=== PATIENT | male | born 1960 | race Caucasian/White ===

== ENCOUNTER 2016-12-11 04:20 | Inpatient (IN) ==
[2016-12-11 04:39] LABS: Basophils % 0.4 %; Eosinophils % 0.1 %; Hematocrit 51.1 % (37.5-50.1); Hemoglobin 17.5 g/dL (12.9-16.9); Immature Granulocytes % 0.2 % (0-4); Immature Platelets 15.1 % (1.1-6.1); Lymphocytes % 12.1 %; Mean Corpuscular HGB Conc 34.2 g/dL (31.6-35.5); Mean Corpuscular Hemoglobin 31.8 pg (28.0-33.3); Mean Corpuscular Volume 92.7 fL (83.0-100.0); Mean Platelet Volume 11.9 fL (9.4-12.4); Monocytes # 0.9 K/mcL (0.0-1.3); Monocytes % 10.7 %; Red Blood Count 5.51 M/mcL (4.19-5.50); Red Cell Distribution Width 13.3 % (11.5-14.5); Segmented Neutrophils % 76.5 %
[2016-12-11 04:40] LABS: Neutrophils # 6.4 K/mcL (1.6-8.9); Platelet Count 82 K/mcL (140-400)
[2016-12-11] MEDS ORDERED: Ipratropium/Albuterol Neb 3 ML IH ONE (04:47)
[2016-12-11] MEDS ORDERED: methylPREDNISolone 125 MG/2 ML VIAL IVP ONE (04:47)
[2016-12-11 04:48] LABS: INR 1.1; Prothrombin Time 12.3 Seconds (9.4-12.1)
[2016-12-11 04:50] LABS: Activated Partial Thrombo Time 34.8 Seconds (26.0-36.0)
[2016-12-11] MEDS ORDERED: Thiamine (B-1) 100 MG in D5% in Water 50 ML IVPB STA (04:50)
[2016-12-11] MEDS ORDERED: MVI, adult with vitamin K 10 ML in 0.9 % Sodium Chloride 1,000 ML IVC ONE (04:50)
[2016-12-11] MEDS ORDERED: *HR* LORazepam 2 MG/ML VIAL IVP ONE ×2 (04:50→08:56)
[2016-12-11] MEDS ORDERED: Folic Acid 1 MG in D5% in Water 50 ML IVPB STA (04:50)
[2016-12-11] MEDS ORDERED: Aspirin 81 MG TAB.CHEW PO ONE (04:52)
--- NOTE | 2016-12-11 04:55 | Emergency Department Note ---
Disposition Clinical Impression: Alcohol withdrawal Qualifiers: Complication of substance-induced condition: with unspecified complication Qualified Code(s): F10.239 - Afib Qualifiers: Atrial fibrillation type: unspecified Qualified Code(s): I48.91 - Unspecified atrial fibrillation Disposition: Admitted As Inpatient Condition: Good Chest Pain HPI - General Chief Complaint: ED Chest Pain Stated Complaint: chest pain Time Seen by Provider: 12/11/16 04:23 Source: patient Limitations: no limitations Vital Signs Reviewed: Yes Nursing Notes Reviewed: Yes - History of Present Illness HPI Narrative: 56 year old male with HX of chronic alcoholism and atrial fibrillation from over 10 years ago states that kade aroun 2250 he started to feel palpitatiosn and increased midsternal chest pain associated with incresed shortness of breath and diaphoresis. he states that he has had a productive cough over the past few days and subjecive fevers with faituge and weakness. Patinet states that he has a history of high blood pressure and early family history of OR. Patinet states that he is not on medications for atrial fibrillaation at this time and not on blood thinner eithers. No previous ACS history and no HX of DVT/PEs. Severity scale (1-10): 10 - Related Data Home Medications Medication Instructions Recorded Confirmed Diclofenac Sodium [Voltaren] 75 mg PO BID 12/11/16 12/11/16 Terbinafine HCl [Lamisil] 250 mg PO DAILY 12/11/16 12/11/16 Previous Rx's Medication Instructions Recorded Omeprazole [PriLOSEC] 20 mg PO DAILY #30 cap 10/24/16 Allergies Allergy/AdvReac Type Severity Reaction Status Date / Time haloperidol [From Haldol] AdvReac Seizure Verified 12/11/16 06:22 Constitutional: Reports: fever, chills, weakness. Denies: weight change Eyes: Denies: eye pain, eye discharge, vision change ENT ED: Denies: ear pain, throat pain, dental pain, hearing loss, epistaxis, congestion, dysphagia Cardiovascular: Reports: chest pain, palpitations, dyspnea on exertion. Denies : edema, syncope Respiratory: Reports: cough, dyspnea, wheezes. Denies: hemoptysis, stridor Gastrointestinal: Denies: abdominal pain, nausea, vomiting, diarrhea, constipation, hematemesis, melena, hematochezia Genitourinary: Denies: urgency, dysuria, frequency, hematuria Musculoskeletal: Denies: back pain, neck pain, arthralgia, myalgia Integumentary: Denies: rash, abrasion, lesions Neurological: Denies: headache, weakness, numbness, paresthesias, confusion, abnormal gait, vertigo Psychiatric: Denies: anxiety, depression, suicidal thoughts, homicidal thoughts , auditory hallucinations, visual hallucinations Endocrine: Denies: fatigue Hematological/Lymphatic: Denies: easy bleeding, easy bruising Allergic/Immunologic: Denies: facial swelling, urticaria Chest Pain PMH - Past Medical History Medical history: Reports: cirrhosis, GERD, hepatitis, hypertension, other Surgical history: Reports: cataract (right 2016) Psychiatric history: Reports: anxiety, depression - Social History Smoking Status: Current every day smoker Alcohol use: Reports: heavy, recent Drug use: Reports: none Physical Exam - General Limitations: no limitations General appearance: alert, in no apparent distress - Head Head exam: atraumatic, normocephalic, normal inspection - Eye Eye exam: Present: normal appearance, PERRL, EOMI - Expanded Eye Exam Pupils: Left: reactive - ENT ENT exam: normal exam, normal oropharynx, mucous membranes moist - Expanded ENT Exam External ear exam: Present: normal external inspection Mouth exam: Present: normal external inspection Teeth exam: Present: normal inspection Throat exam: Present: normal inspection - Neck Neck exam: Present: normal inspection, full ROM, trachea midline - Chest Chest inspection: Present: normal inspection, symmetric chest wall rise - Respiratory Respiratory exam: Present: wheezes - Cardiovascular Cardiovascular exam: Present: normal rhythm, tachycardia, irregular rhythm, normal heart sounds - Abdominal Exam Abdominal exam: Present: soft, Non-Tender. Absent: tenderness, distention, guarding, rebound, rigidity - Extremities Exam Extremities exam: Present: normal inspection, full ROM. Absent: tenderness, pedal edema - Expanded Upper Extremity Exam Shoulder exam: Present: normal inspection, full ROM Arm exam: Present: normal inspection, full ROM Elbow exam: Present: normal inspection, full ROM Forearm/Wrist exam: Present: normal inspection, full ROM Hand exam: Present: normal inspection, full ROM Vascular exam: Normal: capillary refill, radial pulse - Expanded Lower Extremity Exam Hip/Pelvis exam: Present: normal inspection, full ROM Upper leg exam: Present: normal inspection, full ROM Knee exam: Present: normal inspection, full ROM Lower leg exam: Present: normal inspection, full ROM Ankle exam: Present: normal inspection, full ROM Foot/toe exam: Present: normal inspection, full ROM Neurovascular/Tendon exam: Absent: motor deficit, sensory deficit, tendon deficit - Back Exam Back exam: Present: normal inspection, full ROM. Absent: tenderness - Neurological Exam Neurological exam: Present: alert, oriented X3 - Expanded Neurological Exam Patient oriented to: Present: person, place, time Coma Scale Eye Opening: Spontaneous Coma Scale Motor Response: Obeys Commands Coma Scale Verbal Response: Oriented Coma Scale Total: 15 - Psychiatric Psychiatric exam: Present: normal affect, normal mood - Skin Skin exam: Present: warm, dry, intact, normal color Course Course Narrative: we will do a cardaic workup and start cadizem with drip and admit to medicine. Patient has a tangential history of how he most recently stoppped an antifungal medications for severe atheletes foot that he has onteh let toes. They do not appear necoritc, or cellulitic or incresed drainage. Denies history fo diabetes. Vital Signs Temperature 98.2 F 12/11/16 04:21 Pulse Rate 127 12/11/16 04:21 Respiratory Rate 20 12/11/16 04:21 Blood Pressure 121/100 12/11/16 04:21 O2 Sat by Pulse Oximetry 92 12/11/16 04:21 Temperature 98.2 F 12/12/16 07:12 Pulse Rate 52 12/12/16 12:59 Respiratory Rate 35 12/12/16 07:12 Blood Pressure 106/85 12/12/16 07:12 O2 Sat by Pulse Oximetry 89 12/12/16 07:12 Oxygen Delivery Oxygen Delivery Nasal Cannula Chest Pain - Medical Records Medical records reviewed: Yes I reviewed the patient's medical records. - Lab Data Lab results reviewed: Yes I reviewed the patient's lab results. Result diagrams: 12/12/16 13:03 12/12/16 13:03 Lab Results 12/11/16 12/11/16 12/11/16 Range/Units 04:29 04:29 04:29 WBC 8.3 (4.3-11.1) K/mcL RBC 5.51 H (4.19-5.50) M/mcL Hgb 17.5 H (12.9-16.9) g/dL Hct 51.1 H (37.5-50.1) % MCV 92.7 (83.0-100.0) fL MCH 31.8 (28.0-33.3) pg MCHC 34.2 (31.6-35.5) g/dL RDW 13.3 (11.5-14.5) % Plt Count 82 L (140-400) K/mcL MPV 11.9 (9.4-12.4) fL Immature Gran % 0.2 (0-4) % Seg Neutrophils % 76.5 % Lymphocytes % 12.1 % Monocytes % 10.7 % Eosinophils % 0.1 % Basophils % 0.4 % Neutrophils # 6.4 (1.6-8.9) K/mcL Lymphocytes # 1.0 (0.6-4.6) K/mcL Monocytes # 0.9 (0.0-1.3) K/mcL Eosinophils # 0.0 (0.0-0.6) K/mcL Basophils # 0.0 (0.0-0.2) K/mcL Immature Plt Fraction 15.1 H (1.1-6.1) % PT 12.3 H (9.4-12.1) Seconds INR 1.1 APTT 34.8 (26.0-36.0) Seconds Sodium (136-145) mEq/L Potassium (3.5-4.5) mEq/L Chloride (98-109) mEq/L Carbon Dioxide (19-29) mEq/L BUN (8-26) mg/dL Creatinine (0.72-1.25) mg/dL Est GFR ( Amer) (> 60) Est GFR (Non-Af Amer) (> 60) BUN/Creatinine Ratio (6-26) Glucose (70-99) mg/dL Est Mean Plasma Glucose 123 mg/dl Hemoglobin A1c 5.9 H ( - 5.6) % Calculated Osmolality (280-300) Lactic Acid (0.5-2.2) mmol/L Calcium (8.6-10.8) mg/dL Magnesium (1.6-2.6) mg/dL Total Bilirubin (0.2-1.2) mg/dL Direct Bilirubin (0.0-0.5) mg/dL Indirect Bilirubin (0.0-1.2) mg/dL AST (5-34) Units/L ALT (0-55) Units/L Alkaline Phosphatase (38-126) Units/L Troponin I (0-0.03) ng/mL Serum Total Protein (6.0-8.3) g/dL Albumin (3.5-5.0) g/dL Globulin (2.4-3.5) g/dL Albumin/Globulin Ratio (1.1-2.2) Lipase (8-78) Units/L TSH (0.350-4.840) mcIU/mL Urine Color (Yellow) Urine Clarity (Clear) Urine pH (5.0-8.0) pH Units Ur Specific [place] (1.010-1.025) Urine Protein (Neg-Trace) mg/dL Urine Glucose (UA) (Normal) mg/dL Urine Ketones (Negative) mg/dL Urine Blood (Negative) Urine Nitrite (Negative) Urine Bilirubin (Negative) Urine Urobilinogen (Normal) mg/dL Ur Leukocyte Esterase (Negative) Urine Microscopic RBC (0-3) per hpf Urine Microscopic WBC (0-3) per hpf Ur Squamous Epith Cells (None-Few) per lpf Urine Bacteria (None-Few) per hpf Hyaline Casts (None-Few) per lpf Ur Culture Indicated? (NO) Urine Opiates Screen (Iwsrxw=540) ng/mL Ur Barbiturates Screen (Tbjbgi=376) ng/mL Ur Phencyclidine Scrn (Cutoff=25) ng/mL Ur Amphetamines Screen (Uegkjp=6867) ng/mL U Benzodiazepines Scrn (Fcfdyy=665) ng/mL Urine Cocaine Screen (Cutoff= 300) ng/mL U Marijuana (THC) Screen (Cutoff = 50) ng/mL Ethyl Alcohol (0-10) mg/dL 12/11/16 12/11/16 12/11/16 Range/Units 05:05 05:05 05:05 WBC (4.3-11.1) K/mcL RBC (4.19-5.50) M/mcL Hgb (12.9-16.9) g/dL Hct (37.5-50.1) % MCV (83.0-100.0) fL MCH (28.0-33.3) pg MCHC (31.6-35.5) g/dL RDW (11.5-14.5) % Plt Count (140-400) K/mcL MPV (9.4-12.4) fL Immature Gran % (0-4) % Seg Neutrophils % % Lymphocytes % % Monocytes % % Eosinophils % % Basophils % % Neutrophils # (1.6-8.9) K/mcL Lymphocytes # (0.6-4.6) K/mcL Monocytes # (0.0-1.3) K/mcL Eosinophils # (0.0-0.6) K/mcL Basophils # (0.0-0.2) K/mcL Immature Plt Fraction (1.1-6.1) % PT (9.4-12.1) Seconds INR APTT (26.0-36.0) Seconds Sodium 134 L (136-145) mEq/L Potassium 3.6 (3.5-4.5) mEq/L Chloride 102 (98-109) mEq/L Carbon Dioxide 19 (19-29) mEq/L BUN 5 L (8-26) mg/dL Creatinine 0.69 L (0.72-1.25) mg/dL Est GFR ( Amer) > 60 (> 60) Est GFR (Non-Af Amer) > 60 (> 60) BUN/Creatinine Ratio 7 (6-26) Glucose 154 H (70-99) mg/dL Est Mean Plasma Glucose mg/dl Hemoglobin A1c ( - 5.6) % Calculated Osmolality 278 L (280-300) Lactic Acid 1.6 (0.5-2.2) mmol/L Calcium 9.4 (8.6-10.8) mg/dL Magnesium 0.9 L (1.6-2.6) mg/dL Total Bilirubin 2.0 H (0.2-1.2) mg/dL Direct Bilirubin 1.1 H (0.0-0.5) mg/dL Indirect Bilirubin 0.9 (0.0-1.2) mg/dL AST 144 H (5-34) Units/L ALT 63 H (0-55) Units/L Alkaline Phosphatase 94 (38-126) Units/L Troponin I 0.03 (0-0.03) ng/mL Serum Total Protein 8.7 H (6.0-8.3) g/dL Albumin 3.0 L (3.5-5.0) g/dL Globulin 5.7 H (2.4-3.5) g/dL Albumin/Globulin Ratio 0.5 L (1.1-2.2) Lipase 30 (8-78) Units/L TSH 1.414 (0.350-4.840) mcIU/mL Urine Color (Yellow) Urine Clarity (Clear) Urine pH (5.0-8.0) pH Units Ur Specific [place] (1.010-1.025) Urine Protein (Neg-Trace) mg/dL Urine Glucose (UA) (Normal) mg/dL Urine Ketones (Negative) mg/dL Urine Blood (Negative) Urine Nitrite (Negative) Urine Bilirubin (Negative) Urine Urobilinogen (Normal) mg/dL Ur Leukocyte Esterase (Negative) Urine Microscopic RBC (0-3) per hpf Urine Microscopic WBC (0-3) per hpf Ur Squamous Epith Cells (None-Few) per lpf Urine Bacteria (None-Few) per hpf Hyaline Casts (None-Few) per lpf Ur Culture Indicated? (NO) Urine Opiates Screen (Rdhzjr=134) ng/mL Ur Barbiturates Screen (Znbxem=132) ng/mL Ur Phencyclidine Scrn (Cutoff=25) ng/mL Ur Amphetamines Screen (Xfpamu=8410) ng/mL U Benzodiazepines Scrn (Sivtly=394) ng/mL Urine Cocaine Screen (Cutoff= 300) ng/mL U Marijuana (THC) Screen (Cutoff = 50) ng/mL Ethyl Alcohol (0-10) mg/dL 12/11/16 12/11/16 12/11/16 Range/Units 06:10 06:10 10:55 WBC (4.3-11.1) K/mcL RBC (4.19-5.50) M/mcL Hgb (12.9-16.9) g/dL Hct (37.5-50.1) % MCV (83.0-100.0) fL MCH (28.0-33.3) pg MCHC (31.6-35.5) g/dL RDW (11.5-14.5) % Plt Count (140-400) K/mcL MPV (9.4-12.4) fL Immature Gran % (0-4) % Seg Neutrophils % % Lymphocytes % % Monocytes % % Eosinophils % % Basophils % % Neutrophils # (1.6-8.9) K/mcL Lymphocytes # (0.6-4.6) K/mcL Monocytes # (0.0-1.3) K/mcL Eosinophils # (0.0-0.6) K/mcL Basophils # (0.0-0.2) K/mcL Immature Plt Fraction (1.1-6.1) % PT (9.4-12.1) Seconds INR APTT (26.0-36.0) Seconds Sodium (136-145) mEq/L Potassium (3.5-4.5) mEq/L Chloride (98-109) mEq/L Carbon Dioxide (19-29) mEq/L BUN (8-26) mg/dL Creatinine (0.72-1.25) mg/dL Est GFR ( Amer) (> 60) Est GFR (Non-Af Amer) (> 60) BUN/Creatinine Ratio (6-26) Glucose (70-99) mg/dL Est Mean Plasma Glucose mg/dl Hemoglobin A1c ( - 5.6) % Calculated Osmolality (280-300) Lactic Acid (0.5-2.2) mmol/L Calcium (8.6-10.8) mg/dL Magnesium (1.6-2.6) mg/dL Total Bilirubin (0.2-1.2) mg/dL Direct Bilirubin (0.0-0.5) mg/dL Indirect Bilirubin (0.0-1.2) mg/dL AST (5-34) Units/L ALT (0-55) Units/L Alkaline Phosphatase (38-126) Units/L Troponin I 0.03 (0-0.03) ng/mL Serum Total Protein (6.0-8.3) g/dL Albumin (3.5-5.0) g/dL Globulin (2.4-3.5) g/dL Albumin/Globulin Ratio (1.1-2.2) Lipase (8-78) Units/L TSH (0.350-4.840) mcIU/mL Urine Color Dark Yellow (Yellow) Urine Clarity Clear (Clear) Urine pH 6.5 (5.0-8.0) pH Units Ur Specific [place] 1.022 (1.010-1.025) Urine Protein 30 H (Neg-Trace) mg/dL Urine Glucose (UA) Normal (Normal) mg/dL Urine Ketones Negative (Negative) mg/dL Urine Blood Trace H (Negative) Urine Nitrite Negative (Negative) Urine Bilirubin Negative (Negative) Urine Urobilinogen 2.0 H (Normal) mg/dL Ur Leukocyte Esterase Negative (Negative) Urine Microscopic RBC 0-3 (0-3) per hpf Urine Microscopic WBC 0-3 (0-3) per hpf Ur Squamous Epith Cells Few (None-Few) per lpf Urine Bacteria None Seen (None-Few) per hpf Hyaline Casts None Seen (None-Few) per lpf Ur Culture Indicated? NO (NO) Urine Opiates Screen Negative (Noxsfv=973) ng/mL Ur Barbiturates Screen Negative (Wrivrz=271) ng/mL Ur Phencyclidine Scrn Negative (Cutoff=25) ng/mL Ur Amphetamines Screen Negative (Duzxrj=1816) ng/mL U Benzodiazepines Scrn Negative (Bqbodw=404) ng/mL Urine Cocaine Screen Negative (Cutoff= 300) ng/mL U Marijuana (THC) Screen Negative (Cutoff = 50) ng/mL Ethyl Alcohol (0-10) mg/dL 12/11/16 Range/Units 10:55 WBC (4.3-11.1) K/mcL RBC (4.19-5.50) M/mcL Hgb (12.9-16.9) g/dL Hct (37.5-50.1) % MCV (83.0-100.0) fL MCH (28.0-33.3) pg MCHC (31.6-35.5) g/dL RDW (11.5-14.5) % Plt Count (140-400) K/mcL MPV (9.4-12.4) fL Immature Gran % (0-4) % Seg Neutrophils % % Lymphocytes % % Monocytes % % Eosinophils % % Basophils % % Neutrophils # (1.6-8.9) K/mcL Lymphocytes # (0.6-4.6) K/mcL Monocytes # (0.0-1.3) K/mcL Eosinophils # (0.0-0.6) K/mcL Basophils # (0.0-0.2) K/mcL Immature Plt Fraction (1.1-6.1) % PT (9.4-12.1) Seconds INR APTT (26.0-36.0) Seconds Sodium (136-145) mEq/L Potassium (3.5-4.5) mEq/L Chloride (98-109) mEq/L Carbon Dioxide (19-29) mEq/L BUN (8-26) mg/dL Creatinine (0.72-1.25) mg/dL Est GFR ( Amer) (> 60) Est GFR (Non-Af Amer) (> 60) BUN/Creatinine Ratio (6-26) Glucose (70-99) mg/dL Est Mean Plasma Glucose mg/dl Hemoglobin A1c ( - 5.6) % Calculated Osmolality (280-300) Lactic Acid (0.5-2.2) mmol/L Calcium (8.6-10.8) mg/dL Magnesium (1.6-2.6) mg/dL Total Bilirubin (0.2-1.2) mg/dL Direct Bilirubin (0.0-0.5) mg/dL Indirect Bilirubin (0.0-1.2) mg/dL AST (5-34) Units/L ALT (0-55) Units/L Alkaline Phosphatase (38-126) Units/L Troponin I (0-0.03) ng/mL Serum Total Protein (6.0-8.3) g/dL Albumin (3.5-5.0) g/dL Globulin (2.4-3.5) g/dL Albumin/Globulin Ratio (1.1-2.2) Lipase (8-78) Units/L TSH (0.350-4.840) mcIU/mL Urine Color (Yellow) Urine Clarity (Clear) Urine pH (5.0-8.0) pH Units Ur Specific [place] (1.010-1.025) Urine Protein (Neg-Trace) mg/dL Urine Glucose (UA) (Normal) mg/dL Urine Ketones (Negative) mg/dL Urine Blood (Negative) Urine Nitrite (Negative) Urine Bilirubin (Negative) Urine Urobilinogen (Normal) mg/dL Ur Leukocyte Esterase (Negative) Urine Microscopic RBC (0-3) per hpf Urine Microscopic WBC (0-3) per hpf Ur Squamous Epith Cells (None-Few) per lpf Urine Bacteria (None-Few) per hpf Hyaline Casts (None-Few) per lpf Ur Culture Indicated? (NO) Urine Opiates Screen (Gqjumw=964) ng/mL Ur Barbiturates Screen (Qqymxd=447) ng/mL Ur Phencyclidine Scrn (Cutoff=25) ng/mL Ur Amphetamines Screen (Sjesqb=5300) ng/mL U Benzodiazepines Scrn (Ysiipy=483) ng/mL Urine Cocaine Screen (Cutoff= 300) ng/mL U Marijuana (THC) Screen (Cutoff = 50) ng/mL Ethyl Alcohol < 10 (0-10) mg/dL - Radiology Data Radiology results reviewed: Yes I reviewed the patient's radiology results. - EKG Data EKG attestation: Yes I reviewed and interpreted this EKG. EKG results narrative: atrail fibrillation with rate of 148. NO STEMI. no old ekg. 0423 Heart Score - Score History: Slightly Suspicious EKG: Normal Age: 45-65 Risk Factors: 1-2 risk factors Troponin: Less than normal limit HEART Score Total: 2
[2016-12-11] MEDS ORDERED: FOLIC ACID IVC ONE (05:00)
[2016-12-11] MEDS ORDERED: THIAMINE IVC ONE (05:00)
[2016-12-11] MEDS ORDERED: VITAMIN K IVC ONE (05:00)
[2016-12-11] MEDS ORDERED: [UNRECOGNIZED DRUG - OTHER] IVC ONE (05:00)
[2016-12-11] MEDS ORDERED: MVI IVC ONE (05:00)
[2016-12-11 05:34] LABS: Alanine Aminotransferase 63 Units/L (0-55); Albumin/Globulin Ratio 0.5 (1.1-2.2); Alkaline Phosphatase 94 Units/L (38-126); Aspartate Amino Transferase 144 Units/L (5-34); BUN/Creatinine Ratio 7 (6-26); Bilirubin,Direct 1.1 mg/dL (0.0-0.5); Bilirubin,Indirect 0.9 mg/dL (0.0-1.2); Calcium 9.4 mg/dL (8.6-10.8); Carbon Dioxide 19 mEq/L (19-29); Chloride 102 mEq/L (98-109); Globulin 5.7 g/dL (2.4-3.5); Glucose 154 mg/dL (70-99); Lipase 30 Units/L (8-78); Osmolality,Calculated 278 (280-300); Potassium 3.6 mEq/L (3.5-4.5); Sodium 134 mEq/L (136-145); Total Protein 8.7 g/dL (6.0-8.3); eGFR For African Americans > 60 (> 60); eGFR For Non-African Americans > 60 (> 60)
[2016-12-11 05:38] LABS: Blood Urea Nitrogen 5 mg/dL (8-26)
[2016-12-11] MEDS ORDERED: *HR* FentaNYL (PF) 100 MCG/2 ML VIAL IVP ONE ×2 (05:43→08:57)
[2016-12-11] MEDS ORDERED: Amiodarone 150 MG in D5% in Water 100 ML IVPB ONE (05:43)
[2016-12-11] MEDS ORDERED: Amiodarone Premix 150 MG/100 ML BAG IVPB ONE (05:45)
[2016-12-11] MEDS ORDERED: Levofloxacin 750 MG/150 ML 750 MG/150 ML BAG IVPB ONE (06:02)
[2016-12-11 06:17] LABS: Bilirubin,Urine Negative (Negative); Blood,Urine Trace (Negative); Clarity,Urine Clear (Clear); Color,Urine Dark Yellow (Yellow); Glucose,Urine (UA) Normal (Normal); Ketones,Urine Negative (Negative); Leukocyte Esterase,Urine Negative (Negative); Nitrite,Urine Negative (Negative); PH,Urine 6.5 pH Units (5.0-8.0); Protein,Urine 30 mg/dL (Neg-Trace); Specific Gravity,Urine 1.022 (1.010-1.025)
[2016-12-11 06:20] LABS: Bacteria,Urine None Seen per hpf (None-Few); Hyaline Casts,Urine None Seen per lpf (None-Few); RBC,Urine 0-3 per hpf (0-3); Squamous Epithelial Cell,Urine Few per lpf (None-Few); WBC,Urine 0-3 per hpf (0-3)
[2016-12-11 06:21] LABS: Amphetamine Screen,Urine Negative ng/mL (Cutoff=1000); Barbiturate Screen,Urine Negative ng/mL (Cutoff=200); Benzodiazepines Screen,Urine Negative ng/mL (Cutoff=200); Cannabinoid Screen,Urine Negative ng/mL (Cutoff = 50); Cocaine Screen,Urine Negative ng/mL (Cutoff= 300); Opiate Screen,Urine Negative ng/mL (Cutoff=300); Phencyclidine Screen,Urine Negative ng/mL (Cutoff=25)
[2016-12-11] MEDS ORDERED: 0.9 % Sodium Chloride 1,000 ML IVC ONE (09:14)
[2016-12-11] MEDS ORDERED: Ondansetron 4 MG/2 ML VIAL IVP PRN (09:23)
[2016-12-11] MEDS ORDERED: Naloxone 0.4 MG/ML INJ IVP PRN (09:23)
[2016-12-11] MEDS ORDERED: *HR* Promethazine 25 MG/ML VIAL IVP PRN (09:23)
[2016-12-11] MEDS ORDERED: *HR* LORazepam 2 MG/ML VIAL IVP PRN (09:27)
--- NOTE | 2016-12-11 09:35 | Internal Med History&Physical ---
Date of Encounter: 12/11/16 Time of Encounter: 09:00 Assessment and Plan (1) Atrial fibrillation with RVR Current visit: Yes Status: Acute Will admit the pt into Tele His Afib with RVR due to Alcohol DT's Cont close monitoring Reviewed EKG upon admisison - he was in A fib with RVR He was given Cardizem bolus + Cardizem gtt Now he is on sinus tachycardia on monitor with HR in 120-140's Will cont cardizem gtt for now Aggressive IV hydration ASA for anticoag no other meds needed for anticoag due to his alcohol / substance abuse history and his CHADVASC 0 (2) Alcohol withdrawal Current visit: Yes Status: Acute He does seems to be in DT;s now will start him on CIWA protocol Aggressive IV hydration ativan PRN Will give him Librium 50mg Q6hr scheduled Already given Banana bag in ER will start him on PO Thiamine and Folic acid counseled to quit drinking If he gets valium for his anxiety then he will stop drinking will keep counseling him while he is in the hospital SW consulted Qualifiers: Qualified Code(s): F10.239 - Alcohol dependence with withdrawal, unspecified (3) Delirium tremens Current visit: Yes Status: Acute (4) Alcohol dependence Current visit: Yes Status: Acute elevated LFT's due to chronic alcohol dependence cont close monitoring Qualifiers: Substance use status: in withdrawal Qualified Code(s): F10.231 - Alcohol dependence with withdrawal delirium (5) Acute chest pain Current visit: Yes Status: Acute atypical CP cont on tele serial troponin so far no acute ST elevation or depression on EKG on ASA (6) Tobacco dependence Current visit: Yes Status: Acute counseled to quit on nicotine patch Internal Medicine - H&P: HPI Chief complaint: Palpitations and chest pain Admitted From: Emergency Dept Plans for Post Hospital Care: Home History of present illness: Mr. Wallace is a 56 year old male with known h/o paroxysmal afib as per pt ( had one episode 10yrs ago ), chronic alcohol dependence drinks 4-6 beers per day , chronic tobacco dependence and narcotic dependence pt presented to ER c/o since y/d he has been having palpitations and left chest wall pain radint to her rt shoulder and both sides of neck, sharp type pain, 8/10 in severity, continuous pain. Denied any nasuea or vomiting. Denied any GI / symptoms. He does c/o generalized whole body soreness and pain too. He does drink alcohol on daily basis, had his last alcohol y/d morning around 10 AM. He also mentioned he used to take Valium when he was in [place] few months ago, here in [place] nobody is giving him Valium, so he is drinking alcohol for his anxiety. When he first came to ER he was in A fib with RVR, he was placed on Cardizem gtt , now he is in sinus tachycardia. Past Med Surg Social Fam HX - Past Medical History Medical history: cirrhosis, GERD, hepatitis, hypertension, other Psychiatric history: anxiety, depression - Past Surgical History Surgical History: cataract (right 2016) - Social History Smoking Status: Current every day smoker Smokeless Tobacco Status: No Alcohol use: heavy, recent Drug use: none - Additional Family History Additional family history: Reviewed and no hreat problems in the family as per pt Internal Medicine - H&P: Meds Omeprazole [PriLOSEC] 20 mg PO DAILY #30 cap 10/24/16 [Rx] Diclofenac Sodium [Voltaren] 75 mg PO BID 12/11/16 [History] Terbinafine HCl [Lamisil] 250 mg PO DAILY 12/11/16 [History] 3 Allergy/AdvReac Type Severity Reaction Status Date / Time haloperidol [From Haldol] AdvReac Seizure Verified 12/11/16 06:22 All Systems PM: A 10-system review of systems was performed and is negative for pertinent findings except as documented above in the HPI. Review of systems: All the systems are reviewed everything is benign except the systems and symptoms I mentioned in the history of present illness - Constitutional Vitals: Temp Pulse Resp BP Pulse Ox 98.2 F 126 16 136/104 98 12/11/16 04:21 12/11/16 07:16 12/11/16 07:16 12/11/16 07:16 12/11/16 07:16 General appearance: Present: A&O X 3, no acute distress, answers questions appropriately Exam: looks slightly intoxicated - Head Head exam: Present: atraumatic, normal inspection - Neck Neck exam general surgery: Present: supple. Absent: thyromegaly - Respiratory Respiratory exam: Present: chest wall tenderness (anteriotrly), decreased breath sounds, wheezes (mild). Absent: respiratory distress, rhonchi - Cardiovascular Cardiovascular exam: Present: +S1, +S2, tachycardia. Absent: systolic murmur - GI/Abdominal GI/Abdominal exam: Present: normal bowel sounds, soft, no peritoneal signs. Absent: distended, tenderness - Extremities Exam Extremities exam: Absent: calf tenderness, pedal edema, tenderness - Back Exam Back exam: Absent: CVA tenderness (L), CVA tenderness (R) - Neurological Exam Neurological exam: Present: alert, oriented X3 - Psychiatric Psychiatric exam: Present: anxious Internal Med - H&P Results - Labs CBC & Chem 7: 12/11/16 04:29 12/11/16 05:05
[2016-12-11 09:38] LABS: Magnesium 0.9 mg/dL (1.6-2.6)
[2016-12-11 10:04] LABS: Thyroid Stimulating Hormone 1.414 mcIU/mL (0.350-4.840)
[2016-12-11] MEDS: *HR* Morphine 2 MG/ML SYRINGE IVP PRN ×3 (10:38→20:04)
[2016-12-11] MEDS: *HR* LORazepam 2 MG/ML VIAL IVP PRN ×5 (10:58→20:03)
[2016-12-11] MEDS: Nicotine 21 MG PATCH.TD24 TD SCH (11:35)
[2016-12-11] MEDS: *HR* HYDROcodone/Acet 5/325 mg TABLET PO PRN ×2 (11:39→16:08)
[2016-12-11] MEDS: Aspirin Enteric Coated 81 MG Tablet PO SCH (11:39)
[2016-12-11] MEDS: 0.9 % Sodium Chloride 1,000 ML IVC SCH ×2 (11:40→18:45)
--- NOTE | 2016-12-11 12:10 | Electrocardiograph Report ---
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
[2016-12-11] MEDS: Magnesium Sulfate 2 GM in D5% in Water 100 ML IVPB SCH ×2 (14:11→16:47)
[2016-12-11] MEDS ORDERED: Dextrose Gel 15 GM PO PRN ×2 (16:23)
[2016-12-11] MEDS ORDERED: D5% in Water 1,000 ML IVC PRN (16:23)
[2016-12-11] MEDS ORDERED: *HR* Dextrose 50 % in Water (Syg) 50 ML SYRINGE IVP PRN (16:23)
--- NOTE | 2016-12-11 16:50 | Emergency Department Note ---
Disposition Clinical Impression: Afib Qualifiers: Atrial fibrillation type: unspecified Qualified Code(s): I48.91 - Unspecified atrial fibrillation Alcohol withdrawal Qualifiers: Qualified Code(s): F10.239 - Disposition: Admitted As Inpatient Condition: Good Arrhythmia/Palpitations HPI - General Chief Complaint: ED Chest Pain Stated Complaint: chest pain Time Seen by Provider: 12/11/16 04:23 Source: patient Limitations: no limitations - Related Data Home Medications Medication Instructions Recorded Confirmed Diclofenac Sodium [Voltaren] 75 mg PO BID 12/11/16 12/11/16 Terbinafine HCl [Lamisil] 250 mg PO DAILY 12/11/16 12/11/16 Previous Rx's Medication Instructions Recorded Omeprazole [PriLOSEC] 20 mg PO DAILY #30 cap 10/24/16 Allergies Allergy/AdvReac Type Severity Reaction Status Date / Time haloperidol [From Haldol] AdvReac Seizure Verified 12/11/16 06:22 Constitutional: Reports: fever, chills, weakness. Denies: weight change Eyes: Denies: eye pain, eye discharge, vision change ENT ED: Denies: ear pain, throat pain, dental pain, hearing loss, epistaxis, congestion, dysphagia Cardiovascular: Reports: chest pain, palpitations, dyspnea on exertion. Denies : edema, syncope Respiratory: Reports: cough, dyspnea, wheezes. Denies: hemoptysis, stridor Gastrointestinal: Denies: abdominal pain, nausea, vomiting, diarrhea, constipation, hematemesis, melena, hematochezia Genitourinary: Denies: urgency, dysuria, frequency, hematuria Musculoskeletal: Denies: back pain, neck pain, arthralgia, myalgia Integumentary: Denies: rash, abrasion, lesions Neurological: Denies: headache, weakness, numbness, paresthesias, confusion, abnormal gait, vertigo Psychiatric: Denies: anxiety, depression, suicidal thoughts, homicidal thoughts , auditory hallucinations, visual hallucinations Endocrine: Denies: fatigue Hematological/Lymphatic: Denies: easy bleeding, easy bruising Allergic/Immunologic: Denies: facial swelling, urticaria Past Medical History - Past Medical History Medical history: Reports: cirrhosis, GERD, hepatitis, hypertension, other Surgical history: Reports: cataract Psychiatric history: Reports: anxiety, depression - Social History Smoking Status: Current every day smoker Smokeless Tobacco Status: No Alcohol use: Reports: heavy, recent Drug use: Reports: none Physical Exam - General Limitations: no limitations General appearance: alert, in no apparent distress Course Vital Signs Temperature 98.2 F 12/11/16 04:21 Pulse Rate 127 12/11/16 04:21 Respiratory Rate 20 12/11/16 04:21 Blood Pressure 121/100 12/11/16 04:21 O2 Sat by Pulse Oximetry 92 12/11/16 04:21 Temperature 98.2 F 12/11/16 04:21 Pulse Rate 153 12/11/16 14:31 Respiratory Rate 16 12/11/16 10:16 Blood Pressure 164/113 12/11/16 14:31 O2 Sat by Pulse Oximetry 90 12/11/16 11:33 Oxygen Delivery Oxygen Delivery Nasal Cannula Arrhythmia/Palpitations - MDM Narrative Medical decision making narrative: 56-year-old male received in sign out at the start of my shift pending admission to the hospital. Patient presented in acute onset atrial fibrillation with a rapid ventricular rate. Heart rate improved after administration of Ativan and diltiazem. Patient states that he did not drink as much alcohol that is usually used to drinking yesterday. This morning he woke with palpitations and chest pain and shortness of breath. Initial troponin negative. CTA of the chest did not show PE or acute infiltrate. Patient will be admitted to the hospital for further care and observation. - Medical Records Medical records reviewed: Yes I reviewed the patient's medical records. - Lab Data Lab results reviewed: Yes I reviewed the patient's lab results. Result diagrams: 12/11/16 04:29 12/11/16 05:05 Lab Results 12/11/16 12/11/16 12/11/16 Range/Units 04:29 04:29 05:05 WBC 8.3 (4.3-11.1) K/mcL RBC 5.51 H (4.19-5.50) M/mcL Hgb 17.5 H (12.9-16.9) g/dL Hct 51.1 H (37.5-50.1) % MCV 92.7 (83.0-100.0) fL MCH 31.8 (28.0-33.3) pg MCHC 34.2 (31.6-35.5) g/dL RDW 13.3 (11.5-14.5) % Plt Count 82 L (140-400) K/mcL MPV 11.9 (9.4-12.4) fL Immature Gran % 0.2 (0-4) % Seg Neutrophils % 76.5 % Lymphocytes % 12.1 % Monocytes % 10.7 % Eosinophils % 0.1 % Basophils % 0.4 % Neutrophils # 6.4 (1.6-8.9) K/mcL Lymphocytes # 1.0 (0.6-4.6) K/mcL Monocytes # 0.9 (0.0-1.3) K/mcL Eosinophils # 0.0 (0.0-0.6) K/mcL Basophils # 0.0 (0.0-0.2) K/mcL Immature Plt Fraction 15.1 H (1.1-6.1) % PT 12.3 H (9.4-12.1) Seconds INR 1.1 APTT 34.8 (26.0-36.0) Seconds Sodium (136-145) mEq/L Potassium (3.5-4.5) mEq/L Chloride (98-109) mEq/L Carbon Dioxide (19-29) mEq/L BUN (8-26) mg/dL Creatinine (0.72-1.25) mg/dL Est GFR ( Amer) (> 60) Est GFR (Non-Af Amer) (> 60) BUN/Creatinine Ratio (6-26) Glucose (70-99) mg/dL Calculated Osmolality (280-300) Lactic Acid (0.5-2.2) mmol/L Calcium (8.6-10.8) mg/dL Magnesium (1.6-2.6) mg/dL Total Bilirubin (0.2-1.2) mg/dL Direct Bilirubin (0.0-0.5) mg/dL Indirect Bilirubin (0.0-1.2) mg/dL AST (5-34) Units/L ALT (0-55) Units/L Alkaline Phosphatase (38-126) Units/L Troponin I 0.03 (0-0.03) ng/mL Serum Total Protein (6.0-8.3) g/dL Albumin (3.5-5.0) g/dL Globulin (2.4-3.5) g/dL Albumin/Globulin Ratio (1.1-2.2) Lipase (8-78) Units/L TSH (0.350-4.840) mcIU/mL Urine Color (Yellow) Urine Clarity (Clear) Urine pH (5.0-8.0) pH Units Ur Specific [place] (1.010-1.025) Urine Protein (Neg-Trace) mg/dL Urine Glucose (UA) (Normal) mg/dL Urine Ketones (Negative) mg/dL Urine Blood (Negative) Urine Nitrite (Negative) Urine Bilirubin (Negative) Urine Urobilinogen (Normal) mg/dL Ur Leukocyte Esterase (Negative) Urine Microscopic RBC (0-3) per hpf Urine Microscopic WBC (0-3) per hpf Ur Squamous Epith Cells (None-Few) per lpf Urine Bacteria (None-Few) per hpf Hyaline Casts (None-Few) per lpf Ur Culture Indicated? (NO) Urine Opiates Screen (Qjdiox=506) ng/mL Ur Barbiturates Screen (Dlboxn=257) ng/mL Ur Phencyclidine Scrn (Cutoff=25) ng/mL Ur Amphetamines Screen (Ggtoxv=3753) ng/mL U Benzodiazepines Scrn (Fujlpn=556) ng/mL Urine Cocaine Screen (Cutoff= 300) ng/mL U Marijuana (THC) Screen (Cutoff = 50) ng/mL Ethyl Alcohol (0-10) mg/dL 12/11/16 12/11/16 12/11/16 Range/Units 05:05 05:05 06:10 WBC (4.3-11.1) K/mcL RBC (4.19-5.50) M/mcL Hgb (12.9-16.9) g/dL Hct (37.5-50.1) % MCV (83.0-100.0) fL MCH (28.0-33.3) pg MCHC (31.6-35.5) g/dL RDW (11.5-14.5) % Plt Count (140-400) K/mcL MPV (9.4-12.4) fL Immature Gran % (0-4) % Seg Neutrophils % % Lymphocytes % % Monocytes % % Eosinophils % % Basophils % % Neutrophils # (1.6-8.9) K/mcL Lymphocytes # (0.6-4.6) K/mcL Monocytes # (0.0-1.3) K/mcL Eosinophils # (0.0-0.6) K/mcL Basophils # (0.0-0.2) K/mcL Immature Plt Fraction (1.1-6.1) % PT (9.4-12.1) Seconds INR APTT (26.0-36.0) Seconds Sodium 134 L (136-145) mEq/L Potassium 3.6 (3.5-4.5) mEq/L Chloride 102 (98-109) mEq/L Carbon Dioxide 19 (19-29) mEq/L BUN 5 L (8-26) mg/dL Creatinine 0.69 L (0.72-1.25) mg/dL Est GFR ( Amer) > 60 (> 60) Est GFR (Non-Af Amer) > 60 (> 60) BUN/Creatinine Ratio 7 (6-26) Glucose 154 H (70-99) mg/dL Calculated Osmolality 278 L (280-300) Lactic Acid 1.6 (0.5-2.2) mmol/L Calcium 9.4 (8.6-10.8) mg/dL Magnesium 0.9 L (1.6-2.6) mg/dL Total Bilirubin 2.0 H (0.2-1.2) mg/dL Direct Bilirubin 1.1 H (0.0-0.5) mg/dL Indirect Bilirubin 0.9 (0.0-1.2) mg/dL AST 144 H (5-34) Units/L ALT 63 H (0-55) Units/L Alkaline Phosphatase 94 (38-126) Units/L Troponin I (0-0.03) ng/mL Serum Total Protein 8.7 H (6.0-8.3) g/dL Albumin 3.0 L (3.5-5.0) g/dL Globulin 5.7 H (2.4-3.5) g/dL Albumin/Globulin Ratio 0.5 L (1.1-2.2) Lipase 30 (8-78) Units/L TSH 1.414 (0.350-4.840) mcIU/mL Urine Color Dark Yellow (Yellow) Urine Clarity Clear (Clear) Urine pH 6.5 (5.0-8.0) pH Units Ur Specific [place] 1.022 (1.010-1.025) Urine Protein 30 H (Neg-Trace) mg/dL Urine Glucose (UA) Normal (Normal) mg/dL Urine Ketones Negative (Negative) mg/dL Urine Blood Trace H (Negative) Urine Nitrite Negative (Negative) Urine Bilirubin Negative (Negative) Urine Urobilinogen 2.0 H (Normal) mg/dL Ur Leukocyte Esterase Negative (Negative) Urine Microscopic RBC 0-3 (0-3) per hpf Urine Microscopic WBC 0-3 (0-3) per hpf Ur Squamous Epith Cells Few (None-Few) per lpf Urine Bacteria None Seen (None-Few) per hpf Hyaline Casts None Seen (None-Few) per lpf Ur Culture Indicated? NO (NO) Urine Opiates Screen (Zacbtt=079) ng/mL Ur Barbiturates Screen (Zvyblk=934) ng/mL Ur Phencyclidine Scrn (Cutoff=25) ng/mL Ur Amphetamines Screen (Aavoyb=9110) ng/mL U Benzodiazepines Scrn (Rqrjjw=172) ng/mL Urine Cocaine Screen (Cutoff= 300) ng/mL U Marijuana (THC) Screen (Cutoff = 50) ng/mL Ethyl Alcohol (0-10) mg/dL 12/11/16 12/11/16 12/11/16 Range/Units 06:10 10:55 10:55 WBC (4.3-11.1) K/mcL RBC (4.19-5.50) M/mcL Hgb (12.9-16.9) g/dL Hct (37.5-50.1) % MCV (83.0-100.0) fL MCH (28.0-33.3) pg MCHC (31.6-35.5) g/dL RDW (11.5-14.5) % Plt Count (140-400) K/mcL MPV (9.4-12.4) fL Immature Gran % (0-4) % Seg Neutrophils % % Lymphocytes % % Monocytes % % Eosinophils % % Basophils % % Neutrophils # (1.6-8.9) K/mcL Lymphocytes # (0.6-4.6) K/mcL Monocytes # (0.0-1.3) K/mcL Eosinophils # (0.0-0.6) K/mcL Basophils # (0.0-0.2) K/mcL Immature Plt Fraction (1.1-6.1) % PT (9.4-12.1) Seconds INR APTT (26.0-36.0) Seconds Sodium (136-145) mEq/L Potassium (3.5-4.5) mEq/L Chloride (98-109) mEq/L Carbon Dioxide (19-29) mEq/L BUN (8-26) mg/dL Creatinine (0.72-1.25) mg/dL Est GFR ( Amer) (> 60) Est GFR (Non-Af Amer) (> 60) BUN/Creatinine Ratio (6-26) Glucose (70-99) mg/dL Calculated Osmolality (280-300) Lactic Acid (0.5-2.2) mmol/L Calcium (8.6-10.8) mg/dL Magnesium (1.6-2.6) mg/dL Total Bilirubin (0.2-1.2) mg/dL Direct Bilirubin (0.0-0.5) mg/dL Indirect Bilirubin (0.0-1.2) mg/dL AST (5-34) Units/L ALT (0-55) Units/L Alkaline Phosphatase (38-126) Units/L Troponin I 0.03 (0-0.03) ng/mL Serum Total Protein (6.0-8.3) g/dL Albumin (3.5-5.0) g/dL Globulin (2.4-3.5) g/dL Albumin/Globulin Ratio (1.1-2.2) Lipase (8-78) Units/L TSH (0.350-4.840) mcIU/mL Urine Color (Yellow) Urine Clarity (Clear) Urine pH (5.0-8.0) pH Units Ur Specific [place] (1.010-1.025) Urine Protein (Neg-Trace) mg/dL Urine Glucose (UA) (Normal) mg/dL Urine Ketones (Negative) mg/dL Urine Blood (Negative) Urine Nitrite (Negative) Urine Bilirubin (Negative) Urine Urobilinogen (Normal) mg/dL Ur Leukocyte Esterase (Negative) Urine Microscopic RBC (0-3) per hpf Urine Microscopic WBC (0-3) per hpf Ur Squamous Epith Cells (None-Few) per lpf Urine Bacteria (None-Few) per hpf Hyaline Casts (None-Few) per lpf Ur Culture Indicated? (NO) Urine Opiates Screen Negative (Aaosbk=689) ng/mL Ur Barbiturates Screen Negative (Jvxhbn=478) ng/mL Ur Phencyclidine Scrn Negative (Cutoff=25) ng/mL Ur Amphetamines Screen Negative (Unbuvj=0036) ng/mL U Benzodiazepines Scrn Negative (Okqenk=906) ng/mL Urine Cocaine Screen Negative (Cutoff= 300) ng/mL U Marijuana (THC) Screen Negative (Cutoff = 50) ng/mL Ethyl Alcohol < 10 (0-10) mg/dL - Radiology Data Radiology results reviewed: Yes I reviewed the patient's radiology results.
[2016-12-11] MEDS: Famotidine 20 MG/2 ML VIAL IVP SCH (17:54)
[2016-12-11] MEDS: Insulin LISPRO 300 UNITS/3 ML VIAL SQ SCH (17:54)
[2016-12-11 18:01] LABS: Hemoglobin A1C 5.9 %
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
[2016-12-12] MEDS: *HR* LORazepam 2 MG/ML VIAL IVP PRN ×3 (00:34→10:55)
[2016-12-12] MEDS: 0.9 % Sodium Chloride 1,000 ML IVC SCH ×2 (00:34→10:07)
[2016-12-12] MEDS: *HR* HYDROcodone/Acet 5/325 mg TABLET PO PRN ×2 (00:41→10:08)
[2016-12-12] MEDS: *HR* Morphine 2 MG/ML SYRINGE IVP PRN ×2 (03:30→12:49)
[2016-12-12 05:01] LABS: INR 1.2; Prothrombin Time 13.1 Seconds (9.4-12.1)
[2016-12-12 05:03] LABS: Basophils % 0.2 %; Immature Granulocytes % 0.6 % (0-4); Mean Corpuscular Volume 96.1 fL (83.0-100.0)
[2016-12-12 05:05] LABS: Hematocrit 47.3 % (37.5-50.1); Hemoglobin 15.2 g/dL (12.9-16.9); Immature Platelets 16.5 % (1.1-6.1); Lymphocytes # 0.9 K/mcL (0.6-4.6); Lymphocytes % 9.2 %; Mean Corpuscular HGB Conc 32.1 g/dL (31.6-35.5); Mean Corpuscular Hemoglobin 30.9 pg (28.0-33.3); Mean Platelet Volume 12.4 fL (9.4-12.4); Monocytes # 1.6 K/mcL (0.0-1.3); Monocytes % 15.4 %; Neutrophils # 7.6 K/mcL (1.6-8.9); Red Blood Count 4.92 M/mcL (4.19-5.50); Segmented Neutrophils % 74.6 %
[2016-12-12 05:09] LABS: Platelet Count 88 K/mcL (140-400)
[2016-12-12 05:12] LABS: Alanine Aminotransferase 46 Units/L (0-55); Albumin 2.8 g/dL (3.5-5.0); Albumin/Globulin Ratio 0.5 (1.1-2.2); Alkaline Phosphatase 65 Units/L (38-126); Aspartate Amino Transferase 78 Units/L (5-34); BUN/Creatinine Ratio 16 (6-26); Bilirubin,Total 2.4 mg/dL (0.2-1.2); Calcium 8.5 mg/dL (8.6-10.8); Carbon Dioxide 20 mEq/L (19-29); Chloride 105 mEq/L (98-109); Chol/HDL Ratio 2.7 (0-4.9); Cholesterol 136 mg/dL (< 200); Globulin 5.2 g/dL (2.4-3.5); Glucose 113 mg/dL (70-99); HDL Cholesterol 50 mg/dL (40-59); LDL Cholesterol,Calculated 72 mg/dL (0-99); Magnesium 1.6 mg/dL (1.6-2.6); Osmolality,Calculated 281 (280-300); Phosphorous 3.6 mg/dL (2.3-4.7); Potassium 4.5 mEq/L (3.5-4.5); Sodium 134 mEq/L (136-145); Triglycerides 69 mg/dL (< 150); eGFR For African Americans > 60 (> 60); eGFR For Non-African Americans > 60 (> 60)
[2016-12-12 05:14] LABS: Blood Urea Nitrogen 19 mg/dL (8-26)
[2016-12-12] MEDS ORDERED: *HR* Enoxaparin 40 MG/0.4 ML SYRINGE SQ SCH (06:00)
[2016-12-12] MEDS: Famotidine 20 MG/2 ML VIAL IVP SCH ×2 (06:48→16:46)
[2016-12-12] MEDS ORDERED: Thiamine (B-1) 100 MG TABLET PO SCH (09:00)
[2016-12-12] MEDS ORDERED: Folic Acid 1 MG TABLET PO SCH (09:00)
[2016-12-12] MEDS: Insulin LISPRO 300 UNITS/3 ML VIAL SQ SCH ×3 (10:04→17:57)
[2016-12-12] MEDS: Aspirin Enteric Coated 81 MG Tablet PO SCH (10:09)
[2016-12-12] MEDS: Nicotine 21 MG PATCH.TD24 TD SCH ×2 (10:09→10:13)
[2016-12-12] MEDS ORDERED: Metoprolol XL (24 HR) Succ 25 MG TAB.ER.24H PO SCH (12:30)
[2016-12-12] MEDS ORDERED: Metoprolol XL (24 HR) Succ 50 MG TAB.ER.24H PO ONE (12:30)
--- NOTE | 2016-12-12 12:37 | Cardiology Progress Note ---
Date of Encounter: 12/12/16 Time of Encounter: 12:30 Assessment and Plan (1) Atrial fibrillation with RVR Current Visit: Yes Status: Acute New onset atrial fibrillation with RVR. Unknown timing of onset. Likely secondary to ETOH abuse. Continue cardizem gtt. HR currently 60's on cardizem gtt and metoprolol tartrate. Change to toprol XL and increase to 75 mg daily. Stop cardizem. TTE LV systolic function appears severely reduced on this exam. However, exam is technically challenging and not all segments/views were well visualized. Recommend repeat limited study with Definity.Mildly dilated left ventricle. Indeterminate diastolic function. RV size is normal. Function may be moderately reduced. Mild aortic regurgitation. Mild tricuspid regurgitation. No pulmonary hypertension. IVC is not dilated but demonstrates lack of respiratory collapse. Repeat study with definity ordered. Concern for ETOH dilated CMP. Check BNP. C/o SOB. Positive 3400 ml. WIll give IV lasix. TSH normal. ETOH cessation recommended. Currently not a candidate for AC in the setting of ETOH abuse. Currently only a candidate for rate control. (2) Alcohol withdrawal Current Visit: Yes Status: Acute On ETOH withdrawl protocal. Qualifiers: Complication of substance-induced condition: with unspecified complication Qualified Code(s): F10.239 - Alcohol dependence with withdrawal, unspecified Discussion w patient/family: The assessment and plan as outlined above was discussed with the patient and/or family members who expressed understanding and agreement. All questions were answered. Thank you for involving us in the care of your patient. Please call with any questions. Subjective Principal diagnosis: CHF, afib, ETOH abuse Interval history: Mr. Wallace c/o SOB and left arm pain when I woke him from his sleep. Requesting pain medication. Noted to likely have sleep apnea. Objective Vital Signs Temp Pulse Resp BP Pulse Ox 12/12/16 08:20 85 12/12/16 07:12 98.2 F 71 35 106/85 89 12/12/16 06:18 112 88/80 12/12/16 05:00 114 95/69 12/12/16 04:00 104 92/66 12/12/16 03:31 97.8 F 129 25 105/81 90 12/12/16 03:00 123 105/81 12/12/16 01:00 116 90/73 12/12/16 00:23 97.0 F L 118 28 85/67 90 12/12/16 00:00 108 104/86 12/11/16 23:00 107 101/85 12/11/16 22:00 116 97/80 12/11/16 21:00 107 100/76 12/11/16 20:00 115 125/96 12/11/16 19:07 97.4 F L 108 24 117/89 95 12/11/16 19:00 71 117/95 12/11/16 17:56 101 97/74 12/11/16 16:03 109 110/91 12/11/16 15:29 140 126/95 12/11/16 14:31 153 164/113 12/11/16 14:15 140 141/105 12/11/16 13:30 140 136/106 12/11/16 13:13 120 139/106 Intake and Output 12/11/16 12/12/16 12/12/16 23:59 07:59 15:59 Intake Total 1229 / 1229 1125 / 1125 1045 / 1045 Output Total 200 / 200 100 / 100 Balance 1029 / 1029 1125 / 1125 945 / 945 Intake: IV Fluids 1229 / 1229 1125 / 1125 1015 / 1015 0.9 % Sodium Chloride 1,000 ML 1000 / 1000 1000 / 1000 1000 / 1000 @ 150 mls/hr IVC .[id number] [facility] Rx #:[id number] Cardizem 125 MG In Dextrose 5% 125 / 125 125 / 125 15 / 15 100 ML @ 10 MG/HR 10 mls/hr IVC .[id number] [facility] Rx#:[id number] Magnesium Sulfate 2 GM In 104 / 104 Dextrose 5% 100 ML @ 96.296 mls /hr IVPB Q1H [facility] Rx#:[id number] Oral 30 / 30 Output: Urine 200 / 200 100 / 100 Other: Weight 116.2 kg Blood Glucose* 282 128 133 Patient Weight 12/12/16 23:59 Weight 116.2 kg General: Conversant, No Apparent Distress, Other (Drowsy on my exam. Awakes easily) HEENT: Atraumatic, Normocephaly, Mucus Membranes Moist Neck: No JVD, Normal carotid pulses Cardiac: Other (Irregularly irregular.) Lungs: Normal Breath Sounds, No Wheeze, Rales, Rhonchi Neuro: Alert and responsive, No focal deficits noted Abdomen: Soft, Non-Tender, Other (Abdomen large round and distended) Skin: No rashes noted on visualized skin Musculoskeletal: No Chest Wall Tenderness Extremities: No Clubbing, No Cyanosis, No Edema, Normal Pulses Results 12/12/16 04:44 12/12/16 04:44 Lab Results 12/12/16 12/12/16 12/12/16 04:44 04:44 04:44 WBC 10.2 Hgb 15.2 D Hct 47.3 Plt Count 88 L INR 1.2 Sodium 134 L Potassium 4.5 Chloride 105 Carbon Dioxide 20 BUN 19 D Creatinine 1.17 D Glucose 113 H Calcium 8.5 L Magnesium 1.6 Total Bilirubin 2.4 H AST 78 H ALT 46 Alkaline Phosphatase 65 Chest X-Ray 12/11/16 04:23 IMPRESSION: Stable chest without focal airspace consolidation. D/ / Kimberli Cortes MD / Kimberli Cortes MD Interpreting Provider: Kimberli Cortes MD Chest CTA 12/11/16 04:25 IMPRESSION: 1. No evidence of pulmonary embolism or focal airspace consolidation. 2. Cirrhotic appearing liver as described. 3. Moderate-sized hiatal hernia. 4. Cardiomegaly. D/ / Kimberli Cortes MD / Kimberli Cortes MD Interpreting Provider: Kimberli Cortes MD Echocardiogram 12/12/16 07:00 Impressions: LV systolic function appears severely reduced on this exam. However, exam is technically challenging and not all segments/views were well visualized. Recommend repeat limited study with Definity. Mildly dilated left ventricle. Indeterminate diastolic function. RV size is normal. Function may be moderately reduced. Mild aortic regurgitation. Mild tricuspid regurgitation. No pulmonary hypertension. IVC is not dilated but demonstrates lack of respiratory collapse. - Imaging and Cardiology Echo: pending, report reviewed Consult Discharge Plan - Plan Referrals: Nolan Canseco DO [Resident] - 12/29/16 2:00 pm (THIS APPOINTMENT IS AT [address] [place] [address]. PLEASE TAKE YOUR NEW PATIENT PACKET THAT IS COMING IN THE MAIL, FILLED OUT WITH YOU TO YOUR APPOINTMENT. TAKE PICTURE ID, INSURANCE CARE, ALL MEDICATIONS IN THE BOTTLES. PLEASE ARRIVE 10MINS EARLY. IF YOU HAVE TO CANCEL PLEASE CALL [phone] WITHIN 24 HOURS OF YOUR APPOINTMENT.) NONE,PCP [Primary Care Provider] -
[2016-12-12] MEDS ORDERED: Ipratropium/Albuterol Neb 3 ML ONE ×2 (12:59→14:27)
[2016-12-12 13:14] LABS: ABG Base Excess -9.8 mEq/L (-2.0 to 3.0); ABG HCO3 16 mEq/L (21-27); ABG Oxygen Saturation 83 % (95-98); ABG PCO2 35 mmHg (35-45); ABG PH 7.27 pH Units (7.32-7.45); ABG PO2 55 mmHg (85-104); ABG TCO2 17 mEq/L (20-26); Blood Gas Liter Flow 8 L/MIN
[2016-12-12 13:15] LABS: Blood Gas FiO2 52 %; Blood Gas Modality vent
--- NOTE | 2016-12-12 13:15 | Internal Med Progress Note ---
Date of Encounter: 12/12/16 Time of Encounter: 13:10 - Assessment and plan (1) Acute respiratory distress Status: Acute Assessment and plan: He has cardiomegaly, significant wheezing on lung exam with poor inspiratory effort, DTs. Most likely related to cardiac etiology. Could be sepsis given new onset of leukocytosis and lactic acidosis and aspiration risk from etoh. we will empirically treat for sepsis and obtain blood cultures followed by broad- spectrum antibiotics. We will cycle troponins every 3 H 3. Aerosol treatment was given but symptoms did not improve. 1. Acute respiratory distress 2. Chest pain 3. DT 4. Afib RVT - poor anticoagulation candidate 5. Acute kidney injry 6. Lactic acidosis Plan: Start on Bipap Cycle troponin, morphine prn pain, may need bipap since not altered Nitro prn if BP tolerates, currently BP 103/70. Need to continue benzodiazepine treatment. Will contact ICU in regards to this possible transfer Renally dose all medications. May need Nephrology consult if no improvement. Emperic treatment for sepsis, follow-up BCz and give Zosyn/Rocephin, adjustment of abx at discretion of [employer]. Bolus IVF (2) Acute chest pain Status: Acute (3) Alcohol withdrawal Status: Acute Qualifiers: Complication of substance-induced condition: with unspecified complication Qualified Code(s): F10.239 - Alcohol dependence with withdrawal, unspecified (4) Atrial fibrillation with RVR Status: Acute (5) Delirium tremens Status: Acute (6) Tobacco dependence Status: Acute (7) Acute kidney injury Status: Acute (8) Lactic acidosis Status: Acute - Subjective Interval history: Patient had acute onset of shortness of breath with a dull chest/epigastric pain and difficult to localize. He was wheezing which is worse than his baseline. Denies history of COPD. He denied any nausea vomiting diaphoresis, tremors, diarrhea. Admits to palpitations. SCurrently on CIWA protocal scoring a 14 requiring Ativan per protocol. Does admit to using oral space narcotics as well. Possibly withdrawing from that versus DTs. Might have a COPD component involved with this that is undiagnosed. EKG was consistent with atrial fibrillation with heart rates in the 50s no changes in ST segments from prior EKG. Plan: Recycle cardiac enzymes, chest x-ray, ABGs, CBC/BMP lipase. - Constitutional Vitals: Temp Pulse Resp BP Pulse Ox 98.2 F 52 35 106/85 89 12/12/16 07:12 12/12/16 12:59 12/12/16 07:12 12/12/16 07:12 12/12/16 07:12 General appearance: Present: A&O X 3, no acute distress, answers questions appropriately Internal Medicine: Result - Labs CBC & Chem 7: 12/12/16 19:43 12/12/16 19:05 Labs: Short CBC 12/12/16 Range/Units 04:44 WBC 10.2 (4.3-11.1) K/mcL Hgb 15.2 D (12.9-16.9) g/dL Hct 47.3 (37.5-50.1) % Plt Count 88 L (140-400) K/mcL Neutrophils # 7.6 (1.6-8.9) K/mcL BMP 12/12/16 04:44 Sodium 134 L Potassium 4.5 Chloride 105 Carbon Dioxide 20 BUN 19 D Creatinine 1.17 D Glucose 113 H Calcium 8.5 L Liver Function 12/12/16 Range/Units 04:44 Total Bilirubin 2.4 H (0.2-1.2) mg/dL AST 78 H (5-34) Units/L ALT 46 (0-55) Units/L Alkaline Phosphatase 65 (38-126) Units/L Albumin 2.8 L (3.5-5.0) g/dL - ABG Interpretation ABG results: PT/INR, D-dimer PT 13.1 Seconds (9.4-12.1) H 12/12/16 04:44 - Impressions Impressions Echocardiogram 12/12/16 07:00 Impressions: LV systolic function appears severely reduced on this exam. However, exam is technically challenging and not all segments/views were well visualized. Recommend repeat limited study with Definity. Mildly dilated left ventricle. Indeterminate diastolic function. RV size is normal. Function may be moderately reduced. Mild aortic regurgitation. Mild tricuspid regurgitation. No pulmonary hypertension. IVC is not dilated but demonstrates lack of respiratory collapse. Left Ventricular Wall Motion: Rest Echo Findings The apex, apical inferior, mid inferior, basal inferior, apical anterior, mid anterior, basal anterior, apical septal, mid inferior septal, basal inferior septal, apical lateral, mid anterior lateral, basal anterior lateral, mid anterior septal, mid inferior lateral, basal anterior septal and basal inferior lateral love were hypokinetic. Findings: Study Quality * Technically challenging due to body habitus. ECG Findings * Atrial fibrillation. Left Ventricle * Mildly dilated left ventricle. * Indeterminate diastolic function. * LV systolic function appears severely reduced on this exam. However, not all segments/views were well visualized. Aorta * Normally sized aortic root. Aortic Valve * Mild aortic regurgitation. * Aortic valve not well visualized. * No aortic stenosis. Mitral Valve * Normal mitral valve structure. * No mitral stenosis. * Trace mitral regurgitation. Tricuspid Valve * Normal tricuspid valve structure. * Mild tricuspid regurgitation. * Estimated RA pressure is 8 mmHg. * Estimated RVSP is 27 mmHg. * No pulmonary hypertension. Pulmonic Valve * Pulmonic valve is not well visualized. * No pulmonic stenosis. * Trace pulmonic regurgitation. Pulmonary Artery * Pulmonary artery not well visualized. Right Ventricle * RV is normal in size. Function may be moderately reduced. Lat S Adán is reduced. Left Atrium * Normal left atrial size. Right Atrium * Normal right atrial size. Pericardium * There is no pericardial effusion present. Interatrial Septum * Interatrial septum not well evaluated. IVC * The IVC is not dilated. * < 50% respiratory change. Consult Discharge Plan - Plan Referrals: Nolan Canseco DO [Resident] - 12/29/16 2:00 pm (THIS APPOINTMENT IS AT [address] [place] [address]. PLEASE TAKE YOUR NEW PATIENT PACKET THAT IS COMING IN THE MAIL, FILLED OUT WITH YOU TO YOUR APPOINTMENT. TAKE PICTURE ID, INSURANCE CARE, ALL MEDICATIONS IN THE BOTTLES. PLEASE ARRIVE 10MINS EARLY. IF YOU HAVE TO CANCEL PLEASE CALL [phone] WITHIN 24 HOURS OF YOUR APPOINTMENT.) NONE,PCP [Primary Care Provider] -
[2016-12-12 13:20] LABS: Basophils % 0.3 %; Hematocrit 50.7 % (37.5-50.1); Hemoglobin 16.3 g/dL (12.9-16.9); Immature Granulocytes % 0.9 % (0-4); Lymphocytes # 1.5 K/mcL (0.6-4.6); Lymphocytes % 10.6 %; Mean Corpuscular HGB Conc 32.1 g/dL (31.6-35.5); Mean Corpuscular Hemoglobin 32.4 pg (28.0-33.3); Mean Corpuscular Volume 100.8 fL (83.0-100.0); Mean Platelet Volume 12.7 fL (9.4-12.4); Monocytes # 1.8 K/mcL (0.0-1.3); Monocytes % 12.4 %; Neutrophils # 10.8 K/mcL (1.6-8.9); Platelet Count 106 K/mcL (140-400); Red Blood Count 5.03 M/mcL (4.19-5.50); Red Cell Distribution Width 14.6 % (11.5-14.5); Segmented Neutrophils % 75.8 %
[2016-12-12 13:33] LABS: Amylase 60 Units/L (25-125); Calcium 8.7 mg/dL (8.6-10.8); Lipase 24 Units/L (8-78); Magnesium 1.9 mg/dL (1.6-2.6); Potassium 5.1 mEq/L (3.5-4.5)
[2016-12-12 13:34] LABS: Albumin 2.9 g/dL (3.5-5.0); Albumin/Globulin Ratio 0.5 (1.1-2.2); Bilirubin,Direct 1.6 mg/dL (0.0-0.5); Bilirubin,Indirect 1.2 mg/dL (0.0-1.2); Bilirubin,Total 2.8 mg/dL (0.2-1.2); Globulin 5.7 g/dL (2.4-3.5); Total Protein 8.6 g/dL (6.0-8.3)
[2016-12-12] MEDS ORDERED: 0.9 % Sodium Chloride 1,000 ML IVC ONE (13:34)
[2016-12-12] MEDS ORDERED: 0.9 % Sodium Chloride 1,000 ML ONE (13:44)
[2016-12-12] MEDS ORDERED: Furosemide 20 MG/2 ML VIAL IVP ONE (14:31)
[2016-12-12] MEDS: Furosemide 20 MG/2 ML VIAL IVP SCH ×2 (14:33→16:36)
--- NOTE | 2016-12-12 14:57 | Pulmonology Consult Note ---
<Jeison Lawton - Last Filed: 12/12/16 17:01> Date of Encounter: 12/12/16 Time of Encounter: 14:54 Assessment and Plan (1) Acute respiratory distress Current Visit: Yes Status: Acute Likely cardiac etiology in setting of AFib RVR but his ETOH withdrawal may be contributing as well Currently on BiPAP but still tachypneic and has increased work of breathing Will plan on intubation and transfer to ICU for close monitoring Support with breathing treatments (2) Atrial fibrillation with RVR Current Visit: Yes Status: Acute He is currently converted back to NSR after IV Cardizem and currently on BB CHADSVASC = 2 but HASBLED = 3; 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 Cardiology following, appreciate recommendations Echo performed 12/12 showed severely reduced LV function but he was in AFib at the time; recommended repeat with Definity (3) Acute kidney injury Current Visit: Yes Status: Acute Likely pre-renal in setting of AFib RVR and ETOH withdrawal Cr elevated to 2.14 this afternoon afer 1.17 this morning Continue to trend Cr and monitor electrolytes and avoid nephrotoxic agents (4) Lactic acidosis Current Visit: Yes Status: Acute Likely secondary to AFib RVR but cannot rule out sepsis He currently is on Zosyn and Rocephin - will switch out Rocephin for Vanc (5) Elevated troponin Current Visit: Yes Status: Acute Initial trops negative but labs collected today 0.17, will observe trend Likely secondary to AFib RVR Cardiology following, appreciate recommendations (6) Alcohol withdrawal Current Visit: Yes Status: Acute Currently on CIWA protocol Continue vitamin supplementation Qualifiers: Complication of substance-induced condition: with unspecified complication Qualified Code(s): F10.239 - Alcohol dependence with withdrawal, unspecified (7) Delirium tremens Current Visit: Yes Status: Acute CIWA as above History of Present Illness Consult date: 12/12/16 Requesting physician: Ezekiel Petersen Reason for consult: dyspnea Chief complaint: SOB History of present illness: Pt is a 56 M consulted by hospitalist for respiratory failure despite being on BiPAP. He was initially admitted with AFib RVR and ETOH withdrawal and was placed on Cardizem and CIWA protocol. He did convert to sinus rhythm and Cardizem was discontinued, however he became increasingly short of breath and was placed on a NIPPV. He also appeared somewhat confused due to his DTs from ETOH withdrawal. He continued to have increased work of breathing and the decision was made to intubate and transfer to ICU. I personally spoke to patient 's sister to confirm his code status and she re-iterated that she wanted everything done, as patient was confused at the time. Past Med Surg Social Fam HX - Past Medical History Medical history: cirrhosis, GERD, hepatitis, hypertension, other Psychiatric history: anxiety, depression - Past Surgical History Surgical History: cataract (right 2016) - Social History Smoking Status: Current every day smoker Smokeless Tobacco Status: No Alcohol use: heavy, recent Drug use: none - Family History Mother Cause of : CANCER Medications and Allergies Omeprazole [PriLOSEC] 20 mg PO DAILY #30 cap 10/24/16 [Rx] Diclofenac Sodium [Voltaren] 75 mg PO BID 12/11/16 [History] Terbinafine HCl [Lamisil] 250 mg PO DAILY 12/11/16 [History] 3 Allergy/AdvReac Type Severity Reaction Status Date / Time haloperidol [From Haldol] AdvReac Seizure Verified 12/11/16 06:22 ROS unobtainable: due to mental status All Systems: A 10-system review of systems was performed and is negative for pertinent findings except as documented above in the HPI. Physical Examination Vital Signs: Vital Signs, Last 4 Hours Pulse 12/12/16 12:59 52 General appearance: appears uncomfortable (respiratory distress) Eyes: nonicteric ENT: oropharynx moist Neck: supple Effort: normal Inspection: normal Auscultation: bilateral: wheezes Percussion: bilateral: not dull Tactile fremitus: bilateral: normal Cardiovascular: regular rate and rhythm Gastrointestinal: normoactive bowel sounds, non-distended Integumentary: normal Extremities: no cyanosis, no edema, no clubbing Musculoskeletal: no deformities, ROM normal other (altered) anxious, other (agitated) Results - Laboratory Findings CBC and BMP: 12/12/16 13:03 12/12/16 13:03 ABG ABG pH 7.27 pH Units (7.32-7.45) L 12/12/16 13:00 ABG pCO2 35 mmHg (35-45) 12/12/16 13:00 ABG pO2 55 mmHg (85-104) L 12/12/16 13:00 ABG O2 Saturation 83 % (95-98) L 12/12/16 13:00 PT/INR, D-dimer PT 13.1 Seconds (9.4-12.1) H 12/12/16 04:44 Abnormal lab findings: Abnormal lab results WBC 14.3 K/mcL (4.3-11.1) H 12/12/16 13:03 Hct 50.7 % (37.5-50.1) H 12/12/16 13:03 MCV 100.8 fL (83.0-100.0) H 12/12/16 13:03 RDW 14.6 % (11.5-14.5) H 12/12/16 13:03 Plt Count 106 K/mcL (140-400) L 12/12/16 13:03 MPV 12.7 fL (9.4-12.4) H 12/12/16 13:03 Neutrophils # 10.8 K/mcL (1.6-8.9) H 12/12/16 13:03 Monocytes # 1.8 K/mcL (0.0-1.3) H 12/12/16 13:03 Immature Plt Fraction 16.5 % (1.1-6.1) H 12/12/16 04:44 PT 13.1 Seconds (9.4-12.1) H 12/12/16 04:44 ABG pH 7.27 pH Units (7.32-7.45) L 12/12/16 13:00 ABG pO2 55 mmHg (85-104) L 12/12/16 13:00 ABG HCO3 16 mEq/L (21-27) L 12/12/16 13:00 ABG Total CO2 17 mEq/L (20-26) L 12/12/16 13:00 ABG O2 Saturation 83 % (95-98) L 12/12/16 13:00 ABG Base Excess -9.8 mEq/L (-2.0 to 3.0) L 12/12/16 13:00 Sodium 135 mEq/L (136-145) L 12/12/16 13:03 Potassium 5.1 mEq/L (3.5-4.5) H 12/12/16 13:03 Carbon Dioxide 18 mEq/L (19-29) L 12/12/16 13:03 Creatinine 2.14 mg/dL (0.72-1.25) H D 12/12/16 13:03 Est GFR ( Amer) 39 (> 60) L 12/12/16 13:03 Est GFR (Non-Af Amer) 32 (> 60) L 12/12/16 13:03 Glucose 128 mg/dL (70-99) H 12/12/16 13:03 POC Glucose 135 (58-89) H 12/11/16 20:11 Hemoglobin A1c 5.9 % (-5.6) H 12/11/16 04:29 Lactic Acid 4.2 mmol/L (0.5-2.2) H* 12/12/16 13:03 Total Bilirubin 2.8 mg/dL (0.2-1.2) H 12/12/16 13:03 Direct Bilirubin 1.6 mg/dL (0.0-0.5) H 12/12/16 13:03 AST 88 Units/L (5-34) H 12/12/16 13:03 Ammonia 98 mcmol/L (18-72) H 12/12/16 13:03 Troponin I 0.17 ng/mL (0-0.03) H* 12/12/16 13:03 B-Natriuretic Peptide 568 pg/mL (0-100) H 12/12/16 13:03 Serum Total Protein 8.6 g/dL (6.0-8.3) H 12/12/16 13:03 Albumin 2.9 g/dL (3.5-5.0) L 12/12/16 13:03 Globulin 5.7 g/dL (2.4-3.5) H 12/12/16 13:03 Albumin/Globulin Ratio 0.5 (1.1-2.2) L 12/12/16 13:03 Urine Protein 30 mg/dL (Neg-Trace) H 12/11/16 06:10 Urine Blood Trace (Negative) H 12/11/16 06:10 Urine Urobilinogen 2.0 mg/dL (Normal) H 12/11/16 06:10 - Clinical Findings Intake & Output: Intake & Output 12/11/16 12/12/16 12/12/16 23:59 07:59 15:59 Intake Total 1229 / 1229 1125 / 1125 1045 / 1045 Output Total 200 / 200 100 / 100 Balance 1029 / 1029 1125 / 1125 945 / 945 Weight 116.2 kg Consult Discharge Plan - Plan Referrals: Nolan Canseco DO [Resident] - 12/29/16 2:00 pm (THIS APPOINTMENT IS AT [address] [place] [address]. PLEASE TAKE YOUR NEW PATIENT PACKET THAT IS COMING IN THE MAIL, FILLED OUT WITH YOU TO YOUR APPOINTMENT. TAKE PICTURE ID, INSURANCE CARE, ALL MEDICATIONS IN THE BOTTLES. PLEASE ARRIVE 10MINS EARLY. IF YOU HAVE TO CANCEL PLEASE CALL [phone] WITHIN 24 HOURS OF YOUR APPOINTMENT.) NONE,PCP [Primary Care Provider] - <Jaelyn Kumar - Last Filed: 12/12/16 19:37> Date of Encounter: 12/12/16 All Systems: A 10-system review of systems was performed and is negative for pertinent findings except as documented above in the HPI. Physical Examination Vital Signs: Vital Signs, Last 4 Hours Resp BP Pulse Ox 12/12/16 17:35 29 111/74 12/12/16 16:34 34 54/20 94 12/12/16 16:05 35 61/34 94 12/12/16 15:16 52 92 Ventilator Settings Ventilator Settings: Ventilator Settings, Last 8 Hours Ventilator Mode VC+ Ventilator Mode VC+ Ventilator Mode VC+ Ventilator Mode VC+ Ventilator Mode VC+ Ventilator Tidal Volume 500 Setting Ventilator Tidal Volume 500 Setting Ventilator Tidal Volume 500 Setting Ventilator Tidal Volume 500 Setting Ventilator Tidal Volume 500 Setting Ventilator Respiratory Rate 28 Setting Ventilator Respiratory Rate 10 Setting Ventilator Respiratory Rate 28 Setting Ventilator Respiratory Rate 12 Setting Ventilator Respiratory Rate 12 Setting Actual Respiratory Rate 29 Actual Respiratory Rate 34 Actual Respiratory Rate 35 Positive End Expiratory 5 Pressure Positive End Expiratory 5 Pressure Positive End Expiratory 10 Pressure Positive End Expiratory 5 Pressure Positive End Expiratory 5 Pressure Peak Inspiratory Airway 34 Pressure Peak Inspiratory Airway 33 Pressure Peak Inspiratory Airway 35 Pressure Results - Laboratory Findings CBC and BMP: 12/12/16 13:03 12/12/16 13:03 ABG ABG pH 7.21 pH Units (7.32-7.45) L 12/12/16 17:32 ABG pCO2 42 mmHg (35-45) 12/12/16 17:32 ABG pO2 141 mmHg (85-104) H 12/12/16 17:32 ABG O2 Saturation 99 % (95-98) H 12/12/16 17:32 PT/INR, D-dimer PT 13.1 Seconds (9.4-12.1) H 12/12/16 04:44 Abnormal lab findings: Abnormal lab results WBC 14.3 K/mcL (4.3-11.1) H 12/12/16 13:03 Hct 50.7 % (37.5-50.1) H 12/12/16 13:03 MCV 100.8 fL (83.0-100.0) H 12/12/16 13:03 RDW 14.6 % (11.5-14.5) H 12/12/16 13:03 Plt Count 106 K/mcL (140-400) L 12/12/16 13:03 MPV 12.7 fL (9.4-12.4) H 12/12/16 13:03 Neutrophils # 10.8 K/mcL (1.6-8.9) H 12/12/16 13:03 Monocytes # 1.8 K/mcL (0.0-1.3) H 12/12/16 13:03 Immature Plt Fraction 16.5 % (1.1-6.1) H 12/12/16 04:44 PT 13.1 Seconds (9.4-12.1) H 12/12/16 04:44 ABG pH 7.21 pH Units (7.32-7.45) L 12/12/16 17:32 ABG pO2 141 mmHg (85-104) H 12/12/16 17:32 ABG HCO3 17 mEq/L (21-27) L 12/12/16 17:32 ABG Total CO2 18 mEq/L (20-26) L 12/12/16 17:32 ABG O2 Saturation 99 % (95-98) H 12/12/16 17:32 ABG Base Excess -10.7 mEq/L (-2.0 to 3.0) L 12/12/16 17:32 Sodium 135 mEq/L (136-145) L 12/12/16 13:03 Potassium 5.1 mEq/L (3.5-4.5) H 12/12/16 13:03 Carbon Dioxide 18 mEq/L (19-29) L 12/12/16 13:03 Creatinine 2.14 mg/dL (0.72-1.25) H D 12/12/16 13:03 Est GFR ( Amer) 39 (> 60) L 12/12/16 13:03 Est GFR (Non-Af Amer) 32 (> 60) L 12/12/16 13:03 Glucose 128 mg/dL (70-99) H 12/12/16 13:03 POC Glucose 135 (58-89) H 12/11/16 20:11 Hemoglobin A1c 5.9 % (-5.6) H 12/11/16 04:29 Lactic Acid 4.2 mmol/L (0.5-2.2) H* 12/12/16 13:03 Total Bilirubin 2.8 mg/dL (0.2-1.2) H 12/12/16 13:03 Direct Bilirubin 1.6 mg/dL (0.0-0.5) H 12/12/16 13:03 AST 88 Units/L (5-34) H 12/12/16 13:03 Ammonia 98 mcmol/L (18-72) H 12/12/16 13:03 Troponin I 0.17 ng/mL (0-0.03) H* 12/12/16 13:03 B-Natriuretic Peptide 568 pg/mL (0-100) H 12/12/16 13:03 Serum Total Protein 8.6 g/dL (6.0-8.3) H 12/12/16 13:03 Albumin 2.9 g/dL (3.5-5.0) L 12/12/16 13:03 Globulin 5.7 g/dL (2.4-3.5) H 12/12/16 13:03 Albumin/Globulin Ratio 0.5 (1.1-2.2) L 12/12/16 13:03 Urine Protein 30 mg/dL (Neg-Trace) H 12/11/16 06:10 Urine Blood Trace (Negative) H 12/11/16 06:10 Urine Urobilinogen 2.0 mg/dL (Normal) H 12/11/16 06:10 - Clinical Findings Intake & Output: Intake & Output 12/12/16 12/12/16 12/12/16 07:59 15:59 23:59 Intake Total 1125 / 1125 1045 / 1045 110 / 110 Output Total 100 / 100 150 / 150 Balance 1125 / 1125 945 / 945 -40 / -40 Weight 116.2 kg - Attending Attestation I saw the patient with the resident agree with History and Physical exam findings. 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 NECK : No JVD appreciated because of his body habitus. 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 Patient is currently on Levophed Nutrition/GI: Patient is on NPO PPI prophylaxis He has Cirrhosis of Liver according to labs but he doesnt have past diagnosis of cirrhosis Renal : ARSH probably due to cardiogenic shock Heme onc :Labs reviewed ID : Juarez cultures on Vanc and Zosyn Disposition : Critical Code status: Full Code Family/POA:Sister , Spoke with Sister about severe heart failure with shock most likely cardiogenic shock counseled he will be better served in higher referral center where there is advanced heart failure service available patient sister agreed with my asessement to [facility] . 50 minutes of Critical Care time spent excluding all the time spent in doing the procedures.
[2016-12-12] MEDS ORDERED: *HR* Midazolam HCl 5 MG/5 ML VIAL IVP ONE ×4 (15:29→21:03)
[2016-12-12] MEDS ORDERED: *HR* Etomidate 20 MG/10 ML AMPUL IVP ONE (15:29)
[2016-12-12] MEDS: Norepinephrine 4 MG in D5% in Water 250 ML IVC SCH ×2 (16:00→19:36)
[2016-12-12 16:22] LABS: ABG HCO3 14 mEq/L (21-27); ABG Oxygen Saturation 94 % (95-98); ABG PCO2 45 mmHg (35-45); ABG PO2 96 mmHg (85-104); ABG TCO2 16 mEq/L (20-26)
[2016-12-12 16:23] LABS: ABG PH 7.11 pH Units (7.32-7.45)
--- NOTE | 2016-12-12 16:57 | Procedure Note ---
<Willy Craig - Last Filed: 12/12/16 16:55> Date of procedure: 12/12/16 Procedure: Central Venous Catheter (CVC, Central Line) Placement - Femoral Vein Date: 12/12/2016 Time: 16:30 Indication: Hemodynamic monitoring/Intravenous access Resident: Dr. Willy Craig D.O. Attending: Dr. Jaelyn Kumar M.D. A time-out was completed verifying correct patient, procedure, site, positioning , and special equipment if applicable. The patient was placed in a dependent position appropriate for central line placement based on the vein to be cannulated. The patients right groin was prepped and draped in sterile fashion. 1% Lidocaine was used to anesthetize the surrounding skin area. A triple lumen 7 Thai Cordis catheter was introduced into the the common femoral using the Seldinger technique and under ultrasound guidance. The catheter was threaded smoothly over the guide wire and appropriate blood return was obtained. Each lumen of the catheter was evacuated of air and flushed with sterile saline. The catheter was then sutured in place to the skin and a sterile dressing applied. Perfusion to the extremity distal to the point of catheter insertion was checked and found to be adequate. Dr. Kumar was present for the entire procedure. Estimated Blood Loss:10mL The patient tolerated the procedure well and there were no complications. Anesthesia: local Surgeon: Jaelyn Kumar (Primary: Willy Craig D.O.) Estimated blood loss (cc): 10 (mL) <Jaelyn Kumar - Last Filed: 12/12/16 18:31> Procedure: I was present during the entire procedure Right femoral vein because of need for quick central safe access in the background of cardiogenic shock. Condition: critical Disposition: ICU
[2016-12-12] MEDS ORDERED: Vancomycin 1 EACH in D5% in Water 250 ML IVPB SCH (17:00)
[2016-12-12] MEDS ORDERED: FentaNYL (PF) 1,000 MCG in 0.9 % Sodium Chloride 80 ML IVC SCH (17:00)
--- NOTE | 2016-12-12 17:04 | Procedure Note ---
<Jeison Lawton - Last Filed: 12/12/16 17:02> Date of procedure: 12/12/16 Pre-op diagnosis: shock, likely cardiogenic Post-op diagnosis: same Procedure: A time-out was completed verifying correct patient, procedure, site, positioning , and special equipment if applicable. Allens test was performed to ensure adequate perfusion. The patients right wrist was prepped and draped in sterile fashion. 1% Lidocaine was used to anesthetize the area. A 18G Arrow arterial line was introduced into the femoral artery. The catheter was threaded over the guide wire and the needle was removed with appropriate pulsatile blood return. The catheter was then sutured in place to the skin and a sterile dressing applied. Perfusion to the extremity distal to the point of catheter insertion was checked and found to be adequate. Dr. Kumar was present for the entire procedure. Anesthesia: local Surgeon: Jaelyn Kumar Fur Designer: Jeison Lawton Estimated blood loss (cc): 5 Pathology: none sent Condition: critical Disposition: ICU <Jaelyn Kumar - Last Filed: 12/12/16 18:28> Procedure: I was present during the entire procedure because patient was in Severe Cardiogenic /septic shock and his pulse OX wave form cannot garbage pick up man so emergent arterial line was performed in the Right femoral artery ,catheter was cannulated without any difficulty . There is correction to the resident note , the right wrist was not prepared ,it is the right groin was prepared in a sterile fashion.
[2016-12-12] MEDS ORDERED: Perflutren Lipid Microsphere 1.3 ML in 0.9 % Sodium Chloride 8.7 ML IVP ONE (17:09)
[2016-12-12] MEDS ORDERED: Vancomycin 1,750 MG in D5% in Water 500 ML IVPB ONE (17:14)
[2016-12-12] MEDS ORDERED: *HR* FentaNYL (PF) 100 MCG/2 ML VIAL ONE (17:19)
[2016-12-12 17:42] LABS: ABG Base Excess -10.7 mEq/L (-2.0 to 3.0); ABG HCO3 17 mEq/L (21-27); ABG Oxygen Saturation 99 % (95-98); ABG PCO2 42 mmHg (35-45); ABG PH 7.21 pH Units (7.32-7.45); ABG PO2 141 mmHg (85-104); ABG TCO2 18 mEq/L (20-26)
[2016-12-12] MEDS ORDERED: *HR* FentaNYL (PF) 100 MCG/2 ML VIAL IVP ONE (17:52)
[2016-12-12] MEDS ORDERED: Piperacillin/Tazobactam 3.375 GM in D5% in Water (Mini-Bag+) 100 ML IVPB SCH ×2 (18:00)
--- NOTE | 2016-12-12 18:18 | Procedure Note ---
Date of procedure: 12/12/16 Pre-op diagnosis: Hypoxic respiratory failure Surgeon: Jaelyn Kumar Condition: critical Procedures: Internal Med - Intubation Time out performed: Yes Sedative: Versed (Etomidate 40 mg , Versed 4 mg) Laryngoscope: fiber optic video scope ET tube size: 8 ET tube uncuffed: No Tube secured depth (cm): 22 Tube secured location: lips Tube placement confirmation: visualized tube passing through cords, equal breath sounds bilaterally, confirmation by capnometry Patient tolerated procedure: well, no complications Intubation complications: none Additional comments: Intubation was done by [facility] ICU attending on service.
[2016-12-12 19:29] LABS: Calcium 7.7 mg/dL (8.6-10.8); Magnesium 1.4 mg/dL (1.6-2.6); Potassium 5.4 mEq/L (3.5-4.5)
[2016-12-12] MEDS ORDERED: Pantoprazole 40 MG VIAL IVP SCH (19:45)
[2016-12-12 19:46] VITALS: BP 89/58
[2016-12-12 19:50] LABS: ABG Base Excess -7.2 mEq/L (-2.0 to 3.0); ABG HCO3 18 mEq/L (21-27); ABG Oxygen Saturation 96 % (95-98); ABG PCO2 35 mmHg (35-45); ABG PH 7.32 pH Units (7.32-7.45); ABG PO2 88 mmHg (85-104); ABG TCO2 19 mEq/L (20-26)
[2016-12-12 19:52] LABS: Blood Gas Modality VCT; Blood Gas PEEP 10 cm H2O; Blood Gas Respiration Rate 28; Blood Gas VT 500 cc
[2016-12-12 20:32] LABS: Basophils % 0.1 %; Hematocrit 49.1 % (37.5-50.1); Hemoglobin 15.5 g/dL (12.9-16.9); Immature Granulocytes % 0.9 % (0-4); Lymphocytes # 1.1 K/mcL (0.6-4.6); Lymphocytes % 6.6 %; Mean Corpuscular HGB Conc 31.6 g/dL (31.6-35.5); Mean Corpuscular Hemoglobin 31.5 pg (28.0-33.3); Mean Corpuscular Volume 99.8 fL (83.0-100.0); Mean Platelet Volume 13.5 fL (9.4-12.4); Monocytes # 0.9 K/mcL (0.0-1.3); Monocytes % 5.6 %; Neutrophils # 14.2 K/mcL (1.6-8.9); Platelet Count 112 K/mcL (140-400); Red Blood Count 4.92 M/mcL (4.19-5.50); Red Cell Distribution Width 14.5 % (11.5-14.5); Segmented Neutrophils % 86.8 %
[2016-12-12 20:53] LABS: Platelet Estimate Slight Decrease (Normal)
[2016-12-12 20:56] LABS: Anisocytosis 1+ (Not Present); Large Platelets Present (Not Present)
[2016-12-12] MEDS ORDERED: *HR* Etomidate 40 MG/20 ML VIAL IVP ONE (21:03)
[2016-12-12] MEDS ORDERED: Aminoglycoside Consult 1 EACH MC ONE (21:03)
[2016-12-13] MEDS ORDERED: Metoprolol XL (24 HR) Succ 25 MG TAB.ER.24H PO SCH (09:00)
--- NOTE | 2016-12-13 13:28 | Discharge Summary ---
Date of Encounter: 12/13/16 Time of Encounter: 20:00 - Discharge Diagnosis (1) Cardiogenic shock Priority: Primary Status: Acute (2) Acute respiratory failure with hypoxia Priority: Secondary Status: Acute (3) Acute kidney injury Priority: Secondary Status: Acute - Discharge Medications Home Medications: Omeprazole [PriLOSEC] 20 mg PO DAILY #30 cap 10/24/16 [Rx] RX: Diclofenac Sodium [Voltaren] 75 mg PO BID 12/11/16 [History] Terbinafine HCl [Lamisil] 250 mg PO DAILY 12/11/16 [History] Allergies/Adverse Reactions: 3 Allergy/AdvReac Type Severity Reaction Status Date / Time haloperidol [From Haldol] AdvReac Seizure Verified 12/11/16 06:22 Labs on day of discharge: Labs from last 24 hours 12/12/16 12/12/16 12/12/16 19:44 19:43 19:43 WBC 16.3 H RBC 4.92 Hgb 15.5 Hct 49.1 MCV 99.8 MCH 31.5 MCHC 31.6 RDW 14.5 Plt Count 112 L MPV 13.5 H Immature Gran % 0.9 Seg Neutrophils % 86.8 Lymphocytes % 6.6 Monocytes % 5.6 Eosinophils % 0.0 Basophils % 0.1 Neutrophils # 14.2 H Lymphocytes # 1.1 Monocytes # 0.9 Eosinophils # 0.0 Basophils # 0.0 Platelet Estimate Slight Decrease L Large Platelets Present A Anisocytosis 1+ A ABG pH 7.32 ABG pCO2 35 ABG pO2 88 ABG HCO3 18 L ABG Total CO2 19 L ABG O2 Saturation 96 ABG Base Excess -7.2 L Respiration Rate 28 Blood Gas Modality VCT Inspired O2 80.0 Tidal Volume 500 PEEP 10 Sodium Potassium Chloride Carbon Dioxide BUN Creatinine Est GFR ( Amer) Est GFR (Non-Af Amer) BUN/Creatinine Ratio Glucose POC Glucose Calculated Osmolality Lactic Acid 3.2 H Calcium Ionized Calcium Magnesium Total Bilirubin Direct Bilirubin Indirect Bilirubin AST ALT Alkaline Phosphatase Ammonia Troponin I B-Natriuretic Peptide Serum Total Protein Albumin Globulin Albumin/Globulin Ratio Amylase Lipase 12/12/16 12/12/16 12/12/16 19:35 19:05 19:05 WBC RBC Hgb Hct MCV MCH MCHC RDW Plt Count MPV Immature Gran % Seg Neutrophils % Lymphocytes % Monocytes % Eosinophils % Basophils % Neutrophils # Lymphocytes # Monocytes # Eosinophils # Basophils # Platelet Estimate Large Platelets Anisocytosis ABG pH ABG pCO2 ABG pO2 ABG HCO3 ABG Total CO2 ABG O2 Saturation ABG Base Excess Respiration Rate Blood Gas Modality Inspired O2 Tidal Volume PEEP Sodium 134 L Potassium 5.4 H Chloride 103 Carbon Dioxide 16 L BUN 34 H Creatinine 2.62 H Est GFR ( Amer) 31 L Est GFR (Non-Af Amer) 25 L BUN/Creatinine Ratio 13 Glucose 192 H POC Glucose Calculated Osmolality 291 Lactic Acid Calcium 7.7 L Ionized Calcium 0.95 L Magnesium 1.4 L Total Bilirubin Direct Bilirubin Indirect Bilirubin AST ALT Alkaline Phosphatase Ammonia Troponin I 0.50 H* B-Natriuretic Peptide Serum Total Protein Albumin Globulin Albumin/Globulin Ratio Amylase Lipase 12/12/16 12/12/16 12/12/16 17:32 16:11 13:03 WBC RBC Hgb Hct MCV MCH MCHC RDW Plt Count MPV Immature Gran % Seg Neutrophils % Lymphocytes % Monocytes % Eosinophils % Basophils % Neutrophils # Lymphocytes # Monocytes # Eosinophils # Basophils # Platelet Estimate Large Platelets Anisocytosis ABG pH 7.21 L 7.11 L* D ABG pCO2 42 45 ABG pO2 141 H 96 ABG HCO3 17 L 14 L ABG Total CO2 18 L 16 L ABG O2 Saturation 99 H 94 L ABG Base Excess -10.7 L -15.0 L Respiration Rate Blood Gas Modality Inspired O2 100.0 100.0 Tidal Volume PEEP Sodium Potassium Chloride Carbon Dioxide BUN Creatinine Est GFR ( Amer) Est GFR (Non-Af Amer) BUN/Creatinine Ratio Glucose POC Glucose Calculated Osmolality Lactic Acid Calcium Ionized Calcium Magnesium Total Bilirubin Direct Bilirubin Indirect Bilirubin AST ALT Alkaline Phosphatase Ammonia Troponin I B-Natriuretic Peptide 568 H Serum Total Protein Albumin Globulin Albumin/Globulin Ratio Amylase Lipase 12/12/16 12/12/16 12/12/16 13:03 13:03 13:03 WBC RBC Hgb Hct MCV MCH MCHC RDW Plt Count MPV Immature Gran % Seg Neutrophils % Lymphocytes % Monocytes % Eosinophils % Basophils % Neutrophils # Lymphocytes # Monocytes # Eosinophils # Basophils # Platelet Estimate Large Platelets Anisocytosis ABG pH ABG pCO2 ABG pO2 ABG HCO3 ABG Total CO2 ABG O2 Saturation ABG Base Excess Respiration Rate Blood Gas Modality Inspired O2 Tidal Volume PEEP Sodium Potassium Chloride Carbon Dioxide BUN Creatinine Est GFR ( Amer) Est GFR (Non-Af Amer) BUN/Creatinine Ratio Glucose POC Glucose Calculated Osmolality Lactic Acid Calcium Ionized Calcium Magnesium Total Bilirubin 2.8 H Direct Bilirubin 1.6 H Indirect Bilirubin 1.2 AST 88 H ALT 50 Alkaline Phosphatase 70 Ammonia 98 H Troponin I B-Natriuretic Peptide Serum Total Protein 8.6 H Albumin 2.9 L Globulin 5.7 H Albumin/Globulin Ratio 0.5 L Amylase 60 Lipase 24 12/12/16 12/12/16 12/12/16 13:03 13:03 13:03 WBC RBC Hgb Hct MCV MCH MCHC RDW Plt Count MPV Immature Gran % Seg Neutrophils % Lymphocytes % Monocytes % Eosinophils % Basophils % Neutrophils # Lymphocytes # Monocytes # Eosinophils # Basophils # Platelet Estimate Large Platelets Anisocytosis ABG pH ABG pCO2 ABG pO2 ABG HCO3 ABG Total CO2 ABG O2 Saturation ABG Base Excess Respiration Rate Blood Gas Modality Inspired O2 Tidal Volume PEEP Sodium 135 L Potassium 5.1 H Chloride 103 Carbon Dioxide 18 L BUN 25 Creatinine 2.14 H D Est GFR ( Amer) 39 L Est GFR (Non-Af Amer) 32 L BUN/Creatinine Ratio 12 Glucose 128 H POC Glucose Calculated Osmolality 286 Lactic Acid 4.2 H* Calcium 8.7 Ionized Calcium Magnesium 1.9 Total Bilirubin Direct Bilirubin Indirect Bilirubin AST ALT Alkaline Phosphatase Ammonia Troponin I 0.17 H* B-Natriuretic Peptide Serum Total Protein Albumin Globulin Albumin/Globulin Ratio Amylase Lipase 12/12/16 12/12/16 12/12/16 11:20 11:20 07:11 WBC RBC Hgb Hct MCV MCH MCHC RDW Plt Count MPV Immature Gran % Seg Neutrophils % Lymphocytes % Monocytes % Eosinophils % Basophils % Neutrophils # Lymphocytes # Monocytes # Eosinophils # Basophils # Platelet Estimate Large Platelets Anisocytosis ABG pH ABG pCO2 ABG pO2 ABG HCO3 ABG Total CO2 ABG O2 Saturation ABG Base Excess Respiration Rate Blood Gas Modality Inspired O2 Tidal Volume PEEP Sodium Potassium Chloride Carbon Dioxide BUN Creatinine Est GFR ( Amer) Est GFR (Non-Af Amer) BUN/Creatinine Ratio Glucose POC Glucose 133 H 133 H 128 H Calculated Osmolality Lactic Acid Calcium Ionized Calcium Magnesium Total Bilirubin Direct Bilirubin Indirect Bilirubin AST ALT Alkaline Phosphatase Ammonia Troponin I B-Natriuretic Peptide Serum Total Protein Albumin Globulin Albumin/Globulin Ratio Amylase Lipase - Impressions ITS Impressions Echocardiogram 12/12/16 07:00 Impressions: LV systolic function appears severely reduced on this exam. However, exam is technically challenging and not all segments/views were well visualized. Recommend repeat limited study with Definity. Mildly dilated left ventricle. Indeterminate diastolic function. RV size is normal. Function may be moderately reduced. Mild aortic regurgitation. Mild tricuspid regurgitation. No pulmonary hypertension. IVC is not dilated but demonstrates lack of respiratory collapse. Left Ventricular Wall Motion: Rest Echo Findings The apex, apical inferior, mid inferior, basal inferior, apical anterior, mid anterior, basal anterior, apical septal, mid inferior septal, basal inferior septal, apical lateral, mid anterior lateral, basal anterior lateral, mid anterior septal, mid inferior lateral, basal anterior septal and basal inferior lateral love were hypokinetic. Findings: Study Quality * Technically challenging due to body habitus. ECG Findings * Atrial fibrillation. Left Ventricle * Mildly dilated left ventricle. * Indeterminate diastolic function. * LV systolic function appears severely reduced on this exam. However, not all segments/views were well visualized. Aorta * Normally sized aortic root. Aortic Valve * Mild aortic regurgitation. * Aortic valve not well visualized. * No aortic stenosis. Mitral Valve * Normal mitral valve structure. * No mitral stenosis. * Trace mitral regurgitation. Tricuspid Valve * Normal tricuspid valve structure. * Mild tricuspid regurgitation. * Estimated RA pressure is 8 mmHg. * Estimated RVSP is 27 mmHg. * No pulmonary hypertension. Pulmonic Valve * Pulmonic valve is not well visualized. * No pulmonic stenosis. * Trace pulmonic regurgitation. Pulmonary Artery * Pulmonary artery not well visualized. Right Ventricle * RV is normal in size. Function may be moderately reduced. Lat S Adán is reduced. Left Atrium * Normal left atrial size. Right Atrium * Normal right atrial size. Pericardium * There is no pericardial effusion present. Interatrial Septum * Interatrial septum not well evaluated. IVC * The IVC is not dilated. * < 50% respiratory change. Echocardiogram Limited Views 12/12/16 12:30 Impressions: LVEF 30%. Global appearing LV systolic dysfunction. Left ventricle is mildly dilated. Definity was given. There is no evidence of left ventricular thrombus. RV appears mildly dilated on this study with moderate to severe reduction in function. Left Ventricular Wall Motion: Rest Echo Findings The apex, apical inferior, mid inferior, basal inferior, apical anterior, mid anterior, basal anterior, apical septal, mid inferior septal, basal inferior septal, apical lateral, mid anterior lateral, basal anterior lateral, mid anterior septal, mid inferior lateral, basal anterior septal and basal inferior lateral love were hypokinetic. Findings: Study Quality * Technically sub-optimal due to clinical status. ECG Findings * Consider atrial fibrillation. Left Ventricle * Mildly dilated left ventricle. * LVEF 30%. * Definity echo contrast was used. Right Ventricle * RV is mildly dilated on this study with moderate to severe reduction in function. Chest X-Ray 12/12/16 12:44 IMPRESSION: Stable cardiomegaly with mild pulmonary vascular congestion. Bibasilar atelectasis. D/ / Carmela Dixon MD / Carmela Dixon MD Interpreting Provider: Carmela Dixon MD X-Ray 12/12/16 16:58 IMPRESSION: ET tube and nasogastric tubes in satisfactory position. D/ / Javy Sosa MD / Javy Sosa MD Interpreting Provider: Javy Sosa MD Chest X-Ray 12/12/16 17:10 IMPRESSION: ET tube and nasogastric tubes in satisfactory position. D/ / Javy Sosa MD / Javy Sosa MD Interpreting Provider: Javy Sosa MD Date of admission: 12/11/16 14:09 Primary care physician: PCP NONE Consults: Cardiology consulted for Atrial fibrillation with RVR Critical Care Consulted for hypoxia , bradycardia and hypotension Discharging clinician: Jaelyn Kumar (Patient was transferred to another facility) - Patient Status Disposition: Transfer Other Condition: Good - Discharge Instructions Follow Up With: Nolan Canseco DO [Resident] - 12/29/16 2:00 pm (THIS APPOINTMENT IS AT [address] [place] [address] ROAD. PLEASE TAKE YOUR NEW PATIENT PACKET THAT IS COMING IN THE MAIL, FILLED OUT WITH YOU TO YOUR APPOINTMENT. TAKE PICTURE ID, INSURANCE CARE, ALL MEDICATIONS IN THE BOTTLES. PLEASE ARRIVE 10MINS EARLY. IF YOU HAVE TO CANCEL PLEASE CALL [phone] WITHIN 24 HOURS OF YOUR APPOINTMENT.) NONE,PCP [Primary Care Provider] - - Hospital Course Hospital course: Mr. Wallace is a 56 year old male with past medical history severe alcohol abuse never been to the doctor before presented to the hospital with delirium tremens in the floor he was started on CIWA protocol during the hospital course he developed atrial fibrillation with RVR started on Cardizem drip during the second day of the hospital stay he developed acute hypoxic respiratory with bradycardia and hypotension his lactic acid was 4.2 , patient was shifted to the ICU was intubated his blood pressure dropped after intubation he was on vasopressors at that time , patient had emergent arterial line and central line , stat ECHO was done which showed globally reduced LV and RV function with EF of 30% , patient was in severe cardiogenic shock discussed with family as patient will be served in a tertiary center where advanced heart failure support is available .Patient sister agreed with my assessment agreed for transfer to ICU at [facility] in [place] . Patient was accepted transferred by life flight in a critical condition. - Time Spent with Patient Total time spent providing and/or coordinating discharge services: Physical Examination General appearance: other (sedated ) Auscultation: bilateral: rales Extremities: edema normal mental status, non-focal exam, other (Patient is sedated )
--- NOTE | 2016-12-13 16:28 | Electrocardiograph Report ---
[address] [place], [place] [address] Test Date: 2016-12-11 Pat Name: Raj Wallace Department: 110 Room: 10 Gender: M [employer] Designer: FADI : 1960 Requested By: Francheska Petersen Order Number: [id number] Reading MD: Surya Lozano MD Measurements Intervals [place] Rate: 131 P: MD: 0 QRS: -54 QRSD: 108 T: 89 QT: 312 QTc: 389 Interpretive Statements ATRIAL FIBRILLATION WITH RAPID VENTRICULAR RESPONSE LEFT ANTERIOR FASCICULAR BLOCK POOR R WAVE PROGRESSION Electronically Signed On 12-13-2016 16:27:14 EDT by Surya Lozano MD
== END 2016-12-12 21:04 | disposition other institution (70) | DRG 773 ==
LOC: 2ANU 04:20 → EMEROO 04:20 → 2NNU 09:00 → SUATTDRO 14:09 → ICNU 12-12 15:49
PROVIDERS: ADMIT Internal Medicine; ATTEND Student in an Organized Health Care Education/Training Program

== ENCOUNTER 2017-06-04 09:38 | Inpatient (IN) ==
[~2017-06-04 09:38] MED LIST: *HR* Amiodarone Premix 150 MG/100 ML BAG IVPB ONE; *HR* Etomidate 40 MG/20 ML VIAL IVP ONE; *HR* LORazepam 2 MG/ML VIAL IVP ONE; *HR* Midazolam HCl 2 MG/2 ML VIAL IV ONE
[2017-06-04] MEDS ORDERED: Amiodarone Premix 150 MG/100 ML BAG IVPB ONE (09:47)
[2017-06-04] MEDS ORDERED: Amiodarone Premix 360 MG/200 ML BAG IVC ONE (09:48)
[2017-06-04] MEDS ORDERED: Aspirin 325 MG TABLET PO ONE (09:48)
[2017-06-04] MEDS ORDERED: Nitroglycerin 0.4 MG TAB.SUBL SL ONE (09:57)
[2017-06-04] MEDS ORDERED: Furosemide 40 MG/4 ML VIAL IVP ONE (10:05)
[2017-06-04] MEDS: Levalbuterol Neb 1.25 MG/3 ML IH SCH ×3 (10:08→22:18)
[2017-06-04] MEDS ORDERED: *HR* Metoprolol 5 MG/5 ML VIAL IVP ONE (10:15)
[2017-06-04 10:21] LABS: Basophils % 0.2 %; Hematocrit 36.8 % (37.5-50.1); Hemoglobin 11.3 g/dL (12.9-16.9); Immature Granulocytes % 1.2 % (0-4); Lymphocytes # 0.3 K/mcL (0.6-4.6); Lymphocytes % 3.3 %; Mean Corpuscular HGB Conc 30.7 g/dL (31.6-35.5); Mean Corpuscular Hemoglobin 25.9 pg (28.0-33.3); Mean Corpuscular Volume 84.2 fL (83.0-100.0); Mean Platelet Volume 11.7 fL (9.4-12.4); Monocytes % 10.5 %; Nucleated Red Blood Cells 0.7 /100 WBC (0); Platelet Count 113 K/mcL (140-400); Red Blood Count 4.37 M/mcL (4.19-5.50); Red Cell Distribution Width 18.6 % (11.5-14.5); Segmented Neutrophils % 84.8 %
[2017-06-04 10:29] LABS: INR 1.3; Prothrombin Time 14.4 Seconds (9.4-12.1)
[2017-06-04 10:32] LABS: Activated Partial Thrombo Time 33.7 Seconds (26.0-36.0)
[2017-06-04 10:53] LABS: BUN/Creatinine Ratio 19 (6-26); Blood Urea Nitrogen 15 mg/dL (6-20); Calcium 7.8 mg/dL (8.6-10.3); Carbon Dioxide 14 mEq/L (23-29); Chloride 85 mEq/L (98-107); Glucose 126 mg/dL (70-105); Magnesium 1.4 mg/dL (1.6-2.6); Osmolality,Calculated 232 (280-300); Sodium 110 mEq/L (136-145); Troponin I 0.04 ng/mL (< 0.04); eGFR For African Americans > 60 (> 60); eGFR For Non-African Americans > 60 (> 60)
[2017-06-04 10:59] LABS: Thyroid Stimulating Hormone 0.709 mcIU/mL (0.340-5.600)
[2017-06-04 11:07] LABS: Bilirubin,Urine Small (Negative); Blood,Urine Trace (Negative); Clarity,Urine Cloudy (Clear); Color,Urine Dark Yellow (Yellow); Glucose,Urine (UA) Normal (Normal); Ketones,Urine Trace mg/dL (Negative); Leukocyte Esterase,Urine Negative (Negative); Nitrite,Urine Negative (Negative); Protein,Urine 100 mg/dL (Neg-Trace); Specific Gravity,Urine 1.023 (1.010-1.025)
[2017-06-04 11:10] LABS: Bacteria,Urine None Seen per hpf (None-Few); Hyaline Casts,Urine Few per lpf (None-Few); RBC,Urine 0-3 per hpf (0-3); Squamous Epithelial Cell,Urine Many per lpf (None-Few); WBC,Urine 0-3 per hpf (0-3)
[2017-06-04 11:14] LABS: Amphetamine Screen,Urine Negative ng/mL (Cutoff=1000); Barbiturate Screen,Urine Negative ng/mL (Cutoff=200); Benzodiazepines Screen,Urine Negative ng/mL (Cutoff=200); Cannabinoid Screen,Urine Negative ng/mL (Cutoff = 50); Cocaine Screen,Urine Negative ng/mL (Cutoff= 300); Opiate Screen,Urine Negative ng/mL (Cutoff=300); Phencyclidine Screen,Urine Negative ng/mL (Cutoff=25)
--- NOTE | 2017-06-04 12:05 | Emergency Department Note ---
Disposition Clinical Impression: Palpitations, Hyponatremia, CHF (congestive heart failure), SOB (shortness of breath), Atrial fibrillation with rapid ventricular response Disposition: Admitted As Inpatient Condition: Serious Referrals: NONE,PCP [Primary Care Provider] - Time of Disposition: 12:19 Arrhythmia/Palpitations HPI - General Chief Complaint: ED Arrhythmia/Palpitations Stated Complaint: vtach Time Seen by Provider: 06/04/17 09:48 Source: EMS Limitations: no limitations Nursing Notes Reviewed: Yes Vital Signs Reviewed: Yes - History of Present Illness HPI Narrative: 56-year-old male presented to the emergency room with chest pain shortness of breath and diaphoresis. He called the EMS and sees been feeling ill over the weekend. They found him to be in A. fib with RVR with runs of V. tach. Upon arrival it did appear that he was having runs of ventricular tachycardia interposed over the A. fib with RVR with a bundle branch block. Patient has a history of congestive heart failure as well as this atrial fibrillation. He states he has been feeling ill for the past 2-3 days. He also drinks daily alcohol. His last alcohol intake was yesterday evening. He denies taking any blood thinners. Per old medical records they had him on Coreg and amiodarone. He denies taking any amiodarone. Denies any fevers. No vomiting. No diarrhea. - Related Data Home Medications Medication Instructions Recorded Confirmed Amiodarone [Cordarone] 200 mg PO DAILY 01/16/17 01/16/17 Atorvastatin Calcium [Lipitor] 80 mg PO HS 01/16/17 01/16/17 Carvedilol [Coreg] 6.25 mg PO BID 01/16/17 01/16/17 Folic Acid 1 mg PO DAILY 01/16/17 01/16/17 Metoprolol XL (24 HR) Succ [Toprol 12.5 mg PO DAILY 01/16/17 01/16/17 Xl] Multivitamin [One Daily Essential] 1 each PO DAILY 01/16/17 01/16/17 Thiamine (B-1) [Vitamin B-1] 100 mg PO DAILY 01/16/17 01/16/17 Previous Rx's Medication Instructions Recorded Omeprazole [PriLOSEC] 20 mg PO DAILY #30 cap 10/24/16 Aspirin Enteric Coated [Aspirin EC] 81 mg PO DAILY #30 tablet. 01/18/17 Chlordiazepoxide [Librium] 25 mg PO QID #20 capsule 01/18/17 Tramadol HCl [Ultram] 50 mg PO TID PRN #20 tab 01/18/17 Allergies Allergy/AdvReac Type Severity Reaction Status Date / Time haloperidol [From Haldol] AdvReac Seizure Verified 06/04/17 09:46 Review of Systems: As Per HPI Constitutional: Reports: chills, weakness Eyes: Reports: as per HPI ENT ED: Reports: as per HPI Cardiovascular: Reports: chest pain, palpitations, dyspnea on exertion Respiratory: Reports: dyspnea. Denies: cough Gastrointestinal: Reports: as per HPI Genitourinary: Reports: as per HPI Musculoskeletal: Reports: as per HPI Integumentary: Reports: as per HPI Neurological: Reports: as per HPI Psychiatric: Reports: as per HPI Endocrine: Reports: as per HPI Hematological/Lymphatic: Reports: as per HPI Allergic/Immunologic: Reports: as per HPI Past Medical History - Past Medical History Medical history: Reports: cirrhosis, GERD, hepatitis, hypertension, myocardial infarction, other Surgical history: Reports: cataract Psychiatric history: Reports: anxiety, depression - Social History Smoking Status: Current every day smoker Smokeless Tobacco Status: No Alcohol use: Reports: heavy, recent Drug use: Reports: none Physical Exam - General Limitations: no limitations General appearance: alert, in distress - Head Head exam: atraumatic, normocephalic - Eye Eye exam: Present: normal appearance - ENT ENT exam: normal exam - Neck Neck exam: Present: normal inspection - Chest Chest inspection: Present: symmetric chest wall rise. Absent: tenderness, rash - Respiratory Respiratory exam: Present: respiratory distress, wheezes, other (+rhonchi bilat , tachypnea) - Cardiovascular Cardiovascular exam: Present: tachycardia, irregular rhythm - Abdominal Exam Abdominal exam: Present: soft, Non-Tender, normal bowel sounds - Extremities Exam Extremities exam: Present: pedal edema (2+ pittined edema). Absent: tenderness - Back Exam Back exam: Present: normal inspection - Neurological Exam Neurological exam: Present: alert, oriented X3, CN II-XII intact - Psychiatric Psychiatric exam: Present: normal affect, normal mood - Skin Skin exam: Present: warm, dry, intact Course Vital Signs Temperature 97.9 F 06/04/17 09:40 Pulse Rate 168 06/04/17 09:40 Respiratory Rate 26 06/04/17 09:40 Blood Pressure 118/85 06/04/17 09:40 O2 Sat by Pulse Oximetry 100 06/04/17 09:40 Temperature 97.9 F 06/04/17 09:40 Pulse Rate 110 06/04/17 11:43 Respiratory Rate 36 06/04/17 11:43 Blood Pressure 130/91 06/04/17 11:43 O2 Sat by Pulse Oximetry 99 06/04/17 11:43 Oxygen Delivery Oxygen Delivery Bipap Procedures - Central Line Placement Right Femoral Central Line Inserted*: Yes Central Line Catheter Replacement*: Yes Central Line Insertion: emergent Consent Obtained: verbal consent Procedural Pause: verify patient name and date of , timeout performed per policy Patient Placed on Monitor/Pulse Ox: Yes During the Procedure: clinician is wearing sterile gloves, cap, mask,& gown during insertion, sterile field and sterile technique are maintained, patient's face is covered with drape or mask and wearing a cap, everyone in room is wearing a mask Central Line Prep: Chlorhexidine scrub Prep the Procedure Site: apply chloraprep to the skin using a back and forth scrubbing motion, apply chloraprep for 30 seconds (upper body), 1-2 min ( femoral sites), drape the patient with a full body drape Local Anesthetic: lidocaine 1% Amount of anesthesia used (mL): 5 Ultrasound Used for Placement: Yes Central Line Lumen Inserted: triple Post Procedure: sutured in place, good blood return, all ports aspirated, flushed, capped, sterile dressing applied, guide wire removed and visualized, dressing is dated Patient Tolerated Procedure: well, no complications Complications: none Arrhythmia/Palpitations - [facility] Narrative Medical decision making narrative: Pt had arrived in what appeared to be V tach vs runs of A fib with RVR with LBBB. I spoke with Dr. Lozano with cardiology. He felt this was more A. fib with RVR with a left bundle branch block. Initially though I felt like he was more runs of V. tach based on the different morphology than what was seen with the A. fib with RVR. Nonetheless, patient was given an amiodarone bolus and started on amiodarone drip. He was also given a low-dose of Lopressor. We placed him on BiPAP for respiratory distress as well. I gave him Lasix as he did seem wet and his chest x-ray showed evidence of cardiomegaly with pulmonary vascular congestion. He was given aspirin as well as nitroglycerin for his chest pain. His blood pressure did go down into the 70s after all these medications. I put a right femoral central line in place without any complications. Patient's heart rate has gradually come down. I spoke with the chimney builder. He preferred the patient be transferred to [facility] due to him having been seen there in the past. However, they do not have any ICU beds available at this time and they would like the patient to be admitted to our intensive care unit until a bed opens. I did discuss this with the ICU attending. Since vitals seem to have improved on the BiPAP as well as the amiodarone. He still needs to have the sodium addressed. Critical care time of 55 minutes spent in medical management of the patient's multisystem issues. - Medical Records Medical records reviewed: Yes I reviewed the patient's medical records. - Lab Data Lab results reviewed: Yes I reviewed the patient's lab results. Result diagrams: 06/04/17 10:07 06/04/17 10:07 Lab Results 06/04/17 06/04/17 06/04/17 Range/Units 10:07 10:07 10:07 WBC 9.4 (4.3-11.1) K/mcL RBC 4.37 (4.19-5.50) M/mcL Hgb 11.3 L (12.9-16.9) g/dL Hct 36.8 L (37.5-50.1) % MCV 84.2 (83.0-100.0) fL MCH 25.9 L (28.0-33.3) pg MCHC 30.7 L (31.6-35.5) g/dL RDW 18.6 H (11.5-14.5) % Plt Count 113 L (140-400) K/mcL MPV 11.7 (9.4-12.4) fL Immature Gran % 1.2 (0-4) % Seg Neutrophils % 84.8 % Lymphocytes % 3.3 % Monocytes % 10.5 % Eosinophils % 0.0 % Basophils % 0.2 % Neutrophils # 8.0 (1.6-8.9) K/mcL Lymphocytes # 0.3 L (0.6-4.6) K/mcL Monocytes # 1.0 (0.0-1.3) K/mcL Eosinophils # 0.0 (0.0-0.6) K/mcL Basophils # 0.0 (0.0-0.2) K/mcL Nucleated RBCs/100 WBC 0.7 H (0) /100 WBC PT 14.4 H (9.4-12.1) Seconds INR 1.3 APTT 33.7 (26.0-36.0) Seconds Sodium 110 L* (136-145) mEq/L Potassium 6.0 H (3.5-5.1) mEq/L Chloride 85 L (98-107) mEq/L Carbon Dioxide 14 L (23-29) mEq/L BUN 15 (6-20) mg/dL Creatinine 0.79 (0.70-1.30) mg/dL Est GFR ( Amer) > 60 (> 60) Est GFR (Non-Af Amer) > 60 (> 60) BUN/Creatinine Ratio 19 (6-26) Glucose 126 H (70-105) mg/dL Calculated Osmolality 232 L (280-300) Calcium 7.8 L (8.6-10.3) mg/dL Magnesium 1.4 L (1.6-2.6) mg/dL Troponin I 0.04 H* (< 0.04) ng/mL B-Natriuretic Peptide (Less than 100) pg/mL TSH 0.709 (0.340-5.600) mcIU/mL Urine Color (Yellow) Urine Clarity (Clear) Urine pH (5.0-8.0) pH Units Ur Specific Rankin (1.010-1.025) Urine Protein (Neg-Trace) mg/dL Urine Glucose (UA) (Normal) mg/dL Urine Ketones (Negative) mg/dL Urine Blood (Negative) Urine Nitrite (Negative) Urine Bilirubin (Negative) Urine Urobilinogen (Normal) mg/dL Ur Leukocyte Esterase (Negative) Urine Microscopic RBC (0-3) per hpf Urine Microscopic WBC (0-3) per hpf Ur Squamous Epith Cells (None-Few) per lpf Urine Bacteria (None-Few) per hpf Hyaline Casts (None-Few) per lpf Ur Culture Indicated? (NO) Urine Opiates Screen (Ikyamz=276) ng/mL Ur Barbiturates Screen (Zvorbv=018) ng/mL Ur Phencyclidine Scrn (Cutoff=25) ng/mL Ur Amphetamines Screen (Nqicpp=4612) ng/mL U Benzodiazepines Scrn (Xjsgsh=911) ng/mL Urine Cocaine Screen (Cutoff= 300) ng/mL U Marijuana (THC) Screen (Cutoff = 50) ng/mL Ethyl Alcohol (0-10) mg/dL 06/04/17 06/04/17 06/04/17 Range/Units 10:07 10:10 10:50 WBC (4.3-11.1) K/mcL RBC (4.19-5.50) M/mcL Hgb (12.9-16.9) g/dL Hct (37.5-50.1) % MCV (83.0-100.0) fL MCH (28.0-33.3) pg MCHC (31.6-35.5) g/dL RDW (11.5-14.5) % Plt Count (140-400) K/mcL MPV (9.4-12.4) fL Immature Gran % (0-4) % Seg Neutrophils % % Lymphocytes % % Monocytes % % Eosinophils % % Basophils % % Neutrophils # (1.6-8.9) K/mcL Lymphocytes # (0.6-4.6) K/mcL Monocytes # (0.0-1.3) K/mcL Eosinophils # (0.0-0.6) K/mcL Basophils # (0.0-0.2) K/mcL Nucleated RBCs/100 WBC (0) /100 WBC PT (9.4-12.1) Seconds INR APTT (26.0-36.0) Seconds Sodium (136-145) mEq/L Potassium (3.5-5.1) mEq/L Chloride (98-107) mEq/L Carbon Dioxide (23-29) mEq/L BUN (6-20) mg/dL Creatinine (0.70-1.30) mg/dL Est GFR ( Amer) (> 60) Est GFR (Non-Af Amer) (> 60) BUN/Creatinine Ratio (6-26) Glucose (70-105) mg/dL Calculated Osmolality (280-300) Calcium (8.6-10.3) mg/dL Magnesium (1.6-2.6) mg/dL Troponin I (< 0.04) ng/mL B-Natriuretic Peptide 745 H (Less than 100) pg/mL TSH (0.340-5.600) mcIU/mL Urine Color (Yellow) Urine Clarity (Clear) Urine pH (5.0-8.0) pH Units Ur Specific Rankin (1.010-1.025) Urine Protein (Neg-Trace) mg/dL Urine Glucose (UA) (Normal) mg/dL Urine Ketones (Negative) mg/dL Urine Blood (Negative) Urine Nitrite (Negative) Urine Bilirubin (Negative) Urine Urobilinogen (Normal) mg/dL Ur Leukocyte Esterase (Negative) Urine Microscopic RBC (0-3) per hpf Urine Microscopic WBC (0-3) per hpf Ur Squamous Epith Cells (None-Few) per lpf Urine Bacteria (None-Few) per hpf Hyaline Casts (None-Few) per lpf Ur Culture Indicated? (NO) Urine Opiates Screen Negative (Rrlucn=329) ng/mL Ur Barbiturates Screen Negative (Zefxcr=967) ng/mL Ur Phencyclidine Scrn Negative (Cutoff=25) ng/mL Ur Amphetamines Screen Negative (Wqdalh=1986) ng/mL U Benzodiazepines Scrn Negative (Tkaznu=691) ng/mL Urine Cocaine Screen Negative (Cutoff= 300) ng/mL U Marijuana (THC) Screen Negative (Cutoff = 50) ng/mL Ethyl Alcohol 138 H (0-10) mg/dL 06/04/17 Range/Units 10:54 WBC (4.3-11.1) K/mcL RBC (4.19-5.50) M/mcL Hgb (12.9-16.9) g/dL Hct (37.5-50.1) % MCV (83.0-100.0) fL MCH (28.0-33.3) pg MCHC (31.6-35.5) g/dL RDW (11.5-14.5) % Plt Count (140-400) K/mcL MPV (9.4-12.4) fL Immature Gran % (0-4) % Seg Neutrophils % % Lymphocytes % % Monocytes % % Eosinophils % % Basophils % % Neutrophils # (1.6-8.9) K/mcL Lymphocytes # (0.6-4.6) K/mcL Monocytes # (0.0-1.3) K/mcL Eosinophils # (0.0-0.6) K/mcL Basophils # (0.0-0.2) K/mcL Nucleated RBCs/100 WBC (0) /100 WBC PT (9.4-12.1) Seconds INR APTT (26.0-36.0) Seconds Sodium (136-145) mEq/L Potassium (3.5-5.1) mEq/L Chloride (98-107) mEq/L Carbon Dioxide (23-29) mEq/L BUN (6-20) mg/dL Creatinine (0.70-1.30) mg/dL Est GFR ( Amer) (> 60) Est GFR (Non-Af Amer) (> 60) BUN/Creatinine Ratio (6-26) Glucose (70-105) mg/dL Calculated Osmolality (280-300) Calcium (8.6-10.3) mg/dL Magnesium (1.6-2.6) mg/dL Troponin I (< 0.04) ng/mL B-Natriuretic Peptide (Less than 100) pg/mL TSH (0.340-5.600) mcIU/mL Urine Color Dark Yellow (Yellow) Urine Clarity Cloudy A (Clear) Urine pH 6.0 (5.0-8.0) pH Units Ur Specific Rankin 1.023 (1.010-1.025) Urine Protein 100 H (Neg-Trace) mg/dL Urine Glucose (UA) Normal (Normal) mg/dL Urine Ketones Trace H (Negative) mg/dL Urine Blood Trace H (Negative) Urine Nitrite Negative (Negative) Urine Bilirubin Small H (Negative) Urine Urobilinogen 2.0 H (Normal) mg/dL Ur Leukocyte Esterase Negative (Negative) Urine Microscopic RBC 0-3 (0-3) per hpf Urine Microscopic WBC 0-3 (0-3) per hpf Ur Squamous Epith Cells Many H (None-Few) per lpf Urine Bacteria None Seen (None-Few) per hpf Hyaline Casts Few (None-Few) per lpf Ur Culture Indicated? NO (NO) Urine Opiates Screen (Tviqid=539) ng/mL Ur Barbiturates Screen (Nwhzjw=077) ng/mL Ur Phencyclidine Scrn (Cutoff=25) ng/mL Ur Amphetamines Screen (Zbskdf=9338) ng/mL U Benzodiazepines Scrn (Phkfwl=341) ng/mL Urine Cocaine Screen (Cutoff= 300) ng/mL U Marijuana (THC) Screen (Cutoff = 50) ng/mL Ethyl Alcohol (0-10) mg/dL - Radiology Data Radiology results reviewed: Yes I reviewed the patient's radiology results. - EKG Data EKG attestation: Yes I reviewed and interpreted this EKG. EKG results narrative: EKG shows a rate of 155 A. fib with RVR. Rate of 155. QRS 124. QTC 372. Left bundle-branch block present.
[2017-06-04] MEDS ORDERED: Potassium Chloride 40 MEQ/200 ML BAG IVPB PRN (14:13)
[2017-06-04] MEDS ORDERED: *HR* Promethazine 25 MG/ML VIAL IVP PRN (14:31)
[2017-06-04] MEDS ORDERED: *HR* LORazepam 2 MG/ML VIAL IVP PRN (14:31)
[2017-06-04] MEDS ORDERED: Folic Acid 1 MG TABLET PO SCH (14:45)
[2017-06-04] MEDS ORDERED: Thiamine (B-1) 100 MG TABLET PO SCH (14:45)
[2017-06-04] MEDS ORDERED: Vitamin B Complex/Vit C/Vit E 1 EACH TABLET PO SCH (14:45)
--- NOTE | 2017-06-04 14:53 | Cardiology Consult Note ---
Date of Encounter: 06/04/17 Time of Encounter: 14:52 Assessment and Plan (1) Atrial fibrillation with RVR Current Visit: Yes Status: Acute History of Dominique non compliant with amioderone. Not on anticoagulation due to multiple falls and hx alcoholism with cirrhosis and hepatitis. EKG: Dominique RVR with wide QRS similar morphology to baseline, HR 155 CHADSVASC 3 (CHF, AL, Marisa.fib, HTN) -Per cardiology: amioderone, lopressor 25mg BID, lopressor 5mg q6 prn (2) Chest pain Current Visit: No Status: Acute Chest pain and palpitations that has been present since 12am and is still present. Non radiating, sharp in nature. No aggravating or relieving factors. Nitro given in ED did not help. Patient last seen in cardiology office by Mago 12/2016. He was to start taking Toprol at that time. Very non compliant with medications such as amioderone and BB. LHC 1.5mo ago at [facility] with no stents according to patient. EKG: Dominique RVR with wide QRS similar morphology to baseline, HR 155 Troponin 0.04 -trend troponin, BB, amioderone Qualifiers: Chest pain type: unspecified Qualified Code(s): R07.9 - Chest pain, unspecified (3) CHF exacerbation Current Visit: Yes Status: Acute Acute CHF exacerbation BNP 745 EKG: Dominique RVR with wide QRS similar morphology to baseline. CXR demonstrated pulmonary vascular congestion with questionable perihilar edema consistent with CHF. Moderate cardiomegaly. Bilateral effusions. Echo 01/2017- LVEF 45-50%, RV mildly dilated, trivial pericardial effusion w/o tamponade. -Per cardiology: order limited Echo, diuresis per nephrology Qualifiers: Heart failure type: systolic Qualified Code(s): I50.23 - Acute on chronic systolic (congestive) heart failure (4) Hyperkalemia Current Visit: Yes Status: Acute Potassium 6. Management per primary team. (5) Hyponatremia Current Visit: Yes Status: Acute Na 110. Likely due to poor dietary intake secondary to alcoholism. Management per primary team. (6) Alcohol dependence Current Visit: No Status: Acute Drinks 6 24oz cans of beer a day. Last drink 11pm last night. He reported he has cirrhosis and hepatitis. Qualifiers: Substance use status: unspecified alcohol-induced disorder Qualified Code(s ): F10.29 - Alcohol dependence with unspecified alcohol-induced disorder Discussion w patient/family: The assessment and plan as outlined above was discussed with the patient and/or family members who expressed understanding and agreement. All questions were answered. Thank you for involving us in the care of your patient. Please call with any questions. History of Present Illness Consult date: 06/04/17 Requesting physician: Cortes Saxena Consult reason: CHF, A.fib Chief complaint: chest pain, palpitations History of present illness: Mr. Wallace is a 56 year old male with PMH AL, CHF, A.fib, HTN, alcoholism, cirrhosis, hepatitis who presented to [facility] complaining of chest pain and palpitations that began at 12am and never went away but is still present. He stated that he was sitting on couch watching tv when he had this sharp pain in his chest without radiation. Nothing aggravated or relieved the pain. He said the nitroglycerin given in the ED did not help. He reported his last drink was at 11pm. He drinks 6 24oz beers a day. He admits to shortness of breathe, diaphoresis, nausea, lower extremity edema, abdominal pain. Deneid change in vision, syncope, PND, orthopnea, fever, chills. He has had multiple falls due to weakness. He is very non compliant with taking his medications and said that he does not take his amioderone. He is not on anticoagulation. He had the C for AL 1.5month ago at [facility] and stated he did not have stents. He is a current smoker 1/2 ppd since 14yo. His 2 sisters both have pacemakers. He was found to be in A.fib RVR with wide QRS similar morphology to baseline. Troponin 0.04. CXR demonstrated pulmonary vascular congestion with questionable perihilar edema consistent with CHF. Moderate cardiomegaly. Bilateral effusions. Given lopressor, amioderone, nitro, asa, lasix. Past Med Surg Social Fam HX - Past Medical History Medical history: cirrhosis, GERD, hepatitis, hypertension, myocardial infarction , other Psychiatric history: anxiety, depression - Past Surgical History Surgical History: cataract - Social History Smoking Status: Current every day smoker Smokeless Tobacco Status: No Alcohol use: heavy, recent Drug use: none - Family History Mother Hx Family Cardiac Disorders: Yes Father Hx Family Cardiac Disorders: Yes Medications and Allergies Omeprazole [PriLOSEC] 20 mg PO DAILY #30 cap 10/24/16 [Rx] Amiodarone [Cordarone] 200 mg PO DAILY 01/16/17 [History] 3 Allergy/AdvReac Type Severity Reaction Status Date / Time haloperidol [From Haldol] AdvReac Seizure Verified 06/04/17 12:28 All Systems Review: The remainder of the systems were reviewed and are negative - Constitutional Constitutional: chills, fatigue, frequent falls, weakness - EENT Eyes: no blurred vision, no loss of vision - Cardiovascular Cardiovascular: chest pain at rest, diaphoresis, leg edema, palpitations, no radiating jaw, neck or arm pain, no orthopnea, no paroxysmal nocturnal dyspnea, no syncope - Respiratory Respiratory: dyspnea - Gastrointestinal Gastrointestinal: abdominal pain, nausea - Musculoskeletal Musculoskeletal: back pain - Integumentary Integumentary: no erythema - Neurological Neurological: no loss of vision, no syncope Physical Examination Vital Signs, Last 4 Hours Pulse Resp BP Pulse Ox 06/04/17 14:00 112 24 128/84 93 06/04/17 13:20 120 42 126/96 96 06/04/17 12:44 103 36 108/97 95 General: Conversant, No Apparent Distress HEENT: Atraumatic, Mucus Membranes Moist Cardiac: Other (irregular) Lungs: Other (RALES b/l ) Neuro: Alert and responsive Abdomen: Soft, Other (generalized tenderness) Skin: No rashes noted on visualized skin Musculoskeletal: Other (chest tenderness ) Extremities: Other (edema b/l) Results 06/04/17 10:07 06/04/17 10:07 Consult Discharge Plan - Plan Referrals: NONE,PCP [Primary Care Provider] -
[2017-06-04] MEDS: Furosemide 40 MG/4 ML VIAL IVP ONE ×2 (15:07→15:54)
[2017-06-04] MEDS ORDERED: *HR* Metoprolol 5 MG/5 ML VIAL IVP PRN (15:23)
[2017-06-04] MEDS ORDERED: *HR* LORazepam 2 MG/ML VIAL IVP ONE (15:34)
[2017-06-04] MEDS ORDERED: Insulin Human Regular 10 UNIT in 0.9 % Sodium Chloride 10 ML IV ONE (15:38)
[2017-06-04] MEDS ORDERED: Calcium Gluconate 2,000 MG in 0.9 % Sodium Chloride 100 ML IVPB ONE (15:42)
[2017-06-04] MEDS: Dexmedetomidine HCl 400 MCG/100 ML MLS IVC SCH ×2 (15:45→22:22)
[2017-06-04 15:48] LABS: ABG Base Excess -9 mEq/L (-2 to 3); ABG HCO3 16 mEq/L (21-27); ABG Oxygen Saturation 98 % (95-98); ABG PCO2 30 mmHg (35-45); ABG PH 7.32 pH Units (7.32-7.45); ABG PO2 111 mmHg (85-104); ABG TCO2 17 mEq/L (20-26); Blood Gas PEEP 6 cm H2O; Blood Gas Pressure Support 12 cm H2O; Blood Gas Respiration Rate 8
[2017-06-04] MEDS ORDERED: Amiodarone Premix 360 MG/200 ML BAG IVC SCH (16:00)
[2017-06-04] MEDS ORDERED: *HR* Dextrose 50 % in Water (Syg) 50 ML SYRINGE IVP ONE (16:00)
[2017-06-04 16:04] LABS: Troponin I 0.04 ng/mL (< 0.04)
[2017-06-04] MEDS: Norepinephrine 4 MG in D5% in Water 250 ML IVC SCH ×2 (16:30→22:56)
--- NOTE | 2017-06-04 16:40 | Pulmonology History & Physical ---
<Cortes Saxena W - Last Filed: 06/04/17 17:11> Date of Encounter: 06/04/17 History of Present Illness HPI: Mr. Wallace is a 56 year old male Medications and Allergies Omeprazole [PriLOSEC] 20 mg PO DAILY #30 cap 10/24/16 [Rx] Amiodarone [Cordarone] 200 mg PO DAILY 01/16/17 [History] 3 Allergy/AdvReac Type Severity Reaction Status Date / Time haloperidol [From Haldol] AdvReac Seizure Verified 06/04/17 12:28 All Systems: The remainder of the systems were reviewed and are negative Physical Examination Vital Signs: Vital Signs, Last 4 Hours Temp Pulse Resp BP Pulse Ox 06/04/17 15:00 97.5 F L 120 28 106/86 93 06/04/17 14:00 112 24 128/84 93 06/04/17 13:20 120 42 126/96 96 Results - Laboratory Findings CBC and BMP: 06/04/17 10:07 06/04/17 14:19 ABG ABG pH 7.32 pH Units (7.32-7.45) 06/04/17 15:43 ABG pCO2 30 mmHg (35-45) L 06/04/17 15:43 ABG pO2 111 mmHg (85-104) H 06/04/17 15:43 ABG O2 Saturation 98 % (95-98) 06/04/17 15:43 PT/INR, D-dimer PT 14.4 Seconds (9.4-12.1) H 06/04/17 10:07 Abnormal lab findings: Abnormal lab results Hgb 11.3 g/dL (12.9-16.9) L 06/04/17 10:07 Hct 36.8 % (37.5-50.1) L 06/04/17 10:07 MCH 25.9 pg (28.0-33.3) L 06/04/17 10:07 MCHC 30.7 g/dL (31.6-35.5) L 06/04/17 10:07 RDW 18.6 % (11.5-14.5) H 06/04/17 10:07 Plt Count 113 K/mcL (140-400) L 06/04/17 10:07 Lymphocytes # 0.3 K/mcL (0.6-4.6) L 06/04/17 10:07 Nucleated RBCs/100 WBC 0.7 /100 WBC (0) H 06/04/17 10:07 PT 14.4 Seconds (9.4-12.1) H 06/04/17 10:07 ABG pCO2 30 mmHg (35-45) L 06/04/17 15:43 ABG pO2 111 mmHg (85-104) H 06/04/17 15:43 ABG HCO3 16 mEq/L (21-27) L 06/04/17 15:43 ABG Total CO2 17 mEq/L (20-26) L 06/04/17 15:43 ABG Base Excess -9 mEq/L (-2 to 3) L 06/04/17 15:43 Sodium 110 mEq/L (136-145) L* 06/04/17 10:07 Potassium 6.0 mEq/L (3.5-5.1) H 06/04/17 10:07 Chloride 85 mEq/L (98-107) L 06/04/17 10:07 Carbon Dioxide 14 mEq/L (23-29) L 06/04/17 10:07 Glucose 114 mg/dL (70-105) H 06/04/17 14:19 Calculated Osmolality 232 (280-300) L 06/04/17 10:07 Calcium 7.8 mg/dL (8.6-10.3) L 06/04/17 10:07 Magnesium 1.4 mg/dL (1.6-2.6) L 06/04/17 10:07 Troponin I 0.04 ng/mL (< 0.04) H* 06/04/17 14:19 B-Natriuretic Peptide 745 pg/mL (Less than 100) H 06/04/17 10:07 Urine Clarity Cloudy (Clear) A 06/04/17 10:54 Urine Protein 100 mg/dL (Neg-Trace) H 06/04/17 10:54 Urine Ketones Trace mg/dL (Negative) H 06/04/17 10:54 Urine Blood Trace (Negative) H 06/04/17 10:54 Urine Bilirubin Small (Negative) H 06/04/17 10:54 Urine Urobilinogen 2.0 mg/dL (Normal) H 06/04/17 10:54 Ur Squamous Epith Cells Many per lpf (None-Few) H 06/04/17 10:54 Ethyl Alcohol 138 mg/dL (0-10) H 06/04/17 10:10 - Attending Attestation I examined this patient and my medical decision-making was reviewed with the Resident Physician. I agree with the documented findings, disposition and treatment plan as described except to the extent set forth below. We independently had [id number] contact with the patient I spent 50min of Critical Care time with this patient. It involved decision making of high complexity to assess, manipulate, and support vital organ system failure and/or to prevent further life threatening deterioration of the patient' s condition. The time involved in the performance of separately reportable procedures was not counted toward critical care time. Patient seen and examined at bedside Labs, radiology, chart personally reviewed. 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 We will start a Versed infusion in addition to fentanyl for sedation management while on ventilator with active ethanol withdrawal. Continue vitamin/mineral replacement along with IV thiamine Pulm: Patient was hypoxic on admission which was responding to BiPAP however needed Intubated for airway management while significant hypoxemia from underlying CHF and ongoing ethanol withdrawal. ABG postintubation pending use a lower tidal volume high PEEP strategy in this case. Cards: Atrial fibrillation with underlying LBBB very mild troponin elevation but does not appear consistent with ACS. Cardiology consulted plan for amiodarone bolus. Also decompensated heart failure has been seen at [facility] in the past and given degree of hyponatremia and heart failure I suspect that he will benefit from ongoing evaluation at tertiary referral center ED also d/w [facility] patient on the list waiting an ICU bed. He also has evidence of shock which is likely related to sedation and SVT complicating underlying heart failure on vasopressor. Repeat echocardiogram pending appreciate cardiology evaluation and recommendations FEN-GI: Nothing by mouth for now GI prophylaxis given Renal: Severe hyponatremia which is likely multifactorial including CHF and ethanol abuse Hyperkalemia without evidence of acute kidney injury he also has a metabolic acidosis I suspect this is all related to a combination of heart failure and chronic ethanol abuse potassium cocktail given and will follow this very closely I also consulted with nephrology and discussed the case directly with the attending physician Dr Martinez who is kindly agreed to see the patient. I do not see that he has an acute indication for hypertonic saline at this point is no evidence of seizure and I feel that his mental status changes with more a reflection of alcohol withdrawal as opposed to hyponatremia. We also reviewed placing magnesium he will need close monitoring of electrolyte derangements. ID: No clear evidence of sepsis we will obtain a monitor at this time Heme/Onc: DVT prophylaxis given his high risk for bleeding given ongoing ethanol abuse and so no long-term anticoagulation has been recommended in the past Endo: Glucose Monitored Integ/MSK: Skin Care per routine ICU Nursing Protocol to prevent ulcers. Lines: All lines examined without evidence of infection : Dispo: Critically ill. CODE: Full code. I updated the patient's next of kin (sister) with plan of care and plan to transfer back to [facility] for ongoing management of heart failure. <Cindi Stallworth - Last Filed: 06/04/17 18:49> Date of Encounter: 06/04/17 Time of Encounter: 03:20 Assessment and Plan (1) Acute and chronic respiratory failure with hypoxia Current visit: Yes Status: Acute Secondary to decompensated systolic congestive heart failure. CXR demonstrated pulmonary vascular congestion with questionable perihilar edema consistent with CHF. Moderate cardiomegaly. Bilateral effusions. Echo 01/2017- LVEF 45-50%, RV mildly dilated, trivial pericardial effusion w/o tamponade. Patient had worsening respiratory failure resulting in need for intubation. Patient is currently comfortably intubated sedated with fentanyl and Versed. Plan: - ABG stat - continue sedation with fentanyl and Versed - Echo ordered stat - cardiology consulted - Troponins trending -ventilator support (2) CHF (congestive heart failure) Current visit: Yes Status: Acute See plan above. Echo pending. cardiology consulted. Qualifiers: Heart failure type: systolic Heart failure chronicity: acute Qualified Code(s): I50.21 - Acute systolic (congestive) heart failure (3) Elevated troponin Current visit: Yes Status: Acute Most likely secondary to demand ischemia and A. fib. Troponin= 0.04 (0.04). Repeat Troponin pending. Cardiology consulted. Echo ordered stat. Patient currently on an Plan: - echo pending -cardiology consulted recommend: amiodarone drip lopressor 25mg BID lopressor 5mg Q6prn. (4) Hyponatremia Current visit: Yes Status: Acute Multifactorial causes most likely secondary to beer potomonia and CHF. Na= 110. Consult to nephrology for recommendations. Plan: - BMP,Mg, lactic acid Q6hrs - AccuCheck Q6hrs (5) Paroxysmal A-fib Current visit: Yes Status: Acute Noncompliant home medication of amiodarone. EKG showed A. fib with RVR and was started on an amiodarone drip in the ED. Cardiology was consulted and continued amiodarone drip, Lopressor 25 mg twice a day, Lopressor 5 mg every 6 hours when necessary. Repeat EKG (6) Hyperkalemia Current visit: Yes Status: Acute Plan: - calcium gluconate given - 10 units of insulin with 50ml amp of dextrose - 15 mg of Kayexalate - Repeat BMP q6hrs (7) Hepatitis C Current visit: Yes Status: Chronic Qualifiers: Viral hepatitis chronicity: chronic Hepatic coma status: without hepatic coma Qualified Code(s): B18.2 - Chronic viral hepatitis C (8) DVT prophylaxis Current visit: Yes Status: Acute EPCDs History of Present Illness Chief complaint: chest pain and SOB HPI: Mr. Wallace is a 56 year old male with past medical history of hypertension, A. fib, not anticoagulated, hepatitis C, and CHF presented to the ED for palpitations, shortness of breath and alcohol withdrawal. Patient states he began having chest pain around midnight (06/03/17). Patient describes chest pain sharp and began while he was sitting down. Not worsened by standing up or moving around. Patient states that he had intermittent sweating, worsening shortness of breath, nausea. Patient states that sometimes it radiates down his neck and into his back but he contributes this more to his chronic back pain. Patient states she was given aspirin and nitroglycerin in the ED and this did not change his chest pain. He is currently starting chest pain that is sharp. He states that he has had worsening lower extremity edema over the last couple days. He has not noticed increased shortness of breath while lying down. Patient does not follow with a addiction nurse. Patient stated that he stopped taking his medication 3 days ago as he ran out. Patient states that he drinks 6 24oz beers per day and has been doing this for 1 year. His last drink was at 23:00 06/03/17. Patient also states that he smokes 1/2ppd since he was 14 y/o. Patient states that he has been ambulating on his own but has had multiple falls recently but has not hit his head. He contributes this all to his back pain. In the ED patient was found to be in A. fib with RVR and was placed on amiodarone drip and given Lopressor, nitroglycerin, and aspirin. Heart rate decreased. Patient was given 1 dose of Lasix. Right femoral central line placed without complications. Patient was placed on BiPAP and was breathing comfortably. Patient was transferred to the ICU and had worsening respiratory distress and was not tolerating BiPAP. Patient began to have sweating, hallucinations, changes in vision, and continue to have chest pain. It was then decided the patient needed to be intubated. Patient was intubated and tolerated procedure well. Cardiology and nephrology were consulted. Past Med Surg Social Fam HX - Past Medical History Medical history: atrial fibrillation, cirrhosis, GERD, hepatitis, hypertension, liver disease (hep C), myocardial infarction, other Psychiatric history: anxiety, depression - Past Surgical History Surgical History: cataract - Social History Smoking Status: Current every day smoker (1/2ppd since she was 14 years old) Smokeless Tobacco Status: No Alcohol use: heavy, recent Drug use: none Activity Level: Independent ambulation - Family History Mother Hx Family Cardiac Disorders: Yes Father Hx Family Cardiac Disorders: Yes Sister Hx Family Cardiac Disorders: Yes (Pacemaker placed) All Systems: The remainder of the systems were reviewed and are negative - Constitutional Constitutional: as per HPI Physical Examination Vital Signs: Vital Signs, Last 4 Hours Temp Pulse Resp BP Pulse Ox 06/04/17 15:00 97.5 F L 120 28 106/86 93 06/04/17 14:00 112 24 128/84 93 06/04/17 13:20 120 42 126/96 96 06/04/17 12:44 103 36 108/97 95 Constitutional: Alert, in moderate respiratory distress, diaphoretic, Head: Normocephalic, atraumatic Heart: , irregular rate and rhythm murmurs Lungs: Clear to auscultation, no wheezes, rales, or rhonchi Abdomen: mild diffuse tenderness, Soft, nondistended,no guarding or rigidity. Extremities: + 1 pitting edema, No clubbing, radial pulse +2/4, capillary refill <2sec. Skin: Skin bernal, warm and moist,, no lesions, no rashes, no jaundice Neurologic: Cranial nerves II through XII grossly intact, no focal deficits, strength 5/5 in all extremitites Psych: Cooperative with exam, good eye contact, cognitive function intact, speech clear Results - Laboratory Findings CBC and BMP: 06/04/17 10:07 06/04/17 14:19 ABG ABG pH 7.32 pH Units (7.32-7.45) 06/04/17 15:43 ABG pCO2 30 mmHg (35-45) L 06/04/17 15:43 ABG pO2 111 mmHg (85-104) H 06/04/17 15:43 ABG O2 Saturation 98 % (95-98) 06/04/17 15:43 PT/INR, D-dimer PT 14.4 Seconds (9.4-12.1) H 06/04/17 10:07 Abnormal lab findings: Abnormal lab results Hgb 11.3 g/dL (12.9-16.9) L 06/04/17 10:07 Hct 36.8 % (37.5-50.1) L 06/04/17 10:07 MCH 25.9 pg (28.0-33.3) L 06/04/17 10:07 MCHC 30.7 g/dL (31.6-35.5) L 06/04/17 10:07 RDW 18.6 % (11.5-14.5) H 06/04/17 10:07 Plt Count 113 K/mcL (140-400) L 06/04/17 10:07 Lymphocytes # 0.3 K/mcL (0.6-4.6) L 06/04/17 10:07 Nucleated RBCs/100 WBC 0.7 /100 WBC (0) H 06/04/17 10:07 PT 14.4 Seconds (9.4-12.1) H 06/04/17 10:07 ABG pCO2 30 mmHg (35-45) L 06/04/17 15:43 ABG pO2 111 mmHg (85-104) H 06/04/17 15:43 ABG HCO3 16 mEq/L (21-27) L 06/04/17 15:43 ABG Total CO2 17 mEq/L (20-26) L 06/04/17 15:43 ABG Base Excess -9 mEq/L (-2 to 3) L 06/04/17 15:43 Sodium 110 mEq/L (136-145) L* 06/04/17 10:07 Potassium 6.0 mEq/L (3.5-5.1) H 06/04/17 10:07 Chloride 85 mEq/L (98-107) L 06/04/17 10:07 Carbon Dioxide 14 mEq/L (23-29) L 06/04/17 10:07 Glucose 114 mg/dL (70-105) H 06/04/17 14:19 Calculated Osmolality 232 (280-300) L 06/04/17 10:07 Calcium 7.8 mg/dL (8.6-10.3) L 06/04/17 10:07 Magnesium 1.4 mg/dL (1.6-2.6) L 06/04/17 10:07 Troponin I 0.04 ng/mL (< 0.04) H* 06/04/17 14:19 B-Natriuretic Peptide 745 pg/mL (Less than 100) H 06/04/17 10:07 Urine Clarity Cloudy (Clear) A 06/04/17 10:54 Urine Protein 100 mg/dL (Neg-Trace) H 06/04/17 10:54 Urine Ketones Trace mg/dL (Negative) H 06/04/17 10:54 Urine Blood Trace (Negative) H 06/04/17 10:54 Urine Bilirubin Small (Negative) H 06/04/17 10:54 Urine Urobilinogen 2.0 mg/dL (Normal) H 06/04/17 10:54 Ur Squamous Epith Cells Many per lpf (None-Few) H 06/04/17 10:54 Ethyl Alcohol 138 mg/dL (0-10) H 06/04/17 10:10
--- NOTE | 2017-06-04 16:56 | Procedure Note ---
Date of procedure: 06/04/17 Pre-op diagnosis: Shock Post-op diagnosis: same Procedure: CVC insertion under u/s guidance Surgeon: Cortes Saxena Was there an assistant corporate controller present: No Estimated blood loss (cc): 1 Specimen: none Pathology: none sent Condition: critical Disposition: no change Procedures: Internal Med - Central Line Placement Left Femoral Consent Obtained: consent not possible/implied (Emergent) Time out performed: No (emergent) Patient placed on monitor/pulse ox: Yes MD prep: mask, gown, gloves Central line prep: Chlorhexidine scrub, sterile drapes applied Local anesthesia used: Other (see RN flow sheet ) Ultrasound used for placement: Yes Central line lumen inserted: triple Post Procedure: sutured in place, good blood return, all ports aspirated, flushed, capped, sterile dressing applied, dark venous blood, biodisk applied Patient tolerated procedure: well Complications: none
--- NOTE | 2017-06-04 16:58 | Procedure Note ---
Date of procedure: 06/04/17 Pre-op diagnosis: Respiratory Failure Post-op diagnosis: same Procedure: Endotracheal intubation Surgeon: Cortes Saxena Was there an architectural administrative assistant present: Yes Agile Test Lead: Jaelyn Kumar Estimated blood loss (cc): 0 Specimen: none Pathology: none sent Condition: critical Disposition: no change Procedures: Internal Med - Intubation Sedative: Etomidate Amount Given: 30 Laryngoscope: glidescope Assist device used: video scope ET tube size: 7.5 ET tube uncuffed: No Tube secured depth (cm): 25 Tube secured location: teeth Tube placement confirmation: visualized tube passing through cords, equal breath sounds bilaterally, no breath sounds over epigastrium, confirmation by capnometry Patient tolerated procedure: well Intubation complications: other (hypotension requiring vasopressor )
[2017-06-04] MEDS: FentaNYL (PF) 1,000 MCG in 0.9 % Sodium Chloride 80 ML IVC SCH (17:00)
[2017-06-04] MEDS ORDERED: Lacri-Lube 3.5 GM TUBE BOTH EYES PRN (17:16)
[2017-06-04] MEDS ORDERED: Naloxone 0.4 MG/ML INJ IVP PRN (17:19)
[2017-06-04 17:29] LABS: ABG Base Excess -9 mEq/L (-2 to 3); ABG HCO3 19 mEq/L (21-27); ABG Oxygen Saturation 100 % (95-98); ABG PCO2 46 mmHg (35-45); ABG PH 7.22 pH Units (7.32-7.45); ABG PO2 319 mmHg (85-104); ABG TCO2 20 mEq/L (20-26); Blood Gas Modality ASSIST CONTROL; Blood Gas PEEP 10 cm H2O; Blood Gas Respiration Rate 18; Blood Gas VT 500 cc
[2017-06-04] MEDS ORDERED: Pantoprazole 40 MG VIAL IVP SCH (17:30)
[2017-06-04] MEDS ORDERED: Thiamine (B-1) 100 MG, Folic Acid 1 MG, MVI, adult with vitamin K 10 ML in 0.9 % Sodi... IVPB SCH (18:00)
[2017-06-04 19:00] LABS: Basophils % 0.1 %; Hematocrit 33.6 % (37.5-50.1); Hemoglobin 10.3 g/dL (12.9-16.9); Immature Granulocytes % 1.2 % (0-4); Lymphocytes # 0.5 K/mcL (0.6-4.6); Mean Corpuscular HGB Conc 30.7 g/dL (31.6-35.5); Mean Corpuscular Hemoglobin 26.1 pg (28.0-33.3); Mean Corpuscular Volume 85.1 fL (83.0-100.0); Mean Platelet Volume 12.1 fL (9.4-12.4); Monocytes # 1.3 K/mcL (0.0-1.3); Monocytes % 11.4 %; Neutrophils # 9.4 K/mcL (1.6-8.9); Nucleated Red Blood Cells 0.8 /100 WBC (0); Platelet Count 110 K/mcL (140-400); Red Blood Count 3.95 M/mcL (4.19-5.50); Red Cell Distribution Width 18.3 % (11.5-14.5); Segmented Neutrophils % 83.3 %
[2017-06-04 19:15] LABS: Troponin I 0.05 ng/mL (< 0.04)
[2017-06-04 19:25] LABS: Acetaminophen < 1.0 mcg/mL (10-30); Salicylate < 5.0 mg/dL (15.0-30.0)
[2017-06-04 19:26] LABS: ABG Base Excess -8 mEq/L (-2 to 3); ABG HCO3 18 mEq/L (21-27); ABG Oxygen Saturation 98 % (95-98); ABG PCO2 37 mmHg (35-45); ABG PO2 115 mmHg (85-104); ABG TCO2 19 mEq/L (20-26); Blood Gas Modality VC; Blood Gas PEEP 10 cm H2O; Blood Gas Respiration Rate 18; Blood Gas VT 500 cc
[2017-06-04] MEDS: Lacri-Lube 3.5 GM TUBE BOTH EYES SCH (19:53)
[2017-06-04 20:35] LABS: BUN/Creatinine Ratio 19 (6-26); Blood Urea Nitrogen 17 mg/dL (6-20); Calcium 7.8 mg/dL (8.6-10.3); Carbon Dioxide 20 mEq/L (23-29); Chloride 87 mEq/L (98-107); Glucose 95 mg/dL (70-105); Magnesium 1.7 mg/dL (1.6-2.6); Osmolality,Calculated 237 (280-300); Potassium 5.6 mEq/L (3.5-5.1); Sodium 113 mEq/L (136-145); eGFR For African Americans > 60 (> 60); eGFR For Non-African Americans > 60 (> 60)
[2017-06-04 20:57] LABS: Creatine Kinase 428 Units/L (30-223)
[2017-06-04] MEDS ORDERED: Chlorhexidine Rinse 15 ML MOUTHWASH MM SCH (21:00)
--- NOTE | 2017-06-04 23:30 | Discharge Summary ---
Orders not resulted at time of discharge: Pending orders 06/04/17 15:08 Culture,Sputum with Gram Stain [RM] Routine 06/04/17 17:22 ECG 12 lead ECG [ECG] Routine 06/04/17 23:30 MG [Magnesium] Stat Troponin I Timed 06/05/17 00:02 Basic Metabolic Panel Q6H Magnesium Q6H 06/05/17 04:00 Arterial Blood Gas AM 0400 Complete Blood Count [HEME] AM 0400 Hepatic Panel AM 0400 Lactic Acid Q6H Magnesium Routine Phosphorous Routine 06/05/17 06:02 Basic Metabolic Panel Q6H Magnesium Q6H 06/05/17 10:00 Lactic Acid Q6H 06/05/17 12:02 Basic Metabolic Panel Q6H Magnesium Q6H 06/05/17 16:00 Lactic Acid Q6H 06/05/17 22:00 Lactic Acid Q6H 06/06/17 04:00 Arterial Blood Gas AM 0400 06/07/17 04:00 Arterial Blood Gas AM 0400 06/08/17 04:00 Arterial Blood Gas AM 0400 06/09/17 04:00 Arterial Blood Gas AM 0400 06/10/17 04:00 Arterial Blood Gas AM 0400 Date of Encounter: 06/04/17 Time of Encounter: 23:31 - Discharge Diagnosis (1) Acute and chronic respiratory failure with hypoxia Priority: Primary Status: Acute (2) Atrial fibrillation with RVR Priority: Primary Status: Acute (3) CHF (congestive heart failure) Priority: Primary Status: Acute Qualifiers: Heart failure type: systolic Heart failure chronicity: acute Qualified Code(s): I50.21 - Acute systolic (congestive) heart failure (4) Elevated troponin Priority: Secondary Status: Acute (5) Hyperkalemia Priority: Secondary Status: Acute (6) Hyponatremia Priority: Secondary Status: Acute (7) Hepatitis C Priority: Secondary Status: Chronic Qualifiers: Viral hepatitis chronicity: chronic Hepatic coma status: without hepatic coma Qualified Code(s): B18.2 - Chronic viral hepatitis C (8) Alcohol dependence Priority: Primary Status: Acute Qualifiers: Substance use status: unspecified alcohol-induced disorder Qualified Code(s ): F10.29 - Alcohol dependence with unspecified alcohol-induced disorder (9) Alcohol withdrawal Priority: Primary Status: Acute Qualifiers: Complication of substance-induced condition: with unspecified complication Qualified Code(s): F10.239 - Alcohol dependence with withdrawal, unspecified - Discharge Medications Home Medications: Omeprazole [PriLOSEC] 20 mg PO DAILY #30 cap 10/24/16 [Rx] Amiodarone [Cordarone] 200 mg PO DAILY 01/16/17 [History] Allergies/Adverse Reactions: 3 Allergy/AdvReac Type Severity Reaction Status Date / Time haloperidol [From Haldol] AdvReac Seizure Verified 06/04/17 12:28 Labs on day of discharge: Labs from last 24 hours 06/04/17 06/04/17 06/04/17 19:20 18:30 17:30 WBC RBC Hgb Hct MCV MCH MCHC RDW Plt Count MPV Immature Gran % Seg Neutrophils % Lymphocytes % Monocytes % Eosinophils % Basophils % Neutrophils # Lymphocytes # Monocytes # Eosinophils # Basophils # Nucleated RBCs/100 WBC Sample Site Art Line ABG pH 7.30 L ABG pCO2 37 ABG pO2 115 H D ABG HCO3 18 L ABG Total CO2 19 L ABG O2 Saturation 98 ABG Base Excess -8 L Nathan Test N/A Respiration Rate 18 O2 Delivery Device Adult Vent Blood Gas Modality VC Inspired O2 50.0 Tidal Volume 500 PEEP 10 Pressure Support Sodium 113 L* Potassium 5.6 H Chloride 87 L Carbon Dioxide 20 L BUN 17 Creatinine 0.89 Est GFR ( Amer) > 60 Est GFR (Non-Af Amer) > 60 BUN/Creatinine Ratio 19 Glucose 95 POC Glucose Serum Osmolality Calculated Osmolality 237 L Lactic Acid 2.1 Calcium 7.8 L Magnesium 1.7 Creatine Kinase 428 H Troponin I 0.05 H* Random Cortisol Salicylates Acetaminophen 06/04/17 06/04/17 06/04/17 17:24 17:06 16:06 WBC RBC Hgb Hct MCV MCH MCHC RDW Plt Count MPV Immature Gran % Seg Neutrophils % Lymphocytes % Monocytes % Eosinophils % Basophils % Neutrophils # Lymphocytes # Monocytes # Eosinophils # Basophils # Nucleated RBCs/100 WBC Sample Site R Radial ABG pH 7.22 L ABG pCO2 46 H ABG pO2 319 H D ABG HCO3 19 L ABG Total CO2 20 ABG O2 Saturation 100 H ABG Base Excess -9 L Nathan Test N/A Respiration Rate 18 O2 Delivery Device Blood Gas Modality ASSIST CONTROL Inspired O2 100.0 Tidal Volume 500 PEEP 10 Pressure Support Sodium Potassium Chloride Carbon Dioxide BUN Creatinine Est GFR ( Amer) Est GFR (Non-Af Amer) BUN/Creatinine Ratio Glucose POC Glucose 125 H Serum Osmolality Calculated Osmolality Lactic Acid Calcium Magnesium Creatine Kinase Troponin I Random Cortisol 32.2 Salicylates Acetaminophen 06/04/17 06/04/17 06/04/17 16:05 16:04 15:43 WBC RBC Hgb Hct MCV MCH MCHC RDW Plt Count MPV Immature Gran % Seg Neutrophils % Lymphocytes % Monocytes % Eosinophils % Basophils % Neutrophils # Lymphocytes # Monocytes # Eosinophils # Basophils # Nucleated RBCs/100 WBC Sample Site R Radial ABG pH 7.32 ABG pCO2 30 L ABG pO2 111 H ABG HCO3 16 L ABG Total CO2 17 L ABG O2 Saturation 98 ABG Base Excess -9 L Nathan Test N/A Respiration Rate 8 O2 Delivery Device BiPAP Blood Gas Modality Inspired O2 40.0 Tidal Volume PEEP 6 Pressure Support 12 Sodium Potassium Chloride Carbon Dioxide BUN Creatinine Est GFR ( Amer) Est GFR (Non-Af Amer) BUN/Creatinine Ratio Glucose POC Glucose Serum Osmolality 267 L Calculated Osmolality Lactic Acid Calcium Magnesium Creatine Kinase Troponin I Random Cortisol Salicylates < 5.0 L Acetaminophen < 1.0 L 06/04/17 06/04/17 15:25 14:19 WBC 11.2 H RBC 3.95 L Hgb 10.3 L Hct 33.6 L MCV 85.1 MCH 26.1 L MCHC 30.7 L RDW 18.3 H Plt Count 110 L MPV 12.1 Immature Gran % 1.2 Seg Neutrophils % 83.3 Lymphocytes % 4.0 Monocytes % 11.4 Eosinophils % 0.0 Basophils % 0.1 Neutrophils # 9.4 H Lymphocytes # 0.5 L Monocytes # 1.3 Eosinophils # 0.0 Basophils # 0.0 Nucleated RBCs/100 WBC 0.8 H Sample Site ABG pH ABG pCO2 ABG pO2 ABG HCO3 ABG Total CO2 ABG O2 Saturation ABG Base Excess Nathan Test Respiration Rate O2 Delivery Device Blood Gas Modality Inspired O2 Tidal Volume PEEP Pressure Support Sodium Potassium Chloride Carbon Dioxide BUN Creatinine Est GFR ( Amer) Est GFR (Non-Af Amer) BUN/Creatinine Ratio Glucose 114 H POC Glucose Serum Osmolality Calculated Osmolality Lactic Acid Calcium Magnesium Creatine Kinase Troponin I 0.04 H* Random Cortisol Salicylates Acetaminophen - Impressions ITS Impressions Chest X-Ray 06/04/17 16:49 IMPRESSION: 1. Endotracheal tube tip projects approximately 6.5 cm from the fab. Recommend advancement by 3-4 cm. 2. Enteric tube extends beyond the [id number] into the upper abdomen. 3. Re- demonstration of central pulmonary vascular congestion and likely mild pulmonary edema. D/ / Marquez Weiner MD / Marquez Weiner MD Interpreting Provider: Marquez Weiner MD Date of admission: 06/04/17 12:18 Primary care physician: PCP NONE Consults: 06/04/17 13:48 Consult to Cardiology [CONS] Stat Comment: Consulting Provider: Cardiology Deloris Reason for Consult: CHF with Afib Call Completed: Yes Consult to Nephrology [CONS] Stat Consulting Provider: Kidney Deloris/VIRGINIE/JANETH/SNEHA Reason for Consult: ARSH with Hyponatremia Call Completed: Yes 06/04/17 14:27 Consult to [facility] [CONS] Routine Reason for SW Consult: multiple falls at home and home safety check Discharging clinician: Cortes Saxena Anticipated date of discharge: 06/04/17 - Patient Status Disposition: Transfer Critical Access Hosp Condition: Serious - Discharge Instructions Follow Up With: NONE,PCP [Primary Care Provider] - - Hospital Course Hospital course: Mr. Wallace is a 56 year old male with past medical history of hypertension, A. fib, not anticoagulated, hepatitis C, and CHF presented to the ED for palpitations, shortness of breath and alcohol withdrawal. Patient states he began having chest pain around midnight (06/03/17). Patient describes chest pain sharp and began while he was sitting down. Not worsened by standing up or moving around. Patient states that he had intermittent sweating, worsening shortness of breath, nausea. Patient states that sometimes it radiates down his neck and into his back but he contributes this more to his chronic back pain. Patient states she was given aspirin and nitroglycerin in the ED and this did not change his chest pain. He is currently starting chest pain that is sharp. He states that he has had worsening lower extremity edema over the last couple days. He has not noticed increased shortness of breath while lying down. 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 Patient stated that he stopped taking his medication 3 days ago as he ran out. Patient states that he drinks 6 24oz beers per day and has been doing this for 1 year. His last drink was at 23:00 06/03/17. Patient also states that he smokes 1/2ppd since he was 14 y/o. His alcohol level in the emergency department 138. His prior visit his alcohol level was greater than 360. He has had multiple visit for chest pain and I will call dependence with symptoms of withdrawal. Patient states that he has been ambulating on his own but has had multiple falls recently but has not hit his head. He contributes this all to his back pain. In the ED patient was found to be in A. fib with RVR and was placed on amiodarone drip and given Lopressor, nitroglycerin, and aspirin. Heart rate decreased. Patient was given 1 dose of Lasix. Right femoral central line placed without complications. Patient was placed on BiPAP and was breathing comfortably. Patient was transferred to the ICU and had worsening respiratory distress and was not tolerating BiPAP. Patient began to have sweating, hallucinations, changes in vision, and continue to have chest pain. It was then decided the patient needed to be intubated. Patient was intubated and tolerated procedure well. Cardiology and nephrology were consulted. Patient's troponins have been a dynamic initially 0.04 with a peak 0.05. Patient's initial admission was for his hypoxia and chest pain but was complicated secondary to his history of alcohol dependence. He also has severe hyponatremia which s likely multifocal factorial secondary to his congestive heart failure and ethanol abuse. Given his decompensated heart failure patient would benefit ongoing evaluation at a tertiary referral center such as [facility] where he has been previously evaluated for December 2016. He also had hyperkalemia that was treated with calcium, insulin, glucose, kayexylate. No signs of acute kidney injury. No active signs of bleeding. He does appear more anemic which could be fluid overload. No acute indications for transfusion at this time. Patient was not placed on any DVT prophylaxis given his high risk. He has been accepted for transfer to the medical intensive care unit room 03/19/[address] Lissa Evans. Patient remains in serious condition requiring levophed which has recently been decreased from 11 to 8 mcg , he also continues to be on for Versed and Fentanyl for sedation, and rate controlled by amiodarone. - Time Spent with Patient Total time spent providing and/or coordinating discharge services: Physical Examination Vital Signs: Vital Signs, Last 4 Hours Temp Pulse Resp BP Pulse Ox 06/04/17 23:01 18 100 06/04/17 22:21 18 99 06/04/17 22:00 97.3 F L 78 18 106/86 96 06/04/17 21:00 86 20 106/81 98 06/04/17 20:00 100.2 F H 87 19 103/78 98 06/04/17 19:34 23 98 General appearance: other (sedated, mechanically ventilated) Eyes: nonicteric ENT: other (endotracheally intubated) Neck: supple Effort: other (mechanically ventilated) Auscultation: bilateral: clear Cardiovascular: irregular rhythm Gastrointestinal: hypoactive bowel sounds, soft, other (distended) Integumentary: normal Extremities: no cyanosis, no ischemia or petechiae, cool, edema (bilateral lower extremities, +2 pitting) Musculoskeletal: no deformities unable to assess due to mental status
[2017-06-05] MEDS: Lacri-Lube 3.5 GM TUBE BOTH EYES SCH (00:14)
[2017-06-05] MEDS: FentaNYL (PF) 1,000 MCG in 0.9 % Sodium Chloride 80 ML IVC SCH (00:47)
[2017-06-05 02:50] LABS: BUN/Creatinine Ratio 19 (6-26); Blood Urea Nitrogen 19 mg/dL (6-20); Calcium 7.5 mg/dL (8.6-10.3); Carbon Dioxide 19 mEq/L (23-29); Chloride 88 mEq/L (98-107); Glucose 108 mg/dL (70-105); Magnesium 2.2 mg/dL (1.6-2.6); Osmolality,Calculated 241 (280-300); Potassium 6.1 mEq/L (3.5-5.1); Sodium 114 mEq/L (136-145); eGFR For African Americans > 60 (> 60); eGFR For Non-African Americans > 60 (> 60)
[2017-06-05] MEDS: Levalbuterol Neb 1.25 MG/3 ML IH SCH (04:02)
[2017-06-05 04:04] VITALS: BP 100/86
--- NOTE | 2017-06-05 23:20 | Electrocardiograph Report ---
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
--- NOTE | 2017-06-07 22:21 | Electrocardiograph Report ---
[place] [address] Test Date: 2017-06-04 Pat Name: Raj Wallace Department: 104 Room: 09 Gender: M Director Cpg: MURIEL : 1960 Requested By: Matthew Lin Order Number: [id number] Reading MD: Nadeem Malhotra DO Measurements Intervals [place] Rate: 155 P: ID: 0 QRS: -70 QRSD: 124 T: 78 QT: 285 QTc: 372 Interpretive Statements ATRIAL FIBRILLATION WITH RAPID VENTRICULAR RESPONSE WITH WIDE COMPLEX TACHYARDIA, LIKELY ABERRANCY POSSIBLE RIGHT VENTRICULAR CONDUCTION DELAY INFERIOR MYOCARDIAL INFARCTION, OF INDETERMINATE AGE ANTEROSEPTAL MYOCARDIAL INFARCTION, OF INDETERMINATE AGE Electronically Signed On 06-07-2017 22:19:40 EDT by Nadeem Malhotra DO
== END 2017-06-05 04:00 | disposition critical access hospital (66) | DRG 194 ==
LOC: EMEROO 09:38 → ICNU 12:18
PROVIDERS: ADMIT Internal Medicine Hospice and Palliative Medicine; ATTEND Internal Medicine Hospice and Palliative Medicine

== ENCOUNTER 2017-07-28 03:21 | Inpatient (IN) ==
--- NOTE | 2017-07-28 03:51 | Emergency Department Note ---
Disposition Clinical Impression: Hepatitis C Qualifiers: Viral hepatitis chronicity: unspecified Hepatic coma status: without hepatic coma Qualified Code(s): B19.20 - Unspecified viral hepatitis C without hepatic coma Afib Qualifiers: Atrial fibrillation type: unspecified Qualified Code(s): I48.91 - Unspecified atrial fibrillation Chest pain Qualifiers: Chest pain type: unspecified Qualified Code(s): R07.9 - Chest pain, unspecified Disposition: Admitted As Inpatient Condition: Good Referrals: NONE,PCP [Primary Care Provider] - Forms: ED Satisfaction Letter Chest Pain HPI - General Chief Complaint: ED Chest Pain Stated Complaint: Chest Pain Time Seen by Provider: 07/28/17 03:43 Source: patient, EMS Limitations: other Vital Signs Reviewed: Yes Nursing Notes Reviewed: Yes - History of Present Illness Pt complaint: chest pain Onset (ago): day(s) (2) Duration: constant Onset: during rest Pain Location: substernal Severity scale (1-10): 7 Quality: heaviness Improves with: nothing Worsens with: nothing Associated symptoms: Reports: leg swelling. Denies: nausea, vomiting, diaphoresis Treatments prior to arrival chest pain: none - Related Data Home Medications Medication Instructions Recorded Confirmed Amiodarone [Cordarone] 200 mg PO DAILY 01/16/17 06/04/17 Previous Rx's Medication Instructions Recorded Omeprazole [PriLOSEC] 20 mg PO DAILY #30 cap 10/24/16 Allergies Allergy/AdvReac Type Severity Reaction Status Date / Time haloperidol [From Haldol] AdvReac Seizure Verified 07/28/17 03:25 All systems ED: reviewed and negative except as stated. Review of Systems: As Per HPI Constitutional: Denies: fever, chills, weakness Eyes: Denies: vision change ENT ED: Denies: throat pain Cardiovascular: Denies: palpitations Respiratory: Denies: dyspnea Gastrointestinal: Denies: abdominal pain, nausea, vomiting Genitourinary: Denies: dysuria Musculoskeletal: Denies: back pain Integumentary: Denies: rash Neurological: Denies: headache Psychiatric: Denies: depression, suicidal thoughts Hematological/Lymphatic: Denies: easy bleeding Allergic/Immunologic: Denies: facial swelling Chest Pain PMH - Past Medical History Medical history: Reports: atrial fibrillation, cirrhosis, CHF, GERD, hepatitis, hypertension, liver disease, myocardial infarction, other Surgical history: Reports: cataract Psychiatric history: Reports: anxiety, depression - Social History Smoking Status: Current every day smoker Alcohol use: Reports: heavy, recent Drug use: Reports: none Physical Exam - General Limitations: no limitations General appearance: alert, in no apparent distress, appears intoxicated - Head Head exam: atraumatic, normocephalic - Eye Eye exam: Present: normal appearance, EOMI. Absent: scleral icterus, conjunctival injection - ENT ENT exam: normal oropharynx - Neck Neck exam: Present: full ROM - Chest Chest inspection: Present: symmetric chest wall rise - Respiratory Respiratory exam: Present: normal lung sounds bilaterally. Absent: respiratory distress - Abdominal Exam Abdominal exam: Present: soft, ascites. Absent: tenderness - Extremities Exam Extremities exam: Present: full ROM, normal capillary refill - Expanded Lower Extremity Exam Lower leg exam: Present: swelling (bilateral) Ankle exam: Present: swelling Neurovascular/Tendon exam: Absent: pulse deficit Gait: not tested/not observed - Back Exam Back exam: Present: normal inspection - Neurological Exam Neurological exam: Present: alert - Psychiatric Psychiatric exam: Present: normal affect, normal mood - Skin Skin exam: Present: warm, dry, intact, normal color. Absent: rash, cyanosis, diaphoresis Course Course Narrative: 56-year-old male arrives via squad with complaint of chest pain. Patient reports all chronic drinker here. At home when the chest pain started. He also mentions his feet and belly has been more swollen. Patient's initial EKG did show atrial fibrillation with previous rate 136. Previous EKG from 2 months ago that showed atrial fibrillation. Patient seen and examined. is alert. He appears intoxicated. Apparently. Distended consistent with ascites, pitting edema bilateral lower extremity. No lower extremity pain. No hemoptysis cough, shortness of breath. Lungs clear to auscultation. Heart tachycardic, irregular. Patient discussed with Dr. Bowling who also had face time with patient and advised for starting on Cardizem drip and admission. Workup initiated. - Reevaluation(s) Reevaluation #1: Patient was discussed with hospitalist Dr. Barrera, who agreed to accept patient. He also requested serum magnesium , and advised for by mouth potassium. Time: 06:28 Vital Signs Temperature 98.2 F 07/28/17 03:26 Pulse Rate 139 07/28/17 03:26 Respiratory Rate 16 07/28/17 03:26 Blood Pressure 143/118 07/28/17 03:26 O2 Sat by Pulse Oximetry 92 07/28/17 03:26 Temperature 98.2 F 07/28/17 03:26 Pulse Rate 126 07/28/17 06:42 Respiratory Rate 17 07/28/17 06:42 Blood Pressure 113/95 07/28/17 06:42 O2 Sat by Pulse Oximetry 95 07/28/17 06:42 Oxygen Delivery Oxygen Delivery Nasal Cannula Chest Pain - MDM Narrative Medical decision making narrative: Patient presented with chest pain, and abdominal and bilateral lower extremity swelling. He does have a known history of A. fib, is not anticoagulated due to fall risk. He is a daily alcohol drinker. Past medical history also includes hepatitis C, and CHF. Patient's EKG shows A. fib with RVR, ventricular rate 136. Chest x-ray shows no acute findings today. His ammonia level is elevated at 92. His BNP was elevated. On examination, he is alert, somnolent but arousable, answers questions appropriately, but does appear mildly intoxicated. Abdomen does appear to be soft, distended. Bilateral lower extremity edema. I did discuss patient with Dr. Bowling who also had face time with patient and agreed for workup and decision to admit. Patient was accepted by hospitalist service. Chest X-Ray 07/28/17 03:43 IMPRESSION: No acute pulmonary process. D/ / Sergio Carmen MD / Sergio Carmen MD Interpreting Provider: Sergio Carmen MD Laboratory Tests 07/28/17 07/28/17 07/28/17 03:43 03:43 03:43 WBC RBC Hgb Hct MCV MCH MCHC RDW Plt Count MPV Immature Gran % Seg Neutrophils % Lymphocytes % Monocytes % Eosinophils % Basophils % Neutrophils # Lymphocytes # Monocytes # Eosinophils # Basophils # PT 13.3 H INR 1.2 APTT 38.5 H Sodium 138 Potassium 3.4 L Chloride 107 Carbon Dioxide 23 BUN 2 L Creatinine 0.44 L Est GFR ( Amer) > 60 Est GFR (Non-Af Amer) > 60 BUN/Creatinine Ratio 5 L Glucose 126 H Calculated Osmolality 284 Calcium 8.4 L Total Bilirubin 0.9 Direct Bilirubin 0.3 H Indirect Bilirubin 0.6 AST 143 H ALT 70 H Alkaline Phosphatase 318 H Ammonia Troponin I 0.03 B-Natriuretic Peptide 337 H Serum Total Protein 7.9 Albumin 2.6 L Globulin 5.3 H Albumin/Globulin Ratio 0.5 L Lipase 23 Ethyl Alcohol 07/28/17 07/28/17 07/28/17 03:48 03:53 04:01 WBC 6.9 RBC 4.97 Hgb 12.1 L Hct 40.1 MCV 80.7 L MCH 24.3 L MCHC 30.2 L RDW 17.6 H Plt Count 272 MPV 9.5 Immature Gran % 0.6 Seg Neutrophils % 66.9 Lymphocytes % 25.8 Monocytes % 6.0 Eosinophils % 0.3 Basophils % 0.4 Neutrophils # 4.6 Lymphocytes # 1.8 Monocytes # 0.4 Eosinophils # 0.0 Basophils # 0.0 PT INR APTT Sodium Potassium Chloride Carbon Dioxide BUN Creatinine Est GFR ( Amer) Est GFR (Non-Af Amer) BUN/Creatinine Ratio Glucose Calculated Osmolality Calcium Total Bilirubin Direct Bilirubin Indirect Bilirubin AST ALT Alkaline Phosphatase Ammonia 92 H Troponin I B-Natriuretic Peptide Serum Total Protein Albumin Globulin Albumin/Globulin Ratio Lipase Ethyl Alcohol 322 H - Medical Records Medical records reviewed: Yes I reviewed the patient's medical records. - Lab Data Lab results reviewed: Yes I reviewed the patient's lab results. Result diagrams: 07/28/17 03:53 07/28/17 03:43 Lab Results 07/28/17 07/28/17 07/28/17 Range/Units 03:43 03:43 03:43 WBC (4.3-11.1) K/mcL RBC (4.19-5.50) M/mcL Hgb (12.9-16.9) g/dL Hct (37.5-50.1) % MCV (83.0-100.0) fL MCH (28.0-33.3) pg MCHC (31.6-35.5) g/dL RDW (11.5-14.5) % Plt Count (140-400) K/mcL MPV (9.4-12.4) fL Immature Gran % (0-4) % Seg Neutrophils % % Lymphocytes % % Monocytes % % Eosinophils % % Basophils % % Neutrophils # (1.6-8.9) K/mcL Lymphocytes # (0.6-4.6) K/mcL Monocytes # (0.0-1.3) K/mcL Eosinophils # (0.0-0.6) K/mcL Basophils # (0.0-0.2) K/mcL PT 13.3 H (9.4-12.1) Seconds INR 1.2 APTT 38.5 H (26.0-36.0) Seconds Sodium 138 (136-145) mEq/L Potassium 3.4 L (3.5-5.1) mEq/L Chloride 107 (98-107) mEq/L Carbon Dioxide 23 (23-29) mEq/L BUN 2 L (6-20) mg/dL Creatinine 0.44 L (0.70-1.30) mg/dL Est GFR ( Amer) > 60 (> 60) Est GFR (Non-Af Amer) > 60 (> 60) BUN/Creatinine Ratio 5 L (6-26) Glucose 126 H (70-105) mg/dL Calculated Osmolality 284 (280-300) Calcium 8.4 L (8.6-10.3) mg/dL Total Bilirubin 0.9 (0.3-1.0) mg/dL Direct Bilirubin 0.3 H (0.0-0.2) mg/dL Indirect Bilirubin 0.6 (0.0-1.2) mg/dL AST 143 H (13-39) Units/L ALT 70 H (7-52) Units/L Alkaline Phosphatase 318 H (34-104) Units/L Ammonia (16-53) mcmol/L Troponin I 0.03 (< 0.04) ng/mL B-Natriuretic Peptide 337 H (Less than 100) pg/mL Serum Total Protein 7.9 (6.4-8.9) g/dL Albumin 2.6 L (3.5-5.7) g/dL Globulin 5.3 H (2.4-3.5) g/dL Albumin/Globulin Ratio 0.5 L (1.1-2.2) Lipase 23 (11-82) Units/L Ethyl Alcohol (Less than 10) mg/dL 07/28/17 07/28/17 07/28/17 Range/Units 03:48 03:53 04:01 WBC 6.9 (4.3-11.1) K/mcL RBC 4.97 (4.19-5.50) M/mcL Hgb 12.1 L (12.9-16.9) g/dL Hct 40.1 (37.5-50.1) % MCV 80.7 L (83.0-100.0) fL MCH 24.3 L (28.0-33.3) pg MCHC 30.2 L (31.6-35.5) g/dL RDW 17.6 H (11.5-14.5) % Plt Count 272 (140-400) K/mcL MPV 9.5 (9.4-12.4) fL Immature Gran % 0.6 (0-4) % Seg Neutrophils % 66.9 % Lymphocytes % 25.8 % Monocytes % 6.0 % Eosinophils % 0.3 % Basophils % 0.4 % Neutrophils # 4.6 (1.6-8.9) K/mcL Lymphocytes # 1.8 (0.6-4.6) K/mcL Monocytes # 0.4 (0.0-1.3) K/mcL Eosinophils # 0.0 (0.0-0.6) K/mcL Basophils # 0.0 (0.0-0.2) K/mcL PT (9.4-12.1) Seconds INR APTT (26.0-36.0) Seconds Sodium (136-145) mEq/L Potassium (3.5-5.1) mEq/L Chloride (98-107) mEq/L Carbon Dioxide (23-29) mEq/L BUN (6-20) mg/dL Creatinine (0.70-1.30) mg/dL Est GFR ( Amer) (> 60) Est GFR (Non-Af Amer) (> 60) BUN/Creatinine Ratio (6-26) Glucose (70-105) mg/dL Calculated Osmolality (280-300) Calcium (8.6-10.3) mg/dL Total Bilirubin (0.3-1.0) mg/dL Direct Bilirubin (0.0-0.2) mg/dL Indirect Bilirubin (0.0-1.2) mg/dL AST (13-39) Units/L ALT (7-52) Units/L Alkaline Phosphatase (34-104) Units/L Ammonia 92 H (16-53) mcmol/L Troponin I (< 0.04) ng/mL B-Natriuretic Peptide (Less than 100) pg/mL Serum Total Protein (6.4-8.9) g/dL Albumin (3.5-5.7) g/dL Globulin (2.4-3.5) g/dL Albumin/Globulin Ratio (1.1-2.2) Lipase (11-82) Units/L Ethyl Alcohol 322 H (Less than 10) mg/dL - Radiology Data Radiology results reviewed: Yes I reviewed the patient's radiology results. - EKG Data EKG attestation: Yes I reviewed and interpreted this EKG. Rate: tachycardia Rhythm: A.Fib
[2017-07-28 04:20] LABS: Basophils % 0.4 %; Eosinophils % 0.3 %; Hematocrit 40.1 % (37.5-50.1); Hemoglobin 12.1 g/dL (12.9-16.9); Immature Granulocytes % 0.6 % (0-4); Lymphocytes # 1.8 K/mcL (0.6-4.6); Lymphocytes % 25.8 %; Mean Corpuscular HGB Conc 30.2 g/dL (31.6-35.5); Mean Corpuscular Hemoglobin 24.3 pg (28.0-33.3); Mean Corpuscular Volume 80.7 fL (83.0-100.0); Mean Platelet Volume 9.5 fL (9.4-12.4); Monocytes # 0.4 K/mcL (0.0-1.3); Neutrophils # 4.6 K/mcL (1.6-8.9); Platelet Count 272 K/mcL (140-400); Red Blood Count 4.97 M/mcL (4.19-5.50); Red Cell Distribution Width 17.6 % (11.5-14.5); Segmented Neutrophils % 66.9 %
[2017-07-28 04:25] LABS: INR 1.2; Prothrombin Time 13.3 Seconds (9.4-12.1)
[2017-07-28 04:28] LABS: Activated Partial Thrombo Time 38.5 Seconds (26.0-36.0)
[2017-07-28] MEDS ORDERED: *HR* FentaNYL (PF) 100 MCG/2 ML VIAL IVP ONE (04:31)
--- NOTE | 2017-07-28 04:36 | Emergency Department Note ---
Disposition Clinical Impression: Hepatitis C, Afib, Chest pain Disposition: Admitted As Inpatient Condition: Good General Adult HPI - General Chief complaint: ED Chest Pain Stated complaint: Chest Pain Time Seen by Provider: 07/28/17 03:43 Source: patient, EMS Limitations: other Nursing Notes Reviewed: Yes Vital Signs Reviewed: Yes - History of Present Illness Pain Scale: 7 - Related Data Home Medications Medication Instructions Recorded Confirmed Amiodarone [Cordarone] 200 mg PO DAILY 01/16/17 06/04/17 Previous Rx's Medication Instructions Recorded Omeprazole [PriLOSEC] 20 mg PO DAILY #30 cap 10/24/16 Allergies Allergy/AdvReac Type Severity Reaction Status Date / Time haloperidol [From Haldol] AdvReac Seizure Verified 07/28/17 03:25 Past Medical History - Past Medical History Medical history: Reports: atrial fibrillation, cirrhosis, CHF, GERD, hepatitis, hypertension, liver disease, myocardial infarction, other Surgical history: Reports: cataract Psychiatric history: Reports: anxiety, depression - Social History Smoking Status: Current every day smoker Smokeless Tobacco Status: No Alcohol use: Reports: heavy, recent Drug use: Reports: none Physical Exam - General Limitations: other General appearance: alert, appears intoxicated Course Vital Signs Temperature 98.2 F 07/28/17 03:26 Pulse Rate 139 07/28/17 03:26 Respiratory Rate 16 07/28/17 03:26 Blood Pressure 143/118 07/28/17 03:26 O2 Sat by Pulse Oximetry 92 07/28/17 03:26 Temperature 98.2 F 07/28/17 03:26 Pulse Rate 126 07/28/17 06:42 Respiratory Rate 17 07/28/17 06:42 Blood Pressure 113/95 07/28/17 06:42 O2 Sat by Pulse Oximetry 95 07/28/17 06:42 Oxygen Delivery Oxygen Delivery Nasal Cannula Medical Decision Making - Lab Data Result diagrams: 07/28/17 03:53 07/28/17 03:43 Lab Results 07/28/17 07/28/17 07/28/17 Range/Units 03:43 03:43 03:43 WBC (4.3-11.1) K/mcL RBC (4.19-5.50) M/mcL Hgb (12.9-16.9) g/dL Hct (37.5-50.1) % MCV (83.0-100.0) fL MCH (28.0-33.3) pg MCHC (31.6-35.5) g/dL RDW (11.5-14.5) % Plt Count (140-400) K/mcL MPV (9.4-12.4) fL Immature Gran % (0-4) % Seg Neutrophils % % Lymphocytes % % Monocytes % % Eosinophils % % Basophils % % Neutrophils # (1.6-8.9) K/mcL Lymphocytes # (0.6-4.6) K/mcL Monocytes # (0.0-1.3) K/mcL Eosinophils # (0.0-0.6) K/mcL Basophils # (0.0-0.2) K/mcL PT 13.3 H (9.4-12.1) Seconds INR 1.2 APTT 38.5 H (26.0-36.0) Seconds Sodium 138 (136-145) mEq/L Potassium 3.4 L (3.5-5.1) mEq/L Chloride 107 (98-107) mEq/L Carbon Dioxide 23 (23-29) mEq/L BUN 2 L (6-20) mg/dL Creatinine 0.44 L (0.70-1.30) mg/dL Est GFR ( Amer) > 60 (> 60) Est GFR (Non-Af Amer) > 60 (> 60) BUN/Creatinine Ratio 5 L (6-26) Glucose 126 H (70-105) mg/dL Calculated Osmolality 284 (280-300) Calcium 8.4 L (8.6-10.3) mg/dL Magnesium 1.4 L (1.6-2.6) mg/dL Total Bilirubin 0.9 (0.3-1.0) mg/dL Direct Bilirubin 0.3 H (0.0-0.2) mg/dL Indirect Bilirubin 0.6 (0.0-1.2) mg/dL AST 143 H (13-39) Units/L ALT 70 H (7-52) Units/L Alkaline Phosphatase 318 H (34-104) Units/L Ammonia (16-53) mcmol/L Troponin I 0.03 (< 0.04) ng/mL B-Natriuretic Peptide 337 H (Less than 100) pg/mL Serum Total Protein 7.9 (6.4-8.9) g/dL Albumin 2.6 L (3.5-5.7) g/dL Globulin 5.3 H (2.4-3.5) g/dL Albumin/Globulin Ratio 0.5 L (1.1-2.2) Lipase 23 (11-82) Units/L Ethyl Alcohol (Less than 10) mg/dL 07/28/17 07/28/17 07/28/17 Range/Units 03:48 03:53 04:01 WBC 6.9 (4.3-11.1) K/mcL RBC 4.97 (4.19-5.50) M/mcL Hgb 12.1 L (12.9-16.9) g/dL Hct 40.1 (37.5-50.1) % MCV 80.7 L (83.0-100.0) fL MCH 24.3 L (28.0-33.3) pg MCHC 30.2 L (31.6-35.5) g/dL RDW 17.6 H (11.5-14.5) % Plt Count 272 (140-400) K/mcL MPV 9.5 (9.4-12.4) fL Immature Gran % 0.6 (0-4) % Seg Neutrophils % 66.9 % Lymphocytes % 25.8 % Monocytes % 6.0 % Eosinophils % 0.3 % Basophils % 0.4 % Neutrophils # 4.6 (1.6-8.9) K/mcL Lymphocytes # 1.8 (0.6-4.6) K/mcL Monocytes # 0.4 (0.0-1.3) K/mcL Eosinophils # 0.0 (0.0-0.6) K/mcL Basophils # 0.0 (0.0-0.2) K/mcL PT (9.4-12.1) Seconds INR APTT (26.0-36.0) Seconds Sodium (136-145) mEq/L Potassium (3.5-5.1) mEq/L Chloride (98-107) mEq/L Carbon Dioxide (23-29) mEq/L BUN (6-20) mg/dL Creatinine (0.70-1.30) mg/dL Est GFR ( Amer) (> 60) Est GFR (Non-Af Amer) (> 60) BUN/Creatinine Ratio (6-26) Glucose (70-105) mg/dL Calculated Osmolality (280-300) Calcium (8.6-10.3) mg/dL Magnesium (1.6-2.6) mg/dL Total Bilirubin (0.3-1.0) mg/dL Direct Bilirubin (0.0-0.2) mg/dL Indirect Bilirubin (0.0-1.2) mg/dL AST (13-39) Units/L ALT (7-52) Units/L Alkaline Phosphatase (34-104) Units/L Ammonia 92 H (16-53) mcmol/L Troponin I (< 0.04) ng/mL B-Natriuretic Peptide (Less than 100) pg/mL Serum Total Protein (6.4-8.9) g/dL Albumin (3.5-5.7) g/dL Globulin (2.4-3.5) g/dL Albumin/Globulin Ratio (1.1-2.2) Lipase (11-82) Units/L Ethyl Alcohol 322 H (Less than 10) mg/dL Critical Care Time Critical Care Time: Yes Total Critical Care Time: 35 Attestation: Critical care performed: Time is exclusive of separately billable procedures. Time includes: direct patient care, patient reassessment, coordination of patient care, interpretation of data (laboratory data, radiology data, and respiratory data), review of patient's medical records, medical consultation and documentation of patient care. Procedures included in critical care time: Procedures excluded from critical care time: Attestation Statement - Attestation Attestation: I, Abraham Bowling MD, personally evaluated this patient and discussed their management with the midlevel provicer, PAC/FITTING ROOM INSPECTOR. I reviewed the midlevel provider 's note and agree with the documented findings, medical decision making, and plan of care. 56-year-old male presents to the emergency department complaining of mid substernal chest pain for the past 2 days. He also complains of increased swelling of his feet and ankles over the past several days. Also increased distention and swelling of his abdomen chronic but worse over the past several days. Patient has a history of hepatitis C. He admits to drinking 5 or 6 beers daily. Patient appears to be intoxicated with slurred speech and slightly slow to respond an odor of alcohol noted on his breath. He lives alone. On examination patient is a well-developed obese male in no acute distress. He is alert and oriented 3. There is no cyanosis or diaphoresis. Breath sounds are decreased bilaterally with dependent rales. No wheezes noted. Heart is irregularly irregular and tachycardic. Abdomen is distended with ascites. Mild diffuse tenderness. 3+ pitting edema of the lower extremities bilaterally. EKG shows atrial fibrillation with RVR with ventricular rate of 136. No acute ST segment elevation or depressions noted. No significant change from prior EKG dated 06/04/2017. Chest x-ray negative. Labs reviewed. Ammonia level elevated at 92. Alcohol 322. Patient placed on Cardizem infusion. The hospitalist, Dr. Barrera, was consulted and accepted admission of the patient.
[2017-07-28 04:40] LABS: Alanine Aminotransferase 70 Units/L (7-52); Albumin 2.6 g/dL (3.5-5.7); Albumin/Globulin Ratio 0.5 (1.1-2.2); Alkaline Phosphatase 318 Units/L (34-104); Aspartate Amino Transferase 143 Units/L (13-39); BUN/Creatinine Ratio 5 (6-26); Bilirubin,Direct 0.3 mg/dL (0.0-0.2); Bilirubin,Indirect 0.6 mg/dL (0.0-1.2); Bilirubin,Total 0.9 mg/dL (0.3-1.0); Blood Urea Nitrogen 2 mg/dL (6-20); Calcium 8.4 mg/dL (8.6-10.3); Carbon Dioxide 23 mEq/L (23-29); Chloride 107 mEq/L (98-107); Globulin 5.3 g/dL (2.4-3.5); Glucose 126 mg/dL (70-105); Lipase 23 Units/L (11-82); Osmolality,Calculated 284 (280-300); Potassium 3.4 mEq/L (3.5-5.1); Sodium 138 mEq/L (136-145); Total Protein 7.9 g/dL (6.4-8.9); eGFR For African Americans > 60 (> 60); eGFR For Non-African Americans > 60 (> 60)
[2017-07-28 04:41] LABS: Troponin I 0.03 ng/mL (< 0.04)
[2017-07-28 07:09] LABS: Magnesium 1.4 mg/dL (1.6-2.6)
[2017-07-28] MEDS ORDERED: *HR* LORazepam 2 MG/ML VIAL IVP ONE (09:19)
[2017-07-28] MEDS ORDERED: Ibuprofen 800 MG TABLET PO ONE (09:24)
[2017-07-28] MEDS: *HR* LORazepam 2 MG/ML VIAL IVP PRN ×3 (16:19→22:40)
[2017-07-28] MEDS ORDERED: *HR* Heparin 5,000 UNIT/ML VIAL IVP ONE (18:03)
[2017-07-28] MEDS ORDERED: *HR* Heparin 5,000 UNIT/ML VIAL IVP PRN ×2 (18:03)
--- NOTE | 2017-07-28 18:10 | Internal Med History&Physical ---
Date of Encounter: 07/28/17 Time of Encounter: 09:00 Internal Medicine - H&P: HPI Chief complaint: Chest pain Plans for Post Hospital Care: Home History of present illness: Patient is a 56-year-old male with past medical history significant for ischemic cardiomyopathy, atrial fibrillation, liver cirrhosis with hepatitis C and GERD who presents to the ER on 07/28/17 due to chest pain. Patient reports a 2 day history of substernal chest pain. Patient describes the pain as sharp and constant with no relieving or provoking factors and denies any radiation of the pain. Patient also denies any associated symptoms. In addition patient also reports of recent onset of increased abdominal girth with lower extremity edema. He decided come into the ER for evaluation. In the ER, patient was found to be in A. fib with RVR and was started on heparin drip. Patient was also found to blood alcohol level of 32 mg/dL. Patient was admitted to medical surgical floor for management of atrial fibrillation with RVR and alcohol withdrawal. Past Med Surg Social Fam HX - Past Medical History Medical history: atrial fibrillation, cirrhosis, CHF, GERD, hepatitis, hypertension, liver disease, myocardial infarction, other Psychiatric history: anxiety, depression - Past Surgical History Surgical History: cataract - Social History Smoking Status: Current every day smoker Smokeless Tobacco Status: No Alcohol use: heavy, recent Drug use: none - Family History Mother Hx Family Cardiac Disorders: Yes Father Hx Family Cardiac Disorders: Yes Sister Hx Family Cardiac Disorders: Yes (Pacemaker placed) Internal Medicine - H&P: Meds Omeprazole [PriLOSEC] 20 mg PO DAILY #30 cap 10/24/16 [Rx] Amiodarone [Cordarone] 200 mg PO DAILY 01/16/17 [History] 3 Allergy/AdvReac Type Severity Reaction Status Date / Time haloperidol [From Haldol] AdvReac Seizure Verified 07/28/17 14:18 ROS unobtainable: due to mental status All Systems PM: A 10-system review of systems was performed and is negative for pertinent findings except as documented above in the HPI. - Constitutional Vitals: Temp Pulse Resp BP Pulse Ox 98.2 F 122 18 143/92 94 07/28/17 16:41 07/28/17 16:41 07/28/17 16:41 07/28/17 16:41 07/28/17 16:41 General appearance: Present: A&O X 1. Absent: answers questions appropriately - Eye Eye exam: Present: normal appearance - ENT ENT exam: Present: mucous membranes moist - Respiratory Respiratory exam: Present: CTAB. Absent: accessory muscle use, rales, rhonchi, wheezes - Cardiovascular Cardiovascular exam: Present: RRR, +S1, +S2. Absent: diastolic murmur, gallop, rubs, systolic murmur - GI/Abdominal GI/Abdominal exam: Present: distended, soft. Absent: tenderness - Expanded Lower Extremities Exam Lower Leg exam: Present: swelling - Neurological Exam Neurological exam: Present: alert - Psychiatric Psychiatric exam: Present: normal mood - Skin Skin exam: Present: normal color Internal Med - H&P Results - Labs CBC & Chem 7: 07/28/17 03:53 07/28/17 03:43 Labs: Cardiac Enzymes 07/28/17 Range/Units 16:56 Troponin I < 0.03 (< 0.04) ng/mL - Assessment and plan (1) Atrial fibrillation with RVR Current Visit: No Status: Acute Assessment and plan: Will continue Cardizem drip for rate control in addition to heparin drip for anticoagulation Alcohol withdrawal can also be contributing to increase heart rate is well; management as below (2) Chest pain Current Visit: Yes Status: Acute Assessment and plan: Suspect secondary to A. fib with RVR Patient describes minimal chest discomfort Monitor on telemetry and trend serial troponins Qualifiers: Chest pain type: unspecified Qualified Code(s): R07.9 - Chest pain, unspecified (3) Alcohol withdrawal Current Visit: No Status: Acute Assessment and plan: [facility] protocol Qualifiers: Complication of substance-induced condition: with unspecified complication Qualified Code(s): F10.239 - Alcohol dependence with withdrawal, unspecified (4) Hepatitis C Current Visit: Yes Status: Chronic Assessment and plan: Patient reports a history of hepatitis Qualifiers: Viral hepatitis chronicity: unspecified Hepatic coma status: without hepatic coma Qualified Code(s): B19.20 - Unspecified viral hepatitis C without hepatic coma (5) DVT prophylaxis Current Visit: No Status: Acute Assessment and plan: Patient on heparin drip - Time Spent With Patient Total time spent is greater than 50% in coordination of care (as documented) at patient's floor/unit and/or counseling patient:
[2017-07-28] MEDS ORDERED: Naloxone 0.4 MG/ML INJ IVP PRN (18:14)
[2017-07-28] MEDS ORDERED: Heparin 25,000 UNIT/500 ML D5W 25,000 UNIT/500 ML BAG IVC SCH (18:15)
[2017-07-28] MEDS: Ondansetron 4 MG/2 ML VIAL IVP PRN (19:41)
[2017-07-28 22:06] LABS: Hematocrit 32.6 % (37.5-50.1); Hemoglobin 10.1 g/dL (12.9-16.9); Mean Corpuscular Hemoglobin 25.3 pg (28.0-33.3); Mean Corpuscular Volume 81.5 fL (83.0-100.0); Mean Platelet Volume 9.5 fL (9.4-12.4); Platelet Count 172 K/mcL (140-400); Red Cell Distribution Width 17.1 % (11.5-14.5)
[2017-07-28 22:11] LABS: INR 1.4
[2017-07-28 22:14] LABS: Activated Partial Thrombo Time 37.6 Seconds (26.0-36.0)
[2017-07-29] MEDS: *HR* LORazepam 2 MG/ML VIAL IVP PRN ×6 (01:04→21:41)
[2017-07-29] MEDS: Ondansetron 4 MG/2 ML VIAL IVP PRN (01:52)
[2017-07-29] MEDS ORDERED: *HR* LORazepam 2 MG/ML VIAL IVP PRN (09:09)
[2017-07-29] MEDS ORDERED: Acetaminophen 325 MG TABLET PO PRN (09:36)
[2017-07-29] MEDS ORDERED: *HR* Amiodarone 200 MG TABLET PO SCH (09:45)
--- NOTE | 2017-07-29 09:50 | Internal Med Progress Note ---
Date of Encounter: 07/29/17 Time of Encounter: 09:47 - Assessment and plan (1) Atrial fibrillation with RVR Current Visit: No Status: Acute Assessment and plan: Likely triggered by alcohol withdrawal Noncompliant with medications Restart amiodarone, has been evaluated by cardiology in the past and was recommended to continue amiodarone and metoprolol At Lopressor IV as needed Continue Cardizem drip for rate discontinue heparin drip , the patient has high risk of falling 2 alcoholism, not a candidate for anticoagulation Start Librium and taper, Ativan IV per [facility] protocol Consider Precedex and transferring to 2N or ICU Replete magnesium and potassium (2) Alcohol withdrawal Current Visit: No Status: Acute Assessment and plan: [facility] Librium Qualifiers: Complication of substance-induced condition: with unspecified complication Qualified Code(s): F10.239 - Alcohol dependence with withdrawal, unspecified (3) Chest pain Current Visit: Yes Status: Acute Assessment and plan: Secondary to A. fib with RVR minimal chest discomfort Monitor on telemetry, troponins have been negative Qualifiers: Chest pain type: unspecified Qualified Code(s): R07.9 - Chest pain, unspecified (4) Hepatitis C Current Visit: Yes Status: Chronic Assessment and plan: Patient reports a history of hepatitis Qualifiers: Viral hepatitis chronicity: unspecified Hepatic coma status: without hepatic coma Qualified Code(s): B19.20 - Unspecified viral hepatitis C without hepatic coma (5) CHF (congestive heart failure) Current Visit: No Status: Acute Assessment and plan: Acute systolic CHF exacerbation likely triggered by A. fib with RVR History of alcohol related cardiomyopathy, nonobstructive CAD Start Lasix IV Strict I's and O's and daily weight Check limited echocardiogram due to history of moderate to large pericardial effusion Qualifiers: Heart failure type: systolic Heart failure chronicity: acute Qualified Code(s): I50.21 - Acute systolic (congestive) heart failure (6) Pericardial effusion Current Visit: Yes Status: Acute (7) Hyponatremia Current Visit: No Status: Acute Assessment and plan: History of severe hyponatremia in the past, currently normal (8) Tobacco dependence Current Visit: No Status: Chronic Assessment and plan: Smoking cessation counseling, nicotine patch (9) Ascites Current Visit: Yes Status: Acute Assessment and plan: Scheduled paracentesis in the morning, consult interventional radiology Qualifiers: Ascites type: due to alcoholic cirrhosis Qualified Code(s): K70.31 - Alcoholic cirrhosis of liver with ascites - Time Spent With Patient Total time spent is greater than 50% in coordination of care (as documented) at patient's floor/unit and/or counseling patient: - Subjective Interval history: History of breath, tachycardic, mentioned that he drinks 6 pole beers every day , has abdominal discomfort, denies any dysuria or fevers - Constitutional Vitals: Temp Pulse Resp BP Pulse Ox 97.7 F 131 18 146/82 94 07/29/17 07:32 07/29/17 07:32 07/29/17 07:32 07/29/17 07:32 07/29/17 07:32 General appearance: Present: A&O X 3. Absent: answers questions appropriately - Head Head exam: Present: atraumatic, normocephalic - Eye Eye exam: Present: PERRL, conjuntiva pink, sclera anicteric Pupils: Present: PERRL - Neck Neck exam general surgery: Present: supple, trachea midline. Absent: lymphadenopathy - Respiratory Respiratory exam: Present: decreased breath sounds, CTAB, rales. Absent: accessory muscle use, rhonchi, wheezes - Cardiovascular Cardiovascular exam: Present: RRR, +S1, +S2. Absent: diastolic murmur, gallop, rubs, systolic murmur - GI/Abdominal GI/Abdominal exam: Present: distended (Severe ascites), normal bowel sounds, soft, no peritoneal signs. Absent: tenderness - Extremities Exam Extremities exam: Present: pedal edema (+2 pitting edema in both lower extremities), warm, radial pulses palpable and symmetrical. Absent: calf tenderness, cyanotic - Neurological Exam Neurological exam: Present: CN II-XII intact, oriented X3, no focal deficits. Absent: pronater drift, facial droop, speech deficit - Skin Skin exam: Present: dry, intact Internal Medicine: Result - Labs CBC & Chem 7: 07/28/17 18:03 07/28/17 03:43 Labs: Short CBC 07/28/17 Range/Units 18:03 WBC 4.9 (4.3-11.1) K/mcL Hgb 10.1 L D (12.9-16.9) g/dL Hct 32.6 L (37.5-50.1) % Plt Count 172 (140-400) K/mcL Cardiac Enzymes 07/28/17 07/28/17 07/29/17 Range/Units 16:56 18:15 03:58 Troponin I < 0.03 0.03 < 0.03 (< 0.04) ng/mL - ABG Interpretation ABG results: PT/INR, D-dimer PT 15.0 Seconds (9.4-12.1) H 07/28/17 18:03 - Impressions Impressions Abdomen/Pelvis CT 07/28/17 13:21 IMPRESSION: 1. Cirrhosis and portal hypertension with moderate to large volume of ascites. 2. Cholelithiasis. 3. Colonic wall thickening is nonspecific in the setting of liver disease and ascites. 4. Bibasilar atelectasis or pneumonia. D/ / Shekhar Doty MD / Shekhar Doty MD Interpreting Provider: Shekhar Doty MD Consult Discharge Plan - Plan Referrals: NONE,PCP [Primary Care Provider] -
[2017-07-29] MEDS: Magnesium Oxide 400 MG TABLET PO SCH ×2 (10:50→21:42)
[2017-07-29] MEDS: Furosemide 40 MG/4 ML VIAL IVP SCH ×2 (10:50→21:41)
[2017-07-29] MEDS: Thiamine (B-1) 100 MG TABLET PO SCH (10:50)
[2017-07-29] MEDS: Nicotine 21 MG PATCH.TD24 TD SCH (10:50)
[2017-07-29] MEDS: Vitamin B Complex/Vit C/Vit E 1 EACH TABLET PO SCH (10:50)
[2017-07-29] MEDS: Folic Acid 1 MG TABLET PO SCH (10:50)
[2017-07-29] MEDS: *HR* Heparin 5,000 UNIT/ML VIAL SQ SCH (17:12)
[2017-07-29 21:54] LABS: ABG Base Excess 3 mEq/L (-2 to 3); ABG HCO3 30 mEq/L (21-27); ABG Oxygen Saturation 90 % (95-98); ABG PCO2 53 mmHg (35-45); ABG PH 7.35 pH Units (7.32-7.45); ABG PO2 62 mmHg (85-104); ABG TCO2 31 mEq/L (20-26)
[2017-07-30] MEDS: *HR* LORazepam 2 MG/ML VIAL IVP PRN ×2 (03:15→09:44)
[2017-07-30 03:52] LABS: Hematocrit 33.7 % (37.5-50.1); Mean Corpuscular HGB Conc 29.7 g/dL (31.6-35.5); Mean Corpuscular Hemoglobin 24.7 pg (28.0-33.3); Mean Corpuscular Volume 83.2 fL (83.0-100.0); Mean Platelet Volume 9.8 fL (9.4-12.4); Platelet Count 143 K/mcL (140-400); Red Blood Count 4.05 M/mcL (4.19-5.50); Red Cell Distribution Width 17.1 % (11.5-14.5)
[2017-07-30 04:04] LABS: BUN/Creatinine Ratio 9 (6-26); Blood Urea Nitrogen 4 mg/dL (6-20); Calcium 8.2 mg/dL (8.6-10.3); Carbon Dioxide 29 mEq/L (23-29); Chloride 104 mEq/L (98-107); Glucose 104 mg/dL (70-105); Osmolality,Calculated 279 (280-300); Potassium 3.7 mEq/L (3.5-5.1); Sodium 136 mEq/L (136-145); eGFR For African Americans > 60 (> 60); eGFR For Non-African Americans > 60 (> 60)
[2017-07-30] MEDS: *HR* Heparin 5,000 UNIT/ML VIAL SQ SCH ×2 (06:20→18:06)
[2017-07-30] MEDS: Thiamine (B-1) 100 MG TABLET PO SCH (09:33)
[2017-07-30] MEDS: Magnesium Oxide 400 MG TABLET PO SCH ×2 (09:34→22:14)
[2017-07-30] MEDS: Vitamin B Complex/Vit C/Vit E 1 EACH TABLET PO SCH (09:34)
[2017-07-30] MEDS: Furosemide 40 MG/4 ML VIAL IVP SCH ×2 (09:34→18:07)
[2017-07-30] MEDS: Nicotine 21 MG PATCH.TD24 TD SCH ×2 (09:34→09:37)
[2017-07-30] MEDS: Folic Acid 1 MG TABLET PO SCH (09:38)
[2017-07-30 14:10] LABS: ABG Base Excess 6 mEq/L (-2 to 3); ABG HCO3 33 mEq/L (21-27); ABG Oxygen Saturation 87 % (95-98); ABG PCO2 56 mmHg (35-45); ABG PH 7.38 pH Units (7.32-7.45); ABG PO2 55 mmHg (85-104); ABG TCO2 35 mEq/L (20-26)
[2017-07-30] MEDS ORDERED: Lactulose Oral Soln 20 GM/30 ML UDC PO ONE (14:18)
--- NOTE | 2017-07-30 14:22 | Internal Med Progress Note ---
Date of Encounter: 07/30/17 Time of Encounter: 14:20 - Assessment and plan (1) Hepatic encephalopathy Current Visit: Yes Status: Acute Assessment and plan: Acute Hepatic encephalopathy Repeat ammonia level Lactulose to be given, would attempt to give lactulose through NG tube or rectally Consider ICU admission if not responding to treatment (2) Acute respiratory failure with hypoxia and hypercapnia Current Visit: Yes Status: Acute Assessment and plan: Acute hypoxic hypercapnic respiratory failure possibly secondary to acute COPD exacerbation and acute pulmonary edema start Solu-Medrol, BiPAP Rocephin, DuoNeb's IV Lasix Echocardiogram showed: Smaller pericardial effusion, ejection fraction of 30-35 % improved since May 2017, were ejection fraction was 20-25% (3) Atrial fibrillation with RVR Current Visit: No Status: Acute Assessment and plan: Likely triggered by alcohol withdrawal Noncompliant with medications Was given amiodarone in the past At Lopressor IV as needed, continue Lopressor 25 g twice a day Continue Cardizem drip for rate , discontinued heparin drip , the patient has high risk of falling 2 alcoholism, not a candidate for anticoagulation Started Librium and taper, Ativan IV per [facility] protocol Consider Precedex and transferring to 2N or ICU Replete magnesium and potassium (4) Alcohol withdrawal Current Visit: No Status: Acute Assessment and plan: [facility] Librium Qualifiers: Complication of substance-induced condition: with unspecified complication Qualified Code(s): F10.239 - Alcohol dependence with withdrawal, unspecified (5) Chest pain Current Visit: Yes Status: Acute Assessment and plan: Secondary to A. fib with RVR minimal chest discomfort Monitor on telemetry, troponins have been negative Qualifiers: Chest pain type: unspecified Qualified Code(s): R07.9 - Chest pain, unspecified (6) Hepatitis C Current Visit: Yes Status: Chronic Assessment and plan: Patient reports a history of hepatitis Qualifiers: Viral hepatitis chronicity: unspecified Hepatic coma status: without hepatic coma Qualified Code(s): B19.20 - Unspecified viral hepatitis C without hepatic coma (7) CHF (congestive heart failure) Current Visit: No Status: Acute Assessment and plan: Acute systolic CHF exacerbation likely triggered by A. fib with RVR History of alcohol related cardiomyopathy, nonobstructive CAD Started Lasix IV Strict I's and O's and daily weight history of moderate to large pericardial effusion, smaller on new echo Qualifiers: Heart failure type: systolic Heart failure chronicity: acute Qualified Code(s): I50.21 - Acute systolic (congestive) heart failure (8) Pericardial effusion Current Visit: Yes Status: Acute (9) Hyponatremia Current Visit: No Status: Acute Assessment and plan: History of severe hyponatremia in the past, currently normal (10) Tobacco dependence Current Visit: No Status: Chronic Assessment and plan: Smoking cessation counseling, nicotine patch (11) Ascites Current Visit: Yes Status: Acute Assessment and plan: Scheduled paracentesis interventional radiology, not done yet Qualifiers: Ascites type: due to alcoholic cirrhosis Qualified Code(s): K70.31 - Alcoholic cirrhosis of liver with ascites - Time Spent With Patient Total time spent is greater than 50% in coordination of care (as documented) at patient's floor/unit and/or counseling patient: - Subjective Interval history: Lethargic, wakes up but not able to answer questions, less tachycardic, yesterday he mentioned that he drinks 6 pole beers every day, had abdominal discomfort, unable to complete ROS due to poor mentation - Constitutional Vitals: Temp Pulse Resp BP Pulse Ox 99.3 F 93 60 108/85 91 07/30/17 11:18 07/30/17 11:18 07/30/17 11:18 07/30/17 11:18 07/30/17 11:18 General appearance: Present: A&O X 0. Absent: answers questions appropriately Exam: - Head Head exam: Present: atraumatic, normocephalic - Eye Eye exam: Present: PERRL, conjuntiva pink, sclera anicteric Pupils: Present: PERRL - Neck Neck exam general surgery: Present: supple, trachea midline. Absent: lymphadenopathy - Respiratory Respiratory exam: Present: decreased breath sounds, CTAB, rales. Absent: accessory muscle use, rhonchi, wheezes - Cardiovascular Cardiovascular exam: Present: RRR, +S1, +S2. Absent: diastolic murmur, gallop, rubs, systolic murmur - GI/Abdominal GI/Abdominal exam: Present: distended (Severe ascites), normal bowel sounds, soft, no peritoneal signs. Absent: tenderness - Extremities Exam Extremities exam: Present: pedal edema (+2 pitting edema in both lower extremities), warm, radial pulses palpable and symmetrical. Absent: calf tenderness, cyanotic - Neurological Exam Neurological exam: Present: CN II-XII intact, oriented X0, no focal deficits. Absent: pronater drift, facial droop, speech deficit - Skin Skin exam: Present: dry, intact Internal Medicine: Result - Labs CBC & Chem 7: 07/30/17 03:30 07/30/17 03:30 Labs: Short CBC 07/30/17 Range/Units 03:30 WBC 5.1 (4.3-11.1) K/mcL Hgb 10.0 L (12.9-16.9) g/dL Hct 33.7 L (37.5-50.1) % Plt Count 143 (140-400) K/mcL BMP 07/30/17 03:30 Sodium 136 Potassium 3.7 Chloride 104 Carbon Dioxide 29 BUN 4 L Creatinine 0.45 L Glucose 104 Calcium 8.2 L - ABG Interpretation ABG results: ABG ABG pH 7.38 pH Units (7.32-7.45) 07/30/17 13:50 ABG pCO2 56 mmHg (35-45) H 07/30/17 13:50 ABG pO2 55 mmHg (85-104) L 07/30/17 13:50 ABG O2 Saturation 87 % (95-98) L 07/30/17 13:50 PT/INR, D-dimer PT 15.0 Seconds (9.4-12.1) H 07/28/17 18:03 - Impressions Impressions Chest X-Ray 07/30/17 13:34 IMPRESSION: 1. Increased opacification at the left lung base could represent atelectasis or pneumonia 2. Cardiomegaly and pulmonary vascular congestion D/ / Geovanny Bar MD / Geovanny Bar MD Interpreting Provider: Geovanny Bar MD Consult Discharge Plan - Plan Referrals: NONE,PCP [Primary Care Provider] -
--- NOTE | 2017-07-30 14:58 | IR Procedure Note ---
Date of procedure: 07/30/17 Consent Obtained: Verbal consent, Written consent Timeout: Correct patient and procedure verified, Correct site verified, Time out performed, Skin prep completed Local anesthetic: Lidocaine 1% Indications: ascites Procedure Performed: paracentesis Was there an captain's assistant present: No Site/Technique: RLQ Estimated blood loss (cc): 1 Complications: None; Tolerated procedure well Specimen: serous fluid
[2017-07-30] MEDS ORDERED: cefTRIAXone 1,000 MG in Water for inj. (sterile) 20 ML 10 ML IVPB SCH (15:00)
--- NOTE | 2017-07-30 15:31 | Electrocardiograph Report ---
[address] [address] Test Date: 2017-07-28 Pat Name: Raj Wallace Department: 103 Room: 2NE34 Gender: M Order Packer: : [id number] Requested By: Mark Rivera Order Number: [id number] Reading MD: Howard Sow Measurements Intervals [place] Rate: 136 P: [place]: 0 QRS: -46 QRSD: 109 T: 92 QT: 321 QTc: 401 Interpretive Statements ATRIAL FIBRILLATION WITH RAPID VENTRICULAR RESPONSE LOW QRS VOLTAGE IN PRECORDIAL LEADS LEFT ANTERIOR FASCICULAR BLOCK Electronically Signed On 07-30-2017 15:30:01 EDT by Howard Sow
[2017-07-30] MEDS: Levofloxacin 500 MG/100 ML 500 MG/100 ML BAG IVPB SCH (15:50)
[2017-07-30] MEDS: MethylPREDNISolone 40 MG/ML VIAL IVP SCH (15:50)
[2017-07-30] MEDS: Ipratropium/Albuterol Neb 3 ML IH SCH ×2 (16:19→22:52)
[2017-07-30] MEDS: Albumin 25% 25gram/100mL 25 GM/100 ML IV.SOLN IVPB SCH ×2 (16:21→23:21)
[2017-07-30] MEDS: Lactulose Oral Soln 20 GM/30 ML UDC PO SCH ×2 (18:06→23:08)
[2017-07-30] MEDS: Piperacillin/Tazobactam 3.375 GM in 0.9 % Sodium Chloride Mini Bag 100 ML IVPB SCH (18:39)
[2017-07-31] MEDS: MethylPREDNISolone 40 MG/ML VIAL IVP SCH ×4 (01:04→23:29)
[2017-07-31] MEDS: Piperacillin/Tazobactam 3.375 GM in 0.9 % Sodium Chloride Mini Bag 100 ML IVPB SCH ×4 (02:17→23:35)
[2017-07-31] MEDS: Ipratropium/Albuterol Neb 3 ML IH SCH ×4 (04:36→21:20)
[2017-07-31 05:43] LABS: Hematocrit 35.5 % (37.5-50.1); Hemoglobin 10.4 g/dL (12.9-16.9); Mean Corpuscular HGB Conc 29.3 g/dL (31.6-35.5); Mean Corpuscular Hemoglobin 24.2 pg (28.0-33.3); Mean Corpuscular Volume 82.6 fL (83.0-100.0); Platelet Count 126 K/mcL (140-400); Red Cell Distribution Width 16.8 % (11.5-14.5)
[2017-07-31 06:00] LABS: BUN/Creatinine Ratio 12 (6-26); Blood Urea Nitrogen 6 mg/dL (6-20); Calcium 8.3 mg/dL (8.6-10.3); Carbon Dioxide 30 mEq/L (23-29); Chloride 101 mEq/L (98-107); Glucose 192 mg/dL (70-105); Osmolality,Calculated 285 (280-300); Potassium 3.9 mEq/L (3.5-5.1); Sodium 136 mEq/L (136-145); eGFR For African Americans > 60 (> 60); eGFR For Non-African Americans > 60 (> 60)
[2017-07-31] MEDS: *HR* LORazepam 2 MG/ML VIAL IVP PRN ×4 (06:38→23:29)
[2017-07-31] MEDS: *HR* Heparin 5,000 UNIT/ML VIAL SQ SCH ×2 (06:38→17:59)
[2017-07-31] MEDS: Magnesium Oxide 400 MG TABLET PO SCH ×2 (09:58→21:52)
[2017-07-31] MEDS: Furosemide 40 MG/4 ML VIAL IVP SCH ×2 (09:58→17:56)
[2017-07-31] MEDS: Folic Acid 1 MG TABLET PO SCH (09:58)
[2017-07-31] MEDS: Nicotine 21 MG PATCH.TD24 TD SCH (09:59)
[2017-07-31] MEDS: Levofloxacin 500 MG/100 ML 500 MG/100 ML BAG IVPB SCH (09:59)
[2017-07-31] MEDS: Thiamine (B-1) 100 MG TABLET PO SCH (09:59)
[2017-07-31] MEDS: Vitamin B Complex/Vit C/Vit E 1 EACH TABLET PO SCH (09:59)
[2017-07-31] MEDS: Lactulose Oral Soln 20 GM/30 ML UDC PO SCH ×4 (10:00→21:52)
--- NOTE | 2017-07-31 10:51 | Internal Med Progress Note ---
<Kyle Lee - Last Filed: 07/31/17 15:08> Date of Encounter: 07/31/17 Time of Encounter: 10:51 - Assessment and plan (1) Hepatic encephalopathy Current Visit: Yes Status: Acute Assessment and plan: Acute Hepatic encephalopathy Patient continues to refuse lactulose despite counseling. Continue to encourage lactulose to titrate to 3-6 bowel movements per day. Ammonia elevated, last level 104. Repeat ammonia level tomorrow morning. If not responding to lactulose despite adequate treatment, may consider Rifaximin. (2) Alcohol withdrawal Current Visit: Yes Status: Acute Assessment and plan: [facility] protocol -Librium ordered. Patient requesting Valium, will avoid this medication as risk of abuse Symptoms of alcohol withdrawal controlled. May have resulted in afib with rvr which will be controlled with increasing metoprolol tartrate to 50mg bid. Qualifiers: Complication of substance-induced condition: with unspecified complication Qualified Code(s): F10.239 - Alcohol dependence with withdrawal, unspecified (3) Acute respiratory failure with hypoxia and hypercapnia Current Visit: Yes Status: Resolved Assessment and plan: Resolved. Acute hypoxic and hypercapnic respiratory failure acute COPD exacerbation, acute pulmonary edema, and pneumonia Repeat ABG essentially normal. Continue solumedrol and duonebs. Continue Levaquin and Zosyn d1. Bipap and IV lasix (4) Atrial fibrillation with RVR Current Visit: Yes Status: Acute Assessment and plan: Noncompliant with medications. Alcohol withdrawal likely contributing Hr 114-123 this morning and irregular. Bp 142/88 per nurse report. Bp low on automatic bp due to afib rvr. Will increase metoprolol to 50mg bid. Contninue with [facility] protocol for alcohol withdrawal with Librium and taper. Continue with cardizem drip. Heparin discontinued due to fall risk (5) CHF (congestive heart failure) Current Visit: Yes Status: Acute Assessment and plan: Acute systolic CHF exacerbation likely triggered by A. fib with RVR History of alcohol related cardiomyopathy and nonobstructive CAD Echocardiogram revealed improved EF of 30-35% since last Echo and decreased pericardial effusion. Continue with IV lasix -6125mL past 24 hours. Qualifiers: Heart failure type: systolic Heart failure chronicity: acute Qualified Code(s): I50.21 - Acute systolic (congestive) heart failure (6) Ascites Current Visit: Yes Status: Acute Assessment and plan: Paracentesis completed 07/30/17. Removed 6900mL. Cell count, LDH, glucose, and albumin ordered. Qualifiers: Ascites type: due to alcoholic cirrhosis Qualified Code(s): K70.31 - Alcoholic cirrhosis of liver with ascites (7) Pericardial effusion Current Visit: Yes Status: Acute Assessment and plan: Improved on echo. (8) Hepatitis C Current Visit: Yes Status: Chronic Assessment and plan: Known history of Hepatitis C with cirrhosis. Qualifiers: Viral hepatitis chronicity: unspecified Hepatic coma status: without hepatic coma Qualified Code(s): B19.20 - Unspecified viral hepatitis C without hepatic coma (9) Chest pain Current Visit: Yes Status: Acute Assessment and plan: Secondary to A. fib with RVR minimal chest discomfort Monitor on telemetry, troponins 0.03 negative x 3 Qualifiers: Chest pain type: unspecified Qualified Code(s): R07.9 - Chest pain, unspecified (10) Tobacco dependence Current Visit: Yes Status: Chronic Assessment and plan: Smoking cessation counseling, nicotine patch (11) Community acquired pneumonia Current Visit: Yes Status: Acute Assessment and plan: CXR 07/30/17 revealed increased opacification of left lung base -Continue with Levaquin and Zosyn d1. Qualifiers: Laterality: left Lung location: lower lobe of lung Qualified Code(s): J18.1 - Lobar pneumonia, unspecified organism - Time Spent With Patient Total time spent is greater than 50% in coordination of care (as documented) at patient's floor/unit and/or counseling patient: - Subjective Interval history: Patient was seen and examined this morning, but was somnolent and minimally arousable. Unable to complete ROS due to mental status. ABG ordered. Vitals reviewed and irregular heart rate with rate 114-123, R 17-20, bp 90-137/ 71-72, 4L 92%. Patient revisited 14:30pm and awake and alert, wants Valium for withdrawals and continues to refuse lactulose. CODE status discussion with patient and would like to be DNR-CCA-DNI, updated code status in system. Denies fevers, chills, sweats, nausea, vomiting, chest pain, shortness of breath , abdominal pain, changes in bowels or bladder, weakness, or loss of sensation. - Constitutional Vitals: Temp Pulse Resp BP Pulse Ox 97.6 F 114 18 90/71 92 07/30/17 22:47 07/31/17 07:00 07/31/17 10:39 07/31/17 07:00 07/31/17 10:39 General appearance: Present: no acute distress. Absent: answers questions appropriately Exam: somnolent and minimally arousable. - Head Head exam: Present: atraumatic, normal inspection, normocephalic - Eye Eye exam: Present: normal appearance, PERRL - ENT ENT exam: Present: mucous membranes dry, normal exam, normal oropharynx - Neck Neck exam general surgery: Present: normal inspection, supple, trachea midline - Respiratory Respiratory exam: Present: CTAB. Absent: rales, rhonchi, wheezes - Cardiovascular Cardiovascular exam: Present: irregular rhythm, +S1, +S2. Absent: JVD - GI/Abdominal GI/Abdominal exam: Present: distended, normal bowel sounds, soft. Absent: no peritoneal signs - Extremities Exam Extremities exam: Present: normal inspection, pedal edema (1+ pitting edema bilateral lower extremities), warm, radial pulses palpable and symmetrical - Neurological Exam Neurological exam: Present: alert, strengths equal and symetr throughout. Absent: pronater drift, facial droop, speech deficit - Skin Skin exam: Present: dry, intact, normal color, warm. Absent: rash Internal Medicine: Result - Labs CBC & Chem 7: 07/31/17 05:20 07/31/17 05:20 Labs: Short CBC 07/31/17 Range/Units 05:20 WBC 3.5 L (4.3-11.1) K/mcL Hgb 10.4 L (12.9-16.9) g/dL Hct 35.5 L (37.5-50.1) % Plt Count 126 L (140-400) K/mcL BMP 07/31/17 05:20 Sodium 136 Potassium 3.9 Chloride 101 Carbon Dioxide 30 H BUN 6 Creatinine 0.50 L Glucose 192 H Calcium 8.3 L - ABG Interpretation ABG results: ABG ABG pH 7.38 pH Units (7.32-7.45) 07/30/17 13:50 ABG pCO2 56 mmHg (35-45) H 07/30/17 13:50 ABG pO2 55 mmHg (85-104) L 07/30/17 13:50 ABG O2 Saturation 87 % (95-98) L 07/30/17 13:50 PT/INR, D-dimer PT 15.0 Seconds (9.4-12.1) H 07/28/17 18:03 - Impressions Impressions Paracentesis Ultrasound 07/30/17 00:00 IMPRESSION: Successful ultrasound guided paracentesis. D/ / Nico Garcia MD / Nico Garcia MD Interpreting Provider: Nico Garcia MD Chest X-Ray 07/30/17 13:34 IMPRESSION: 1. Increased opacification at the left lung base could represent atelectasis or pneumonia. 2. Cardiomegaly and pulmonary vascular congestion. D/ / 07/30/2017 14:35:17 Geovanny Bar MD / Nisha Beasley Interpreting Provider: Geovanny Bar MD Consult Discharge Plan - Plan Referrals: NONE,PCP [Primary Care Provider] - <Emery Benson - Last Filed: 07/31/17 19:07> Date of Encounter: 07/31/17 - Assessment and plan (1) Acute respiratory failure with hypoxia and hypercapnia Current Visit: Yes Status: Resolved (2) Community acquired pneumonia Current Visit: Yes Status: Acute Qualifiers: Laterality: left Lung location: lower lobe of lung Qualified Code(s): J18.1 - Lobar pneumonia, unspecified organism (3) Afib Current Visit: Yes Status: Chronic Qualifiers: Atrial fibrillation type: chronic Qualified Code(s): I48.2 - Chronic atrial fibrillation (4) Atrial fibrillation with RVR Current Visit: Yes Status: Acute (5) Alcohol withdrawal Current Visit: Yes Status: Acute Qualifiers: Complication of substance-induced condition: uncomplicated Qualified Code(s ): F10.230 - Alcohol dependence with withdrawal, uncomplicated (6) Tobacco dependence Current Visit: Yes Status: Chronic (7) Chest pain Current Visit: Yes Status: Acute Qualifiers: Chest pain type: unspecified Qualified Code(s): R07.9 - Chest pain, unspecified (8) CHF (congestive heart failure) Current Visit: Yes Status: Acute Qualifiers: Heart failure type: systolic Heart failure chronicity: acute Qualified Code(s): I50.21 - Acute systolic (congestive) heart failure (9) Hepatitis C Current Visit: Yes Status: Chronic Qualifiers: Viral hepatitis chronicity: chronic Hepatic coma status: without hepatic coma Qualified Code(s): B18.2 - Chronic viral hepatitis C (10) Pericardial effusion Current Visit: Yes Status: Chronic (11) Ascites Current Visit: Yes Status: Acute Qualifiers: Ascites type: due to alcoholic cirrhosis Qualified Code(s): K70.31 - Alcoholic cirrhosis of liver with ascites (12) Hepatic encephalopathy Current Visit: Yes Status: Acute - Time Spent With Patient Total time spent is greater than 50% in coordination of care (as documented) at patient's floor/unit and/or counseling patient: - Constitutional Vitals: Temp Pulse Resp BP Pulse Ox 97.3 F L 110 20 104/85 93 07/31/17 16:00 07/31/17 16:00 07/31/17 16:50 07/31/17 16:00 07/31/17 16:50 Internal Medicine: Result - Labs CBC & Chem 7: 07/31/17 05:20 07/31/17 05:20 Labs: Short CBC 07/31/17 Range/Units 05:20 WBC 3.5 L (4.3-11.1) K/mcL Hgb 10.4 L (12.9-16.9) g/dL Hct 35.5 L (37.5-50.1) % Plt Count 126 L (140-400) K/mcL BMP 07/31/17 05:20 Sodium 136 Potassium 3.9 Chloride 101 Carbon Dioxide 30 H BUN 6 Creatinine 0.50 L Glucose 192 H Calcium 8.3 L - ABG Interpretation ABG results: ABG ABG pH 7.46 pH Units (7.32-7.45) H 07/31/17 13:43 ABG pCO2 44 mmHg (35-45) 07/31/17 13:43 ABG pO2 94 mmHg (85-104) 07/31/17 13:43 ABG O2 Saturation 98 % (95-98) 07/31/17 13:43 PT/INR, D-dimer PT 15.0 Seconds (9.4-12.1) H 07/28/17 18:03 - Attending Attestation I examined this patient and my medical decision-making was reviewed with the Resident Physician on 07/31/17. I agree with the documented findings, disposition and treatment plan as described except to the extent set forth below. Mr Wallace is currently admitted for acute resp failure and hepatic enceph. He remains moderate to high risk due to potential for worsening clinical and respiratory status. Mr Wallace is refusing lactulose. No fever or chills. Still tachypneic at times. No abd pain. Exam alert. Mucus membranes dry Heart reg Lungs diminished Abd soft I/P 1. Resp failure 2. Encephalopathy Further diagnoses and plan as above.
[2017-07-31 13:47] LABS: ABG Base Excess 6 mEq/L (-2 to 3); ABG HCO3 31 mEq/L (21-27); ABG Oxygen Saturation 98 % (95-98); ABG PCO2 44 mmHg (35-45); ABG PH 7.46 pH Units (7.32-7.45); ABG PO2 94 mmHg (85-104); ABG TCO2 32 mEq/L (20-26)
[2017-08-01] MEDS: Ipratropium/Albuterol Neb 3 ML IH SCH ×4 (04:54→22:41)
[2017-08-01 05:07] LABS: Hematocrit 31.7 % (37.5-50.1); Hemoglobin 9.4 g/dL (12.9-16.9); Immature Granulocytes % 0.6 % (0-4); Lymphocytes # 0.6 K/mcL (0.6-4.6); Lymphocytes % 5.8 %; Mean Corpuscular HGB Conc 29.7 g/dL (31.6-35.5); Mean Corpuscular Hemoglobin 24.4 pg (28.0-33.3); Mean Corpuscular Volume 82.3 fL (83.0-100.0); Monocytes # 0.4 K/mcL (0.0-1.3); Monocytes % 3.4 %; Neutrophils # 9.6 K/mcL (1.6-8.9); Platelet Count 134 K/mcL (140-400); Red Blood Count 3.85 M/mcL (4.19-5.50); Red Cell Distribution Width 16.9 % (11.5-14.5); Segmented Neutrophils % 90.2 %
[2017-08-01 05:29] LABS: Alanine Aminotransferase 34 Units/L (7-52); Albumin 2.4 g/dL (3.5-5.7); Albumin/Globulin Ratio 0.6 (1.1-2.2); Alkaline Phosphatase 170 Units/L (34-104); Aspartate Amino Transferase 57 Units/L (13-39); BUN/Creatinine Ratio 18 (6-26); Bilirubin,Total 0.7 mg/dL (0.3-1.0); Blood Urea Nitrogen 11 mg/dL (6-20); Calcium 8.4 mg/dL (8.6-10.3); Carbon Dioxide 30 mEq/L (23-29); Chloride 101 mEq/L (98-107); Glucose 241 mg/dL (70-105); Osmolality,Calculated 291 (280-300); Potassium 3.8 mEq/L (3.5-5.1); Sodium 137 mEq/L (136-145); Total Protein 6.4 g/dL (6.4-8.9); eGFR For African Americans > 60 (> 60); eGFR For Non-African Americans > 60 (> 60)
[2017-08-01] MEDS: *HR* Heparin 5,000 UNIT/ML VIAL SQ SCH ×2 (05:52→18:24)
[2017-08-01] MEDS: MethylPREDNISolone 40 MG/ML VIAL IVP SCH ×2 (08:56→16:16)
[2017-08-01] MEDS: Piperacillin/Tazobactam 3.375 GM in 0.9 % Sodium Chloride Mini Bag 100 ML IVPB SCH ×2 (08:56→16:35)
[2017-08-01] MEDS: Nicotine 21 MG PATCH.TD24 TD SCH (08:56)
[2017-08-01] MEDS: Lactulose Oral Soln 20 GM/30 ML UDC PO SCH ×4 (08:57→20:40)
[2017-08-01] MEDS: Folic Acid 1 MG TABLET PO SCH (08:57)
[2017-08-01] MEDS: Magnesium Oxide 400 MG TABLET PO SCH ×2 (08:58→20:40)
[2017-08-01] MEDS: Vitamin B Complex/Vit C/Vit E 1 EACH TABLET PO SCH (08:58)
[2017-08-01] MEDS: Thiamine (B-1) 100 MG TABLET PO SCH (08:58)
--- NOTE | 2017-08-01 10:51 | Internal Med Progress Note ---
<Abel Kang - Last Filed: 08/01/17 14:54> Date of Encounter: 08/01/17 Time of Encounter: 09:15 - Assessment and plan (1) Atrial fibrillation with RVR Current Visit: Yes Status: Acute Assessment and plan: Noncompliant with medications. Alcohol withdrawal likely contributing Continues to have elevated, irregular heart rate Bp slightly low today this morning ~90s/60s Will increase metoprolol to 50mg bid Will reduce CIWA to 1 mg IV ativan prn Will stop cardizem drip because of bp and begin PO load of amiodarone Heparin discontinued due to fall risk (2) Alcohol withdrawal Current Visit: Yes Status: Acute Assessment and plan: Continue on CIWA with below changes Patient requesting Valium, will avoid this medication as risk of abuse Symptoms of alcohol withdrawal controlled May have resulted in afib with rvr which will be controlled with increasing metoprolol tartrate to 50mg bid Continue Librium CIWA protocol reduced to 1 mg IV only Continue multivitamins (3) Chest pain Current Visit: Yes Status: Acute Assessment and plan: Secondary to A. fib with RVR minimal chest discomfort troponins 0.03 negative x 3 Monitor on telemetry (4) CHF (congestive heart failure) Current Visit: Yes Status: Acute Assessment and plan: Acute systolic CHF exacerbation likely triggered by A. fib with RVR History of alcohol related cardiomyopathy and nonobstructive CAD Echocardiogram revealed improved EF of 30-35% since last Echo and decreased pericardial effusion Continue with IV lasix (5) Hepatitis C Current Visit: Yes Status: Chronic Assessment and plan: Known history of Hepatitis C with cirrhosis (6) Ascites Current Visit: Yes Status: Acute Assessment and plan: Paracentesis completed 07/30/17. Removed 6900mL Patient abdomen appeared increasingly distended today Will ask IR to perform paracentesis again Cell count, LDH, glucose, and albumin ordered (7) Hepatic encephalopathy Current Visit: Yes Status: Acute Assessment and plan: Acute Hepatic encephalopathy Patient continues to refuse lactulose despite counseling. Continue to encourage lactulose to titrate to 3-4 bowel movements per day. Ammonia elevated, last level 102 Repeat ammonia level tomorrow morning If not responding to lactulose despite adequate treatment, may consider Rifaximin Patient more compliant with lactulose after being told that it would decrease the amount of time that he spends in the hospital (8) Acute respiratory failure with hypoxia and hypercapnia Current Visit: Yes Status: Resolved Assessment and plan: Resolved Acute hypoxic and hypercapnic respiratory failure acute COPD exacerbation, acute pulmonary edema, and pneumonia Repeat ABG essentially normal Continue solumedrol and duonebs. Continue Levaquin and Zosyn started 07/30/17 day 2 Bipap and IV lasix (9) Tobacco dependence Current Visit: Yes Status: Chronic Assessment and plan: Smoking cessation counseling, nicotine patch (10) Community acquired pneumonia Current Visit: Yes Status: Acute Assessment and plan: CXR 07/30/17 revealed increased opacification of left lung base Plan as above - Time Spent With Patient Total time spent is greater than 50% in coordination of care (as documented) at patient's floor/unit and/or counseling patient: - Subjective Interval history: Patient resting in chair when seen today. He appears to be slightly sluggish in his responses. He has been taking his lactulose. He does not have any immediate concerns/complaints today, though does report the he is "still withdrawaling" and that he would like some ativan. He denies having any palpitations, tremors, lightheadedness, hallucinations, dyspnea, or chest pain. - Constitutional Vitals: Temp Pulse Resp BP Pulse Ox 97.4 F L 139 20 90/68 90 08/01/17 07:00 08/01/17 08:39 08/01/17 07:00 08/01/17 08:39 08/01/17 07:00 General appearance: Present: no acute distress Exam: Head exam: atraumatic, normal inspection, normocephalic Eye exam: normal appearance, PERRL ENT exam: Mucous membranes moist Neck exam: normal inspection, supple, trachea midline Respiratory exam: CTAB, no rales/rhonchi/wheezes Cardiovascular exam: irregular rhythm, tachycardia, +S1, +S2, no JVD, 4/6 systolic murmur present at upper-right sternal border GI/Abdominal exam: distended, normal bowel sounds, no peritoneal signs Extremities exam: normal inspection, 1+ pitting edema bilateral lower extremities, warm, radial pulses palpable and symmetrical Neurological exam: alert, strengths equal and symetr throughout, no pronater drift, no facial droop, no speech deficit Skin exam: dry, intact, normal color, warm, no rash Internal Medicine: Result - Labs CBC & Chem 7: 08/01/17 04:51 08/01/17 04:51 Labs: Short CBC 08/01/17 Range/Units 04:51 WBC 10.6 D (4.3-11.1) K/mcL Hgb 9.4 L (12.9-16.9) g/dL Hct 31.7 L (37.5-50.1) % Plt Count 134 L (140-400) K/mcL Neutrophils # 9.6 H (1.6-8.9) K/mcL BMP 08/01/17 04:51 Sodium 137 Potassium 3.8 Chloride 101 Carbon Dioxide 30 H BUN 11 Creatinine 0.61 L Glucose 241 H Calcium 8.4 L Liver Function 08/01/17 Range/Units 04:51 Total Bilirubin 0.7 (0.3-1.0) mg/dL AST 57 H (13-39) Units/L ALT 34 (7-52) Units/L Alkaline Phosphatase 170 H (34-104) Units/L Albumin 2.4 L (3.5-5.7) g/dL - ABG Interpretation ABG results: ABG ABG pH 7.46 pH Units (7.32-7.45) H 07/31/17 13:43 ABG pCO2 44 mmHg (35-45) 07/31/17 13:43 ABG pO2 94 mmHg (85-104) 07/31/17 13:43 ABG O2 Saturation 98 % (95-98) 07/31/17 13:43 PT/INR, D-dimer PT 15.0 Seconds (9.4-12.1) H 07/28/17 18:03 Consult Discharge Plan - Plan Referrals: NONE,PCP [Primary Care Provider] - <Emery Benson - Last Filed: 08/01/17 18:52> Date of Encounter: 08/01/17 - Assessment and plan (1) Acute respiratory failure with hypoxia and hypercapnia Current Visit: Yes Status: Resolved (2) Ascites Current Visit: Yes Status: Acute Qualifiers: Ascites type: due to alcoholic cirrhosis Qualified Code(s): K70.31 - Alcoholic cirrhosis of liver with ascites (3) CHF (congestive heart failure) Current Visit: Yes Status: Acute Qualifiers: Heart failure type: systolic Heart failure chronicity: acute Qualified Code(s): I50.21 - Acute systolic (congestive) heart failure (4) Paroxysmal atrial fibrillation Current Visit: No Status: Chronic (5) Atrial fibrillation with RVR Current Visit: Yes Status: Acute (6) Alcohol withdrawal Current Visit: Yes Status: Acute Qualifiers: Complication of substance-induced condition: uncomplicated Qualified Code(s ): F10.230 - Alcohol dependence with withdrawal, uncomplicated (7) Tobacco dependence Current Visit: Yes Status: Chronic (8) Chest pain Current Visit: Yes Status: Acute Qualifiers: Chest pain type: unspecified Qualified Code(s): R07.9 - Chest pain, unspecified (9) Hepatitis C Current Visit: Yes Status: Chronic Qualifiers: Viral hepatitis chronicity: chronic Hepatic coma status: without hepatic coma Qualified Code(s): B18.2 - Chronic viral hepatitis C (10) Hepatic encephalopathy Current Visit: Yes Status: Acute (11) Community acquired pneumonia Current Visit: Yes Status: Acute Qualifiers: Laterality: left Lung location: lower lobe of lung Qualified Code(s): J18.1 - Lobar pneumonia, unspecified organism - Time Spent With Patient Total time spent is greater than 50% in coordination of care (as documented) at patient's floor/unit and/or counseling patient: - Constitutional Vitals: Temp Pulse Resp BP Pulse Ox 98 F 118 52 105/89 94 08/01/17 15:55 08/01/17 18:42 08/01/17 16:33 08/01/17 18:42 08/01/17 16:33 Internal Medicine: Result - Labs CBC & Chem 7: 08/01/17 04:51 08/01/17 04:51 Labs: Short CBC 08/01/17 Range/Units 04:51 WBC 10.6 D (4.3-11.1) K/mcL Hgb 9.4 L (12.9-16.9) g/dL Hct 31.7 L (37.5-50.1) % Plt Count 134 L (140-400) K/mcL Neutrophils # 9.6 H (1.6-8.9) K/mcL BMP 08/01/17 04:51 Sodium 137 Potassium 3.8 Chloride 101 Carbon Dioxide 30 H BUN 11 Creatinine 0.61 L Glucose 241 H Calcium 8.4 L Liver Function 08/01/17 Range/Units 04:51 Total Bilirubin 0.7 (0.3-1.0) mg/dL AST 57 H (13-39) Units/L ALT 34 (7-52) Units/L Alkaline Phosphatase 170 H (34-104) Units/L Albumin 2.4 L (3.5-5.7) g/dL - ABG Interpretation ABG results: ABG ABG pH 7.46 pH Units (7.32-7.45) H 07/31/17 13:43 ABG pCO2 44 mmHg (35-45) 07/31/17 13:43 ABG pO2 94 mmHg (85-104) 07/31/17 13:43 ABG O2 Saturation 98 % (95-98) 07/31/17 13:43 PT/INR, D-dimer PT 15.0 Seconds (9.4-12.1) H 07/28/17 18:03 - Impressions Impressions Paracentesis Ultrasound 08/01/17 00:00 IMPRESSION: Successful ultrasound guided paracentesis. D/ / Delroy Nunez MD / Delroy Nunez MD Interpreting Provider: Delroy Nunez MD - Attending Attestation I examined this patient and my medical decision-making was reviewed with the Resident Physician on 08/01/17. I agree with the documented findings, disposition and treatment plan as described except to the extent set forth below. Mr Wallace is currently admitted for alcohol withdrawal and a fib. He remains moderate to high risk due to potential for worsening clinical status. Mr Wallace is wanting Ativan. He is still tachypneic but eating breakfast. Heart rate remains elevated. Exam alert mod distress Mucus membranes dry Heart tachy and irreg No wheeze abd distended. I/P 1. ETOH withdrawal 2. A fib Further diagnoses and plan as above.
[2017-08-01] MEDS: Furosemide 40 MG/4 ML VIAL IVP SCH ×2 (11:54→18:17)
[2017-08-01] MEDS ORDERED: Albumin 25% 25gram/100mL 25 GM/100 ML IV.SOLN IVC ONE ×2 (11:56→13:30)
[2017-08-01] MEDS: Levofloxacin 500 MG/100 ML 500 MG/100 ML BAG IVPB SCH (13:12)
--- NOTE | 2017-08-01 13:30 | IR Procedure Note ---
Date of procedure: 08/01/17 Consent Obtained: Verbal consent Timeout: Correct patient and procedure verified, Correct site verified, Time out performed, Skin prep completed Local anesthetic: Lidocaine 1% Indications: Ascites Procedure Performed: Paracentesis Was there an recovery assistant present: No Site/Technique: Ultrasound guided paracentesis Results/Findings: Moderate ascites Estimated blood loss (cc): 2 Complications: None; Tolerated procedure well Post Procedure Treatment Plan: Continue inpatient care Specimen: serous ascites
--- NOTE | 2017-08-01 15:01 | Palliative - Consult Note ---
Date of Encounter: 08/01/17 Time of Encounter: 13:00 - Assessment and Plan (1) Dyspnea Current Visit: Yes Status: Acute Assessment and plan: Patient with cirrhosis and hep. C. with ascites. S/p paracentesis with removal of 1500ml. EF 30-35%. - Supplemental O2 - position for comfort - Lasix - ativan Qualifiers: Dyspnea type: shortness of breath Qualified Code(s): R06.02 - Shortness of breath; R06.00 - Dyspnea, unspecified; R06.01 - Orthopnea (2) Ascites Current Visit: Yes Status: Acute Assessment and plan: Patient s/p paracentesis with removal of 1500cc. Tolerated well. Cirrhosis with Hep C. Cardiac EF 30-35%. - Monitor I&O - Daily weight - Lasix - Position for comfort - Supplemental O2 Qualifiers: Ascites type: due to alcoholic cirrhosis Qualified Code(s): K70.31 - Alcoholic cirrhosis of liver with ascites (3) Goals of care, counseling/discussion Current Visit: Yes Status: Acute Assessment and plan: Patient with ammonia level 102. ETOH abuse. Patient alert but unable to participate in meaningful conversation r/t goals of care. I discussed that patient had cirrhosis (MELD SCORE 10) and attempted to discuss goals of care. Patient stated that he desired to go home and drink ETOH and that he desired to live. Called patients sister Maria L and discussed patients current POC. Case discussed with Dr. Benson and Dr. Kang. Will attempt additional conversations tomorrow. Patient was s/p paracentesis. DNRCC - A, DNI. (4) Atrial fibrillation with RVR Current Visit: Yes Status: Acute (5) Alcohol dependence Current Visit: No Status: Acute Qualifiers: Substance use status: unspecified alcohol-induced disorder Qualified Code(s ): F10.29 - Alcohol dependence with unspecified alcohol-induced disorder (6) CHF (congestive heart failure) Current Visit: Yes Status: Acute Qualifiers: Heart failure type: systolic Heart failure chronicity: acute Qualified Code(s): I50.21 - Acute systolic (congestive) heart failure Palliative-CN HPI - Data of Consult Patient: new to practice Consult date: 08/01/17 Requesting Physician: Emery Benson DO Primary Care Provider: PCP NONE - Consult Narrative Palliative Care/Comfort Measures: Palliative care Reason for consult: Goals of Care discussion History of present illness: Mr. Wallace is a 56 year old male admitted with A-fib with RVR. Patient with history of ETOH abuse and tobacco abuse, cardiomyopathy, cirrhosis, hepatitis C , GERD, anxiety and depression. Upon this consult, the patient is alert but unable to provide a detailed account of events up to admission. Ammonia level 102 this AM. This palliative care consult is for goals of care discussion. I called his sister Maria L Jonas #[phone] and she assisted with providing a detailed history of patient. Patient was in [facility] x 4 weeks and DC'd to [facility]. Patient stayed at [facility] only 5 days and signed out AMA without primary care provider, medications or f/u. Patient returned to his private residence where he continued ETOH consumption and developed CP and was admitted with A-Fib RVR. CC: Emery Benson, DO Past Med Surg Social Fam HX - Past Medical History Attestation: Yes The following information was validated with the patient. Source: old records reviewed, obtained from family, nursing notes reviewed Medical history: atrial fibrillation, cirrhosis, CHF, GERD, hepatitis, hypertension, liver disease, myocardial infarction, other Psychiatric history: anxiety, depression - Past Surgical History Surgical History: cataract - Social History Smoking Status: Current every day smoker Packs per day: 2 Smokeless Tobacco Status: No Alcohol use: heavy, recent Drug use: none Occupational status: unemployed Current living situation: Home - Independent Activity Level: Independent ambulation Recent Out of Country Travel Within the Last 8 Weeks: No Exposure or Possible Exposure to Illness During Travel: No - Family History Mother Hx Family Cardiac Disorders: Yes Father Hx Family Cardiac Disorders: Yes Sister Hx Family Cardiac Disorders: Yes (Pacemaker placed) Medications and Allergies Omeprazole [PriLOSEC] 20 mg PO DAILY #30 cap 10/24/16 [Rx] Amiodarone [Cordarone] 200 mg PO DAILY 01/16/17 [History] 3 Allergy/AdvReac Type Severity Reaction Status Date / Time haloperidol [From Haldol] AdvReac Seizure Verified 07/28/17 14:18 ROS unobtainable: due to mental status (resports fatigue and anxiety) - Constitutional Constitutional ROS PAL: decreased appetite, fatigue - EENT Eyes: requires corrective lenses - Cardiovascular Cardiovascular ROS: chest pain, irregular heart rhythm - Respiratory Respiratory: dyspnea on exertion - Gastrointestinal Gastrointestinal: abdominal pain - Genitourinary Genitourinary ROS male: urinary frequency - Musculoskeletal Musculoskeletal ROS IM: muscle weakness - Integumentary ROS Integumentary: dry skin - Neurological Neurological ROS: weakness - Psychiatric Psychiatric general PM: anxiety Palliative Care-Exam - Constitutional Vitals: Temp Pulse Resp BP Pulse Ox 97.6 F 104 20 108/95 88 08/01/17 11:00 08/01/17 11:00 08/01/17 11:00 08/01/17 12:53 08/01/17 11:00 General appearance: Present: cooperative - Head Head Exam: Present: atraumatic - Eye Pupils: Present: PERRL - ENT ENT exam: Present: mucous membranes moist - Neck Neck exam: Present: normal inspection - Respiratory Respiratory exam: Present: decreased breath sounds - Expanded Respiratory Exam Location: decreased breath sounds: Left, Right, Lower - Cardiovascular Cardiovascular exam: Present: irregular rhythm, +S1, +S2 - Expanded Cardiovascular Exam Peripheral pulses: 1+: Femoral (L) PM, Femoral (R) PM, Posterior Tibialis (L), Posterior Tibialis (R), 2+: Carotid (L) PM, Carotid (R) PM, Radial (L), Radial ( R), Dorsalis Pedis (L) PM, Dorsalis Pedis (R) PM - GI/Abdominal Exam GI/Abdominal exam: Present: distended, firm, normal bowel sounds - Expanded GI/Abdominal Exam GI/Abdominal exam: Present: ascites - Rectal Rectal Exam: Present: deferred - Extremities Exam Extremities exam: Present: pedal edema Additional comments: 2+ pedal pitting - Expanded Upper Extremities Exam Shoulder exam: Present: full ROM Upper Arm exam: Present: full ROM Forearm wrist exam: Present: full ROM - Expanded Lower Extremities Exam Upper Leg exam: Present: full ROM Lower Leg exam: Present: full ROM - Neurological Exam Neurological exam: Present: alert - Expanded Neurological Exam Patient oriented to: Present: person, place Cranial nerves: gag reflex: Normal Coma Scale Eye Opening: Spontaneous Coma Scale Motor Response: Obeys Commands Coma Scale Verbal Response: Confused Coma Scale Total: 14 - Psychiatric Psychiatric exam: Present: anxious - Skin Skin exam: Present: dry Internal Medicine - CN: Reslt - Labs CBC & Chem 7: 08/01/17 04:51 08/01/17 04:51 Labs: Short CBC 08/01/17 Range/Units 04:51 WBC 10.6 D (4.3-11.1) K/mcL Hgb 9.4 L (12.9-16.9) g/dL Hct 31.7 L (37.5-50.1) % Plt Count 134 L (140-400) K/mcL Neutrophils # 9.6 H (1.6-8.9) K/mcL BMP 08/01/17 04:51 Sodium 137 Potassium 3.8 Chloride 101 Carbon Dioxide 30 H BUN 11 Creatinine 0.61 L Glucose 241 H Calcium 8.4 L Liver Function 08/01/17 Range/Units 04:51 Total Bilirubin 0.7 (0.3-1.0) mg/dL AST 57 H (13-39) Units/L ALT 34 (7-52) Units/L Alkaline Phosphatase 170 H (34-104) Units/L Albumin 2.4 L (3.5-5.7) g/dL - ABG Interpretation ABG results: ABG ABG pH 7.46 pH Units (7.32-7.45) H 07/31/17 13:43 ABG pCO2 44 mmHg (35-45) 07/31/17 13:43 ABG pO2 94 mmHg (85-104) 07/31/17 13:43 ABG O2 Saturation 98 % (95-98) 07/31/17 13:43 PT/INR, D-dimer PT 15.0 Seconds (9.4-12.1) H 07/28/17 18:03 - Impressions Impressions Paracentesis Ultrasound 08/01/17 00:00 IMPRESSION: Successful ultrasound guided paracentesis. D/ / Delroy Nunez MD / Delroy Nunez MD Interpreting Provider: Delroy Nunez MD Consult Discharge Plan - Plan Referrals: NONE,PCP [Primary Care Provider] - Palliative Quality Palliative Quality: Screen for Code Status: Yes, Screen for Goals of Care: Yes, Screen for Pain: Yes, Screen for Nausea/Vomitting: Yes Code Status: 07/31/17 14:38 CODE [Resuscitation Status: Active] [RES] Routine Comment: Resuscitation Status: [id number]
[2017-08-01 15:57] LABS: Glucose,Peritoneal Fluid 178 mg/dL (No Ref Range); LDH,Peritoneal Fluid 46 Units/L (No Ref Range)
[2017-08-01] MEDS: *HR* Amiodarone 200 MG TABLET PO SCH (16:24)
[2017-08-01 17:08] LABS: Appearance of Peritoneal Fl CLEAR (Clear)
[2017-08-01 17:15] LABS: RBC,Peritoneal Fluid 0.002 M/mcL
[2017-08-01] MEDS: Albumin 25% 25gram/100mL 25 GM/100 ML IV.SOLN IVC SCH ×2 (20:41→23:22)
[2017-08-02] MEDS: Piperacillin/Tazobactam 3.375 GM in 0.9 % Sodium Chloride Mini Bag 100 ML IVPB SCH ×2 (00:40→09:46)
[2017-08-02] MEDS: MethylPREDNISolone 40 MG/ML VIAL IVP SCH ×3 (00:41→17:33)
[2017-08-02] MEDS: Ipratropium/Albuterol Neb 3 ML IH SCH ×4 (03:30→21:29)
[2017-08-02 05:28] LABS: Basophils % 0.1 %; Hemoglobin 8.7 g/dL (12.9-16.9); Immature Granulocytes % 0.7 % (0-4); Lymphocytes # 0.4 K/mcL (0.6-4.6); Lymphocytes % 5.4 %; Mean Corpuscular Hemoglobin 25.5 pg (28.0-33.3); Monocytes # 0.3 K/mcL (0.0-1.3); Monocytes % 3.8 %; Neutrophils # 6.9 K/mcL (1.6-8.9); Platelet Count 116 K/mcL (140-400); Red Blood Count 3.41 M/mcL (4.19-5.50); Red Cell Distribution Width 17.1 % (11.5-14.5)
[2017-08-02 05:45] LABS: BUN/Creatinine Ratio 22 (6-26); Blood Urea Nitrogen 11 mg/dL (6-20); Calcium 9.2 mg/dL (8.6-10.3); Carbon Dioxide 34 mEq/L (23-29); Chloride 100 mEq/L (98-107); Glucose 212 mg/dL (70-105); Magnesium 1.7 mg/dL (1.6-2.6); Osmolality,Calculated 290 (280-300); Phosphorous 1.9 mg/dL (2.7-4.5); Potassium 4.2 mEq/L (3.5-5.1); Sodium 137 mEq/L (136-145); eGFR For African Americans > 60 (> 60); eGFR For Non-African Americans > 60 (> 60)
[2017-08-02] MEDS: *HR* Heparin 5,000 UNIT/ML VIAL SQ SCH ×2 (06:19→17:32)
[2017-08-02] MEDS: Folic Acid 1 MG TABLET PO SCH (09:45)
[2017-08-02] MEDS: Thiamine (B-1) 100 MG TABLET PO SCH (09:45)
[2017-08-02] MEDS: *HR* Amiodarone 200 MG TABLET PO SCH ×2 (09:45→21:45)
[2017-08-02] MEDS: Magnesium Oxide 400 MG TABLET PO SCH ×2 (09:45→21:45)
[2017-08-02] MEDS: Vitamin B Complex/Vit C/Vit E 1 EACH TABLET PO SCH (09:45)
[2017-08-02] MEDS: Furosemide 40 MG/4 ML VIAL IVP SCH (09:45)
[2017-08-02] MEDS: Lactulose Oral Soln 20 GM/30 ML UDC PO SCH ×4 (09:46→21:51)
[2017-08-02] MEDS: Nicotine 21 MG PATCH.TD24 TD SCH (09:46)
--- NOTE | 2017-08-02 10:16 | Internal Med Progress Note ---
<Abel Kang - Last Filed: 08/02/17 13:54> Date of Encounter: 08/02/17 Time of Encounter: 09:05 - Assessment and plan (1) Acute respiratory failure with hypoxia and hypercapnia Current Visit: Yes Status: Resolved Assessment and plan: Resolved Acute hypoxic and hypercapnic respiratory failure acute COPD exacerbation, acute pulmonary edema, and pneumonia Repeat ABG essentially normal Decrease Solu-Medrol to 40 mg twice a day Continue breathing treatments Continue Levaquin started 07/30/17 day 3 Stop Zosyn Bipap as needed We will transition Lasix to 40 mg twice a day by mouth (2) Atrial fibrillation with RVR Current Visit: Yes Status: Acute Assessment and plan: Noncompliant with medications Alcohol withdrawal likely contributing Continues to have elevated, irregular heart rate Bp stable today Metoprolol increased to 50mg bid Will reduce CIWA to 1 mg IV ativan prn Will stop cardizem drip because of bp and begin PO load of amiodarone Heparin discontinued due to fall risk (3) Alcohol withdrawal Current Visit: Yes Status: Acute Assessment and plan: Continue on CIWA with below changes Patient requesting Valium, will avoid this medication as risk of abuse Symptoms of alcohol withdrawal controlled May have resulted in afib with rvr which will be controlled with increasing metoprolol tartrate to 50mg bid Will begin to wean librium Will prescribe 1 beer TIDWM because of his substantial alcoholism and no interest in cessation CIWA protocol reduced to 1 mg IV only Continue multivitamins Qualifiers: Complication of substance-induced condition: uncomplicated Qualified Code(s ): F10.230 - Alcohol dependence with withdrawal, uncomplicated (4) Tobacco dependence Current Visit: Yes Status: Chronic Assessment and plan: Smoking cessation counseling, nicotine patch (5) Chest pain Current Visit: Yes Status: Acute Assessment and plan: Secondary to A. fib with RVR minimal chest discomfort troponins 0.03 negative x 3 Monitor on telemetry Qualifiers: Chest pain type: unspecified Qualified Code(s): R07.9 - Chest pain, unspecified (6) CHF (congestive heart failure) Current Visit: Yes Status: Acute Assessment and plan: Acute systolic CHF exacerbation likely triggered by A. fib with RVR History of alcohol related cardiomyopathy and nonobstructive CAD Echocardiogram revealed improved EF of 30-35% since last Echo and decreased pericardial effusion Continue with IV lasix Qualifiers: Heart failure type: systolic Heart failure chronicity: acute Qualified Code(s): I50.21 - Acute systolic (congestive) heart failure (7) Hepatitis C Current Visit: Yes Status: Chronic Assessment and plan: Known history of Hepatitis C with cirrhosis Qualifiers: Viral hepatitis chronicity: chronic Hepatic coma status: without hepatic coma Qualified Code(s): B18.2 - Chronic viral hepatitis C (8) Ascites Current Visit: Yes Status: Acute Assessment and plan: Paracentesis completed 07/30/17. Removed 6900mL, second paracentesis on 08/01/17 Patient abdomen appeared increasingly distended today Patient is reportedly refusing further paracenteses Will ask IR to perform paracentesis again Cell count, LDH, glucose, and albumin ordered Qualifiers: Ascites type: due to alcoholic cirrhosis Qualified Code(s): K70.31 - Alcoholic cirrhosis of liver with ascites (9) Hepatic encephalopathy Current Visit: Yes Status: Acute Assessment and plan: Acute Hepatic encephalopathy Patient continues to refuse lactulose despite counseling. Continue to encourage lactulose to titrate to 3-4 bowel movements per day. Improved ammonia level at 74 If not responding to lactulose despite adequate treatment, may consider Rifaximin Patient more compliant with lactulose after being told that it would decrease the amount of time that he spends in the hospital (10) Community acquired pneumonia Current Visit: Yes Status: Acute Assessment and plan: CXR 07/30/17 revealed increased opacification of left lung base Plan as above Qualifiers: Laterality: left Lung location: lower lobe of lung Qualified Code(s): J18.1 - Lobar pneumonia, unspecified organism - Time Spent With Patient Total time spent is greater than 50% in coordination of care (as documented) at patient's floor/unit and/or counseling patient: - Subjective Interval history: Patient is sitting on the side of his bed eating breakfast. He reports that he thinks he is withdrawing and needs ativan, though no signs other than tachycardia are observed. He still reports having some continued general weakness. He reports some mild chest discomfort that is sharp in character and reproducible with palpation. He states that this has been a chronic issue for him for several years. - Constitutional Vitals: Temp Pulse Resp BP Pulse Ox 97.4 F L 108 20 115/84 95 08/02/17 06:57 08/02/17 06:57 08/02/17 06:57 08/02/17 06:57 08/02/17 05:40 General appearance: Present: no acute distress Exam: Head exam: atraumatic, normal inspection, normocephalic Eye exam: normal appearance ENT exam: Mucous membranes moist Neck exam: normal inspection, supple, trachea midline Respiratory exam: CTAB, no rales/rhonchi/wheezes Cardiovascular exam: irregular rhythm, tachycardia, +S1, +S2, no JVD, 4/6 systolic murmur present at upper-right sternal border GI/Abdominal exam: distended, normal bowel sounds, no peritoneal signs Extremities exam: normal inspection, 1+ pitting edema bilateral lower extremities, warm, radial pulses palpable and symmetrical Neurological exam: alert, strengths equal and symetr throughout, no pronater drift, no facial droop, no speech deficit Skin exam: dry, intact, normal color, warm, no rash Internal Medicine: Result - Labs CBC & Chem 7: 08/02/17 05:09 08/02/17 05:09 Labs: Short CBC 08/02/17 Range/Units 05:09 WBC 7.7 (4.3-11.1) K/mcL Hgb 8.7 L (12.9-16.9) g/dL Hct 29.0 L (37.5-50.1) % Plt Count 116 L (140-400) K/mcL Neutrophils # 6.9 (1.6-8.9) K/mcL BMP 08/02/17 05:09 Sodium 137 Potassium 4.2 Chloride 100 Carbon Dioxide 34 H BUN 11 Creatinine 0.49 L Glucose 212 H Calcium 9.2 - ABG Interpretation ABG results: ABG ABG pH 7.46 pH Units (7.32-7.45) H 07/31/17 13:43 ABG pCO2 44 mmHg (35-45) 07/31/17 13:43 ABG pO2 94 mmHg (85-104) 07/31/17 13:43 ABG O2 Saturation 98 % (95-98) 07/31/17 13:43 PT/INR, D-dimer PT 15.0 Seconds (9.4-12.1) H 07/28/17 18:03 - Impressions Impressions Paracentesis Ultrasound 08/01/17 00:00 IMPRESSION: Successful ultrasound guided paracentesis. D/ / Delroy Nunez MD / Delroy Nnuez MD Interpreting Provider: Delroy Nunez MD Consult Discharge Plan - Plan Referrals: NONE,PCP [Primary Care Provider] - <Emery Benson - Last Filed: 08/02/17 19:01> Date of Encounter: 08/02/17 - Assessment and plan (1) Acute respiratory failure with hypoxia and hypercapnia Current Visit: Yes Status: Resolved (2) CHF (congestive heart failure) Current Visit: Yes Status: Acute Qualifiers: Heart failure type: systolic Heart failure chronicity: acute Qualified Code(s): I50.21 - Acute systolic (congestive) heart failure (3) Atrial fibrillation with RVR Current Visit: Yes Status: Acute (4) Alcohol withdrawal Current Visit: Yes Status: Acute Qualifiers: Complication of substance-induced condition: uncomplicated Qualified Code(s ): F10.230 - Alcohol dependence with withdrawal, uncomplicated (5) Tobacco dependence Current Visit: Yes Status: Chronic (6) Chest pain Current Visit: Yes Status: Resolved Qualifiers: Chest pain type: unspecified Qualified Code(s): R07.9 - Chest pain, unspecified (7) Hepatitis C Current Visit: Yes Status: Chronic Qualifiers: Viral hepatitis chronicity: chronic Hepatic coma status: without hepatic coma Qualified Code(s): B18.2 - Chronic viral hepatitis C (8) Ascites Current Visit: Yes Status: Acute Qualifiers: Ascites type: due to alcoholic cirrhosis Qualified Code(s): K70.31 - Alcoholic cirrhosis of liver with ascites (9) Hepatic encephalopathy Current Visit: Yes Status: Acute (10) Community acquired pneumonia Current Visit: Yes Status: Acute Qualifiers: Laterality: left Lung location: lower lobe of lung Qualified Code(s): J18.1 - Lobar pneumonia, unspecified organism - Time Spent With Patient Total time spent is greater than 50% in coordination of care (as documented) at patient's floor/unit and/or counseling patient: - Constitutional Vitals: Temp Pulse Resp BP Pulse Ox 98.7 F 76 15 121/96 96 08/02/17 15:23 08/02/17 15:23 08/02/17 15:23 08/02/17 15:23 08/02/17 15:23 Internal Medicine: Result - Labs CBC & Chem 7: 08/02/17 05:09 08/02/17 05:09 Labs: Short CBC 08/02/17 Range/Units 05:09 WBC 7.7 (4.3-11.1) K/mcL Hgb 8.7 L (12.9-16.9) g/dL Hct 29.0 L (37.5-50.1) % Plt Count 116 L (140-400) K/mcL Neutrophils # 6.9 (1.6-8.9) K/mcL BMP 08/02/17 05:09 Sodium 137 Potassium 4.2 Chloride 100 Carbon Dioxide 34 H BUN 11 Creatinine 0.49 L Glucose 212 H Calcium 9.2 - ABG Interpretation ABG results: ABG ABG pH 7.46 pH Units (7.32-7.45) H 07/31/17 13:43 ABG pCO2 44 mmHg (35-45) 07/31/17 13:43 ABG pO2 94 mmHg (85-104) 07/31/17 13:43 ABG O2 Saturation 98 % (95-98) 07/31/17 13:43 PT/INR, D-dimer PT 15.0 Seconds (9.4-12.1) H 07/28/17 18:03 - Attending Attestation I examined this patient and my medical decision-making was reviewed with the Resident Physician on 08/02/17. I agree with the documented findings, disposition and treatment plan as described except to the extent set forth below. Mr Wallace is currently admitted for resp failure and ETOH withdrawal. He remains moderate to high risk due to potential for worsening clinical status. Mr Wallace is about the same. He is given beer today. No fever or chills. He has agreed to explore d/c to SNF. Exam alert Comfortable Mucus membranes dry Heart distant Diminished lung sounds Ascites present I/P 1. Resp failure 2. ETOH withdrawal Further diagnoses and plan as above.
[2017-08-02] MEDS: Beer can PO SCH ×2 (11:56→17:32)
--- NOTE | 2017-08-02 12:38 | Palliative Progress Note ---
Date of Encounter: 08/02/17 Time of Encounter: 11:00 - Assessment and plan (1) Dyspnea Current Visit: Yes Status: Acute Assessment and plan: Patient receiving 4L NC. EF 30-35%. S/P paracentesis from Cirrhosis. Sats 92%. - Lasix - O2 - Solumedrol - Position for comfort Qualifiers: Dyspnea type: shortness of breath Qualified Code(s): R06.02 - Shortness of breath; R06.00 - Dyspnea, unspecified; R06.01 - Orthopnea (2) Ascites Current Visit: Yes Status: Acute Assessment and plan: S/P paracentesis yesterday with removal of 1500. Qualifiers: Ascites type: due to alcoholic cirrhosis Qualified Code(s): K70.31 - Alcoholic cirrhosis of liver with ascites (3) Goals of care, counseling/discussion Current Visit: Yes Status: Acute Assessment and plan: Cirrhosis from Hep C. Patient currently fails to meet criteria for hospice care based on the following : Albumin <2.5 - Patient 2.4 (meets) PT > 5 seconds over control - Patient only 3 seconds over control (not meet) INR > 1.5 - Patient is 1.4 (not meet) MELD 10 + ascites + encephalopathy + cont. alcoholism Patient verbally declines hospice care at present. Desires to return home and live by himself. Parminder Baires, cargo worker attended meeting. Discussed possible ECF placement if patient could consume alcohol at facility. SS to call ECFs to assess possibility. (4) Atrial fibrillation with RVR Current Visit: Yes Status: Acute (5) Alcohol dependence Current Visit: No Status: Acute Qualifiers: Substance use status: unspecified alcohol-induced disorder Qualified Code(s ): F10.29 - Alcohol dependence with unspecified alcohol-induced disorder (6) CHF (congestive heart failure) Current Visit: Yes Status: Acute Qualifiers: Heart failure type: systolic Heart failure chronicity: acute Qualified Code(s): I50.21 - Acute systolic (congestive) heart failure - Time Spent With Patient Total time spent is greater than 50% in coordination of care (as documented) at patient's floor/unit and/or counseling patient: 25 - 35 minutes - Subjective Interval history: Patient up to BS. Alert, oriented x 3. Patient weak and needs assistance with transfer from BSC to bed. Discussed POC and DC plan. - Constitutional Vitals: Abnormal lab results RBC 3.41 M/mcL (4.19-5.50) L 08/02/17 05:09 Hgb 8.7 g/dL (12.9-16.9) L 08/02/17 05:09 Hct 29.0 % (37.5-50.1) L 08/02/17 05:09 MCH 25.5 pg (28.0-33.3) L 08/02/17 05:09 MCHC 30.0 g/dL (31.6-35.5) L 08/02/17 05:09 RDW 17.1 % (11.5-14.5) H 08/02/17 05:09 Plt Count 116 K/mcL (140-400) L 08/02/17 05:09 Lymphocytes # 0.4 K/mcL (0.6-4.6) L 08/02/17 05:09 PT 15.0 Seconds (9.4-12.1) H 07/28/17 18:03 APTT 79.2 Seconds (26.0-36.0) H D 07/29/17 06:15 ABG pH 7.46 pH Units (7.32-7.45) H 07/31/17 13:43 ABG HCO3 31 mEq/L (21-27) H 07/31/17 13:43 ABG Total CO2 32 mEq/L (20-26) H 07/31/17 13:43 ABG Base Excess 6 mEq/L (-2 to 3) H 07/31/17 13:43 Carbon Dioxide 34 mEq/L (23-29) H 08/02/17 05:09 Creatinine 0.49 mg/dL (0.70-1.30) L 08/02/17 05:09 Glucose 212 mg/dL (70-105) H 08/02/17 05:09 Phosphorus 1.9 mg/dL (2.7-4.5) L 08/02/17 05:09 Direct Bilirubin 0.3 mg/dL (0.0-0.2) H 07/28/17 03:43 AST 57 Units/L (13-39) H 08/01/17 04:51 Alkaline Phosphatase 170 Units/L (34-104) H 08/01/17 04:51 Ammonia 74 mcmol/L (16-53) H 08/02/17 05:09 B-Natriuretic Peptide 337 pg/mL (Less than 100) H 07/28/17 03:43 Albumin 2.4 g/dL (3.5-5.7) L 08/01/17 04:51 Globulin 4.0 g/dL (2.4-3.5) H 08/01/17 04:51 Albumin/Globulin Ratio 0.6 (1.1-2.2) L 08/01/17 04:51 Periton Tot Nuc Cells 404 TNC/mcL (0-300) H 08/01/17 13:30 Ethyl Alcohol 322 mg/dL (Less than 10) H 07/28/17 03:48 - Head Head exam: Present: atraumatic, normal inspection - Eye Eye exam: Present: PERRL - ENT ENT exam: Present: mucous membranes moist - Neck Neck exam: Present: normal inspection - Respiratory Respiratory exam: Present: CTAB - Cardiovascular Cardiovascular exam: Present: irregular rhythm, +S1, +S2 - Expanded Cardiovascular Exam Peripheral pulses: 1+: Femoral (L) PM, Femoral (R) PM, Posterior Tibialis (L), Posterior Tibialis (R), 2+: Carotid (L) PM, Carotid (R) PM, Radial (L), Radial ( R), Dorsalis Pedis (L) PM, Dorsalis Pedis (R) PM - GI/Abdominal GI/Abdominal exam: Present: firm, normal bowel sounds Additional comments: 2x2 to right lower quad - Expanded Abdominal Exam GI/Abdominal exam: Present: ascites - Extremities Exam Extremities exam: Present: pedal edema (2+ pedal edema) - Back Exam Back exam: Present: tenderness - Neurological Exam Neurological exam: Present: alert, oriented X3 - Psychiatric Psychiatric exam: Present: normal affect Palliative Quality Palliative Quality: Screen for Code Status: Yes, Screen for Goals of Care: Yes, Screen for Pain: Yes, Screen for Nausea/Vomitting: Yes Code Status: 07/31/17 14:38 CODE [Resuscitation Status: Active] [RES] Routine Comment: Resuscitation Status: [id number] - Labs CBC & Chem 7: 08/02/17 05:09 08/02/17 05:09 Labs: Laboratory Results - last 24 hr 08/01/17 08/01/17 08/02/17 13:30 13:30 05:09 WBC 7.7 RBC 3.41 L Hgb 8.7 L Hct 29.0 L MCV 85.0 MCH 25.5 L MCHC 30.0 L RDW 17.1 H Plt Count 116 L MPV 11.0 Immature Gran % 0.7 Seg Neutrophils % 90.0 Lymphocytes % 5.4 Monocytes % 3.8 Eosinophils % 0.0 Basophils % 0.1 Neutrophils # 6.9 Lymphocytes # 0.4 L Monocytes # 0.3 Eosinophils # 0.0 Basophils # 0.0 Sodium Potassium Chloride Carbon Dioxide BUN Creatinine Est GFR ( Amer) Est GFR (Non-Af Amer) BUN/Creatinine Ratio Glucose Calculated Osmolality Calcium Phosphorus Magnesium Ammonia Peritoneal Appearance CLEAR Peritoneal Volume 60.0 Peritoneal RBC 0.002 Periton Tot Nuc Cells 404 H Periton Neutrophils 5.0 Periton Band Neuts Test Not Performed Peritoneal Eosinophils Test Not Performed Peritoneal Basophils Test Not Performed Periton Lymphocytes % 21.0 Periton Monocytes % 2.0 Periton Other Cells % 72.0 Peritoneal Albumin < 1.5 Peritoneal LDH 46 Peritoneal Glucose 178 08/02/17 08/02/17 05:09 05:09 WBC RBC Hgb Hct MCV MCH MCHC RDW Plt Count MPV Immature Gran % Seg Neutrophils % Lymphocytes % Monocytes % Eosinophils % Basophils % Neutrophils # Lymphocytes # Monocytes # Eosinophils # Basophils # Sodium 137 Potassium 4.2 Chloride 100 Carbon Dioxide 34 H BUN 11 Creatinine 0.49 L Est GFR ( Amer) > 60 Est GFR (Non-Af Amer) > 60 BUN/Creatinine Ratio 22 Glucose 212 H Calculated Osmolality 290 Calcium 9.2 Phosphorus 1.9 L Magnesium 1.7 Ammonia 74 H Peritoneal Appearance Peritoneal Volume Peritoneal RBC Periton Tot Nuc Cells Periton Neutrophils Periton Band Neuts Peritoneal Eosinophils Peritoneal Basophils Periton Lymphocytes % Periton Monocytes % Periton Other Cells % Peritoneal Albumin Peritoneal LDH Peritoneal Glucose - Impressions Impressions Paracentesis Ultrasound 08/01/17 00:00 IMPRESSION: Successful ultrasound guided paracentesis. D/ / Delroy Nunez MD / Delroy Nunez MD Interpreting Provider: Delroy Nunez MD - ABG Interpretation ABG results: ABG ABG pH 7.46 pH Units (7.32-7.45) H 07/31/17 13:43 ABG pCO2 44 mmHg (35-45) 07/31/17 13:43 ABG pO2 94 mmHg (85-104) 07/31/17 13:43 ABG O2 Saturation 98 % (95-98) 07/31/17 13:43 PT/INR, D-dimer PT 15.0 Seconds (9.4-12.1) H 07/28/17 18:03 Consult Discharge Plan - Plan Referrals: NONE,PCP [Primary Care Provider] -
[2017-08-02] MEDS: Spironolactone 25 MG TABLET PO SCH (15:57)
[2017-08-02] MEDS: Furosemide 40 MG TABLET PO SCH (15:59)
[2017-08-03] MEDS: Ipratropium/Albuterol Neb 3 ML IH SCH ×3 (03:57→16:10)
[2017-08-03 05:16] LABS: Hematocrit 30.8 % (37.5-50.1); Hemoglobin 9.2 g/dL (12.9-16.9); Immature Granulocytes % 0.8 % (0-4); Lymphocytes # 0.4 K/mcL (0.6-4.6); Lymphocytes % 6.4 %; Mean Corpuscular HGB Conc 29.9 g/dL (31.6-35.5); Mean Corpuscular Volume 83.7 fL (83.0-100.0); Mean Platelet Volume 11.6 fL (9.4-12.4); Monocytes # 0.5 K/mcL (0.0-1.3); Neutrophils # 5.3 K/mcL (1.6-8.9); Platelet Count 118 K/mcL (140-400); Red Blood Count 3.68 M/mcL (4.19-5.50); Segmented Neutrophils % 84.8 %
[2017-08-03 05:17] LABS: BUN/Creatinine Ratio 26 (6-26); Blood Urea Nitrogen 12 mg/dL (6-20); Calcium 9.2 mg/dL (8.6-10.3); Carbon Dioxide 35 mEq/L (23-29); Chloride 98 mEq/L (98-107); Glucose 179 mg/dL (70-105); Magnesium 1.6 mg/dL (1.6-2.6); Osmolality,Calculated 294 (280-300); Phosphorous 2.4 mg/dL (2.7-4.5); Sodium 140 mEq/L (136-145); eGFR For African Americans > 60 (> 60); eGFR For Non-African Americans > 60 (> 60)
[2017-08-03] MEDS: *HR* Heparin 5,000 UNIT/ML VIAL SQ SCH ×2 (06:19→16:28)
[2017-08-03] MEDS: MethylPREDNISolone 40 MG/ML VIAL IVP SCH ×2 (06:24→16:27)
[2017-08-03] MEDS: Beer can PO SCH ×3 (08:31→16:33)
[2017-08-03] MEDS: Spironolactone 25 MG TABLET PO SCH (08:31)
[2017-08-03] MEDS: levoFLOXacin 500 MG TABLET PO SCH (08:32)
[2017-08-03] MEDS: Thiamine (B-1) 100 MG TABLET PO SCH (08:32)
[2017-08-03] MEDS: Folic Acid 1 MG TABLET PO SCH (08:32)
[2017-08-03] MEDS: Vitamin B Complex/Vit C/Vit E 1 EACH TABLET PO SCH (08:32)
[2017-08-03] MEDS: Furosemide 40 MG TABLET PO SCH ×2 (08:32→16:27)
[2017-08-03] MEDS: Magnesium Oxide 400 MG TABLET PO SCH ×2 (08:32→20:53)
[2017-08-03] MEDS: Nicotine 21 MG PATCH.TD24 TD SCH (08:33)
[2017-08-03] MEDS: Lactulose Oral Soln 20 GM/30 ML UDC PO SCH ×5 (08:33→21:02)
[2017-08-03] MEDS: *HR* Amiodarone 200 MG TABLET PO SCH ×2 (08:39→20:54)
--- NOTE | 2017-08-03 08:52 | Internal Med Progress Note ---
<Kyle Lee - Last Filed: 08/03/17 15:27> Date of Encounter: 08/03/17 Time of Encounter: 08:52 - Assessment and plan (1) Acute respiratory failure with hypoxia and hypercapnia Current Visit: Yes Status: Resolved Assessment and plan: Resolved Acute hypoxic and hypercapnic respiratory failure acute COPD exacerbation, acute pulmonary edema, and pneumonia Repeat ABG essentially normal Decrease Solu-Medrol to 40 mg twice a day Continue breathing treatments Continue Levaquin started 07/30/17 day 4 Stop Zosyn Bipap as needed Lasix to 40 mg twice a day by mouth (2) Hepatic encephalopathy Current Visit: Yes Status: Acute Assessment and plan: Acute Hepatic encephalopathy Patient has been taking lactulose; however, still not having 3-4 bowel movements per day. Ammonia was improved at 74 yesterday, will recheck tomorrow. Start Rifaximin bid as patient is not getting benefit with lactulose at this time and likely will be noncompliant as patient has discontinued and refused in past due to the number of bowel movements needed per day. -Continue Lactulose and start Rifaximin. -Check Ammonia tomorrow. (3) Atrial fibrillation with RVR Current Visit: Yes Status: Acute Assessment and plan: Noncompliant with medications Alcohol withdrawal likely contributing Continues to have elevated, irregular heart rate Bp stable today Metoprolol increased to 50mg bid continue with amiodarone. Heparin. Weaning off of CIWA meds, has beer bid ordered. EKG ordered to monitor for possible QT prolongation. (4) Alcohol withdrawal Current Visit: Yes Status: Acute Assessment and plan: Continue on CIWA with below changes Patient requesting Valium, will avoid this medication as risk of abuse Symptoms of alcohol withdrawal controlled May have resulted in afib with rvr which will be controlled with increasing metoprolol tartrate to 50mg bid Librium discontinued. Ativan as needed per CIWA protocol. Will prescribe 1 beer TIDWM because of his substantial alcoholism and no interest in cessation Continue multivitamins Qualifiers: Complication of substance-induced condition: uncomplicated Qualified Code(s ): F10.230 - Alcohol dependence with withdrawal, uncomplicated (5) CHF (congestive heart failure) Current Visit: Yes Status: Acute Assessment and plan: Acute systolic CHF exacerbation likely triggered by A. fib with RVR History of alcohol related cardiomyopathy and nonobstructive CAD Echocardiogram revealed improved EF of 30-35% since last Echo and decreased pericardial effusion Continue with IV lasix Qualifiers: Heart failure type: systolic Heart failure chronicity: acute Qualified Code(s): I50.21 - Acute systolic (congestive) heart failure (6) Ascites Current Visit: Yes Status: Acute Assessment and plan: Paracentesis completed 07/30/17. Removed 6900mL, second paracentesis on 08/01/17 Patient abdomen appeared increasingly distended today Patient is reportedly refusing further paracenteses Discussed case with IR and ordered and consult in for Pleuryx catheter placement on Sunday. Peritoneal fluid consistent with ascites without infection. Qualifiers: Ascites type: due to alcoholic cirrhosis Qualified Code(s): K70.31 - Alcoholic cirrhosis of liver with ascites (7) Hepatitis C Current Visit: Yes Status: Chronic Assessment and plan: Known history of Hepatitis C with cirrhosis Qualifiers: Viral hepatitis chronicity: chronic Hepatic coma status: without hepatic coma Qualified Code(s): B18.2 - Chronic viral hepatitis C (8) Chest pain Current Visit: Yes Status: Resolved Assessment and plan: Secondary to A. fib with RVR Resolved chest pain troponins 0.03 negative x 3 Monitor on telemetry Qualifiers: Chest pain type: unspecified Qualified Code(s): R07.9 - Chest pain, unspecified (9) Tobacco dependence Current Visit: Yes Status: Chronic Assessment and plan: Smoking cessation counseling, nicotine patch (10) Community acquired pneumonia Current Visit: Yes Status: Acute Assessment and plan: CXR 07/30/17 revealed increased opacification of left lung base Continue Levaquin d4. Plan as above Qualifiers: Laterality: left Lung location: lower lobe of lung Qualified Code(s): J18.1 - Lobar pneumonia, unspecified organism - Time Spent With Patient Total time spent is greater than 50% in coordination of care (as documented) at patient's floor/unit and/or counseling patient: - Subjective Interval history: Mr. Wallace was seen and examined this morning but was somnolent and very briefly arousable. He does answer questions to orientation to person, place, and time appropriately. He denies having bowel movement and reports taking his lactulose as given. Patient denies fevers, chills, chest pain, shortness of breath, abdominal pain, dysuria, diarrhea or bowel movements, weakness, or loss of sensation. Discussed case with palliative and social work. Patient is approved for [facility] as long as has Pleuryx catheter and will be able to continue with beer as patient has expressed clearly that he will not stop drinking alcohol. Plan for IR to place Pleuryx catheter on Sunday as we stabilize patient's other active problems. - Constitutional Vitals: Temp Pulse Resp BP Pulse Ox 98.3 F 121 50 113/86 92 08/03/17 06:50 08/03/17 06:50 08/03/17 06:50 08/03/17 06:50 08/03/17 07:22 General appearance: Present: A&O X 3, no acute distress, obese Exam: somnolent but arousable. - Head Head exam: Present: atraumatic, normal inspection, normocephalic - Eye Eye exam: Present: EOMI, normal appearance - ENT ENT exam: Present: mucous membranes moist, normal exam - Neck Neck exam general surgery: Present: full ROM, normal inspection, supple, trachea midline - Respiratory Respiratory exam: Present: CTAB, tachypnea. Absent: rales, rhonchi, wheezes - Cardiovascular Cardiovascular exam: Present: irregular rhythm, +S1, +S2, tachycardia - GI/Abdominal GI/Abdominal exam: Present: distended, normal bowel sounds, soft. Absent: guarding, tenderness - Extremities Exam Extremities exam: Present: full ROM, pedal edema (1+ pitting edema), warm, radial pulses palpable and symmetrical - Skin Skin exam: Present: dry, intact, normal color, warm Internal Medicine: Result - Labs CBC & Chem 7: 08/03/17 04:36 08/03/17 04:36 Labs: Short CBC 08/03/17 Range/Units 04:36 WBC 6.3 (4.3-11.1) K/mcL Hgb 9.2 L (12.9-16.9) g/dL Hct 30.8 L (37.5-50.1) % Plt Count 118 L (140-400) K/mcL Neutrophils # 5.3 (1.6-8.9) K/mcL BMP 08/03/17 04:36 Sodium 140 Potassium 4.0 Chloride 98 Carbon Dioxide 35 H BUN 12 Creatinine 0.47 L Glucose 179 H Calcium 9.2 - ABG Interpretation ABG results: ABG ABG pH 7.46 pH Units (7.32-7.45) H 07/31/17 13:43 ABG pCO2 44 mmHg (35-45) 07/31/17 13:43 ABG pO2 94 mmHg (85-104) 07/31/17 13:43 ABG O2 Saturation 98 % (95-98) 07/31/17 13:43 PT/INR, D-dimer PT 15.0 Seconds (9.4-12.1) H 07/28/17 18:03 Consult Discharge Plan - Plan Referrals: NONE,PCP [Primary Care Provider] - <Emery Benson - Last Filed: 08/03/17 16:53> Date of Encounter: 08/03/17 - Assessment and plan (1) Acute respiratory failure with hypoxia and hypercapnia Current Visit: Yes Status: Resolved (2) Hepatic encephalopathy Current Visit: Yes Status: Acute (3) Ascites Current Visit: Yes Status: Acute Qualifiers: Ascites type: due to alcoholic cirrhosis Qualified Code(s): K70.31 - Alcoholic cirrhosis of liver with ascites (4) Alcohol withdrawal Current Visit: Yes Status: Acute Qualifiers: Complication of substance-induced condition: uncomplicated Qualified Code(s ): F10.230 - Alcohol dependence with withdrawal, uncomplicated (5) Tobacco dependence Current Visit: Yes Status: Chronic (6) Chest pain Current Visit: Yes Status: Resolved Qualifiers: Chest pain type: unspecified Qualified Code(s): R07.9 - Chest pain, unspecified (7) CHF (congestive heart failure) Current Visit: Yes Status: Resolved Qualifiers: Heart failure type: systolic Heart failure chronicity: acute Qualified Code(s): I50.21 - Acute systolic (congestive) heart failure (8) Hepatitis C Current Visit: Yes Status: Chronic Qualifiers: Viral hepatitis chronicity: chronic Hepatic coma status: without hepatic coma Qualified Code(s): B18.2 - Chronic viral hepatitis C (9) Community acquired pneumonia Current Visit: Yes Status: Acute Qualifiers: Laterality: left Lung location: lower lobe of lung Qualified Code(s): J18.1 - Lobar pneumonia, unspecified organism (10) Atrial fibrillation with RVR Current Visit: Yes Status: Acute - Time Spent With Patient Total time spent is greater than 50% in coordination of care (as documented) at patient's floor/unit and/or counseling patient: - Constitutional Vitals: Temp Pulse Resp BP Pulse Ox 97.9 F 129 50 95/77 94 08/03/17 16:00 08/03/17 16:00 08/03/17 16:00 08/03/17 16:00 08/03/17 16:00 Internal Medicine: Result - Labs CBC & Chem 7: 08/03/17 04:36 08/03/17 04:36 Labs: Short CBC 08/03/17 Range/Units 04:36 WBC 6.3 (4.3-11.1) K/mcL Hgb 9.2 L (12.9-16.9) g/dL Hct 30.8 L (37.5-50.1) % Plt Count 118 L (140-400) K/mcL Neutrophils # 5.3 (1.6-8.9) K/mcL BMP 08/03/17 04:36 Sodium 140 Potassium 4.0 Chloride 98 Carbon Dioxide 35 H BUN 12 Creatinine 0.47 L Glucose 179 H Calcium 9.2 - ABG Interpretation ABG results: ABG ABG pH 7.46 pH Units (7.32-7.45) H 07/31/17 13:43 ABG pCO2 44 mmHg (35-45) 07/31/17 13:43 ABG pO2 94 mmHg (85-104) 07/31/17 13:43 ABG O2 Saturation 98 % (95-98) 07/31/17 13:43 PT/INR, D-dimer PT 15.0 Seconds (9.4-12.1) H 07/28/17 18:03 - Attending Attestation I examined this patient and my medical decision-making was reviewed with the Resident Physician on 08/03/17. I agree with the documented findings, disposition and treatment plan as described except to the extent set forth below. Mr Wallace is currently admitted for acute hepatic encephalopathy and ETOH withdrawal. He remains moderate to high risk due to potential for worsening clinical status. Mr Wallace is resting comfortably at this time. He has been given beer with meals - he has no desire to stop drinking. He remains tachypneic and abd distended. He is also somnolent a lot and he has not had BM despite Lactulose. Exam alert to me. Comfortable but tachypneic. Mucus membranes dry Heart distant and tachy Diminished breath sounds Abd distended. Soft and nontender I/P 1. ETOH withdrawl 2. Ascites - will place drainage catheter Sunday so patient can go to SNF 3. Change to Rifaxamin today. Pt not wanting more Lactulose. Further diagnoses and plan as above.
--- NOTE | 2017-08-03 15:23 | Palliative Progress Note ---
Date of Encounter: 08/03/17 Time of Encounter: 14:30 - Assessment and plan (1) Dyspnea Current Visit: Yes Status: Acute Assessment and plan: Patient receiving 4L NC. EF 30-35%. S/P paracentesis from Cirrhosis. Sats 92%. - Lasix - O2 - Solumedrol - Position for comfort Qualifiers: Dyspnea type: shortness of breath Qualified Code(s): R06.02 - Shortness of breath; R06.00 - Dyspnea, unspecified; R06.01 - Orthopnea (2) Ascites Current Visit: Yes Status: Acute Assessment and plan: S/P paracentesis x 2. Case discussed with Dr. Benson. Discussed possible pleux catheter. Qualifiers: Ascites type: due to alcoholic cirrhosis Qualified Code(s): K70.31 - Alcoholic cirrhosis of liver with ascites (3) Goals of care, counseling/discussion Current Visit: Yes Status: Acute Assessment and plan: Cirrhosis from Hep C. Patient currently fails to meet criteria for hospice care based on the following : Albumin <2.5 - Patient 2.4 (meets) PT > 5 seconds over control - Patient only 3 seconds over control (not meet) INR > 1.5 - Patient is 1.4 (not meet) MELD 10 + ascites + encephalopathy + cont. alcoholism Patient verbally declines hospice care at present. Desires to return home and live by himself. Parminder Baires, forestry worker attended meeting. Discussed possible ECF placement if patient could consume alcohol at facility. SS to call ECFs to assess possibility. (4) Atrial fibrillation with RVR Current Visit: Yes Status: Acute (5) Alcohol dependence Current Visit: No Status: Acute Qualifiers: Substance use status: unspecified alcohol-induced disorder Qualified Code(s ): F10.29 - Alcohol dependence with unspecified alcohol-induced disorder (6) CHF (congestive heart failure) Current Visit: Yes Status: Acute Qualifiers: Heart failure type: systolic Heart failure chronicity: acute Qualified Code(s): I50.21 - Acute systolic (congestive) heart failure - Time Spent With Patient Total time spent is greater than 50% in coordination of care (as documented) at patient's floor/unit and/or counseling patient: - Subjective Interval history: Patient sleeping. Awakens for conversation. Denies pain at present. - Constitutional Vitals: Abnormal lab results RBC 3.68 M/mcL (4.19-5.50) L 08/03/17 04:36 Hgb 9.2 g/dL (12.9-16.9) L 08/03/17 04:36 Hct 30.8 % (37.5-50.1) L 08/03/17 04:36 MCH 25.0 pg (28.0-33.3) L 08/03/17 04:36 MCHC 29.9 g/dL (31.6-35.5) L 08/03/17 04:36 RDW 17.0 % (11.5-14.5) H 08/03/17 04:36 Plt Count 118 K/mcL (140-400) L 08/03/17 04:36 Lymphocytes # 0.4 K/mcL (0.6-4.6) L 08/03/17 04:36 PT 15.0 Seconds (9.4-12.1) H 07/28/17 18:03 APTT 79.2 Seconds (26.0-36.0) H D 07/29/17 06:15 ABG pH 7.46 pH Units (7.32-7.45) H 07/31/17 13:43 ABG HCO3 31 mEq/L (21-27) H 07/31/17 13:43 ABG Total CO2 32 mEq/L (20-26) H 07/31/17 13:43 ABG Base Excess 6 mEq/L (-2 to 3) H 07/31/17 13:43 Carbon Dioxide 35 mEq/L (23-29) H 08/03/17 04:36 Creatinine 0.47 mg/dL (0.70-1.30) L 08/03/17 04:36 Glucose 179 mg/dL (70-105) H 08/03/17 04:36 Phosphorus 2.4 mg/dL (2.7-4.5) L 08/03/17 04:36 Direct Bilirubin 0.3 mg/dL (0.0-0.2) H 07/28/17 03:43 AST 57 Units/L (13-39) H 08/01/17 04:51 Alkaline Phosphatase 170 Units/L (34-104) H 08/01/17 04:51 Ammonia 74 mcmol/L (16-53) H 08/02/17 05:09 B-Natriuretic Peptide 337 pg/mL (Less than 100) H 07/28/17 03:43 Albumin 2.4 g/dL (3.5-5.7) L 08/01/17 04:51 Globulin 4.0 g/dL (2.4-3.5) H 08/01/17 04:51 Albumin/Globulin Ratio 0.6 (1.1-2.2) L 08/01/17 04:51 Periton Tot Nuc Cells 404 TNC/mcL (0-300) H 08/01/17 13:30 Ethyl Alcohol 322 mg/dL (Less than 10) H 07/28/17 03:48 - Head Head exam: Present: atraumatic, normal inspection - Eye Eye exam: Present: PERRL - ENT ENT exam: Present: mucous membranes moist - Neck Neck exam: Present: normal inspection - Respiratory Respiratory exam: Present: CTAB - Cardiovascular Cardiovascular exam: Present: +S1, +S2, tachycardia - Expanded Cardiovascular Exam Peripheral pulses: 1+: Femoral (L) PM, Femoral (R) PM, Posterior Tibialis (L), Posterior Tibialis (R), 2+: Carotid (L) PM, Carotid (R) PM, Radial (L), Radial ( R), Dorsalis Pedis (L) PM, Dorsalis Pedis (R) PM - GI/Abdominal GI/Abdominal exam: Present: firm - Expanded Abdominal Exam GI/Abdominal exam: Present: ascites - Extremities Exam Extremities exam: Present: pedal edema Additional comments: 2+ pitting - Neurological Exam Neurological exam: Present: alert - Psychiatric Psychiatric exam: Present: normal affect - Skin Skin exam: Present: pallor, warm Palliative Quality Palliative Quality: Screen for Code Status: Yes, Screen for Goals of Care: Yes, Screen for Pain: Yes, Screen for Nausea/Vomitting: Yes Code Status: 07/31/17 14:38 CODE [Resuscitation Status: Active] [RES] Routine Comment: Resuscitation Status: [id number] - Labs CBC & Chem 7: 08/03/17 04:36 08/03/17 04:36 Labs: Laboratory Results - last 24 hr 08/03/17 08/03/17 04:36 04:36 WBC 6.3 RBC 3.68 L Hgb 9.2 L Hct 30.8 L MCV 83.7 MCH 25.0 L MCHC 29.9 L RDW 17.0 H Plt Count 118 L MPV 11.6 Immature Gran % 0.8 Seg Neutrophils % 84.8 Lymphocytes % 6.4 Monocytes % 8.0 Eosinophils % 0.0 Basophils % 0.0 Neutrophils # 5.3 Lymphocytes # 0.4 L Monocytes # 0.5 Eosinophils # 0.0 Basophils # 0.0 Sodium 140 Potassium 4.0 Chloride 98 Carbon Dioxide 35 H BUN 12 Creatinine 0.47 L Est GFR ( Amer) > 60 Est GFR (Non-Af Amer) > 60 BUN/Creatinine Ratio 26 Glucose 179 H Calculated Osmolality 294 Calcium 9.2 Phosphorus 2.4 L Magnesium 1.6 - ABG Interpretation ABG results: ABG ABG pH 7.46 pH Units (7.32-7.45) H 07/31/17 13:43 ABG pCO2 44 mmHg (35-45) 07/31/17 13:43 ABG pO2 94 mmHg (85-104) 07/31/17 13:43 ABG O2 Saturation 98 % (95-98) 07/31/17 13:43 PT/INR, D-dimer PT 15.0 Seconds (9.4-12.1) H 07/28/17 18:03 Consult Discharge Plan - Plan Referrals: NONE,PCP [Primary Care Provider] -
[2017-08-03] MEDS: *HR* Metoprolol 5 MG/5 ML VIAL IVP PRN ×2 (19:44→23:12)
[2017-08-03] MEDS: *HR* LORazepam 2 MG/ML VIAL IVP PRN (20:53)
[2017-08-03] MEDS: Levalbuterol Neb 0.63 MG/3 ML IH SCH ×2 (22:32→22:43)
[2017-08-03] MEDS: Ondansetron 4 MG/2 ML VIAL IVP PRN (22:41)
[2017-08-04] MEDS: *HR* LORazepam 2 MG/ML VIAL IVP PRN ×3 (00:32→23:24)
[2017-08-04] MEDS: Levalbuterol Neb 0.63 MG/3 ML IH SCH ×4 (04:07→22:36)
[2017-08-04 04:59] LABS: Hematocrit 34.4 % (37.5-50.1); Hemoglobin 10.6 g/dL (12.9-16.9); Immature Granulocytes % 1.4 % (0-4); Lymphocytes # 0.6 K/mcL (0.6-4.6); Lymphocytes % 11.4 %; Mean Corpuscular HGB Conc 30.8 g/dL (31.6-35.5); Mean Corpuscular Hemoglobin 25.5 pg (28.0-33.3); Mean Corpuscular Volume 82.9 fL (83.0-100.0); Mean Platelet Volume 11.1 fL (9.4-12.4); Monocytes # 0.5 K/mcL (0.0-1.3); Monocytes % 8.7 %; Neutrophils # 4.4 K/mcL (1.6-8.9); Nucleated Red Blood Cells 0.4 /100 WBC (0); Platelet Count 113 K/mcL (140-400); Red Blood Count 4.15 M/mcL (4.19-5.50); Segmented Neutrophils % 78.5 %
[2017-08-04 05:22] LABS: BUN/Creatinine Ratio 25 (6-26); Blood Urea Nitrogen 13 mg/dL (6-20); Calcium 9.3 mg/dL (8.6-10.3); Carbon Dioxide 35 mEq/L (23-29); Chloride 95 mEq/L (98-107); Glucose 124 mg/dL (70-105); Osmolality,Calculated 284 (280-300); Potassium 3.7 mEq/L (3.5-5.1); Sodium 136 mEq/L (136-145); eGFR For African Americans > 60 (> 60); eGFR For Non-African Americans > 60 (> 60)
[2017-08-04] MEDS: *HR* Heparin 5,000 UNIT/ML VIAL SQ SCH ×2 (05:56→16:50)
[2017-08-04] MEDS: MethylPREDNISolone 40 MG/ML VIAL IVP SCH (06:08)
[2017-08-04] MEDS: Thiamine (B-1) 100 MG TABLET PO SCH (08:44)
[2017-08-04] MEDS: Beer can PO SCH ×3 (08:44→16:47)
[2017-08-04] MEDS: *HR* Amiodarone 200 MG TABLET PO SCH ×2 (08:44→20:47)
[2017-08-04] MEDS: Vitamin B Complex/Vit C/Vit E 1 EACH TABLET PO SCH (08:44)
[2017-08-04] MEDS: levoFLOXacin 500 MG TABLET PO SCH (08:44)
[2017-08-04] MEDS: Spironolactone 25 MG TABLET PO SCH (08:45)
[2017-08-04] MEDS: Furosemide 40 MG TABLET PO SCH ×2 (08:45→16:47)
[2017-08-04] MEDS: Magnesium Oxide 400 MG TABLET PO SCH ×2 (08:45→20:48)
[2017-08-04] MEDS: Nicotine 21 MG PATCH.TD24 TD SCH (08:45)
[2017-08-04] MEDS: Folic Acid 1 MG TABLET PO SCH (08:47)
[2017-08-04] MEDS: Lactulose Oral Soln 20 GM/30 ML UDC PO SCH ×4 (08:47→20:48)
--- NOTE | 2017-08-04 14:12 | Internal Med Progress Note ---
<Casimiro Talamantes - Last Filed: 08/04/17 14:10> Date of Encounter: 08/04/17 Time of Encounter: 14:10 - Assessment and plan (1) Hepatic encephalopathy Current Visit: Yes Status: Acute Assessment and plan: Acute Hepatic encephalopathy Patient noncompliant with taking his lactulose. More somnolent this morning. Increase rifaximin dose to 400 mg (2) Ascites Current Visit: Yes Status: Acute Assessment and plan: Secondary to cirrhosis in setting of hepatitis C and alcohol abuse. Status post paracentesis x2 since admission. Patient's abdomen is still distended. Discussed case with IR and ordered and consult in for Pleuryx catheter placement on Sunday. Peritoneal fluid consistent with ascites without infection. Qualifiers: Ascites type: due to alcoholic cirrhosis Qualified Code(s): K70.31 - Alcoholic cirrhosis of liver with ascites (3) Acute respiratory failure with hypoxia and hypercapnia Current Visit: Yes Status: Resolved Assessment and plan: Resolved Secondary to pneumonia and fluid overload due to cirrhosis and large volume ascites Patient is not requiring oxygen supplementation. (4) Atrial fibrillation with RVR Current Visit: Yes Status: Acute Assessment and plan: Patient continues to be tachycardic. Likely combination of alcohol use and medication noncompliance. We will continue amiodarone and metoprolol. Not a good candidate for anticoagulation due to alcohol abuse. (5) Alcohol withdrawal Current Visit: Yes Status: Acute Assessment and plan: Resolved. Beer or 3 times a day Patient has no indication of discontinuation of alcohol. Continue thiamine, vitamin B, folic acid. Qualifiers: Complication of substance-induced condition: uncomplicated Qualified Code(s ): F10.230 - Alcohol dependence with withdrawal, uncomplicated (6) Tobacco dependence Current Visit: Yes Status: Chronic Assessment and plan: Smoking cessation counseling, nicotine patch (7) CHF (congestive heart failure) Current Visit: Yes Status: Resolved Assessment and plan: Acute systolic CHF exacerbation likely triggered by A. fib with RVR Resolved History of alcohol related cardiomyopathy and nonobstructive CAD Echocardiogram revealed improved EF of 30-35% since last Echo and decreased pericardial effusion Continue Lasix 40 mg by mouth twice a day. Qualifiers: Heart failure type: systolic Heart failure chronicity: acute Qualified Code(s): I50.21 - Acute systolic (congestive) heart failure (8) Hepatitis C Current Visit: Yes Status: Chronic Assessment and plan: Known history of Hepatitis C with cirrhosis Can follow-up outpatient with PCP Qualifiers: Viral hepatitis chronicity: chronic Hepatic coma status: without hepatic coma Qualified Code(s): B18.2 - Chronic viral hepatitis C (9) Community acquired pneumonia Current Visit: Yes Status: Resolved Assessment and plan: CXR 07/30/17 revealed increased opacification of left lung base Patient finished antibiotic course of levaquin. Qualifiers: Laterality: left Lung location: lower lobe of lung Qualified Code(s): J18.1 - Lobar pneumonia, unspecified organism - Time Spent With Patient Total time spent is greater than 50% in coordination of care (as documented) at patient's floor/unit and/or counseling patient: - Subjective Interval history: Patient was more somnolent this morning and refused to take lactulose. No acute overnight events. He denies any abdominal pain. Continues to have bowel movements. Patient is in the hospital as he requires a abdominal Pleurx catheter which will be placed by IR on Sunday. - Constitutional Vitals: Temp Pulse Resp BP Pulse Ox 97.6 F 104 21 100/87 93 08/04/17 11:18 08/04/17 11:18 08/04/17 11:18 08/04/17 11:18 08/04/17 11:18 General appearance: Present: A&O X 3, no acute distress, obese - Other Additional findings: General: Pleasant without distress. Somnolent HEENT: Head atraumatic, normocephalic, EOMI, PERRL, neck nontender to palpation , absent lymphadenopathy, Moist Mucous Membranes, Heart: Sinus tachycardia Lungs: Clear to auscultation bilaterally, diminished Abdomen: Soft nontender, distended positive fluid wave positive bowel sounds Skin: warm and dry, absent rash Extremities: Absent pedal edema, Neuro: Alert oriented 3 Vascular: Pedal and radial pulses 2 out of 4 Internal Medicine: Result - Labs CBC & Chem 7: 08/04/17 04:09 08/04/17 04:09 Labs: Short CBC 08/04/17 Range/Units 04:09 WBC 5.6 (4.3-11.1) K/mcL Hgb 10.6 L (12.9-16.9) g/dL Hct 34.4 L (37.5-50.1) % Plt Count 113 L (140-400) K/mcL Neutrophils # 4.4 (1.6-8.9) K/mcL BMP 08/04/17 04:09 Sodium 136 Potassium 3.7 Chloride 95 L Carbon Dioxide 35 H BUN 13 Creatinine 0.51 L Glucose 124 H Calcium 9.3 - ABG Interpretation ABG results: ABG ABG pH 7.46 pH Units (7.32-7.45) H 07/31/17 13:43 ABG pCO2 44 mmHg (35-45) 07/31/17 13:43 ABG pO2 94 mmHg (85-104) 07/31/17 13:43 ABG O2 Saturation 98 % (95-98) 07/31/17 13:43 PT/INR, D-dimer PT 15.0 Seconds (9.4-12.1) H 07/28/17 18:03 Consult Discharge Plan - Plan Referrals: NONE,PCP [Primary Care Provider] - <Emery Benson - Last Filed: 08/04/17 16:41> Date of Encounter: 08/04/17 - Assessment and plan (1) Acute respiratory failure with hypoxia and hypercapnia Current Visit: Yes Status: Resolved (2) Hepatic encephalopathy Current Visit: Yes Status: Acute (3) Ascites Current Visit: Yes Status: Acute Qualifiers: Ascites type: due to alcoholic cirrhosis Qualified Code(s): K70.31 - Alcoholic cirrhosis of liver with ascites (4) Afib Current Visit: Yes Status: Chronic Qualifiers: Atrial fibrillation type: chronic Qualified Code(s): I48.2 - Chronic atrial fibrillation (5) Alcohol withdrawal Current Visit: Yes Status: Acute Qualifiers: Complication of substance-induced condition: uncomplicated Qualified Code(s ): F10.230 - Alcohol dependence with withdrawal, uncomplicated (6) Tobacco dependence Current Visit: Yes Status: Chronic (7) CHF (congestive heart failure) Current Visit: Yes Status: Resolved Qualifiers: Heart failure type: systolic Heart failure chronicity: chronic Qualified Code(s): I50.22 - Chronic systolic (congestive) heart failure (8) Hepatitis C Current Visit: Yes Status: Chronic Qualifiers: Viral hepatitis chronicity: chronic Hepatic coma status: without hepatic coma Qualified Code(s): B18.2 - Chronic viral hepatitis C (9) Community acquired pneumonia Current Visit: Yes Status: Resolved Qualifiers: Laterality: left Lung location: lower lobe of lung Qualified Code(s): J18.1 - Lobar pneumonia, unspecified organism - Time Spent With Patient Total time spent is greater than 50% in coordination of care (as documented) at patient's floor/unit and/or counseling patient: - Constitutional Vitals: Temp Pulse Resp BP Pulse Ox 98 F 110 19 107/75 96 08/04/17 15:38 08/04/17 15:38 08/04/17 15:38 08/04/17 15:38 08/04/17 15:38 Internal Medicine: Result - Labs CBC & Chem 7: 08/04/17 04:09 08/04/17 04:09 Labs: Short CBC 08/04/17 Range/Units 04:09 WBC 5.6 (4.3-11.1) K/mcL Hgb 10.6 L (12.9-16.9) g/dL Hct 34.4 L (37.5-50.1) % Plt Count 113 L (140-400) K/mcL Neutrophils # 4.4 (1.6-8.9) K/mcL BMP 08/04/17 04:09 Sodium 136 Potassium 3.7 Chloride 95 L Carbon Dioxide 35 H BUN 13 Creatinine 0.51 L Glucose 124 H Calcium 9.3 - ABG Interpretation ABG results: ABG ABG pH 7.46 pH Units (7.32-7.45) H 07/31/17 13:43 ABG pCO2 44 mmHg (35-45) 07/31/17 13:43 ABG pO2 94 mmHg (85-104) 07/31/17 13:43 ABG O2 Saturation 98 % (95-98) 07/31/17 13:43 PT/INR, D-dimer PT 15.0 Seconds (9.4-12.1) H 07/28/17 18:03 - Attending Attestation I examined this patient and my medical decision-making was reviewed with the Resident Physician on 08/04/17. I agree with the documented findings, disposition and treatment plan as described except to the extent set forth below. Mr Wallace is currently admitted for acute hepatic enceph, resp failure and ETOH withdrawal. He remains moderate to high risk due to potential for worsening clinical status. Mr Wallace seems more confused today. He is not taking his Lactulose consistently. Rifaxamin started yesterday. No fever or chills. No other issues overnight. Exam alert Comfortable Mucus membranes dry heart irreg and tachy Decreased breath sound Abd distended and soft I/P 1. Hepatic enceph 2. ETOH abuse Plan for drainage catheter on Sunday. SNF Further diagnoses and plan as above.
[2017-08-05] MEDS: *HR* LORazepam 2 MG/ML VIAL IVP PRN ×5 (03:02→22:36)
[2017-08-05] MEDS: Levalbuterol Neb 0.63 MG/3 ML IH SCH ×4 (04:08→22:24)
[2017-08-05] MEDS: *HR* Heparin 5,000 UNIT/ML VIAL SQ SCH ×3 (06:52→16:58)
[2017-08-05] MEDS: Beer can PO SCH ×3 (08:04→16:57)
[2017-08-05] MEDS: Magnesium Oxide 400 MG TABLET PO SCH ×2 (08:04→22:33)
[2017-08-05] MEDS: Folic Acid 1 MG TABLET PO SCH (08:05)
[2017-08-05] MEDS: Furosemide 40 MG TABLET PO SCH ×2 (08:05→16:57)
[2017-08-05] MEDS: Spironolactone 25 MG TABLET PO SCH (08:05)
[2017-08-05] MEDS: Vitamin B Complex/Vit C/Vit E 1 EACH TABLET PO SCH (08:05)
[2017-08-05] MEDS: *HR* Amiodarone 200 MG TABLET PO SCH ×2 (08:05→22:33)
[2017-08-05] MEDS: Thiamine (B-1) 100 MG TABLET PO SCH (08:05)
[2017-08-05] MEDS: Nicotine 21 MG PATCH.TD24 TD SCH (08:05)
[2017-08-05] MEDS: Lactulose Oral Soln 20 GM/30 ML UDC PO SCH ×4 (08:06→22:40)
[2017-08-05] MEDS ORDERED: predniSONE 20 MG TABLET PO SCH (09:00)
--- NOTE | 2017-08-05 14:16 | Internal Med Progress Note ---
<Casimiro Talamantes - Last Filed: 08/05/17 14:13> Date of Encounter: 08/05/17 Time of Encounter: 14:13 - Assessment and plan (1) Ascites Current Visit: Yes Status: Acute Assessment and plan: Secondary to cirrhosis in setting of hepatitis C and alcohol abuse. Status post paracentesis x2 since admission. Patient's abdomen is still distended. Stable Discussed case with IR and ordered and consult in for Pleuryx catheter placement on Sunday. Peritoneal fluid consistent with ascites without infection. Qualifiers: Ascites type: due to alcoholic cirrhosis Qualified Code(s): K70.31 - Alcoholic cirrhosis of liver with ascites (2) Hepatic encephalopathy Current Visit: Yes Status: Acute Assessment and plan: Acute Hepatic encephalopathy continue lactulose and rifaximin More somnolent this morning. (3) Alcohol withdrawal Current Visit: Yes Status: Resolved Assessment and plan: Resolved. Beer or 3 times a day Patient has no indication of discontinuation of alcohol. Continue thiamine, vitamin B, folic acid. Qualifiers: Complication of substance-induced condition: uncomplicated Qualified Code(s ): F10.230 - Alcohol dependence with withdrawal, uncomplicated (4) Tobacco dependence Current Visit: Yes Status: Chronic Assessment and plan: Smoking cessation counseling, nicotine patch (5) CHF (congestive heart failure) Current Visit: Yes Status: Resolved Assessment and plan: Acute systolic CHF exacerbation likely triggered by A. fib with RVR Stable History of alcohol related cardiomyopathy and nonobstructive CAD Echocardiogram revealed improved EF of 30-35% since last Echo and decreased pericardial effusion Continue Lasix 40 mg by mouth twice a day. Qualifiers: Heart failure type: systolic Heart failure chronicity: chronic Qualified Code(s): I50.22 - Chronic systolic (congestive) heart failure (6) Hepatitis C Current Visit: Yes Status: Chronic Assessment and plan: Known history of Hepatitis C with cirrhosis Can follow-up outpatient with PCP Qualifiers: Viral hepatitis chronicity: chronic Hepatic coma status: without hepatic coma Qualified Code(s): B18.2 - Chronic viral hepatitis C (7) Acute respiratory failure with hypoxia and hypercapnia Current Visit: Yes Status: Resolved Assessment and plan: Resolved Secondary to pneumonia and fluid overload due to cirrhosis and large volume ascites Patient is not requiring oxygen supplementation. (8) Atrial fibrillation with RVR Current Visit: Yes Status: Acute Assessment and plan: Patient continues to be tachycardic. Likely combination of alcohol use and medication noncompliance. We will continue amiodarone and increase metoprolol. Not a good candidate for anticoagulation due to alcohol abuse. (9) Community acquired pneumonia Current Visit: Yes Status: Resolved Assessment and plan: CXR 07/30/17 revealed increased opacification of left lung base Patient finished antibiotic course of levaquin. Qualifiers: Laterality: left Lung location: lower lobe of lung Qualified Code(s): J18.1 - Lobar pneumonia, unspecified organism - Time Spent With Patient Total time spent is greater than 50% in coordination of care (as documented) at patient's floor/unit and/or counseling patient: - Subjective Interval history: Patient somnolent this morning. Now taking lacutulose. Answers all questins. Had large bowel movement overnight. No acute overnight events. Patient is in the hospital as he requires a abdominal Pleurx catheter which will be placed by IR on Sunday. - Constitutional Vitals: Temp Pulse Resp BP Pulse Ox 97.4 F L 110 21 106/73 92 08/05/17 10:47 08/05/17 10:47 08/05/17 10:47 08/05/17 10:47 08/05/17 10:47 General appearance: Present: A&O X 3, no acute distress, obese - Other Additional findings: General: Pleasant without distress. Somnolent HEENT: Head atraumatic, normocephalic, EOMI, PERRL, neck nontender to palpation , absent lymphadenopathy, Moist Mucous Membranes, Heart: Sinus tachycardia Lungs: Clear to auscultation bilaterally, diminished Abdomen: Soft nontender, distended positive fluid wave positive bowel sounds Skin: warm and dry, absent rash Extremities: Absent pedal edema, Neuro: Alert oriented 3 Vascular: Pedal and radial pulses 2 out of 4 Internal Medicine: Result - Labs CBC & Chem 7: 08/04/17 04:09 08/04/17 04:09 - ABG Interpretation ABG results: ABG ABG pH 7.46 pH Units (7.32-7.45) H 07/31/17 13:43 ABG pCO2 44 mmHg (35-45) 07/31/17 13:43 ABG pO2 94 mmHg (85-104) 07/31/17 13:43 ABG O2 Saturation 98 % (95-98) 07/31/17 13:43 PT/INR, D-dimer PT 15.0 Seconds (9.4-12.1) H 07/28/17 18:03 Consult Discharge Plan - Plan Referrals: NONE,PCP [Primary Care Provider] - <Emery Benson - Last Filed: 08/05/17 18:10> Date of Encounter: 08/05/17 - Assessment and plan (1) Hepatic encephalopathy Current Visit: Yes Status: Acute (2) Ascites Current Visit: Yes Status: Acute Qualifiers: Ascites type: due to alcoholic cirrhosis Qualified Code(s): K70.31 - Alcoholic cirrhosis of liver with ascites (3) Afib Current Visit: Yes Status: Chronic Qualifiers: Atrial fibrillation type: chronic Qualified Code(s): I48.2 - Chronic atrial fibrillation (4) Atrial fibrillation with RVR Current Visit: Yes Status: Acute (5) Alcohol withdrawal Current Visit: Yes Status: Resolved Qualifiers: Complication of substance-induced condition: uncomplicated Qualified Code(s ): F10.230 - Alcohol dependence with withdrawal, uncomplicated (6) Tobacco dependence Current Visit: Yes Status: Chronic (7) CHF (congestive heart failure) Current Visit: Yes Status: Resolved Qualifiers: Heart failure type: systolic Heart failure chronicity: chronic Qualified Code(s): I50.22 - Chronic systolic (congestive) heart failure (8) Hepatitis C Current Visit: Yes Status: Chronic Qualifiers: Viral hepatitis chronicity: chronic Hepatic coma status: without hepatic coma Qualified Code(s): B18.2 - Chronic viral hepatitis C (9) Acute respiratory failure with hypoxia and hypercapnia Current Visit: Yes Status: Resolved (10) Community acquired pneumonia Current Visit: Yes Status: Resolved Qualifiers: Laterality: left Lung location: lower lobe of lung Qualified Code(s): J18.1 - Lobar pneumonia, unspecified organism - Time Spent With Patient Total time spent is greater than 50% in coordination of care (as documented) at patient's floor/unit and/or counseling patient: - Constitutional Vitals: Temp Pulse Resp BP Pulse Ox 97.8 F 110 18 108/73 94 08/05/17 15:56 08/05/17 15:56 08/05/17 16:08 08/05/17 15:56 08/05/17 16:08 Internal Medicine: Result - Labs CBC & Chem 7: 08/04/17 04:09 08/04/17 04:09 - ABG Interpretation ABG results: ABG ABG pH 7.46 pH Units (7.32-7.45) H 07/31/17 13:43 ABG pCO2 44 mmHg (35-45) 07/31/17 13:43 ABG pO2 94 mmHg (85-104) 07/31/17 13:43 ABG O2 Saturation 98 % (95-98) 07/31/17 13:43 PT/INR, D-dimer PT 15.0 Seconds (9.4-12.1) H 07/28/17 18:03 - Attending Attestation I examined this patient and my medical decision-making was reviewed with the Resident Physician on 08/05/17. I agree with the documented findings, disposition and treatment plan as described except to the extent set forth below. Mr Wallace is currently admitted for resp failure and ETOH issues including encephalopathy and ascites. He remains moderate to high risk due to potential for worsening clinical status. Mr Wallace is about the same. No fever or chills. No CP. Breathing about the same. Exam alert Tachypneic at [place] Mucus membranes dry Heart tachy and irreg Diminished breath sounds Abd distended I/P 1. Ascites 2. hepatic enceph Further diagnoses and plan as above.
[2017-08-06] MEDS: *HR* LORazepam 2 MG/ML VIAL IVP PRN ×2 (00:25→11:12)
[2017-08-06] MEDS: Levalbuterol Neb 0.63 MG/3 ML IH SCH ×4 (04:35→21:16)
[2017-08-06] MEDS: *HR* Heparin 5,000 UNIT/ML VIAL SQ SCH ×2 (06:42→17:52)
[2017-08-06] MEDS ORDERED: predniSONE 20 MG TABLET PO SCH (09:00)
[2017-08-06] MEDS: Beer can PO SCH ×3 (10:43→17:52)
[2017-08-06] MEDS: Vitamin B Complex/Vit C/Vit E 1 EACH TABLET PO SCH (10:46)
[2017-08-06] MEDS: Furosemide 40 MG TABLET PO SCH ×2 (10:46→17:52)
[2017-08-06] MEDS: Thiamine (B-1) 100 MG TABLET PO SCH (10:47)
[2017-08-06] MEDS: Folic Acid 1 MG TABLET PO SCH (10:47)
[2017-08-06] MEDS: Magnesium Oxide 400 MG TABLET PO SCH ×2 (10:48→21:03)
[2017-08-06] MEDS: Spironolactone 25 MG TABLET PO SCH (10:49)
[2017-08-06] MEDS: *HR* Amiodarone 200 MG TABLET PO SCH ×2 (10:49→21:03)
[2017-08-06] MEDS: Nicotine 21 MG PATCH.TD24 TD SCH (10:50)
[2017-08-06] MEDS: Lactulose Oral Soln 20 GM/30 ML UDC PO SCH ×4 (10:50→21:02)
--- NOTE | 2017-08-06 10:59 | IR Consult Note ---
Date of Encounter: 08/06/17 Time of Encounter: 09:00 Consult date: 08/06/17 Physicians: Emery Bensno, Consult Comment: Thank you for the consult. Call [facility] with questions or concerns. Evaluated patient for possible abdominal Pleurx catheter. Today he appeared to be almost obtunded, difficult to awaken. Did not seem like a safe sedation candidate for the procedure. The standard management for ascites is with diuretics. His diuretics management hasn't been optimized. His latest ptt was elevated to above 70 on 07/29. Need more current coags. It is unclear who will take care of the catheter and the patient at this stage. Pleurx catheters have a high incidence of infection unless kept very hygenic and clean. In this patient the risk of infection is extremely high. Will perform paracentesis until above issues get resolved. Past Med Surg Social Fam HX - Past Medical History Medical history: atrial fibrillation, cirrhosis, CHF, GERD, hepatitis, hypertension, liver disease, myocardial infarction, other Psychiatric history: anxiety, depression - Past Surgical History Surgical History: cataract - Social History Smoking Status: Current every day smoker Packs per day: 2 Smokeless Tobacco Status: No Alcohol use: heavy, recent Drug use: none - Family History Mother Hx Family Cardiac Disorders: Yes Father Hx Family Cardiac Disorders: Yes Sister Hx Family Cardiac Disorders: Yes (Pacemaker placed) Medications and Allergies Omeprazole [PriLOSEC] 20 mg PO DAILY #30 cap 10/24/16 [Rx] Amiodarone [Cordarone] 200 mg PO DAILY 01/16/17 [History] 3 Allergy/AdvReac Type Severity Reaction Status Date / Time haloperidol [From Haldol] AdvReac Seizure Verified 07/28/17 14:18 Exam Vital Signs, Last 4 Hours Pulse Resp BP Pulse Ox 08/06/17 07:00 110 18 101/68 92 Results Reviewed 08/04/17 04:09 08/04/17 04:09 Lab Results 08/04/17 08/04/17 04:09 04:09 WBC 5.6 RBC 4.15 L Hgb 10.6 L Hct 34.4 L MCV 82.9 L MCH 25.5 L MCHC 30.8 L RDW 17.0 H Plt Count 113 L MPV 11.1 Neutrophils # 4.4 Lymphocytes # 0.6 Monocytes # 0.5 Eosinophils # 0.0 Basophils # 0.0 Sodium 136 Potassium 3.7 Chloride 95 L Carbon Dioxide 35 H BUN 13 Creatinine 0.51 L Est GFR ( Amer) > 60 Est GFR (Non-Af Amer) > 60 BUN/Creatinine Ratio 25 Glucose 124 H Calcium 9.3 Consult Discharge Plan - Plan Referrals: NONE,PCP [Primary Care Provider] -
--- NOTE | 2017-08-06 11:01 | IR Procedure Note ---
Date of procedure: 08/06/17 Consent Obtained: Verbal consent Timeout: Correct patient and procedure verified, Correct site verified, Time out performed, Skin prep completed Indications: ascites Procedure Performed: paracentesis Was there an library circulation assistant present: No Site/Technique: left abdomen Results/Findings: moderate ascites Estimated blood loss (cc): 0 Complications: None; Tolerated procedure well Post Procedure Treatment Plan: dc to floor Specimen: fluid
[2017-08-06 11:35] LABS: Basophils % 0.2 %; Eosinophils % 0.7 %; Hematocrit 36.1 % (37.5-50.1); Hemoglobin 10.9 g/dL (12.9-16.9); Immature Granulocytes % 0.7 % (0-4); Lymphocytes # 1.1 K/mcL (0.6-4.6); Lymphocytes % 18.2 %; Mean Corpuscular HGB Conc 30.2 g/dL (31.6-35.5); Mean Corpuscular Hemoglobin 24.9 pg (28.0-33.3); Mean Corpuscular Volume 82.6 fL (83.0-100.0); Mean Platelet Volume 11.7 fL (9.4-12.4); Monocytes # 0.6 K/mcL (0.0-1.3); Monocytes % 9.5 %; Neutrophils # 4.2 K/mcL (1.6-8.9); Nucleated Red Blood Cells 0.3 /100 WBC (0); Platelet Count 119 K/mcL (140-400); Red Blood Count 4.37 M/mcL (4.19-5.50); Red Cell Distribution Width 16.7 % (11.5-14.5); Segmented Neutrophils % 70.7 %
[2017-08-06 11:41] LABS: INR 1.2; Prothrombin Time 12.5 Seconds (9.4-12.1)
[2017-08-06 11:52] LABS: BUN/Creatinine Ratio 23 (6-26); Blood Urea Nitrogen 13 mg/dL (6-20); Carbon Dioxide 35 mEq/L (23-29); Chloride 95 mEq/L (98-107); Glucose 104 mg/dL (70-105); Osmolality,Calculated 282 (280-300); Potassium 3.3 mEq/L (3.5-5.1); Sodium 136 mEq/L (136-145); eGFR For African Americans > 60 (> 60); eGFR For Non-African Americans > 60 (> 60)
--- NOTE | 2017-08-06 13:58 | Internal Med Progress Note ---
<Kyle Lee - Last Filed: 08/06/17 13:54> Date of Encounter: 08/06/17 Time of Encounter: 13:54 - Assessment and plan (1) Ascites Current Visit: Yes Status: Acute Assessment and plan: Secondary to cirrhosis in setting of hepatitis C and alcohol abuse. Status post paracentesis x3 since admission. >2L this morning. Patient's abdomen is still distended. Stable Discussed case with IR and ordered and consult in for Pleuryx catheter placement ; however, IR evaluated and recommended against. Peritoneal fluid consistent with ascites without infection. Qualifiers: Ascites type: due to alcoholic cirrhosis Qualified Code(s): K70.31 - Alcoholic cirrhosis of liver with ascites (2) Atrial fibrillation with RVR Current Visit: Yes Status: Acute Assessment and plan: Patient continues to be tachycardic. Likely combination of alcohol use and medication noncompliance. We will continue amiodarone and increase metoprolol now to 75mg bid. Not a good candidate for anticoagulation due to alcohol abuse. (3) Hepatic encephalopathy Current Visit: Yes Status: Acute Assessment and plan: Improving, Acute Hepatic encephalopathy Ammonia 93 yesterday Continue lactulose and rifaximin Patient appears to be alert around meal times when beer is given. Otherwise the patient is very somnolent. (4) Acute respiratory failure with hypoxia and hypercapnia Current Visit: Yes Status: Resolved Assessment and plan: Resolved Secondary to pneumonia and fluid overload due to cirrhosis and large volume ascites Patient is not requiring oxygen supplementation. (5) CHF (congestive heart failure) Current Visit: Yes Status: Resolved Assessment and plan: Acute systolic CHF exacerbation likely triggered by A. fib with RVR Stable History of alcohol related cardiomyopathy and nonobstructive CAD Echocardiogram revealed improved EF of 30-35% since last Echo and decreased pericardial effusion Continue Lasix 40 mg by mouth twice a day. Increase spironolactone to 25mg qd Qualifiers: Heart failure type: systolic Heart failure chronicity: chronic Qualified Code(s): I50.22 - Chronic systolic (congestive) heart failure (6) Alcohol withdrawal Current Visit: Yes Status: Resolved Assessment and plan: Resolved. Beer or 3 times a day Patient has no indication of discontinuation of alcohol. Continue thiamine, vitamin B, folic acid. Ativan discontinued. Qualifiers: Complication of substance-induced condition: uncomplicated Qualified Code(s ): F10.230 - Alcohol dependence with withdrawal, uncomplicated (7) Hepatitis C Current Visit: Yes Status: Chronic Assessment and plan: Known history of Hepatitis C with cirrhosis Follow-up outpatient with PCP Complications secondary to hepatitis C with cirrhosis and alcoholic cirrhosis managed per plans in assessment above. Qualifiers: Viral hepatitis chronicity: chronic Hepatic coma status: without hepatic coma Qualified Code(s): B18.2 - Chronic viral hepatitis C (8) Tobacco dependence Current Visit: Yes Status: Chronic Assessment and plan: Smoking cessation counseling, nicotine patch (9) Community acquired pneumonia Current Visit: Yes Status: Resolved Assessment and plan: CXR 07/30/17 revealed increased opacification of left lung base Patient finished antibiotic course of levaquin. Qualifiers: Laterality: left Lung location: lower lobe of lung Qualified Code(s): J18.1 - Lobar pneumonia, unspecified organism - Time Spent With Patient Total time spent is greater than 50% in coordination of care (as documented) at patient's floor/unit and/or counseling patient: - Subjective Interval history: Mr. Wallace was seen and examined this afternoon and alert and oriented. Patient reports a bowel movement yesterday, but not at the goal of 3-4, patient expresses he doesn't like this side effect of the medication. Initially patient was planned to get pleuryx catheter today and discharge to [place] ; however, we were informed the patient is not going to have a pleuryx catheter placed per IR and paracentesis was completed despite with 2L out. Patient denies fevers, chills, chest pain, shortness of breath, abdominal pain, dysuria, diarrhea or bowel movements, weakness, or loss of sensation. - Constitutional Vitals: Temp Pulse Resp BP Pulse Ox 98.6 F 125 24 101/67 92 08/06/17 04:57 08/06/17 11:37 08/06/17 11:37 08/06/17 11:37 08/06/17 11:18 General appearance: Present: A&O X 3, no acute distress, obese, answers questions appropriately - Head Head exam: Present: atraumatic, normal inspection, normocephalic - Eye Eye exam: Present: EOMI, normal appearance, PERRL - ENT ENT exam: Present: mucous membranes moist, normal exam - Neck Neck exam general surgery: Present: full ROM, normal inspection, supple, trachea midline - Respiratory Respiratory exam: Present: CTAB. Absent: rales, respiratory distress, rhonchi, wheezes - Cardiovascular Cardiovascular exam: Present: irregular rhythm, tachycardia - GI/Abdominal GI/Abdominal exam: Present: distended, normal bowel sounds, soft. Absent: tenderness, no peritoneal signs - Extremities Exam Extremities exam: Present: full ROM, normal inspection, pedal edema (1+ bilateral), warm, radial pulses palpable and symmetrical - Skin Skin exam: Present: dry, intact, normal color, warm Internal Medicine: Result - Labs CBC & Chem 7: 08/06/17 11:04 08/06/17 11:04 Labs: Short CBC 08/06/17 Range/Units 11:04 WBC 5.9 (4.3-11.1) K/mcL Hgb 10.9 L (12.9-16.9) g/dL Hct 36.1 L (37.5-50.1) % Plt Count 119 L (140-400) K/mcL Neutrophils # 4.2 (1.6-8.9) K/mcL BMP 08/06/17 11:04 Sodium 136 Potassium 3.3 L Chloride 95 L Carbon Dioxide 35 H BUN 13 Creatinine 0.56 L Glucose 104 Calcium 9.0 - ABG Interpretation ABG results: ABG ABG pH 7.46 pH Units (7.32-7.45) H 07/31/17 13:43 ABG pCO2 44 mmHg (35-45) 07/31/17 13:43 ABG pO2 94 mmHg (85-104) 07/31/17 13:43 ABG O2 Saturation 98 % (95-98) 07/31/17 13:43 PT/INR, D-dimer PT 12.5 Seconds (9.4-12.1) H 08/06/17 11:04 - Impressions Impressions Paracentesis Ultrasound 08/06/17 00:00 IMPRESSION: Successful ultrasound guided paracentesis. D/ / Jayne Goncalves MD / Jayne Goncalves MD Interpreting Provider: Jayne Goncalves MD Consult Discharge Plan - Plan Referrals: NONE,PCP [Primary Care Provider] - <Emery Benson - Last Filed: 08/06/17 18:16> Date of Encounter: 08/06/17 - Assessment and plan (1) Acute respiratory failure with hypoxia and hypercapnia Current Visit: Yes Status: Resolved (2) Hepatic encephalopathy Current Visit: Yes Status: Acute (3) Ascites Current Visit: Yes Status: Acute Qualifiers: Ascites type: due to alcoholic cirrhosis Qualified Code(s): K70.31 - Alcoholic cirrhosis of liver with ascites (4) Afib Current Visit: Yes Status: Chronic Qualifiers: Atrial fibrillation type: chronic Qualified Code(s): I48.2 - Chronic atrial fibrillation (5) Alcohol withdrawal Current Visit: Yes Status: Resolved Qualifiers: Complication of substance-induced condition: uncomplicated Qualified Code(s ): F10.230 - Alcohol dependence with withdrawal, uncomplicated (6) Tobacco dependence Current Visit: Yes Status: Chronic (7) CHF (congestive heart failure) Current Visit: Yes Status: Resolved Qualifiers: Heart failure type: systolic Heart failure chronicity: chronic Qualified Code(s): I50.22 - Chronic systolic (congestive) heart failure (8) Hepatitis C Current Visit: Yes Status: Chronic Qualifiers: Viral hepatitis chronicity: chronic Hepatic coma status: without hepatic coma Qualified Code(s): B18.2 - Chronic viral hepatitis C (9) Community acquired pneumonia Current Visit: Yes Status: Resolved Qualifiers: Laterality: left Lung location: lower lobe of lung Qualified Code(s): J18.1 - Lobar pneumonia, unspecified organism - Time Spent With Patient Total time spent is greater than 50% in coordination of care (as documented) at patient's floor/unit and/or counseling patient: - Constitutional Vitals: Temp Pulse Resp BP Pulse Ox 98.6 F 107 21 102/67 97 08/06/17 04:57 08/06/17 15:50 08/06/17 15:50 08/06/17 15:50 08/06/17 16:03 Internal Medicine: Result - Labs CBC & Chem 7: 08/06/17 11:04 08/06/17 11:04 Labs: Short CBC 08/06/17 Range/Units 11:04 WBC 5.9 (4.3-11.1) K/mcL Hgb 10.9 L (12.9-16.9) g/dL Hct 36.1 L (37.5-50.1) % Plt Count 119 L (140-400) K/mcL Neutrophils # 4.2 (1.6-8.9) K/mcL BMP 08/06/17 11:04 Sodium 136 Potassium 3.3 L Chloride 95 L Carbon Dioxide 35 H BUN 13 Creatinine 0.56 L Glucose 104 Calcium 9.0 - ABG Interpretation ABG results: ABG ABG pH 7.46 pH Units (7.32-7.45) H 07/31/17 13:43 ABG pCO2 44 mmHg (35-45) 07/31/17 13:43 ABG pO2 94 mmHg (85-104) 07/31/17 13:43 ABG O2 Saturation 98 % (95-98) 07/31/17 13:43 PT/INR, D-dimer PT 12.5 Seconds (9.4-12.1) H 08/06/17 11:04 - Impressions Impressions Paracentesis Ultrasound 08/06/17 00:00 IMPRESSION: Successful ultrasound guided paracentesis. D/ / Jayne Goncalves MD / Jayne Goncalves MD Interpreting Provider: Jayne Goncalves MD - Attending Attestation I examined this patient and my medical decision-making was reviewed with the Resident Physician on 08/06/17. I agree with the documented findings, disposition and treatment plan as described except to the extent set forth below. Mr Wallace is currently admitted for hepatic encephalopathy and issues with ETOH. He remains moderate to high risk due to potential for worsening clinical status. Mr Wallace is awake and interactive. Denies new issues. Breathing overall appears to have improved. Exam Alert Comfortable lying on back Mucus membranes dry Heart distant No wheeze Abd soft I/P 1. Hepatic enceph 2. Ascites. Pt was to have Pleuryx catheter placed for ascitic fluid drainage today. This was deemed not appropriate per the IR physician (without any discussion with myself or my team). He had paracentesis done today. Our plan has been well documented. SW has was very aggressive in finding a facility to take him for rehab and the facility was willing to take him with drainage catheter and manage the catheter. If sent home (we were not going to place drain if he did not go to rehab) he will be readmitted very quickly and the facility will not take him if readmission risk is high or he needs frequent drainage procedures. He has been managed with diuretics but his blood pressure and heart rate (significant tachycardia/a fib) have limited the amount of diuretic we have been able to give. He has had significant encephalopathy but is more alert later in the day. Coags were checked this AM and INR was not elevated. PTT elevated in past due to heparin drip. The patient has made it clear he is not going to stop drinking alcohol, he does not want hospice and he wants to return to hospital for treatment. We have had more discussions with the rehab facility today and again he wound need to have drainage catheter placed either on admission or shortly after. At this point pt is beginning to reconsider going to a rehab and may refuse and want to go home (which is not the best or safest option for him). Further diagnoses and plan as above.
[2017-08-07] MEDS: Levalbuterol Neb 0.63 MG/3 ML IH SCH ×4 (04:04→22:24)
[2017-08-07] MEDS: *HR* Heparin 5,000 UNIT/ML VIAL SQ SCH ×3 (05:34→17:16)
[2017-08-07] MEDS ORDERED: Spironolactone 25 MG TABLET PO SCH (09:00)
--- NOTE | 2017-08-07 09:37 | Palliative Progress Note ---
Date of Encounter: 08/07/17 Time of Encounter: 09:25 - Assessment and plan (1) Dyspnea Current Visit: Yes Status: Acute Assessment and plan: Improved, remains on 4L oxygen and Xopenex. Qualifiers: Dyspnea type: shortness of breath Qualified Code(s): R06.02 - Shortness of breath; R06.00 - Dyspnea, unspecified; R06.01 - Orthopnea (2) Goals of care, counseling/discussion Current Visit: Yes Status: Acute Assessment and plan: Complicated discharge situation - TAXATION CONSULTANT on board and reviewed her notes and discussion with WMP and pt yesterday. This am, states he is "sick of care home" talk and states he is going home. Discussed again how we have grave concerns over his being home alone and unsafe situation. He still refuses and states he does not want hospice, however, he states he wants a home health visiting nurse. D/W DR. Kang, not much else for palliative to offer at this time. We will sign off - please reconsult if change in clinical situation or pt states he desires to change his goals of care. (3) Alcohol dependence Current Visit: No Status: Acute Qualifiers: Substance use status: unspecified alcohol-induced disorder Qualified Code(s ): F10.29 - Alcohol dependence with unspecified alcohol-induced disorder (4) Non compliance with medical treatment Current Visit: No Status: Acute (5) Hepatic encephalopathy Current Visit: Yes Status: Acute - Time Spent With Patient Total time spent is greater than 50% in coordination of care (as documented) at patient's floor/unit and/or counseling patient: - Subjective Interval history: Patient awake and alert, up on side of bed eating breakfast. Wants me to find his beer. C/o some vague chest pain - will not describe to me. States feels "sore". Does not radiate. Will not rate on pain scale for me. Chart from yesterday reviewed, 2L drained from paracentesis yesterday. - Constitutional Vitals: Abnormal lab results Hgb 10.9 g/dL (12.9-16.9) L 08/06/17 11:04 Hct 36.1 % (37.5-50.1) L 08/06/17 11:04 MCV 82.6 fL (83.0-100.0) L 08/06/17 11:04 MCH 24.9 pg (28.0-33.3) L 08/06/17 11:04 MCHC 30.2 g/dL (31.6-35.5) L 08/06/17 11:04 RDW 16.7 % (11.5-14.5) H 08/06/17 11:04 Plt Count 119 K/mcL (140-400) L 08/06/17 11:04 Nucleated RBCs/100 WBC 0.3 /100 WBC (0) H 08/06/17 11:04 PT 12.5 Seconds (9.4-12.1) H 08/06/17 11:04 APTT 79.2 Seconds (26.0-36.0) H D 07/29/17 06:15 ABG pH 7.46 pH Units (7.32-7.45) H 07/31/17 13:43 ABG HCO3 31 mEq/L (21-27) H 07/31/17 13:43 ABG Total CO2 32 mEq/L (20-26) H 07/31/17 13:43 ABG Base Excess 6 mEq/L (-2 to 3) H 07/31/17 13:43 Potassium 3.3 mEq/L (3.5-5.1) L 08/06/17 11:04 Chloride 95 mEq/L (98-107) L 08/06/17 11:04 Carbon Dioxide 35 mEq/L (23-29) H 08/06/17 11:04 Creatinine 0.56 mg/dL (0.70-1.30) L 08/06/17 11:04 Phosphorus 2.4 mg/dL (2.7-4.5) L 08/03/17 04:36 Direct Bilirubin 0.3 mg/dL (0.0-0.2) H 07/28/17 03:43 AST 57 Units/L (13-39) H 08/01/17 04:51 Alkaline Phosphatase 170 Units/L (34-104) H 08/01/17 04:51 Ammonia 93 mcmol/L (16-53) H 08/04/17 04:09 B-Natriuretic Peptide 337 pg/mL (Less than 100) H 07/28/17 03:43 Albumin 2.4 g/dL (3.5-5.7) L 08/01/17 04:51 Globulin 4.0 g/dL (2.4-3.5) H 08/01/17 04:51 Albumin/Globulin Ratio 0.6 (1.1-2.2) L 08/01/17 04:51 Periton Tot Nuc Cells 404 TNC/mcL (0-300) H 08/01/17 13:30 Ethyl Alcohol 322 mg/dL (Less than 10) H 07/28/17 03:48 General appearance: Present: no acute distress - Respiratory Respiratory exam: Present: decreased breath sounds Additional comments: Faint rales LLL. - Cardiovascular Cardiovascular exam: Present: +S1, +S2 - GI/Abdominal GI/Abdominal exam: Present: distended, normal bowel sounds, soft - Extremities Exam Extremities exam: Present: normal capillary refill, normal inspection - Neurological Exam Neurological exam: Present: alert, strengths equal and symetr throughout Additional comments: Oriented to name and place - required reorienting to date/time. - Skin Skin exam: Present: dry, warm Palliative Quality Palliative Quality: Screen for Code Status: Yes, Screen for Goals of Care: Yes, Screen for Pain: Yes, Screen for Nausea/Vomitting: Yes Code Status: 07/31/17 14:38 CODE [Resuscitation Status: Active] [RES] Routine Comment: Resuscitation Status: [id number] - Labs CBC & Chem 7: 08/06/17 11:04 08/06/17 11:04 Labs: Laboratory Results - last 24 hr 08/06/17 08/06/17 08/06/17 11:04 11:04 11:04 WBC 5.9 RBC 4.37 Hgb 10.9 L Hct 36.1 L MCV 82.6 L MCH 24.9 L MCHC 30.2 L RDW 16.7 H Plt Count 119 L MPV 11.7 Immature Gran % 0.7 Seg Neutrophils % 70.7 Lymphocytes % 18.2 Monocytes % 9.5 Eosinophils % 0.7 Basophils % 0.2 Neutrophils # 4.2 Lymphocytes # 1.1 Monocytes # 0.6 Eosinophils # 0.0 Basophils # 0.0 Nucleated RBCs/100 WBC 0.3 H PT 12.5 H INR 1.2 Sodium 136 Potassium 3.3 L Chloride 95 L Carbon Dioxide 35 H BUN 13 Creatinine 0.56 L Est GFR ( Amer) > 60 Est GFR (Non-Af Amer) > 60 BUN/Creatinine Ratio 23 Glucose 104 Calculated Osmolality 282 Calcium 9.0 - Impressions Impressions Paracentesis Ultrasound 08/06/17 00:00 IMPRESSION: Successful ultrasound guided paracentesis. D/ / Jayne Goncalves MD / Jayne Goncalves MD Interpreting Provider: Jayne Goncalves MD - ABG Interpretation ABG results: ABG ABG pH 7.46 pH Units (7.32-7.45) H 07/31/17 13:43 ABG pCO2 44 mmHg (35-45) 07/31/17 13:43 ABG pO2 94 mmHg (85-104) 07/31/17 13:43 ABG O2 Saturation 98 % (95-98) 07/31/17 13:43 PT/INR, D-dimer PT 12.5 Seconds (9.4-12.1) H 08/06/17 11:04 Consult Discharge Plan - Plan Referrals: NONE,PCP [Primary Care Provider] -
[2017-08-07] MEDS: Lactulose Oral Soln 20 GM/30 ML UDC PO SCH ×4 (10:11→21:36)
[2017-08-07] MEDS: predniSONE 20 MG TABLET PO SCH (10:11)
[2017-08-07] MEDS: Folic Acid 1 MG TABLET PO SCH (10:12)
[2017-08-07] MEDS: Thiamine (B-1) 100 MG TABLET PO SCH (10:16)
[2017-08-07] MEDS: Magnesium Oxide 400 MG TABLET PO SCH ×2 (10:16→21:37)
[2017-08-07] MEDS: Vitamin B Complex/Vit C/Vit E 1 EACH TABLET PO SCH (10:17)
[2017-08-07] MEDS: Beer can PO SCH ×3 (10:17→17:13)
[2017-08-07] MEDS: Nicotine 21 MG PATCH.TD24 TD SCH (10:18)
[2017-08-07] MEDS: Furosemide 40 MG TABLET PO SCH ×2 (10:22→17:25)
[2017-08-07] MEDS: *HR* Amiodarone 200 MG TABLET PO SCH ×2 (10:26→21:37)
[2017-08-07 11:40] LABS: Hematocrit 35.1 % (37.5-50.1); Hemoglobin 10.4 g/dL (12.9-16.9); Mean Corpuscular HGB Conc 29.6 g/dL (31.6-35.5); Mean Corpuscular Hemoglobin 24.2 pg (28.0-33.3); Mean Corpuscular Volume 81.6 fL (83.0-100.0); Mean Platelet Volume 11.5 fL (9.4-12.4); Platelet Count 135 K/mcL (140-400)
[2017-08-07 11:41] LABS: INR 1.2; Prothrombin Time 12.6 Seconds (9.4-12.1)
[2017-08-07 11:44] LABS: Activated Partial Thrombo Time 27.7 Seconds (26.0-36.0)
[2017-08-07 12:01] LABS: BUN/Creatinine Ratio 19 (6-26); Blood Urea Nitrogen 11 mg/dL (6-20); Calcium 8.9 mg/dL (8.6-10.3); Carbon Dioxide 36 mEq/L (23-29); Chloride 94 mEq/L (98-107); Glucose 140 mg/dL (70-105); Osmolality,Calculated 282 (280-300); Potassium 3.3 mEq/L (3.5-5.1); Sodium 135 mEq/L (136-145); eGFR For African Americans > 60 (> 60); eGFR For Non-African Americans > 60 (> 60)
--- NOTE | 2017-08-07 14:02 | Internal Med Progress Note ---
<Casimiro Talamantes - Last Filed: 08/07/17 13:59> Date of Encounter: 08/07/17 Time of Encounter: 14:00 - Assessment and plan (1) Ascites Current Visit: Yes Status: Acute Assessment and plan: Secondary to cirrhosis in setting of hepatitis C and alcohol abuse. Status post paracentesis x3 since admission. >2L this morning. Patient's abdomen is still distended. Stable Discussed case with IR and ordered and consult in for Pleuryx catheter placement ; however, IR evaluated and recommended against. Peritoneal fluid consistent with ascites without infection. Plan: Patient will need worse catheter if he is to be placed at facility. Will await recannulation ascitic fluid. Qualifiers: Ascites type: due to alcoholic cirrhosis Qualified Code(s): K70.31 - Alcoholic cirrhosis of liver with ascites (2) Alcohol withdrawal Current Visit: Yes Status: Resolved Assessment and plan: Resolved. Beer or 3 times a day Patient has no indication of discontinuation of alcohol. Continue thiamine, vitamin B, folic acid. Qualifiers: Complication of substance-induced condition: uncomplicated Qualified Code(s ): F10.230 - Alcohol dependence with withdrawal, uncomplicated (3) Tobacco dependence Current Visit: Yes Status: Chronic Assessment and plan: Smoking cessation counseling, nicotine patch (4) Afib Current Visit: Yes Status: Chronic Assessment and plan: Controlled continue amiodarone and metoprolol. Out of a good candidate for anti-correlation secondary to use of alcohol. Qualifiers: Atrial fibrillation type: chronic Qualified Code(s): I48.2 - Chronic atrial fibrillation (5) CHF (congestive heart failure) Current Visit: Yes Status: Resolved Assessment and plan: Acute systolic CHF exacerbation likely triggered by A. fib with RVR Stable History of alcohol related cardiomyopathy and nonobstructive CAD Echocardiogram revealed improved EF of 30-35% since last Echo and decreased pericardial effusion Continue Lasix 40 mg by mouth twice a day. Continue spironolactone. Qualifiers: Heart failure type: systolic Heart failure chronicity: chronic Qualified Code(s): I50.22 - Chronic systolic (congestive) heart failure (6) Hepatitis C Current Visit: Yes Status: Chronic Assessment and plan: Known history of Hepatitis C with cirrhosis Follow-up outpatient with PCP Complications secondary to hepatitis C with cirrhosis and alcoholic cirrhosis managed per plans in assessment above. Qualifiers: Viral hepatitis chronicity: chronic Hepatic coma status: without hepatic coma Qualified Code(s): B18.2 - Chronic viral hepatitis C (7) Hepatic encephalopathy Current Visit: Yes Status: Acute Assessment and plan: Improving, Acute Hepatic encephalopathy Ammonia 114 today Continue lactulose and rifaximin (8) Acute respiratory failure with hypoxia and hypercapnia Current Visit: Yes Status: Resolved (9) Community acquired pneumonia Current Visit: Yes Status: Resolved Assessment and plan: CXR 07/30/17 revealed increased opacification of left lung base Patient finished antibiotic course of levaquin. Qualifiers: Laterality: left Lung location: lower lobe of lung Qualified Code(s): J18.1 - Lobar pneumonia, unspecified organism - Time Spent With Patient Total time spent is greater than 50% in coordination of care (as documented) at patient's floor/unit and/or counseling patient: - Subjective Interval history: More awake this morning. He is alert and oriented 3. He has no complaints. - Constitutional Vitals: Temp Pulse Resp BP Pulse Ox 98.6 F 89 17 122/62 93 08/07/17 11:03 08/07/17 11:03 08/07/17 11:03 08/07/17 11:03 08/07/17 11:03 General appearance: Present: A&O X 3, no acute distress, obese, answers questions appropriately - Other Additional findings: General: Pleasant without distress. Somnolent HEENT: Head atraumatic, normocephalic, EOMI, PERRL, neck nontender to palpation , absent lymphadenopathy, Moist Mucous Membranes, Heart: Irregularly irregular without tachycardia Lungs: Clear to auscultation bilaterally, diminished Abdomen: Soft nontender, distended positive fluid wave positive bowel sounds Skin: warm and dry, absent rash Extremities: Absent pedal edema, Neuro: Alert oriented 3 Vascular: Pedal and radial pulses 2 out of 4 Internal Medicine: Result - Labs CBC & Chem 7: 08/07/17 10:00 08/07/17 10:00 Labs: Short CBC 08/07/17 Range/Units 10:00 WBC 5.9 (4.3-11.1) K/mcL Hgb 10.4 L (12.9-16.9) g/dL Hct 35.1 L (37.5-50.1) % Plt Count 135 L (140-400) K/mcL BMP 08/07/17 10:00 Sodium 135 L Potassium 3.3 L Chloride 94 L Carbon Dioxide 36 H BUN 11 Creatinine 0.58 L Glucose 140 H Calcium 8.9 - ABG Interpretation ABG results: ABG ABG pH 7.46 pH Units (7.32-7.45) H 07/31/17 13:43 ABG pCO2 44 mmHg (35-45) 07/31/17 13:43 ABG pO2 94 mmHg (85-104) 07/31/17 13:43 ABG O2 Saturation 98 % (95-98) 07/31/17 13:43 PT/INR, D-dimer PT 12.6 Seconds (9.4-12.1) H 08/07/17 10:00 Consult Discharge Plan - Plan Referrals: NONE,PCP [Primary Care Provider] - <Kalpesh Wilde H - Last Filed: 08/07/17 16:08> Date of Encounter: 08/07/17 - Assessment and plan (1) Alcohol withdrawal Current Visit: Yes Status: Resolved Qualifiers: Complication of substance-induced condition: uncomplicated Qualified Code(s ): F10.230 - Alcohol dependence with withdrawal, uncomplicated (2) Tobacco dependence Current Visit: Yes Status: Chronic (3) Afib Current Visit: Yes Status: Chronic Qualifiers: Atrial fibrillation type: chronic Qualified Code(s): I48.2 - Chronic atrial fibrillation (4) CHF (congestive heart failure) Current Visit: Yes Status: Resolved Qualifiers: Heart failure type: systolic Heart failure chronicity: chronic Qualified Code(s): I50.22 - Chronic systolic (congestive) heart failure (5) Hepatitis C Current Visit: Yes Status: Chronic Qualifiers: Viral hepatitis chronicity: chronic Hepatic coma status: without hepatic coma Qualified Code(s): B18.2 - Chronic viral hepatitis C (6) Ascites Current Visit: Yes Status: Acute Qualifiers: Ascites type: due to alcoholic cirrhosis Qualified Code(s): K70.31 - Alcoholic cirrhosis of liver with ascites (7) Hepatic encephalopathy Current Visit: Yes Status: Acute (8) Acute respiratory failure with hypoxia and hypercapnia Current Visit: Yes Status: Resolved (9) Community acquired pneumonia Current Visit: Yes Status: Resolved Qualifiers: Laterality: left Lung location: lower lobe of lung Qualified Code(s): J18.1 - Lobar pneumonia, unspecified organism - Time Spent With Patient Total time spent is greater than 50% in coordination of care (as documented) at patient's floor/unit and/or counseling patient: - Constitutional Vitals: Temp Pulse Resp BP Pulse Ox 98.6 F 89 20 122/62 93 08/07/17 11:03 08/07/17 11:03 08/07/17 15:56 08/07/17 11:03 08/07/17 15:56 Internal Medicine: Result - Labs CBC & Chem 7: 08/07/17 10:00 08/07/17 10:00 Labs: Short CBC 08/07/17 Range/Units 10:00 WBC 5.9 (4.3-11.1) K/mcL Hgb 10.4 L (12.9-16.9) g/dL Hct 35.1 L (37.5-50.1) % Plt Count 135 L (140-400) K/mcL BMP 08/07/17 10:00 Sodium 135 L Potassium 3.3 L Chloride 94 L Carbon Dioxide 36 H BUN 11 Creatinine 0.58 L Glucose 140 H Calcium 8.9 - ABG Interpretation ABG results: ABG ABG pH 7.46 pH Units (7.32-7.45) H 07/31/17 13:43 ABG pCO2 44 mmHg (35-45) 07/31/17 13:43 ABG pO2 94 mmHg (85-104) 07/31/17 13:43 ABG O2 Saturation 98 % (95-98) 07/31/17 13:43 PT/INR, D-dimer PT 12.6 Seconds (9.4-12.1) H 08/07/17 10:00 - Attending Attestation Acute hypoxic hypercapnic respiratory failure possibly secondary to acute COPD exacerbation due to HCAP present upon admission and acute pulmonary edema triggered by a fib with RVR completed Zosyn and Levaquin Severe ascites s/p paracentesis refusing lactulose, on Xifaxan continue amiodaron , decrease dose on August 09 continue metoprolol CXR: 1. Increased opacification at the left lung base could represent atelectasis or pneumonia. 2. Cardiomegaly and pulmonary vascular congestion. I examined this patient and my medical decision-making was reviewed with the Resident Physician. I agree with the documented findings, disposition and treatment plan as described except to the extent set forth below.
[2017-08-08] MEDS: Levalbuterol Neb 0.63 MG/3 ML IH SCH ×4 (04:27→22:42)
[2017-08-08] MEDS: *HR* Heparin 5,000 UNIT/ML VIAL SQ SCH ×2 (05:42→18:46)
[2017-08-08] MEDS: Beer can PO SCH ×3 (08:51→18:42)
[2017-08-08] MEDS: Nicotine 21 MG PATCH.TD24 TD SCH (08:52)
[2017-08-08] MEDS: predniSONE 20 MG TABLET PO SCH (08:55)
[2017-08-08] MEDS: Lactulose Oral Soln 20 GM/30 ML UDC PO SCH ×4 (08:55→22:50)
[2017-08-08] MEDS: Vitamin B Complex/Vit C/Vit E 1 EACH TABLET PO SCH (08:55)
[2017-08-08] MEDS: Magnesium Oxide 400 MG TABLET PO SCH ×2 (08:56→22:50)
[2017-08-08] MEDS: Folic Acid 1 MG TABLET PO SCH (08:56)
[2017-08-08] MEDS: Furosemide 40 MG TABLET PO SCH ×2 (08:56→18:42)
[2017-08-08] MEDS: Thiamine (B-1) 100 MG TABLET PO SCH (08:56)
[2017-08-08] MEDS: *HR* Amiodarone 200 MG TABLET PO SCH ×2 (08:56→22:50)
[2017-08-08 09:09] LABS: BUN/Creatinine Ratio 16 (6-26); Blood Urea Nitrogen 9 mg/dL (6-20); Calcium 8.9 mg/dL (8.6-10.3); Carbon Dioxide 32 mEq/L (23-29); Chloride 96 mEq/L (98-107); Glucose 117 mg/dL (70-105); Osmolality,Calculated 276 (280-300); Potassium 3.7 mEq/L (3.5-5.1); Sodium 133 mEq/L (136-145); eGFR For African Americans > 60 (> 60); eGFR For Non-African Americans > 60 (> 60)
--- NOTE | 2017-08-08 10:34 | Internal Med Progress Note ---
<Casimiro Talamantes - Last Filed: 08/08/17 10:32> Date of Encounter: 08/08/17 Time of Encounter: 10:32 - Assessment and plan (1) Ascites Current Visit: Yes Status: Acute Assessment and plan: Secondary to cirrhosis in setting of hepatitis C and alcohol abuse. Status post paracentesis x3 since admission. >2L this morning. Patient's abdomen is still distended. Stable Discussed case with IR and ordered and consult in for Pleuryx catheter placement ; however, IR evaluated and recommended against. Peritoneal fluid consistent with ascites without infection. increase spironolactone to 75 mg daily continue lasix Qualifiers: Ascites type: due to alcoholic cirrhosis Qualified Code(s): K70.31 - Alcoholic cirrhosis of liver with ascites (2) Alcohol withdrawal Current Visit: Yes Status: Resolved Assessment and plan: Resolved. Beer or 3 times a day Patient has no indication of discontinuation of alcohol. Continue thiamine, vitamin B, folic acid. Qualifiers: Complication of substance-induced condition: uncomplicated Qualified Code(s ): F10.230 - Alcohol dependence with withdrawal, uncomplicated (3) Tobacco dependence Current Visit: Yes Status: Chronic Assessment and plan: Smoking cessation counseling, nicotine patch (4) Afib Current Visit: Yes Status: Chronic Assessment and plan: Controlled continue amiodarone and metoprolol. not a good candidate for anti-correlation secondary to use of alcohol. Qualifiers: Atrial fibrillation type: chronic Qualified Code(s): I48.2 - Chronic atrial fibrillation (5) CHF (congestive heart failure) Current Visit: Yes Status: Resolved Assessment and plan: Acute systolic CHF exacerbation likely triggered by A. fib with RVR Stable History of alcohol related cardiomyopathy and nonobstructive CAD Echocardiogram revealed improved EF of 30-35% since last Echo and decreased pericardial effusion Continue Lasix 40 mg by mouth twice a day. Continue spironolactone. Qualifiers: Heart failure type: systolic Heart failure chronicity: chronic Qualified Code(s): I50.22 - Chronic systolic (congestive) heart failure (6) Hepatitis C Current Visit: Yes Status: Chronic Assessment and plan: Known history of Hepatitis C with cirrhosis Follow-up outpatient with PCP Complications secondary to hepatitis C with cirrhosis and alcoholic cirrhosis managed per plans in assessment above. Qualifiers: Viral hepatitis chronicity: chronic Hepatic coma status: without hepatic coma Qualified Code(s): B18.2 - Chronic viral hepatitis C (7) Hepatic encephalopathy Current Visit: Yes Status: Resolved Assessment and plan: Improving, Acute Hepatic encephalopathy Ammonia 114 today Continue lactulose and rifaximin (8) Acute respiratory failure with hypoxia and hypercapnia Current Visit: Yes Status: Resolved Assessment and plan: Resolved Secondary to pneumonia and fluid overload due to cirrhosis and large volume ascites Patient is not requiring oxygen supplementation. (9) Community acquired pneumonia Current Visit: Yes Status: Resolved Assessment and plan: CXR 07/30/17 revealed increased opacification of left lung base Patient finished antibiotic course of levaquin. Qualifiers: Laterality: left Lung location: lower lobe of lung Qualified Code(s): J18.1 - Lobar pneumonia, unspecified organism - Time Spent With Patient Total time spent is greater than 50% in coordination of care (as documented) at patient's floor/unit and/or counseling patient: - Subjective Interval history: More awake this morning. He is alert and oriented 3. He has no complaints. - Constitutional Vitals: Temp Pulse Resp BP Pulse Ox 97.7 F 111 19 108/72 97 08/08/17 07:42 08/08/17 07:42 08/08/17 07:42 08/08/17 07:42 08/08/17 07:42 General appearance: Present: A&O X 3, no acute distress, obese, answers questions appropriately - Other Additional findings: General: Pleasant without distress. Heart: Irregularly irregular without tachycardia Lungs: Clear to auscultation bilaterally, diminished Abdomen: Soft nontender, distended positive fluid wave positive bowel sounds. less distended today. Skin: warm and dry, absent rash Extremities: Absent pedal edema, Neuro: Alert oriented 3 Vascular: Pedal and radial pulses 2 out of 4 Internal Medicine: Result - Labs CBC & Chem 7: 08/07/17 10:00 08/08/17 08:19 Labs: Short CBC 08/07/17 Range/Units 10:00 WBC 5.9 (4.3-11.1) K/mcL Hgb 10.4 L (12.9-16.9) g/dL Hct 35.1 L (37.5-50.1) % Plt Count 135 L (140-400) K/mcL BMP 08/07/17 08/08/17 10:00 08:19 Sodium 135 L 133 L Potassium 3.3 L 3.7 Chloride 94 L 96 L Carbon Dioxide 36 H 32 H BUN 11 9 Creatinine 0.58 L 0.55 L Glucose 140 H 117 H Calcium 8.9 8.9 - ABG Interpretation ABG results: ABG ABG pH 7.46 pH Units (7.32-7.45) H 07/31/17 13:43 ABG pCO2 44 mmHg (35-45) 07/31/17 13:43 ABG pO2 94 mmHg (85-104) 07/31/17 13:43 ABG O2 Saturation 98 % (95-98) 07/31/17 13:43 PT/INR, D-dimer PT 12.6 Seconds (9.4-12.1) H 08/07/17 10:00 Consult Discharge Plan - Plan Referrals: NONE,PCP [Primary Care Provider] - <Kalpesh Wilde H - Last Filed: 08/08/17 11:42> Date of Encounter: 08/08/17 - Assessment and plan (1) Alcohol withdrawal Current Visit: Yes Status: Resolved Qualifiers: Complication of substance-induced condition: uncomplicated Qualified Code(s ): F10.230 - Alcohol dependence with withdrawal, uncomplicated (2) Tobacco dependence Current Visit: Yes Status: Chronic (3) Afib Current Visit: Yes Status: Chronic Qualifiers: Atrial fibrillation type: chronic Qualified Code(s): I48.2 - Chronic atrial fibrillation (4) CHF (congestive heart failure) Current Visit: Yes Status: Resolved Qualifiers: Heart failure type: systolic Heart failure chronicity: chronic Qualified Code(s): I50.22 - Chronic systolic (congestive) heart failure (5) Hepatitis C Current Visit: Yes Status: Chronic Qualifiers: Viral hepatitis chronicity: chronic Hepatic coma status: without hepatic coma Qualified Code(s): B18.2 - Chronic viral hepatitis C (6) Ascites Current Visit: Yes Status: Acute Qualifiers: Ascites type: due to alcoholic cirrhosis Qualified Code(s): K70.31 - Alcoholic cirrhosis of liver with ascites (7) Hepatic encephalopathy Current Visit: Yes Status: Resolved (8) Acute respiratory failure with hypoxia and hypercapnia Current Visit: Yes Status: Resolved (9) Community acquired pneumonia Current Visit: Yes Status: Resolved Qualifiers: Laterality: left Lung location: lower lobe of lung Qualified Code(s): J18.1 - Lobar pneumonia, unspecified organism - Time Spent With Patient Total time spent is greater than 50% in coordination of care (as documented) at patient's floor/unit and/or counseling patient: - Constitutional Vitals: Temp Pulse Resp BP Pulse Ox 97.7 F 110 18 131/69 97 08/08/17 07:42 08/08/17 11:00 08/08/17 11:00 08/08/17 11:00 08/08/17 07:42 Internal Medicine: Result - Labs CBC & Chem 7: 08/07/17 10:00 08/08/17 08:19 Labs: Short CBC 08/07/17 Range/Units 10:00 WBC 5.9 (4.3-11.1) K/mcL Hgb 10.4 L (12.9-16.9) g/dL Hct 35.1 L (37.5-50.1) % Plt Count 135 L (140-400) K/mcL BMP 08/07/17 08/08/17 10:00 08:19 Sodium 135 L 133 L Potassium 3.3 L 3.7 Chloride 94 L 96 L Carbon Dioxide 36 H 32 H BUN 11 9 Creatinine 0.58 L 0.55 L Glucose 140 H 117 H Calcium 8.9 8.9 - ABG Interpretation ABG results: ABG ABG pH 7.46 pH Units (7.32-7.45) H 07/31/17 13:43 ABG pCO2 44 mmHg (35-45) 07/31/17 13:43 ABG pO2 94 mmHg (85-104) 07/31/17 13:43 ABG O2 Saturation 98 % (95-98) 07/31/17 13:43 PT/INR, D-dimer PT 12.6 Seconds (9.4-12.1) H 08/07/17 10:00 - Attending Attestation Acute hypoxic hypercapnic respiratory failure possibly secondary to acute COPD exacerbation due to HCAP present upon admission and acute pulmonary edema triggered by a fib with RVR completed Zosyn and Levaquin Severe ascites s/p paracentesis refusing lactulose, on Xifaxan continue amiodarone , decrease dose on August 09 continue metoprolol CXR: 1. Increased opacification at the left lung base could represent atelectasis or pneumonia. 2. Cardiomegaly and pulmonary vascular congestion. I examined this patient and my medical decision-making was reviewed with the Resident Physician. I agree with the documented findings, disposition and treatment plan as described except to the extent set forth below.
[2017-08-09] MEDS: Levalbuterol Neb 0.63 MG/3 ML IH SCH ×2 (03:30→10:46)
[2017-08-09] MEDS: *HR* Heparin 5,000 UNIT/ML VIAL SQ SCH ×2 (05:34→17:34)
[2017-08-09 06:05] LABS: BUN/Creatinine Ratio 15 (6-26); Blood Urea Nitrogen 8 mg/dL (6-20); Calcium 8.9 mg/dL (8.6-10.3); Carbon Dioxide 32 mEq/L (23-29); Chloride 97 mEq/L (98-107); Glucose 196 mg/dL (70-105); Osmolality,Calculated 282 (280-300); Potassium 3.7 mEq/L (3.5-5.1); Sodium 134 mEq/L (136-145); eGFR For African Americans > 60 (> 60); eGFR For Non-African Americans > 60 (> 60)
[2017-08-09] MEDS: Folic Acid 1 MG TABLET PO SCH (09:57)
[2017-08-09] MEDS: Magnesium Oxide 400 MG TABLET PO SCH ×2 (09:57→21:49)
[2017-08-09] MEDS: Thiamine (B-1) 100 MG TABLET PO SCH (09:57)
[2017-08-09] MEDS: predniSONE 20 MG TABLET PO SCH (09:57)
[2017-08-09] MEDS: Lactulose Oral Soln 20 GM/30 ML UDC PO SCH ×3 (09:57→21:49)
[2017-08-09] MEDS: Beer can PO SCH ×3 (09:57→17:28)
[2017-08-09] MEDS: Nicotine 21 MG PATCH.TD24 TD SCH (09:58)
[2017-08-09] MEDS: Furosemide 40 MG TABLET PO SCH ×2 (09:58→17:28)
[2017-08-09] MEDS: *HR* Amiodarone 200 MG TABLET PO SCH ×2 (09:58→21:49)
[2017-08-09] MEDS: Vitamin B Complex/Vit C/Vit E 1 EACH TABLET PO SCH (10:01)
[2017-08-09] MEDS ORDERED: Levalbuterol Neb 0.63 MG/3 ML IH PRN (14:21)
--- NOTE | 2017-08-09 15:06 | Internal Med Progress Note ---
Date of Encounter: 08/09/17 Time of Encounter: 15:04 - Assessment and plan (1) Alcohol withdrawal Current Visit: Yes Status: Resolved Assessment and plan: Resolved. Beer 3 times a day Patient has no desire of quit alcohol. Continue thiamine, vitamin B, folic acid. Qualifiers: Complication of substance-induced condition: uncomplicated Qualified Code(s ): F10.230 - Alcohol dependence with withdrawal, uncomplicated (2) Tobacco dependence Current Visit: Yes Status: Chronic Assessment and plan: Smoking cessation counseling, nicotine patch (3) Afib Current Visit: Yes Status: Chronic Assessment and plan: Continue amiodarone and metoprolol. not a good candidate for anti-correlation secondary to use of alcohol/falling. Qualifiers: Atrial fibrillation type: chronic Qualified Code(s): I48.2 - Chronic atrial fibrillation (4) CHF (congestive heart failure) Current Visit: Yes Status: Resolved Assessment and plan: Acute systolic CHF exacerbation likely triggered by A. fib with RVR Stable History of alcohol related cardiomyopathy and nonobstructive CAD Echocardiogram revealed improved EF of 30-35% since last Echo and decreased pericardial effusion Continue Lasix 40 mg by mouth twice a day. Continue spironolactone. Qualifiers: Heart failure type: systolic Heart failure chronicity: chronic Qualified Code(s): I50.22 - Chronic systolic (congestive) heart failure (5) Hepatitis C Current Visit: Yes Status: Chronic Assessment and plan: Known history of Hepatitis C with cirrhosis Follow-up outpatient with PCP Complications secondary to hepatitis C with cirrhosis and alcoholic cirrhosis managed per plans in assessment above. Qualifiers: Viral hepatitis chronicity: chronic Hepatic coma status: without hepatic coma Qualified Code(s): B18.2 - Chronic viral hepatitis C (6) Ascites Current Visit: Yes Status: Acute Assessment and plan: Secondary to cirrhosis in setting of hepatitis C and alcohol abuse. Status post paracentesis x3 since admission. >2L Patient's abdomen is still distended. Stable Discussed case with IR and ordered and consult in for Pleuryx catheter placement ; however, IR evaluated and recommended against. Peritoneal fluid consistent with ascites without infection. increased spironolactone to 75 mg daily continue lasix Qualifiers: Ascites type: due to alcoholic cirrhosis Qualified Code(s): K70.31 - Alcoholic cirrhosis of liver with ascites (7) Hepatic encephalopathy Current Visit: Yes Status: Resolved Assessment and plan: Improving, Acute Hepatic encephalopathy Continue lactulose and rifaximin add simethicone due to abdominal discomfort after taking lactulose (8) Acute respiratory failure with hypoxia and hypercapnia Current Visit: Yes Status: Resolved Assessment and plan: Resolved Secondary to pneumonia and fluid overload due to cirrhosis and large volume ascites Patient is not requiring oxygen supplementation. Received 6 days of Levaquin and 4 days of Zosyn Taper prednisone CXR: 1. Increased opacification at the left lung base could represent atelectasis or pneumonia. 2. Cardiomegaly and pulmonary vascular congestion. (9) Community acquired pneumonia Current Visit: Yes Status: Resolved Assessment and plan: CXR 07/30/17 revealed increased opacification of left lung base Patient finished antibiotic course of levaquin. Qualifiers: Laterality: left Lung location: lower lobe of lung Qualified Code(s): J18.1 - Lobar pneumonia, unspecified organism - Time Spent With Patient Total time spent is greater than 50% in coordination of care (as documented) at patient's floor/unit and/or counseling patient: - Subjective Interval history: Wakes up easier, answers questions, drinks 6 pole beers every day, had mild abdominal discomfort, denies any chest pain or shortness of breath, was complaining about having too many bowel movements after taking lactulose - Constitutional Vitals: Temp Pulse Resp BP Pulse Ox 97.7 F 94 28 99/78 97 08/09/17 12:15 08/09/17 12:15 08/09/17 12:15 08/09/17 12:15 08/09/17 12:15 General appearance: Present: A&O X 3, morbidly obese, no acute distress, answers questions appropriately Exam: Somnolent - Head Head exam: Present: atraumatic, normocephalic - Eye Eye exam: Present: PERRL, conjuntiva pink, sclera anicteric Pupils: Present: PERRL - Neck Neck exam general surgery: Present: supple, trachea midline. Absent: lymphadenopathy - Respiratory Respiratory exam: Present: CTAB. Absent: accessory muscle use, rales, rhonchi, wheezes - Cardiovascular Cardiovascular exam: Present: RRR, +S1, +S2. Absent: diastolic murmur, gallop, rubs, systolic murmur - GI/Abdominal GI/Abdominal exam: Present: distended (Severe ascites), normal bowel sounds, soft, no peritoneal signs. Absent: tenderness - Extremities Exam Extremities exam: Present: pedal edema (+1 pitting edema), warm, radial pulses palpable and symmetrical. Absent: calf tenderness, cyanotic - Neurological Exam Neurological exam: Present: CN II-XII intact, oriented X3, no focal deficits. Absent: pronater drift, facial droop, speech deficit - Skin Skin exam: Present: dry, intact Internal Medicine: Result - Labs CBC & Chem 7: 08/07/17 10:00 08/09/17 05:26 Labs: BMP 08/09/17 05:26 Sodium 134 L Potassium 3.7 Chloride 97 L Carbon Dioxide 32 H BUN 8 Creatinine 0.52 L Glucose 196 H Calcium 8.9 - ABG Interpretation ABG results: ABG ABG pH 7.46 pH Units (7.32-7.45) H 07/31/17 13:43 ABG pCO2 44 mmHg (35-45) 07/31/17 13:43 ABG pO2 94 mmHg (85-104) 07/31/17 13:43 ABG O2 Saturation 98 % (95-98) 07/31/17 13:43 PT/INR, D-dimer PT 12.6 Seconds (9.4-12.1) H 08/07/17 10:00 Consult Discharge Plan - Plan Referrals: NONE,PCP [Primary Care Provider] -
[2017-08-09] MEDS: Simethicone 80 MG TAB.CHEW PO SCH ×2 (15:36→21:49)
[2017-08-10] MEDS: *HR* Heparin 5,000 UNIT/ML VIAL SQ SCH ×2 (05:19→19:04)
[2017-08-10] MEDS: Folic Acid 1 MG TABLET PO SCH (08:49)
[2017-08-10] MEDS: *HR* Amiodarone 200 MG TABLET PO SCH (08:49)
[2017-08-10] MEDS: Magnesium Oxide 400 MG TABLET PO SCH ×2 (08:49→21:01)
[2017-08-10] MEDS: Simethicone 80 MG TAB.CHEW PO SCH ×3 (08:49→21:00)
[2017-08-10] MEDS: Furosemide 40 MG TABLET PO SCH ×2 (08:49→16:01)
[2017-08-10] MEDS: Nicotine 21 MG PATCH.TD24 TD SCH (08:50)
[2017-08-10] MEDS: Thiamine (B-1) 100 MG TABLET PO SCH (08:50)
[2017-08-10] MEDS: predniSONE 10 MG TABLET PO SCH (08:50)
[2017-08-10] MEDS: Vitamin B Complex/Vit C/Vit E 1 EACH TABLET PO SCH (08:50)
[2017-08-10] MEDS: Lactulose Oral Soln 20 GM/30 ML UDC PO SCH ×3 (08:51→21:00)
--- NOTE | 2017-08-10 10:11 | Internal Med Progress Note ---
<TashakelleeKyle Billy - Last Filed: 08/10/17 16:19> Date of Encounter: 08/10/17 Time of Encounter: 10:10 - Assessment and plan (1) Ascites Current Visit: Yes Status: Resolved Assessment and plan: Secondary to cirrhosis in setting of hepatitis C and alcohol abuse. Status post paracentesis x3 since admission. >2L Patient's abdomen is still distended, but at baseline as no significant fluid found on paracentesis attempt 08/10/17. Stable Last paracentesis completed 08/06/17. Attempted paracentesis today 08/10/17, no significant fluid found. No sbp Increase spironolactone to 100mg qd Continue lasix at 40mg bid. -2320mL yesterday, -1730mL so far today. Qualifiers: Ascites type: due to alcoholic cirrhosis Qualified Code(s): K70.31 - Alcoholic cirrhosis of liver with ascites (2) Tobacco dependence Current Visit: Yes Status: Chronic Assessment and plan: Smoking cessation counseling, nicotine patch (3) Afib Current Visit: Yes Status: Chronic Assessment and plan: Continue amiodarone and metoprolol. not a good candidate for anti-coagulation secondary to use of alcohol/falling. Qualifiers: Atrial fibrillation type: chronic Qualified Code(s): I48.2 - Chronic atrial fibrillation (4) Acute respiratory failure with hypoxia and hypercapnia Current Visit: Yes Status: Resolved Assessment and plan: Resolved Secondary to pneumonia and fluid overload due to cirrhosis and large volume ascites Patient is not requiring oxygen supplementation. Received 6 days of Levaquin and 4 days of Zosyn Taper prednisone, currently at 10mg qd. (5) Hepatic encephalopathy Current Visit: Yes Status: Resolved Assessment and plan: Improving, Acute Hepatic encephalopathy Continue lactulose and rifaximin Continue with simethicone for abdominal discomfort after taking lactulose Has been having only 1 bowel movement per day, still not at goal of 3-4. (6) Alcohol withdrawal Current Visit: Yes Status: Resolved Assessment and plan: Resolved. Beer 3 times a day Patient has no desire of quit alcohol. Continue thiamine, vitamin B, folic acid. Qualifiers: Complication of substance-induced condition: uncomplicated Qualified Code(s ): F10.230 - Alcohol dependence with withdrawal, uncomplicated (7) CHF (congestive heart failure) Current Visit: Yes Status: Resolved Assessment and plan: Acute systolic CHF exacerbation likely triggered by A. andrew with RVR Stable History of alcohol related cardiomyopathy and nonobstructive CAD Echocardiogram revealed improved EF of 30-35% since last Echo and decreased pericardial effusion Continue Lasix 40 mg by mouth twice a day. Continue spironolactone, increase to 100mg qd. Qualifiers: Heart failure type: systolic Heart failure chronicity: chronic Qualified Code(s): I50.22 - Chronic systolic (congestive) heart failure (8) Hepatitis C Current Visit: Yes Status: Chronic Assessment and plan: Known history of Hepatitis C with cirrhosis Follow-up outpatient with PCP Complications secondary to hepatitis C with cirrhosis and alcoholic cirrhosis managed per plans in assessment above. Qualifiers: Viral hepatitis chronicity: chronic Hepatic coma status: without hepatic coma Qualified Code(s): B18.2 - Chronic viral hepatitis C (9) Community acquired pneumonia Current Visit: Yes Status: Resolved Assessment and plan: CXR 07/30/17 revealed increased opacification of left lung base Patient finished antibiotic course of levaquin. Qualifiers: Laterality: left Lung location: lower lobe of lung Qualified Code(s): J18.1 - Lobar pneumonia, unspecified organism - Time Spent With Patient Total time spent is greater than 50% in coordination of care (as documented) at patient's floor/unit and/or counseling patient: - Subjective Interval history: Mr. Wallace was seen and examined this morning and alert and oriented, but quickly goes back to sleep and answers questions appropriately. Had 1 bowel movement yesterday. Patient denies fevers, chills, sweats, headaches, dizziness , lightheadedness, chest pain, shortness of breath, abdominal pain, changes in bowels or bladder, weakness, loss of sensation, rash, or pruritis. - Constitutional Vitals: Temp Pulse Resp BP Pulse Ox 97.6 F 84 22 106/77 94 08/10/17 06:57 08/10/17 06:57 08/10/17 06:57 08/10/17 06:57 08/10/17 06:57 General appearance: Present: A&O X 3, morbidly obese, no acute distress, obese, answers questions appropriately - Head Head exam: Present: atraumatic, normal inspection, normocephalic - Eye Eye exam: Present: EOMI, normal appearance - ENT ENT exam: Present: mucous membranes moist, normal exam - Neck Neck exam general surgery: Present: normal inspection, supple, trachea midline - Respiratory Respiratory exam: Present: CTAB. Absent: rales, respiratory distress, rhonchi, wheezes - Cardiovascular Cardiovascular exam: Present: irregular rhythm, +S1, +S2 - GI/Abdominal GI/Abdominal exam: Present: distended, normal bowel sounds, soft. Absent: tenderness, no peritoneal signs Additional comments: fluid wave present, no erythema - Extremities Exam Extremities exam: Present: full ROM, normal inspection, pedal edema (minimal edema bilateral lower ext), warm, radial pulses palpable and symmetrical. Absent: tenderness - Skin Skin exam: Present: dry, intact, normal color, warm. Absent: rash Internal Medicine: Result - Labs CBC & Chem 7: 08/07/17 10:00 08/09/17 05:26 - ABG Interpretation ABG results: ABG ABG pH 7.46 pH Units (7.32-7.45) H 07/31/17 13:43 ABG pCO2 44 mmHg (35-45) 07/31/17 13:43 ABG pO2 94 mmHg (85-104) 07/31/17 13:43 ABG O2 Saturation 98 % (95-98) 07/31/17 13:43 PT/INR, D-dimer PT 12.6 Seconds (9.4-12.1) H 08/07/17 10:00 Consult Discharge Plan - Plan Referrals: NONE,PCP [Primary Care Provider] - <Kalpesh Wilde H - Last Filed: 08/10/17 16:24> Date of Encounter: 08/10/17 - Assessment and plan (1) Alcohol withdrawal Current Visit: Yes Status: Resolved Qualifiers: Complication of substance-induced condition: uncomplicated Qualified Code(s ): F10.230 - Alcohol dependence with withdrawal, uncomplicated (2) Tobacco dependence Current Visit: Yes Status: Chronic (3) Afib Current Visit: Yes Status: Chronic Qualifiers: Atrial fibrillation type: chronic Qualified Code(s): I48.2 - Chronic atrial fibrillation (4) CHF (congestive heart failure) Current Visit: Yes Status: Resolved Qualifiers: Heart failure type: systolic Heart failure chronicity: chronic Qualified Code(s): I50.22 - Chronic systolic (congestive) heart failure (5) Hepatitis C Current Visit: Yes Status: Chronic Qualifiers: Viral hepatitis chronicity: chronic Hepatic coma status: without hepatic coma Qualified Code(s): B18.2 - Chronic viral hepatitis C (6) Ascites Current Visit: Yes Status: Resolved Qualifiers: Ascites type: due to alcoholic cirrhosis Qualified Code(s): K70.31 - Alcoholic cirrhosis of liver with ascites (7) Hepatic encephalopathy Current Visit: Yes Status: Resolved (8) Acute respiratory failure with hypoxia and hypercapnia Current Visit: Yes Status: Resolved (9) Community acquired pneumonia Current Visit: Yes Status: Resolved Qualifiers: Laterality: left Lung location: lower lobe of lung Qualified Code(s): J18.1 - Lobar pneumonia, unspecified organism - Time Spent With Patient Total time spent is greater than 50% in coordination of care (as documented) at patient's floor/unit and/or counseling patient: - Constitutional Vitals: Temp Pulse Resp BP Pulse Ox 97.8 F 89 15 133/98 98 08/10/17 16:07 08/10/17 16:07 08/10/17 16:07 08/10/17 16:07 08/10/17 16:07 Internal Medicine: Result - Labs CBC & Chem 7: 08/07/17 10:00 08/09/17 05:26 - ABG Interpretation ABG results: ABG ABG pH 7.46 pH Units (7.32-7.45) H 07/31/17 13:43 ABG pCO2 44 mmHg (35-45) 07/31/17 13:43 ABG pO2 94 mmHg (85-104) 07/31/17 13:43 ABG O2 Saturation 98 % (95-98) 07/31/17 13:43 PT/INR, D-dimer PT 12.6 Seconds (9.4-12.1) H 08/07/17 10:00 - Attending Attestation Acute hypoxic hypercapnic respiratory failure possibly secondary to acute COPD exacerbation due to HCAP present upon admission and acute pulmonary edema triggered by a fib with RVR completed Zosyn and Levaquin Severe ascites s/p paracentesis refusing lactulose, on Xifaxan continue amiodarone continue metoprolol CXR: 1. Increased opacification at the left lung base could represent atelectasis or pneumonia. 2. Cardiomegaly and pulmonary vascular congestion. I examined this patient and my medical decision-making was reviewed with the Resident Physician. I agree with the documented findings, disposition and treatment plan as described except to the extent set forth below.
[2017-08-10] MEDS: Beer can PO SCH ×3 (10:19→19:04)
[2017-08-11 07:59] LABS: BUN/Creatinine Ratio 18 (6-26); Blood Urea Nitrogen 10 mg/dL (6-20); Calcium 8.5 mg/dL (8.6-10.3); Carbon Dioxide 30 mEq/L (23-29); Chloride 94 mEq/L (98-107); Glucose 166 mg/dL (70-105); Osmolality,Calculated 275 (280-300); Sodium 131 mEq/L (136-145); eGFR For African Americans > 60 (> 60); eGFR For Non-African Americans > 60 (> 60)
[2017-08-11] MEDS: *HR* Heparin 5,000 UNIT/ML VIAL SQ SCH ×2 (09:02→16:21)
[2017-08-11] MEDS: Lactulose Oral Soln 20 GM/30 ML UDC PO SCH ×3 (09:09→19:58)
[2017-08-11] MEDS: Simethicone 80 MG TAB.CHEW PO SCH ×3 (09:10→19:58)
[2017-08-11] MEDS: Magnesium Oxide 400 MG TABLET PO SCH ×2 (09:10→19:58)
[2017-08-11] MEDS: predniSONE 10 MG TABLET PO SCH (09:10)
[2017-08-11] MEDS: Furosemide 40 MG TABLET PO SCH ×2 (09:10→16:18)
[2017-08-11] MEDS: *HR* Amiodarone 200 MG TABLET PO SCH (09:10)
[2017-08-11] MEDS: Nicotine 21 MG PATCH.TD24 TD SCH (09:10)
[2017-08-11] MEDS: Vitamin B Complex/Vit C/Vit E 1 EACH TABLET PO SCH (09:10)
[2017-08-11] MEDS: Thiamine (B-1) 100 MG TABLET PO SCH (09:10)
[2017-08-11] MEDS: Folic Acid 1 MG TABLET PO SCH (09:10)
[2017-08-11] MEDS: Beer can PO SCH ×3 (09:18→16:18)
--- NOTE | 2017-08-11 11:04 | Internal Med Progress Note ---
Date of Encounter: 08/11/17 Time of Encounter: 11:02 - Assessment and plan (1) Alcohol withdrawal Current Visit: Yes Status: Resolved Assessment and plan: Resolved. Beer 3 times a day Patient has no desire of quit alcohol. Continue thiamine, vitamin B, folic acid. Qualifiers: Complication of substance-induced condition: uncomplicated Qualified Code(s ): F10.230 - Alcohol dependence with withdrawal, uncomplicated (2) Tobacco dependence Current Visit: Yes Status: Chronic Assessment and plan: Smoking cessation counseling, nicotine patch (3) Afib Current Visit: Yes Status: Chronic Assessment and plan: Continue amiodarone and metoprolol. not a good candidate for anti-coagulation secondary to use of alcohol/falling. Qualifiers: Atrial fibrillation type: chronic Qualified Code(s): I48.2 - Chronic atrial fibrillation (4) CHF (congestive heart failure) Current Visit: Yes Status: Resolved Assessment and plan: Acute systolic CHF exacerbation likely triggered by A. fib with RVR Stable History of alcohol related cardiomyopathy and nonobstructive CAD Echocardiogram revealed improved EF of 30-35% since last Echo and decreased pericardial effusion Continue Lasix 40 mg by mouth twice a day. Continue spironolactone, increase to 100mg qd. Qualifiers: Heart failure type: systolic Heart failure chronicity: chronic Qualified Code(s): I50.22 - Chronic systolic (congestive) heart failure (5) Hepatitis C Current Visit: Yes Status: Chronic Assessment and plan: Known history of Hepatitis C with cirrhosis Follow-up outpatient with PCP Complications secondary to hepatitis C with cirrhosis and alcoholic cirrhosis managed per plans in assessment above. Qualifiers: Viral hepatitis chronicity: chronic Hepatic coma status: without hepatic coma Qualified Code(s): B18.2 - Chronic viral hepatitis C (6) Ascites Current Visit: Yes Status: Resolved Assessment and plan: Secondary to cirrhosis in setting of hepatitis C and alcohol abuse. Status post paracentesis x3 since admission. >2L Patient's abdomen is still distended, but at baseline as no significant fluid found on paracentesis attempt 08/10/17. Stable Last paracentesis completed 08/06/17. Attempted paracentesis on 08/10/17, no significant fluid found. No sbp Increase spironolactone to 100mg qd Continue lasix at 40mg bid. Qualifiers: Ascites type: due to alcoholic cirrhosis Qualified Code(s): K70.31 - Alcoholic cirrhosis of liver with ascites (7) Hepatic encephalopathy Current Visit: Yes Status: Resolved Assessment and plan: Improving, Acute Hepatic encephalopathy Continue lactulose and rifaximin Continue with simethicone for abdominal discomfort after taking lactulose Has been having only 1 bowel movement per day, still not at goal of 3-4. (8) Acute respiratory failure with hypoxia and hypercapnia Current Visit: Yes Status: Resolved Assessment and plan: Resolved Secondary to pneumonia and fluid overload due to cirrhosis and large volume ascites Patient is not requiring oxygen supplementation. Received 6 days of Levaquin and 4 days of Zosyn Taper prednisone, currently at 10mg qd. (9) Community acquired pneumonia Current Visit: Yes Status: Resolved Assessment and plan: CXR 07/30/17 revealed increased opacification of left lung base Patient finished antibiotic course of levaquin. Qualifiers: Laterality: left Lung location: lower lobe of lung Qualified Code(s): J18.1 - Lobar pneumonia, unspecified organism - Time Spent With Patient Total time spent is greater than 50% in coordination of care (as documented) at patient's floor/unit and/or counseling patient: - Subjective Interval history: Waking up easier, answered questions appropriately, drinks 6 beers every day, had mild abdominal discomfort, denies any chest pain or shortness of breath, was complaining about having too many bowel movements after taking lactulose - Constitutional Vitals: Temp Pulse Resp BP Pulse Ox 98.1 F 85 20 116/94 94 08/11/17 08:39 08/11/17 08:39 08/11/17 08:39 08/11/17 08:39 08/11/17 08:39 General appearance: Present: A&O X 3, morbidly obese, no acute distress, obese, answers questions appropriately Exam: Somnolent - Head Head exam: Present: atraumatic, normocephalic - Eye Eye exam: Present: PERRL, conjuntiva pink, sclera anicteric Pupils: Present: PERRL - Neck Neck exam general surgery: Present: supple, trachea midline. Absent: lymphadenopathy - Respiratory Respiratory exam: Present: CTAB. Absent: accessory muscle use, rales, rhonchi, wheezes - Cardiovascular Cardiovascular exam: Present: RRR, +S1, +S2. Absent: diastolic murmur, gallop, rubs, systolic murmur - GI/Abdominal GI/Abdominal exam: Present: distended (Severe ascites), normal bowel sounds, soft, no peritoneal signs. Absent: tenderness - Extremities Exam Extremities exam: Present: pedal edema (+1 pitting edema), warm, radial pulses palpable and symmetrical. Absent: calf tenderness, cyanotic - Neurological Exam Neurological exam: Present: CN II-XII intact, oriented X3, no focal deficits. Absent: pronater drift, facial droop, speech deficit - Skin Skin exam: Present: dry, intact Internal Medicine: Result - Labs CBC & Chem 7: 08/07/17 10:00 08/11/17 07:20 Labs: BMP 08/11/17 07:20 Sodium 131 L Potassium 4.0 Chloride 94 L Carbon Dioxide 30 H BUN 10 Creatinine 0.55 L Glucose 166 H Calcium 8.5 L - ABG Interpretation ABG results: ABG ABG pH 7.46 pH Units (7.32-7.45) H 07/31/17 13:43 ABG pCO2 44 mmHg (35-45) 07/31/17 13:43 ABG pO2 94 mmHg (85-104) 07/31/17 13:43 ABG O2 Saturation 98 % (95-98) 07/31/17 13:43 PT/INR, D-dimer PT 12.6 Seconds (9.4-12.1) H 08/07/17 10:00 Consult Discharge Plan - Plan Referrals: NONE,PCP [Primary Care Provider] -
[2017-08-11] MEDS ORDERED: Ketorolac 30 MG/ML VIAL IVP ONE (23:07)
[2017-08-12] MEDS: *HR* Heparin 5,000 UNIT/ML VIAL SQ SCH ×2 (05:28→22:44)
[2017-08-12] MEDS: Lactulose Oral Soln 20 GM/30 ML UDC PO SCH ×3 (09:01→22:45)
[2017-08-12] MEDS: *HR* Amiodarone 200 MG TABLET PO SCH (09:02)
[2017-08-12] MEDS: Vitamin B Complex/Vit C/Vit E 1 EACH TABLET PO SCH (09:02)
[2017-08-12] MEDS: predniSONE 10 MG TABLET PO SCH (09:02)
[2017-08-12] MEDS: Furosemide 40 MG TABLET PO SCH ×2 (09:02→17:31)
[2017-08-12] MEDS: Folic Acid 1 MG TABLET PO SCH (09:02)
[2017-08-12] MEDS: Nicotine 21 MG PATCH.TD24 TD SCH (09:02)
[2017-08-12] MEDS: Simethicone 80 MG TAB.CHEW PO SCH ×3 (09:02→22:45)
[2017-08-12] MEDS: Thiamine (B-1) 100 MG TABLET PO SCH (09:02)
[2017-08-12] MEDS: Magnesium Oxide 400 MG TABLET PO SCH ×2 (09:02→22:45)
[2017-08-12] MEDS: Beer can PO SCH ×3 (09:03→17:31)
[2017-08-12] MEDS: traMADol 50 MG TABLET PO PRN (10:06)
--- NOTE | 2017-08-12 12:29 | Internal Med Progress Note ---
Date of Encounter: 08/12/17 Time of Encounter: 12:27 - Assessment and plan (1) Alcohol withdrawal Current Visit: Yes Status: Resolved Assessment and plan: Resolved. Beer 3 times a day Patient has no desire of quit alcohol. Continue thiamine, vitamin B, folic acid. Qualifiers: Complication of substance-induced condition: uncomplicated Qualified Code(s ): F10.230 - Alcohol dependence with withdrawal, uncomplicated (2) Tobacco dependence Current Visit: Yes Status: Chronic Assessment and plan: Smoking cessation counseling, nicotine patch (3) Afib Current Visit: Yes Status: Chronic Assessment and plan: Continue amiodarone and metoprolol. not a good candidate for anti-coagulation secondary to use of alcohol/falling. Qualifiers: Atrial fibrillation type: chronic Qualified Code(s): I48.2 - Chronic atrial fibrillation (4) CHF (congestive heart failure) Current Visit: Yes Status: Resolved Assessment and plan: Acute systolic CHF exacerbation likely triggered by A. fib with RVR Stable History of alcohol related cardiomyopathy and nonobstructive CAD Echocardiogram revealed improved EF of 30-35% since last Echo and decreased pericardial effusion Continue Lasix 40 mg by mouth twice a day. Continue spironolactone, increase to 100mg qd. Qualifiers: Heart failure type: systolic Heart failure chronicity: chronic Qualified Code(s): I50.22 - Chronic systolic (congestive) heart failure (5) Hepatitis C Current Visit: Yes Status: Chronic Assessment and plan: Known history of Hepatitis C with cirrhosis Follow-up outpatient with PCP Complications secondary to hepatitis C with cirrhosis and alcoholic cirrhosis managed per plans in assessment above. Qualifiers: Viral hepatitis chronicity: chronic Hepatic coma status: without hepatic coma Qualified Code(s): B18.2 - Chronic viral hepatitis C (6) Ascites Current Visit: Yes Status: Resolved Assessment and plan: Secondary to cirrhosis in setting of hepatitis C and alcohol abuse. Status post paracentesis x3 since admission. >2L Patient's abdomen is still distended, but at baseline as no significant fluid found on paracentesis attempt 08/10/17. Stable Last paracentesis completed 08/06/17. Attempted paracentesis on 08/10/17, no significant fluid found. No sbp Increase spironolactone to 100mg qd Continue lasix at 40mg bid. Qualifiers: Ascites type: due to alcoholic cirrhosis Qualified Code(s): K70.31 - Alcoholic cirrhosis of liver with ascites (7) Hepatic encephalopathy Current Visit: Yes Status: Resolved Assessment and plan: Improving, Acute Hepatic encephalopathy Continue lactulose and rifaximin Continue with simethicone for abdominal discomfort after taking lactulose Has been having only 1 bowel movement per day, still not at goal of 3-4. (8) Acute respiratory failure with hypoxia and hypercapnia Current Visit: Yes Status: Resolved Assessment and plan: Resolved Secondary to pneumonia and fluid overload due to cirrhosis and large volume ascites Patient is not requiring oxygen supplementation. Received 6 days of Levaquin and 4 days of Zosyn Taper prednisone, currently at 10mg qd. (9) Community acquired pneumonia Current Visit: Yes Status: Resolved Assessment and plan: CXR 07/30/17 revealed increased opacification of left lung base Patient finished antibiotic course of levaquin. Qualifiers: Laterality: left Lung location: lower lobe of lung Qualified Code(s): J18.1 - Lobar pneumonia, unspecified organism - Time Spent With Patient Total time spent is greater than 50% in coordination of care (as documented) at patient's floor/unit and/or counseling patient: - Subjective Interval history: Wide awake. Answered questions appropriately, drinks 6 beers every day ( 3 at the moment), had mild abdominal discomfort, denies any chest pain or shortness of breath, was complaining about having too many bowel movements after taking lactulose - Constitutional Vitals: Temp Pulse Resp BP Pulse Ox 98.9 F 91 18 95/72 92 08/12/17 07:59 08/12/17 07:59 08/12/17 07:59 08/12/17 07:59 08/12/17 07:59 General appearance: Present: A&O X 3, morbidly obese, no acute distress, obese, answers questions appropriately Exam: - Head Head exam: Present: atraumatic, normocephalic - Eye Eye exam: Present: PERRL, conjuntiva pink, sclera anicteric Pupils: Present: PERRL - Neck Neck exam general surgery: Present: supple, trachea midline. Absent: lymphadenopathy - Respiratory Respiratory exam: Present: CTAB. Absent: accessory muscle use, rales, rhonchi, wheezes - Cardiovascular Cardiovascular exam: Present: RRR, +S1, +S2. Absent: diastolic murmur, gallop, rubs, systolic murmur - GI/Abdominal GI/Abdominal exam: Present: distended (Severe ascites), normal bowel sounds, soft, no peritoneal signs. Absent: tenderness - Extremities Exam Extremities exam: Present: pedal edema (+1 pitting edema), warm, radial pulses palpable and symmetrical. Absent: calf tenderness, cyanotic - Neurological Exam Neurological exam: Present: CN II-XII intact, oriented X3, no focal deficits. Absent: pronater drift, facial droop, speech deficit - Skin Skin exam: Present: dry, intact Internal Medicine: Result - Labs CBC & Chem 7: 08/07/17 10:00 08/11/17 07:20 - ABG Interpretation ABG results: ABG ABG pH 7.46 pH Units (7.32-7.45) H 07/31/17 13:43 ABG pCO2 44 mmHg (35-45) 07/31/17 13:43 ABG pO2 94 mmHg (85-104) 07/31/17 13:43 ABG O2 Saturation 98 % (95-98) 07/31/17 13:43 PT/INR, D-dimer PT 12.6 Seconds (9.4-12.1) H 08/07/17 10:00 - Impressions Impressions Chest X-Ray 08/11/17 13:59 IMPRESSION: 1. Improved aeration of the left base. Otherwise, stable patchy airspace opacities. 2. Cardiomegaly. D/ / 08/11/2017 16:22:28 Taina Rodriguez MD / beny Interpreting Provider: Taina Rodriguez MD Consult Discharge Plan - Plan Referrals: NONE,PCP [Primary Care Provider] -
[2017-08-12] MEDS ORDERED: Ketorolac 15 MG/ML VIAL IVP ONE (22:55)
[2017-08-12] MEDS ORDERED: Ipratropium/Albuterol Neb 3 ML IH PRN (23:00)
[2017-08-13] MEDS: *HR* Heparin 5,000 UNIT/ML VIAL SQ SCH ×2 (06:10→17:31)
--- NOTE | 2017-08-13 08:50 | Internal Med Progress Note ---
Date of Encounter: 08/13/17 Time of Encounter: 08:48 - Assessment and plan (1) Ascites Current Visit: Yes Status: Resolved Assessment and plan: Secondary to cirrhosis in setting of hepatitis C and alcohol abuse. Status post paracentesis x3 since admission. >2L Patient's abdomen is still distended, but at baseline as no significant fluid found on paracentesis attempt 08/10/17. Stable Last paracentesis completed 08/06/17. Attempted paracentesis on 08/10/17, no significant fluid found. No sbp Increase spironolactone to 100mg qd Continue lasix at 40mg bid. Qualifiers: Ascites type: due to alcoholic cirrhosis Qualified Code(s): K70.31 - Alcoholic cirrhosis of liver with ascites (2) Alcohol withdrawal Current Visit: Yes Status: Resolved Assessment and plan: Resolved. Beer 3 times a day Patient has no desire of quit alcohol. Continue thiamine, vitamin B, folic acid. Was instructed on the importance of the PT evaluation in order to plan for a safe discharge. Qualifiers: Complication of substance-induced condition: uncomplicated Qualified Code(s ): F10.230 - Alcohol dependence with withdrawal, uncomplicated (3) Tobacco dependence Current Visit: Yes Status: Chronic Assessment and plan: Smoking cessation counseling, nicotine patch (4) Afib Current Visit: Yes Status: Chronic Assessment and plan: Continue amiodarone and metoprolol. not a good candidate for anti-coagulation secondary to use of alcohol/falling. Qualifiers: Atrial fibrillation type: chronic Qualified Code(s): I48.2 - Chronic atrial fibrillation (5) CHF (congestive heart failure) Current Visit: Yes Status: Resolved Assessment and plan: Acute systolic CHF exacerbation likely triggered by A. fib with RVR Stable History of alcohol related cardiomyopathy and nonobstructive CAD Echocardiogram revealed improved EF of 30-35% since last Echo and decreased pericardial effusion Continue Lasix 40 mg by mouth twice a day. Continue spironolactone, increase to 100mg qd. Qualifiers: Heart failure type: systolic Heart failure chronicity: chronic Qualified Code(s): I50.22 - Chronic systolic (congestive) heart failure (6) Hepatitis C Current Visit: Yes Status: Chronic Assessment and plan: Known history of Hepatitis C with cirrhosis Follow-up outpatient with PCP Complications secondary to hepatitis C with cirrhosis and alcoholic cirrhosis managed per plans in assessment above. Qualifiers: Viral hepatitis chronicity: chronic Hepatic coma status: without hepatic coma Qualified Code(s): B18.2 - Chronic viral hepatitis C (7) Hepatic encephalopathy Current Visit: Yes Status: Resolved Assessment and plan: Improving, Acute Hepatic encephalopathy Continue lactulose and rifaximin Continue with simethicone for abdominal discomfort after taking lactulose Has been having only 1 bowel movement per day, still not at goal of 3-4. (8) Acute respiratory failure with hypoxia and hypercapnia Current Visit: Yes Status: Resolved Assessment and plan: Resolved Secondary to pneumonia and fluid overload due to cirrhosis and large volume ascites Patient is not requiring oxygen supplementation. Received 6 days of Levaquin and 4 days of Zosyn Taper prednisone, currently at 10mg qd. (9) Community acquired pneumonia Current Visit: Yes Status: Resolved Assessment and plan: CXR 07/30/17 revealed increased opacification of left lung base Patient finished antibiotic course of levaquin. Qualifiers: Laterality: left Lung location: lower lobe of lung Qualified Code(s): J18.1 - Lobar pneumonia, unspecified organism - Time Spent With Patient Total time spent is greater than 50% in coordination of care (as documented) at patient's floor/unit and/or counseling patient: - Subjective Interval history: Wide awake now. Has been refusing PT evaluation. Answered questions appropriately, drinks 6 beers every day ( 3 at the moment), had mild abdominal discomfort, denies any chest pain or shortness of breath, was complaining about having too many bowel movements after taking lactulose - Constitutional Vitals: Temp Pulse Resp BP Pulse Ox 97.8 F 86 16 111/82 95 08/13/17 07:34 08/13/17 07:34 08/13/17 07:34 08/13/17 07:34 08/13/17 07:34 General appearance: Present: A&O X 3, morbidly obese, no acute distress, obese, answers questions appropriately Exam: - Head Head exam: Present: atraumatic, normocephalic - Eye Eye exam: Present: PERRL, conjuntiva pink, sclera anicteric Pupils: Present: PERRL - Neck Neck exam general surgery: Present: supple, trachea midline. Absent: lymphadenopathy - Respiratory Respiratory exam: Present: CTAB. Absent: accessory muscle use, rales, rhonchi, wheezes - Cardiovascular Cardiovascular exam: Present: RRR, +S1, +S2. Absent: diastolic murmur, gallop, rubs, systolic murmur - GI/Abdominal GI/Abdominal exam: Present: distended (Severe ascites), normal bowel sounds, soft, no peritoneal signs. Absent: tenderness - Extremities Exam Extremities exam: Present: pedal edema (+1 pitting edema), warm, radial pulses palpable and symmetrical. Absent: calf tenderness, cyanotic - Neurological Exam Neurological exam: Present: CN II-XII intact, oriented X3, no focal deficits. Absent: pronater drift, facial droop, speech deficit - Skin Skin exam: Present: dry, intact Internal Medicine: Result - Labs CBC & Chem 7: 08/07/17 10:00 08/11/17 07:20 - ABG Interpretation ABG results: ABG ABG pH 7.46 pH Units (7.32-7.45) H 07/31/17 13:43 ABG pCO2 44 mmHg (35-45) 07/31/17 13:43 ABG pO2 94 mmHg (85-104) 07/31/17 13:43 ABG O2 Saturation 98 % (95-98) 07/31/17 13:43 PT/INR, D-dimer PT 12.6 Seconds (9.4-12.1) H 08/07/17 10:00 Consult Discharge Plan - Plan Referrals: NONE,PCP [Primary Care Provider] -
[2017-08-13] MEDS: Simethicone 80 MG TAB.CHEW PO SCH ×3 (09:06→20:57)
[2017-08-13] MEDS: Lactulose Oral Soln 20 GM/30 ML UDC PO SCH ×3 (09:06→21:01)
[2017-08-13] MEDS: Furosemide 40 MG TABLET PO SCH ×2 (09:07→16:17)
[2017-08-13] MEDS: Nicotine 21 MG PATCH.TD24 TD SCH (09:07)
[2017-08-13] MEDS: predniSONE 10 MG TABLET PO SCH (09:07)
[2017-08-13] MEDS: *HR* Amiodarone 200 MG TABLET PO SCH (09:07)
[2017-08-13] MEDS: Thiamine (B-1) 100 MG TABLET PO SCH (09:07)
[2017-08-13] MEDS: Vitamin B Complex/Vit C/Vit E 1 EACH TABLET PO SCH (09:07)
[2017-08-13] MEDS: Folic Acid 1 MG TABLET PO SCH (09:07)
[2017-08-13] MEDS: Magnesium Oxide 400 MG TABLET PO SCH ×2 (09:07→20:57)
[2017-08-13] MEDS: Beer can PO SCH ×3 (09:19→16:17)
[2017-08-13] MEDS ORDERED: *HR* LORazepam 2 MG/ML VIAL IVP ONE (20:41)
[2017-08-14] MEDS ORDERED: Melatonin 3 MG TABLET PO ONE (00:16)
[2017-08-14] MEDS: traMADol 50 MG TABLET PO PRN (02:11)
[2017-08-14] MEDS: *HR* Heparin 5,000 UNIT/ML VIAL SQ SCH ×2 (06:09→16:33)
[2017-08-14 06:10] LABS: Hematocrit 33.8 % (37.5-50.1); Mean Corpuscular HGB Conc 29.6 g/dL (31.6-35.5); Mean Corpuscular Hemoglobin 24.4 pg (28.0-33.3); Mean Corpuscular Volume 82.6 fL (83.0-100.0); Mean Platelet Volume 11.1 fL (9.4-12.4); Platelet Count 148 K/mcL (140-400); Red Blood Count 4.09 M/mcL (4.19-5.50); Red Cell Distribution Width 17.6 % (11.5-14.5)
[2017-08-14 08:21] LABS: Blood Urea Nitrogen 8 mg/dL (6-20); Carbon Dioxide 29 mEq/L (23-29); Chloride 96 mEq/L (98-107); Glucose 116 mg/dL (70-105); Osmolality,Calculated 275 (280-300); Potassium 3.8 mEq/L (3.5-5.1); Sodium 133 mEq/L (136-145)
[2017-08-14 08:35] LABS: BUN/Creatinine Ratio 14 (6-26); eGFR For African Americans > 60 (> 60); eGFR For Non-African Americans > 60 (> 60)
[2017-08-14] MEDS: Vitamin B Complex/Vit C/Vit E 1 EACH TABLET PO SCH (08:51)
[2017-08-14] MEDS: Magnesium Oxide 400 MG TABLET PO SCH ×2 (08:51→21:34)
[2017-08-14] MEDS: Simethicone 80 MG TAB.CHEW PO SCH ×3 (08:51→21:31)
[2017-08-14] MEDS: predniSONE 10 MG TABLET PO SCH (08:51)
[2017-08-14] MEDS: Folic Acid 1 MG TABLET PO SCH (08:51)
[2017-08-14] MEDS: Furosemide 40 MG TABLET PO SCH ×2 (08:51→16:32)
[2017-08-14] MEDS: Lactulose Oral Soln 20 GM/30 ML UDC PO SCH ×3 (08:51→21:32)
[2017-08-14] MEDS: Thiamine (B-1) 100 MG TABLET PO SCH (08:51)
[2017-08-14] MEDS: *HR* Amiodarone 200 MG TABLET PO SCH (08:51)
[2017-08-14] MEDS: Beer can PO SCH ×3 (08:52→16:32)
[2017-08-14] MEDS: Nicotine 21 MG PATCH.TD24 TD SCH (08:52)
--- NOTE | 2017-08-14 10:30 | Internal Med Progress Note ---
<TashakelleeKyle Cervantes - Last Filed: 08/14/17 13:19> Date of Encounter: 08/14/17 Time of Encounter: 10:30 - Assessment and plan (1) Ascites Current Visit: Yes Status: Resolved Assessment and plan: Secondary to cirrhosis in setting of hepatitis C and alcohol abuse. Status post paracentesis x3 since admission. >2L Patient's abdomen is still distended, but at baseline as no significant fluid found on paracentesis attempt 08/10/17. Stable Last paracentesis completed 08/06/17. Attempted paracentesis on 08/10/17, no significant fluid found. No sbp Continue with spironolactone 100mg Continue lasix at 40mg bid. Qualifiers: Ascites type: due to alcoholic cirrhosis Qualified Code(s): K70.31 - Alcoholic cirrhosis of liver with ascites (2) Alcohol withdrawal Current Visit: Yes Status: Resolved Assessment and plan: Resolved. Beer 3 times a day Patient has no desire of quit alcohol. Continue thiamine, vitamin B, folic acid. Was instructed on the importance of the PT evaluation in order to plan for a safe discharge. Qualifiers: Complication of substance-induced condition: uncomplicated Qualified Code(s ): F10.230 - Alcohol dependence with withdrawal, uncomplicated (3) Tobacco dependence Current Visit: Yes Status: Chronic Assessment and plan: Smoking cessation counseling, nicotine patch (4) Afib Current Visit: Yes Status: Chronic Assessment and plan: Controlled Continue amiodarone and metoprolol. Not a good candidate for anti-coagulation secondary to use of alcohol/falling. Qualifiers: Atrial fibrillation type: chronic Qualified Code(s): I48.2 - Chronic atrial fibrillation (5) CHF (congestive heart failure) Current Visit: Yes Status: Resolved Assessment and plan: Acute systolic CHF exacerbation likely triggered by A. fib with RVR Stable History of alcohol related cardiomyopathy and nonobstructive CAD Echocardiogram revealed improved EF of 30-35% since last Echo and decreased pericardial effusion Continue Lasix 40 mg by mouth twice a day. Continue spironolactone, 100mg qd. Qualifiers: Heart failure type: systolic Heart failure chronicity: chronic Qualified Code(s): I50.22 - Chronic systolic (congestive) heart failure (6) Hepatitis C Current Visit: Yes Status: Chronic Assessment and plan: Known history of Hepatitis C with cirrhosis Follow-up outpatient with PCP Complications secondary to hepatitis C with cirrhosis and alcoholic cirrhosis managed per plans in assessment above. Qualifiers: Viral hepatitis chronicity: chronic Hepatic coma status: without hepatic coma Qualified Code(s): B18.2 - Chronic viral hepatitis C (7) Hepatic encephalopathy Current Visit: Yes Status: Resolved Assessment and plan: Improving, Acute Hepatic encephalopathy Continue lactulose and rifaximin Continue with simethicone for abdominal discomfort after taking lactulose Has been having only 1 bowel movement per day, still not at goal of 3-4. (8) Acute respiratory failure with hypoxia and hypercapnia Current Visit: Yes Status: Resolved Assessment and plan: Resolved Secondary to pneumonia and fluid overload due to cirrhosis and large volume ascites Patient is not requiring oxygen supplementation. Received 6 days of Levaquin and 4 days of Zosyn Taper prednisone. (9) Community acquired pneumonia Current Visit: Yes Status: Resolved Assessment and plan: CXR 07/30/17 revealed increased opacification of left lung base Patient finished antibiotic course of levaquin. Qualifiers: Laterality: left Lung location: lower lobe of lung Qualified Code(s): J18.1 - Lobar pneumonia, unspecified organism - Time Spent With Patient Total time spent is greater than 50% in coordination of care (as documented) at patient's floor/unit and/or counseling patient: - Subjective Interval history: Mr. Wallace was seen and examined this morning and alert and oriented and sitting up at bedside eating. Had 11 bowel movement yesterday. Currently denies fevers, chills, sweats, headaches, chest pain, shortness of breath, changes in bowels or bladder, weakness, loss of sensation, or rash. Patient is aware that he needs to participate in PT today so we can determine placement. - Constitutional Vitals: Temp Pulse Resp BP Pulse Ox 97.3 F L 82 19 115/64 94 08/14/17 04:00 08/14/17 04:00 08/14/17 04:00 08/14/17 04:00 08/14/17 04:00 General appearance: Present: A&O X 3, morbidly obese, no acute distress, obese, answers questions appropriately - Head Head exam: Present: atraumatic, normal inspection, normocephalic - Eye Eye exam: Present: EOMI, normal appearance - ENT ENT exam: Present: mucous membranes moist, normal exam - Neck Neck exam general surgery: Present: full ROM, normal inspection, supple, trachea midline. Absent: lymphadenopathy - Respiratory Respiratory exam: Present: CTAB. Absent: rales, respiratory distress, rhonchi, wheezes - Cardiovascular Cardiovascular exam: Present: RRR, +S1, +S2 - GI/Abdominal GI/Abdominal exam: Present: distended, normal bowel sounds, soft. Absent: guarding, tenderness - Extremities Exam Extremities exam: Present: full ROM, normal inspection, pedal edema (minimal bilateral lower ext), warm, radial pulses palpable and symmetrical. Absent: tenderness - Neurological Exam Neurological exam: Present: no focal deficits, strengths equal and symetr throughout. Absent: facial droop, speech deficit - Skin Skin exam: Present: dry, intact, normal color, warm. Absent: rash Internal Medicine: Result - Labs CBC & Chem 7: 08/14/17 05:24 08/14/17 05:24 Labs: Short CBC 08/14/17 Range/Units 05:24 WBC 7.2 (4.3-11.1) K/mcL Hgb 10.0 L (12.9-16.9) g/dL Hct 33.8 L (37.5-50.1) % Plt Count 148 (140-400) K/mcL BMP 08/14/17 05:24 Sodium 133 L Potassium 3.8 Chloride 96 L Carbon Dioxide 29 BUN 8 Creatinine 0.56 L Glucose 116 H Calcium 9.0 - ABG Interpretation ABG results: ABG ABG pH 7.46 pH Units (7.32-7.45) H 07/31/17 13:43 ABG pCO2 44 mmHg (35-45) 07/31/17 13:43 ABG pO2 94 mmHg (85-104) 07/31/17 13:43 ABG O2 Saturation 98 % (95-98) 07/31/17 13:43 PT/INR, D-dimer PT 12.6 Seconds (9.4-12.1) H 08/07/17 10:00 Consult Discharge Plan - Plan Referrals: NONE,PCP [Primary Care Provider] - <Emery Benson - Last Filed: 08/14/17 19:36> Date of Encounter: 08/14/17 - Assessment and plan (1) Alcohol withdrawal Current Visit: Yes Status: Resolved Qualifiers: Complication of substance-induced condition: uncomplicated Qualified Code(s ): F10.230 - Alcohol dependence with withdrawal, uncomplicated (2) Tobacco dependence Current Visit: Yes Status: Chronic (3) Afib Current Visit: Yes Status: Chronic Qualifiers: Atrial fibrillation type: chronic Qualified Code(s): I48.2 - Chronic atrial fibrillation (4) CHF (congestive heart failure) Current Visit: Yes Status: Resolved Qualifiers: Heart failure type: systolic Heart failure chronicity: chronic Qualified Code(s): I50.22 - Chronic systolic (congestive) heart failure (5) Hepatitis C Current Visit: Yes Status: Chronic Qualifiers: Viral hepatitis chronicity: chronic Hepatic coma status: without hepatic coma Qualified Code(s): B18.2 - Chronic viral hepatitis C (6) Ascites Current Visit: Yes Status: Resolved Qualifiers: Ascites type: due to alcoholic cirrhosis Qualified Code(s): K70.31 - Alcoholic cirrhosis of liver with ascites (7) Hepatic encephalopathy Current Visit: Yes Status: Resolved (8) Acute respiratory failure with hypoxia and hypercapnia Current Visit: Yes Status: Resolved (9) Community acquired pneumonia Current Visit: Yes Status: Resolved Qualifiers: Laterality: left Lung location: lower lobe of lung Qualified Code(s): J18.1 - Lobar pneumonia, unspecified organism - Time Spent With Patient Total time spent is greater than 50% in coordination of care (as documented) at patient's floor/unit and/or counseling patient: - Constitutional Vitals: Temp Pulse Resp BP Pulse Ox 97.9 F 88 24 128/60 95 08/14/17 18:36 08/14/17 18:36 08/14/17 18:36 08/14/17 18:36 08/14/17 18:36 Internal Medicine: Result - Labs CBC & Chem 7: 08/14/17 05:24 08/14/17 05:24 Labs: Short CBC 08/14/17 Range/Units 05:24 WBC 7.2 (4.3-11.1) K/mcL Hgb 10.0 L (12.9-16.9) g/dL Hct 33.8 L (37.5-50.1) % Plt Count 148 (140-400) K/mcL BMP 08/14/17 05:24 Sodium 133 L Potassium 3.8 Chloride 96 L Carbon Dioxide 29 BUN 8 Creatinine 0.56 L Glucose 116 H Calcium 9.0 - ABG Interpretation ABG results: ABG ABG pH 7.46 pH Units (7.32-7.45) H 07/31/17 13:43 ABG pCO2 44 mmHg (35-45) 07/31/17 13:43 ABG pO2 94 mmHg (85-104) 07/31/17 13:43 ABG O2 Saturation 98 % (95-98) 07/31/17 13:43 PT/INR, D-dimer PT 12.6 Seconds (9.4-12.1) H 08/07/17 10:00 - Attending Attestation I examined this patient and my medical decision-making was reviewed with the Resident Physician on 08/14/17. I agree with the documented findings, disposition and treatment plan as described except to the extent set forth below. Mr Wallace is currently admitted for hepatic encephalopathy and liver failure. He remains moderate to high risk due to potential for worsening clinical status. Mr Wallace is feeling OK at this time. No fever or chills. Appetite fair. Worked with PT/OT today. Exam Alert Comfortable at this time Heart irreg No wheeze abd soft I/P 1. ETOH 2. Encephalopathy Further diagnoses and plan as above.
[2017-08-15 05:29] LABS: BUN/Creatinine Ratio 15 (6-26); Blood Urea Nitrogen 8 mg/dL (6-20); Carbon Dioxide 31 mEq/L (23-29); Chloride 95 mEq/L (98-107); Glucose 119 mg/dL (70-105); Osmolality,Calculated 273 (280-300); Potassium 3.8 mEq/L (3.5-5.1); Sodium 132 mEq/L (136-145); eGFR For African Americans > 60 (> 60); eGFR For Non-African Americans > 60 (> 60)
[2017-08-15] MEDS: *HR* Heparin 5,000 UNIT/ML VIAL SQ SCH ×2 (06:48→17:32)
[2017-08-15] MEDS: *HR* Amiodarone 200 MG TABLET PO SCH (09:36)
[2017-08-15] MEDS: Furosemide 40 MG TABLET PO SCH ×2 (09:36→17:31)
[2017-08-15] MEDS: Folic Acid 1 MG TABLET PO SCH (09:36)
[2017-08-15] MEDS: Lactulose Oral Soln 20 GM/30 ML UDC PO SCH ×3 (09:38→23:04)
[2017-08-15] MEDS: Nicotine 21 MG PATCH.TD24 TD SCH (09:38)
[2017-08-15] MEDS: Thiamine (B-1) 100 MG TABLET PO SCH (09:38)
[2017-08-15] MEDS: Vitamin B Complex/Vit C/Vit E 1 EACH TABLET PO SCH (09:38)
[2017-08-15] MEDS: Simethicone 80 MG TAB.CHEW PO SCH ×3 (09:38→23:03)
[2017-08-15] MEDS: Magnesium Oxide 400 MG TABLET PO SCH ×2 (09:38→23:03)
[2017-08-15] MEDS: Beer can PO SCH ×3 (09:38→17:32)
--- NOTE | 2017-08-15 10:58 | Internal Med Progress Note ---
<Casimiro Talamantes - Last Filed: 08/15/17 10:56> Date of Encounter: 08/15/17 Time of Encounter: 10:56 - Assessment and plan (1) Alcohol withdrawal Current Visit: Yes Status: Resolved Assessment and plan: Resolved. Beer 3 times a day Patient has no desire of quit alcohol. Continue thiamine, vitamin B, folic acid. Was instructed on the importance of the PT evaluation in order to plan for a safe discharge. Qualifiers: Complication of substance-induced condition: uncomplicated Qualified Code(s ): F10.230 - Alcohol dependence with withdrawal, uncomplicated (2) Tobacco dependence Current Visit: Yes Status: Chronic Assessment and plan: Smoking cessation counseling, nicotine patch (3) Afib Current Visit: Yes Status: Chronic Assessment and plan: Controlled Continue amiodarone and metoprolol. Not a good candidate for anti-coagulation secondary to use of alcohol/falling. Qualifiers: Atrial fibrillation type: chronic Qualified Code(s): I48.2 - Chronic atrial fibrillation (4) CHF (congestive heart failure) Current Visit: Yes Status: Resolved Assessment and plan: Acute systolic CHF exacerbation likely triggered by A. fib with RVR Stable History of alcohol related cardiomyopathy and nonobstructive CAD Echocardiogram revealed improved EF of 30-35% since last Echo and decreased pericardial effusion Continue Lasix 40 mg by mouth twice a day. Continue spironolactone, 100mg qd. Qualifiers: Heart failure type: systolic Heart failure chronicity: chronic Qualified Code(s): I50.22 - Chronic systolic (congestive) heart failure (5) Hepatitis C Current Visit: Yes Status: Chronic Assessment and plan: Known history of Hepatitis C with cirrhosis Follow-up outpatient with PCP Complications secondary to hepatitis C with cirrhosis and alcoholic cirrhosis managed per plans in assessment above. Qualifiers: Viral hepatitis chronicity: chronic Hepatic coma status: without hepatic coma Qualified Code(s): B18.2 - Chronic viral hepatitis C (6) Ascites Current Visit: Yes Status: Resolved Assessment and plan: Secondary to cirrhosis in setting of hepatitis C and alcohol abuse. Status post paracentesis x3 since admission. >2L Patient's abdomen is still distended, but at baseline as no significant fluid found on paracentesis attempt 08/10/17. Stable Last paracentesis completed 08/06/17. Attempted paracentesis on 08/10/17, no significant fluid found. No sbp Continue with spironolactone 100mg Continue lasix at 40mg bid. Qualifiers: Ascites type: due to alcoholic cirrhosis Qualified Code(s): K70.31 - Alcoholic cirrhosis of liver with ascites (7) Hepatic encephalopathy Current Visit: Yes Status: Resolved Assessment and plan: Resolved Continue lactulose and rifaximin Continue with simethicone for abdominal discomfort after taking lactulose Has been having only 1 bowel movement per day, still not at goal of 3-4. (8) Acute respiratory failure with hypoxia and hypercapnia Current Visit: Yes Status: Resolved Assessment and plan: Resolved Secondary to pneumonia and fluid overload due to cirrhosis and large volume ascites Patient is not requiring oxygen supplementation. Received 6 days of Levaquin and 4 days of Zosyn (9) Community acquired pneumonia Current Visit: Yes Status: Resolved Assessment and plan: CXR 07/30/17 revealed increased opacification of left lung base Patient finished antibiotic course of levaquin. Qualifiers: Laterality: left Lung location: lower lobe of lung Qualified Code(s): J18.1 - Lobar pneumonia, unspecified organism - Time Spent With Patient Total time spent is greater than 50% in coordination of care (as documented) at patient's floor/unit and/or counseling patient: - Subjective Interval history: No acute overnight events. Patient is awake and alert when entering the room. Currently we are having trouble placing him for skilled rehabilitation as patient was not participating therapy. Yesterday patient was compliant with PT/ OT. - Constitutional Vitals: Temp Pulse Resp BP Pulse Ox 97.4 F L 82 18 101/72 91 08/15/17 07:18 08/15/17 07:18 08/15/17 07:18 08/15/17 07:18 08/15/17 07:18 General appearance: Present: A&O X 3, morbidly obese, no acute distress, obese, answers questions appropriately - Other Additional findings: General: without distress HEENT: Head atraumatic, normocephalic, EOMI, PERRL, neck nontender to palpation , absent lymphadenopathy, Moist Mucous Membranes, Heart: Regular rate and rhythm with no murmur Lungs: Clear to auscultation bilaterally Abdomen: Soft nontender, distended positive bowel sounds. Absent fluid wave Skin: warm and dry, absent rash Extremities: Absent pedal edema, Neuro: Alert oriented 3 Vascular: Pedal and radial pulses 2 out of 4 Internal Medicine: Result - Labs CBC & Chem 7: 08/14/17 05:24 08/15/17 04:38 Labs: BMP 08/15/17 04:38 Sodium 132 L Potassium 3.8 Chloride 95 L Carbon Dioxide 31 H BUN 8 Creatinine 0.54 L Glucose 119 H Calcium 9.0 - ABG Interpretation ABG results: ABG ABG pH 7.46 pH Units (7.32-7.45) H 07/31/17 13:43 ABG pCO2 44 mmHg (35-45) 07/31/17 13:43 ABG pO2 94 mmHg (85-104) 07/31/17 13:43 ABG O2 Saturation 98 % (95-98) 07/31/17 13:43 PT/INR, D-dimer PT 12.6 Seconds (9.4-12.1) H 08/07/17 10:00 Consult Discharge Plan - Plan Referrals: NONE,PCP [Primary Care Provider] - <Emery Benson - Last Filed: 08/15/17 18:28> Date of Encounter: 08/15/17 - Assessment and plan (1) Hepatic encephalopathy Current Visit: Yes Status: Resolved (2) Ascites Current Visit: Yes Status: Resolved Qualifiers: Ascites type: due to alcoholic cirrhosis Qualified Code(s): K70.31 - Alcoholic cirrhosis of liver with ascites (3) Hepatitis C Current Visit: Yes Status: Chronic Qualifiers: Viral hepatitis chronicity: chronic Hepatic coma status: without hepatic coma Qualified Code(s): B18.2 - Chronic viral hepatitis C (4) Alcohol withdrawal Current Visit: Yes Status: Resolved Qualifiers: Complication of substance-induced condition: uncomplicated Qualified Code(s ): F10.230 - Alcohol dependence with withdrawal, uncomplicated (5) Tobacco dependence Current Visit: Yes Status: Chronic (6) Afib Current Visit: Yes Status: Chronic Qualifiers: Atrial fibrillation type: chronic Qualified Code(s): I48.2 - Chronic atrial fibrillation (7) CHF (congestive heart failure) Current Visit: Yes Status: Resolved Qualifiers: Heart failure type: systolic Heart failure chronicity: chronic Qualified Code(s): I50.22 - Chronic systolic (congestive) heart failure (8) Acute respiratory failure with hypoxia and hypercapnia Current Visit: Yes Status: Resolved (9) Community acquired pneumonia Current Visit: Yes Status: Resolved Qualifiers: Laterality: left Lung location: lower lobe of lung Qualified Code(s): J18.1 - Lobar pneumonia, unspecified organism - Time Spent With Patient Total time spent is greater than 50% in coordination of care (as documented) at patient's floor/unit and/or counseling patient: - Constitutional Vitals: Temp Pulse Resp BP Pulse Ox 97.8 F 89 18 116/78 97 08/15/17 16:06 08/15/17 16:06 08/15/17 16:06 08/15/17 16:06 08/15/17 16:06 Internal Medicine: Result - Labs CBC & Chem 7: 08/14/17 05:24 08/15/17 04:38 Labs: BMP 08/15/17 04:38 Sodium 132 L Potassium 3.8 Chloride 95 L Carbon Dioxide 31 H BUN 8 Creatinine 0.54 L Glucose 119 H Calcium 9.0 - ABG Interpretation ABG results: ABG ABG pH 7.46 pH Units (7.32-7.45) H 07/31/17 13:43 ABG pCO2 44 mmHg (35-45) 07/31/17 13:43 ABG pO2 94 mmHg (85-104) 07/31/17 13:43 ABG O2 Saturation 98 % (95-98) 07/31/17 13:43 PT/INR, D-dimer PT 12.6 Seconds (9.4-12.1) H 08/07/17 10:00 - Attending Attestation I examined this patient and my medical decision-making was reviewed with the Resident Physician on 08/15/17. I agree with the documented findings, disposition and treatment plan as described except to the extent set forth below. Mr Wallace is currently admitted for hepatic failure and rapid a fib. He remains moderate to high risk due to potential for worsening clinical status. Mr Wallace is about the same. No fever or chills or other new issues. Awaiting decision from SNF. Exam alert Comfortable Mucus membranes dry Heart distant No wheeze Abd soft I/P 1. Hepatic failure 2. A fib Further diagnoses and plan as above.
[2017-08-16] MEDS: *HR* Heparin 5,000 UNIT/ML VIAL SQ SCH (06:52)
[2017-08-16 07:49] VITALS: BP 113/75
--- NOTE | 2017-08-16 08:37 | Internal Med Progress Note ---
Date of Encounter: 08/16/17 Time of Encounter: 08:36 - Assessment and plan (1) Ascites Current Visit: Yes Status: Resolved Assessment and plan: Secondary to cirrhosis in setting of hepatitis C and alcohol abuse. Status post paracentesis x3 since admission. Patient's abdomen is still distended, but at baseline as no significant fluid found on paracentesis attempt 08/10/17. Stable Last paracentesis completed 08/06/17. Attempted paracentesis on 08/10/17, no significant fluid found. No sbp Continue with spironolactone 100mg Continue lasix at 40mg bid. Qualifiers: Ascites type: due to alcoholic cirrhosis Qualified Code(s): K70.31 - Alcoholic cirrhosis of liver with ascites (2) Alcohol withdrawal Current Visit: Yes Status: Resolved Assessment and plan: Resolved. Beer 3 times a day Patient has no desire of quit alcohol. Continue thiamine, vitamin B, folic acid. Participated in PT/OT and they recommend SNF/ECF. Patient has routinely declined PT/OT and upon mentioning what recommendations for placement, patient adamantly refuses going to any intermediate or facility. Qualifiers: Complication of substance-induced condition: uncomplicated Qualified Code(s ): F10.230 - Alcohol dependence with withdrawal, uncomplicated (3) Tobacco dependence Current Visit: Yes Status: Chronic Assessment and plan: Smoking cessation counseling, nicotine patch (4) Afib Current Visit: Yes Status: Chronic Assessment and plan: Controlled Continue amiodarone and metoprolol. Not a good candidate for anti-coagulation secondary to use of alcohol/falling. Qualifiers: Atrial fibrillation type: chronic Qualified Code(s): I48.2 - Chronic atrial fibrillation (5) CHF (congestive heart failure) Current Visit: Yes Status: Resolved Assessment and plan: Acute systolic CHF exacerbation likely triggered by A. fib with RVR Stable History of alcohol related cardiomyopathy and nonobstructive CAD Echocardiogram revealed improved EF of 30-35% since last Echo and decreased pericardial effusion Continue Lasix 40 mg by mouth twice a day. Continue spironolactone, 100mg qd. Qualifiers: Heart failure type: systolic Heart failure chronicity: chronic Qualified Code(s): I50.22 - Chronic systolic (congestive) heart failure (6) Hepatitis C Current Visit: Yes Status: Chronic Assessment and plan: Known history of Hepatitis C with cirrhosis Follow-up outpatient with PCP Complications secondary to hepatitis C with cirrhosis and alcoholic cirrhosis managed per plans in assessment above. Qualifiers: Viral hepatitis chronicity: chronic Hepatic coma status: without hepatic coma Qualified Code(s): B18.2 - Chronic viral hepatitis C (7) Hepatic encephalopathy Current Visit: Yes Status: Resolved Assessment and plan: Resolved Continue lactulose and rifaximin Continue with simethicone for abdominal discomfort after taking lactulose Has been having at most 1 bowel movement in a day (8) Acute respiratory failure with hypoxia and hypercapnia Current Visit: Yes Status: Resolved Assessment and plan: Resolved Secondary to pneumonia and fluid overload due to cirrhosis and large volume ascites Patient is not requiring oxygen supplementation. Received 6 days of Levaquin and 4 days of Zosyn (9) Community acquired pneumonia Current Visit: Yes Status: Resolved Assessment and plan: CXR 07/30/17 revealed increased opacification of left lung base Patient finished antibiotic course of levaquin. Qualifiers: Laterality: left Lung location: lower lobe of lung Qualified Code(s): J18.1 - Lobar pneumonia, unspecified organism - Time Spent With Patient Total time spent is greater than 50% in coordination of care (as documented) at patient's floor/unit and/or counseling patient: - Subjective Interval history: Mr. Wallace was seen and examined this morning and alert and oriented x3 and sitting up at bedside eating. No bowel movement overnight. Currently denies fevers, chills, sweats, headaches, chest pain, shortness of breath, changes in bowels or bladder, weakness, loss of sensation, or rash. Patient is aware that he needs to participate in PT/O today. Adamantly refuses to be sent to a intermediate as recommended by PT/OT. - Constitutional Vitals: Temp Pulse Resp BP Pulse Ox 97.4 F L 95 15 113/75 95 08/16/17 07:45 08/16/17 07:45 08/16/17 07:45 08/16/17 07:45 08/16/17 07:45 General appearance: Present: A&O X 3, no acute distress, obese, answers questions appropriately - Head Head exam: Present: atraumatic, normal inspection, normocephalic - Eye Eye exam: Present: EOMI, normal appearance - ENT ENT exam: Present: mucous membranes moist - Neck Neck exam general surgery: Present: full ROM, normal inspection - Respiratory Respiratory exam: Present: CTAB. Absent: rales, respiratory distress, rhonchi, wheezes - Cardiovascular Cardiovascular exam: Present: RRR, +S1, +S2 - GI/Abdominal GI/Abdominal exam: Present: distended, normal bowel sounds, soft. Absent: tenderness - Extremities Exam Extremities exam: Present: full ROM, normal inspection, warm, radial pulses palpable and symmetrical. Absent: pedal edema - Skin Skin exam: Present: dry, intact, normal color, warm. Absent: rash Internal Medicine: Result - Labs CBC & Chem 7: 08/14/17 05:24 08/16/17 08:41 - ABG Interpretation ABG results: ABG ABG pH 7.46 pH Units (7.32-7.45) H 07/31/17 13:43 ABG pCO2 44 mmHg (35-45) 07/31/17 13:43 ABG pO2 94 mmHg (85-104) 07/31/17 13:43 ABG O2 Saturation 98 % (95-98) 07/31/17 13:43 PT/INR, D-dimer PT 12.6 Seconds (9.4-12.1) H 08/07/17 10:00 Consult Discharge Plan - Plan Referrals: NONE,PCP [Primary Care Provider] -
[2017-08-16 09:09] LABS: BUN/Creatinine Ratio 15 (6-26); Blood Urea Nitrogen 8 mg/dL (6-20); Carbon Dioxide 28 mEq/L (23-29); Chloride 94 mEq/L (98-107); Glucose 172 mg/dL (70-105); Osmolality,Calculated 270 (280-300); Potassium 3.9 mEq/L (3.5-5.1); Sodium 129 mEq/L (136-145); eGFR For African Americans > 60 (> 60); eGFR For Non-African Americans > 60 (> 60)
[2017-08-16] MEDS: Thiamine (B-1) 100 MG TABLET PO SCH (10:26)
[2017-08-16] MEDS: *HR* Amiodarone 200 MG TABLET PO SCH (10:26)
[2017-08-16] MEDS: Folic Acid 1 MG TABLET PO SCH (10:26)
[2017-08-16] MEDS: Nicotine 21 MG PATCH.TD24 TD SCH (10:26)
[2017-08-16] MEDS: Vitamin B Complex/Vit C/Vit E 1 EACH TABLET PO SCH (10:26)
[2017-08-16] MEDS: Magnesium Oxide 400 MG TABLET PO SCH (10:26)
[2017-08-16] MEDS: Simethicone 80 MG TAB.CHEW PO SCH (10:26)
[2017-08-16] MEDS: Furosemide 40 MG TABLET PO SCH (10:26)
[2017-08-16] MEDS: Lactulose Oral Soln 20 GM/30 ML UDC PO SCH (10:26)
[2017-08-16] MEDS: Beer can PO SCH ×2 (10:27→11:48)
--- NOTE | 2017-08-16 15:05 | Discharge Summary ---
<Kyle Lee - Last Filed: 08/16/17 15:15> - NOTES TO OUTPATIENT PROVIDER Notes to Outpatient Provider: Patient was admitted for afib rvr and hepatic encephalopathy secondary to alcohol abuse and liver cirrhosis. Patient had 3 paracentesis completed during hospital stay before medically managed with diuretics including lasix and spironolactone. He refused to decreased an quit alcohol, so he was continued with beer tid to prevent further withdrawal. During the rest of his hospital stay PT/OT recommended SNF transfer; however, patient refuses to go and would like to leave the hospital. He is currently medically cleared other than not following PT/OT recommendations for placement. Sent with new Rx for Lasix 40mg bid, Lactulosed 20gm po tid, metoprolol 75mg bid, Rifaximin 400mg bid, and spironolactone 100mg qd. Date of Encounter: 08/16/17 Time of Encounter: 15:01 - Discharge Diagnosis (1) Ascites Priority: Primary Status: Resolved Assessment and Plan: Secondary to cirrhosis in setting of hepatitis C and alcohol abuse. Status post paracentesis x3 since admission. Patient's abdomen is still distended, but at baseline as no significant fluid found on paracentesis attempt 08/10/17. Stable Last paracentesis completed 08/06/17. Attempted paracentesis on 08/10/17, no significant fluid found. No sbp Continue with spironolactone 100mg Continue lasix at 40mg bid. Qualifiers: Ascites type: due to alcoholic cirrhosis Qualified Code(s): K70.31 - Alcoholic cirrhosis of liver with ascites (2) Alcohol withdrawal Priority: Primary Status: Resolved Assessment and Plan: Resolved. Beer 3 times a day Patient has no desire of quit alcohol. Continue thiamine, vitamin B, folic acid. Participated in PT/OT and they recommend SNF/ECF. Patient has routinely declined PT/OT and upon mentioning what recommendations for placement, patient adamantly refuses going to any long term or facility. Qualifiers: Complication of substance-induced condition: uncomplicated Qualified Code(s ): F10.230 - Alcohol dependence with withdrawal, uncomplicated (3) Tobacco dependence Priority: Secondary Status: Chronic Assessment and Plan: Smoking cessation counseling, nicotine patch (4) Afib Priority: Primary Status: Chronic Assessment and Plan: Controlled Continue amiodarone and metoprolol. Not a good candidate for anti-coagulation secondary to use of alcohol/falling. Qualifiers: Atrial fibrillation type: chronic Qualified Code(s): I48.2 - Chronic atrial fibrillation (5) CHF (congestive heart failure) Priority: Secondary Status: Resolved Assessment and Plan: Acute systolic CHF exacerbation likely triggered by A. fib with RVR Stable History of alcohol related cardiomyopathy and nonobstructive CAD Echocardiogram revealed improved EF of 30-35% since last Echo and decreased pericardial effusion Continue Lasix 40 mg by mouth twice a day. Continue spironolactone, 100mg qd. Qualifiers: Heart failure type: systolic Heart failure chronicity: chronic Qualified Code(s): I50.22 - Chronic systolic (congestive) heart failure (6) Hepatitis C Priority: Secondary Status: Chronic Assessment and Plan: Known history of Hepatitis C with cirrhosis Follow-up outpatient with PCP Complications secondary to hepatitis C with cirrhosis and alcoholic cirrhosis managed per plans in assessment above. Qualifiers: Viral hepatitis chronicity: chronic Hepatic coma status: without hepatic coma Qualified Code(s): B18.2 - Chronic viral hepatitis C (7) Hepatic encephalopathy Priority: Primary Status: Resolved Assessment and Plan: Resolved Continue lactulose and rifaximin Continue with simethicone for abdominal discomfort after taking lactulose Has been having at most 1 bowel movement in a day (8) Acute respiratory failure with hypoxia and hypercapnia Priority: Primary Status: Resolved Assessment and Plan: Resolved Secondary to pneumonia and fluid overload due to cirrhosis and large volume ascites Patient is not requiring oxygen supplementation. Received 6 days of Levaquin and 4 days of Zosyn (9) Community acquired pneumonia Priority: Primary Status: Resolved Assessment and Plan: CXR 07/30/17 revealed increased opacification of left lung base Patient finished antibiotic course of levaquin. Qualifiers: Laterality: left Lung location: lower lobe of lung Qualified Code(s): J18.1 - Lobar pneumonia, unspecified organism Hospital course: Mr. Wallace is a 56 year old male with history of afib not on anticoagulation, liver cirrhosis secondary to hepatitis C and alcoholic hepatitis, htn, hx of DC , anxiety and depression, and alcohol abuse who presented to the ED with complaint of chest pain, increased abdominal girth, and lower extremity swelling. Patient was started on Cardizem drip for afib rvr which was likely contributed to alcohol withdrawal. Troponin was 0.03 x 3. Patient was also treated for alcohol withdrawal , also Community aquired pneumonia with levaquin. Patient underwent a total of 3 paracentesis during this hospital stay during which time Lasix and Aldactone was started to help with diuresis. Patient also had AMS with hepatic encephalopathy due to noncompliance with lactulose. As a result patient was also started on Rifaximin. Due to the patient expressing he would not stop drinking alcohol, we instead of managing withdrawal to completion started on beer tid. PT/OT was able to evaluate patient and recommended SNF/ECF, however patient refuses this placement and plans to return home. Mr. Wallcae was seen and examined this morning and alert and oriented x3 and sitting up at bedside eating. No bowel movement overnight. Currently denies fevers, chills, sweats, headaches, chest pain, shortness of breath, changes in bowels or bladder, weakness, loss of sensation, or rash. Patient is aware that he needs to participate in PT/OT today. Adamantly refuses to be sent to a long term as recommended by PT/OT. New medications or change in dosage: Furosemide 40mg bid, Lactulose 20gm tid, Metoprolol 75mg bid, Rifaximin 40mg bid, and Spironolactone 100mg qd. Discharge home despite PT/OT recommendations as patient refuses placement. No PCP currently, information handed to patient. - Time Spent with Patient Total time spent providing and/or coordinating discharge services: - Discharge Medications Prescriptions: Folic Acid 1 mg PO DAILY #30 tablet Furosemide [Lasix] 40 mg PO BIDDIURETIC #60 tablet Lactulose 20 gm PO TID 30 Days #90 udc Metoprolol [Lopressor] 75 mg PO BID #60 tablet Rifaximin [Xifaxan] 400 mg PO BID #60 tablet Spironolactone [Aldactone] 100 mg PO DAILY #30 tablet Thiamine (B-1) [Vitamin B-1] 100 mg PO DAILY #30 tablet Vitamin B Complex/Vit C/Vit E [Stresstab] 1 each PO DAILY #30 tablet Home Medications: Omeprazole [PriLOSEC] 20 mg PO DAILY #30 cap 10/24/16 [Rx] Amiodarone [Cordarone] 200 mg PO DAILY 01/16/17 [History] Folic Acid 1 mg PO DAILY #30 tablet 08/16/17 [Rx] Furosemide [Lasix] 40 mg PO BIDDIURETIC #60 tablet 08/16/17 [Rx] Lactulose 20 gm PO TID 30 Days #90 udc 08/16/17 [Rx] Metoprolol [Lopressor] 75 mg PO BID #60 tablet 08/16/17 [Rx] Rifaximin [Xifaxan] 400 mg PO BID #60 tablet 08/16/17 [Rx] Spironolactone [Aldactone] 100 mg PO DAILY #30 tablet 08/16/17 [Rx] Thiamine (B-1) [Vitamin B-1] 100 mg PO DAILY #30 tablet 08/16/17 [Rx] Vitamin B Complex/Vit C/Vit E [Stresstab] 1 each PO DAILY #30 tablet 08/16/17 [ Rx] Allergies/Adverse Reactions: 3 Allergy/AdvReac Type Severity Reaction Status Date / Time haloperidol [From Haldol] AdvReac Seizure Verified 07/28/17 14:18 Date of admission: 07/29/17 20:21 Primary care physician: PCP NONE Consults: 08/01/17 10:40 Consult to Interventional Radiology [CONS] Routine Consulting Provider: Radiology Interventional [facility] Reason for Consult: Patient in need of additional paracentesis Call Completed: Yes 08/01/17 10:42 Consult to Palliative Care [CONS] Routine Comment: Consulting Provider: Palliative Care [facility] Reason for Consult: Concerned for goals of care given patient history of non- compliance and very high likelihood of readmission. Call Completed: Yes 08/02/17 11:26 Consult to Occupational Therapy [CONS] Routine Comment: Evaluate, develop and implement POC Reason for Consult: Chronic alcoholic. Worsened weakness. Does patient have active BEDREST order?: No Is patient medically & hemodynamically stable?: Yes Patient assessed for mobility or mobilized this visit?: No Consult to Physical Therapy [CONS] Routine Comment: Evaluate, develop and implement POC Reason for Consult: Chronic alcoholic. Worsened weakness. Does patient have active BEDREST order?: No Is patient medically & hemodynamically stable?: Yes Patient assessed for mobility or mobilized this visit?: No 08/03/17 14:54 Consult to Interventional Radiology [CONS] Routine Consulting Provider: Radiology Interventional [facility] Reason for Consult: Pleuryx catheter placement on Sunday08/06/17 Call Completed: Yes Discharging clinician: Emery Benson ([facility]) Anticipated date of discharge: 08/16/17 - Constitutional Vitals: Temp Pulse Resp BP Pulse Ox 97.4 F L 95 15 113/75 95 08/16/17 07:45 08/16/17 07:45 08/16/17 07:45 08/16/17 07:45 08/16/17 07:45 General appearance: Present: A&O X 3, no acute distress, obese, answers questions appropriately - Head Head exam: Present: atraumatic, normal inspection, normocephalic - Eye Eye exam: Present: EOMI, normal appearance - ENT ENT exam: Present: mucous membranes moist, normal exam - Neck Neck exam general surgery: Present: full ROM, normal inspection, supple, trachea midline - Respiratory Respiratory exam: Present: CTAB. Absent: rales, respiratory distress, rhonchi, wheezes - Cardiovascular Cardiovascular exam: Present: RRR, +S1, +S2 - GI/Abdominal GI/Abdominal exam: Present: distended, normal bowel sounds, soft. Absent: tenderness - Extremities Exam Extremities exam: Present: full ROM, normal inspection, warm, radial pulses palpable and symmetrical. Absent: pedal edema - Skin Skin exam: Present: dry, intact, normal color, warm. Absent: rash - Patient Status Disposition: Home, Self-Care Condition: Good Functional capacity at discharge: independent ambulation Overall status at discharge: patient is progressing back to baseline - Discharge Instructions Instructions: Metoprolol (By mouth), Spironolactone (By mouth), Furosemide (By mouth), Folic Acid (By mouth), Lactulose (By mouth), Rifaximin (By mouth), Vitamin B Complex (By mouth), Heart Failure (DC), Atrial Fibrillation (DC), Chest Pain (DC), Alcohol Intoxication (DC), Alcohol Intoxication (GEN), Anemia ( GEN), Pneumonia (DC), Cigarette Smoking and Your Health, Shingle Carrier (GEN), Viral Hepatitis C, Shingle Carrier (GEN) Follow Up With: Geovanny Jeffers DO [Resident] - 08/21/17 2:00 pm Forms: ED Satisfaction Letter Additional Instructions: We filled most of your prescriptions here at [facility] for you so you would have them to take. The ones we did not have, please go to a pharmacy and fill, take these as prescribed. - Diet and Activity Activity: as per physical therapy, increase activity as tolerated Diet: low fat, low cholesterol, low salt diet <Emery Benson Marisa - Last Filed: 08/16/17 17:01> Date of Encounter: 08/16/17 - Discharge Diagnosis (1) Alcohol withdrawal Status: Resolved Qualifiers: Complication of substance-induced condition: uncomplicated Qualified Code(s ): F10.230 - Alcohol dependence with withdrawal, uncomplicated (2) Tobacco dependence Status: Chronic (3) Afib Status: Chronic Qualifiers: Atrial fibrillation type: chronic Qualified Code(s): I48.2 - Chronic atrial fibrillation (4) CHF (congestive heart failure) Status: Resolved Qualifiers: Heart failure type: systolic Heart failure chronicity: chronic Qualified Code(s): I50.22 - Chronic systolic (congestive) heart failure (5) Hepatitis C Status: Chronic Qualifiers: Viral hepatitis chronicity: chronic Hepatic coma status: without hepatic coma Qualified Code(s): B18.2 - Chronic viral hepatitis C (6) Ascites Status: Resolved Qualifiers: Ascites type: due to alcoholic cirrhosis Qualified Code(s): K70.31 - Alcoholic cirrhosis of liver with ascites (7) Hepatic encephalopathy Status: Resolved (8) Acute respiratory failure with hypoxia and hypercapnia Status: Resolved (9) Community acquired pneumonia Status: Resolved Qualifiers: Laterality: left Lung location: lower lobe of lung Qualified Code(s): J18.1 - Lobar pneumonia, unspecified organism Hospital course: Mr. Wallace is a 56 year old male - Time Spent with Patient Total time spent providing and/or coordinating discharge services: 38min Date of admission: 07/29/17 20:21 Primary care physician: PCP NONE Consults: 08/01/17 10:40 Consult to Interventional Radiology [CONS] Routine Consulting Provider: Radiology Interventional [facility] Reason for Consult: Patient in need of additional paracentesis Call Completed: Yes 08/01/17 10:42 Consult to Palliative Care [CONS] Routine Comment: Consulting Provider: Palliative Care [facility] Reason for Consult: Concerned for goals of care given patient history of non- compliance and very high likelihood of readmission. Call Completed: Yes 08/02/17 11:26 Consult to Occupational Therapy [CONS] Routine Comment: Evaluate, develop and implement POC Reason for Consult: Chronic alcoholic. Worsened weakness. Does patient have active BEDREST order?: No Is patient medically & hemodynamically stable?: Yes Patient assessed for mobility or mobilized this visit?: No Consult to Physical Therapy [CONS] Routine Comment: Evaluate, develop and implement POC Reason for Consult: Chronic alcoholic. Worsened weakness. Does patient have active BEDREST order?: No Is patient medically & hemodynamically stable?: Yes Patient assessed for mobility or mobilized this visit?: No 08/03/17 14:54 Consult to Interventional Radiology [CONS] Routine Consulting Provider: Radiology Interventional [facility] Reason for Consult: Pleuryx catheter placement on Sunday08/06/17 Call Completed: Yes - Constitutional Vitals: Temp Pulse Resp BP Pulse Ox 97.4 F L 95 15 113/75 95 08/16/17 07:45 08/16/17 07:45 08/16/17 07:45 08/16/17 07:45 08/16/17 07:45 - Attending Attestation I examined this patient and my medical decision-making was reviewed with the Resident Physician on 08/16/17. I agree with the documented findings, disposition and treatment plan as described except to the extent set forth below. Mr Wallace has been admitted for acute hepatic failure, ascites and resp failure. He has been evaluated by PT and OT and recommended SNF. He refuses to go there. He wants to go home at this time. Overall his condition has improved with current treatment. Currently he is afebrile and tolerating a diet. He will be discharged home. Exam alert Comfortable Mucus membranes dry Heart irreg Lungs diminished Abd soft Plan D/C home today Advised alcohol and tobacco cessation Take meds as ordered. Cannot get HHC as has no PCP at this time (sister to make appt). This patient is very high risk for readmission due to his general status and medical issues. He refused SNF at this time.
== END 2017-08-16 17:55 | disposition home or self-care (01) | DRG 280 ==
LOC: EMEROO 03:21 → 2NENU 03:21 → SUATTDRO 07-29 20:21
PROVIDERS: ADMIT Internal Medicine; ATTEND Internal Medicine

== ENCOUNTER 2017-09-05 16:31 | Inpatient (IN) ==
--- NOTE | 2017-09-05 18:38 | Psychiatry History & Physical ---
Date of Encounter: 09/05/17 Time of Encounter: 18:00 History of Present Illness Patient Stated Chief Complaint: depressed Medicare Admission Attestation: For traditional Medicare patients the provided hospital inpatient services are reasonable and necessary and in the case of services not specified as inpatient -only under 42 CFR 419.22 (n), that they are appropriately provided as inpatient services in accordance 42 CFR 412.3. For Critical Access Hospital the patient may reasonably be expected to be discharged or transferred to a hospital within 96 hours after admission to the Critical Access Hospital. Admitted From: Intrahospital Transfer Plans for Post Hospital Care: Home History of Present Illness: Mr. Wallace is a 56 yo,, male, marriedx4 x4, with 3 children, who presents for Alcohol use D/O severe, Depression and Passive suicidal ideations. During the interview, pt was very polite. Pt noted that he feels he is still very depressed, however denies any suicidal ideations. Pt denied any thoughts to harm himself. Pt denied any side effects to current medications. Pt noted he felt safe and comfortable on the unit. Pt is agreed to continue sertraline 50 mg po QAM for mood and mirtazapine 7.5 mg po QHS for mood/insomina Pt was educated on the risks benefits and side effects of current medications including no medications. Pt continues to improve. Pt noted that he is doing alright today. Pt noted he slept better last night. Pt noted his appetite is Increasing. Pt rated his depression a 8, on a scale of zero to ten with ten being the worst and zero being none. Pt rate his anxiety a 8, on the same scale. Pt denied any auditory or visiual hallucinations. Pt denied any current thoughts to harm himself or anyone else. highest level of education is [employer] and [employer] Pt denied any previous suicide attempts Pt denied any inpt psychiatric admissions. Pt denied any family hx of suicides or mental illness Tobacco: 1/2 PPD Alcohol: at least 6, 24 oz beers per [address] Street: Denied however was positive for benzodiazepines Caffeine: 2-3 drinks per day Pt denies any hx of HIV, TBI or Seizures. Pt noted he is Hep C positive. Pt noted has a hx of seizures when he tried to stop drinking alcohol 1.Interval hx 2.Continue current medications 3.Review current labs 4.Pt had an opportunity to ask questions and discuss current treatment plan. 5.Supportive therapy was provided 6.Pt encouraged to consider group or individual therapy 7.Pt was in agreement with treatment plan. 8.Pt was educated on the risks benefits and side effects of current medications. 9. Continue sertraline 50 mg PO QAM for mood and mirtazapine 7.5 mg PO QHS for insomina. Past Med Surg Social Fam HX - Past Medical History Medical history: atrial fibrillation, cirrhosis, CHF, GERD, hepatitis, hypertension, liver disease, myocardial infarction, other - Past Psychiatric History Psychiatric history: Reports: depression, previous psychiatric hospitalization Family psychiatric history: Yes Family History of Suicide: None - Past Surgical History Surgical History: cataract - Social History Smoking Status: Current every day smoker Smokeless Tobacco Status: No Alcohol use: heavy, recent Drug use: none - Family History Mother Hx Family Cardiac Disorders: Yes Father Hx Family Cardiac Disorders: Yes Sister Hx Family Cardiac Disorders: Yes (Pacemaker placed) Medications & Allergies Folic Acid 1 mg PO DAILY #30 tablet 08/16/17 [Rx] Furosemide [Lasix] 40 mg PO BIDDIURETIC #60 tablet 08/16/17 [Rx] Lactulose 20 gm PO TID 30 Days #90 udc 08/16/17 [Rx] Metoprolol [Lopressor] 75 mg PO BID #60 tablet 08/16/17 [Rx] Rifaximin [Xifaxan] 400 mg PO BID #60 tablet 08/16/17 [Rx] Spironolactone [Aldactone] 100 mg PO DAILY #30 tablet 08/16/17 [Rx] Thiamine (B-1) [Vitamin B-1] 100 mg PO DAILY #30 tablet 08/16/17 [Rx] 3 Allergy/AdvReac Type Severity Reaction Status Date / Time haloperidol [From Haldol] AdvReac Seizure Verified 07/28/17 14:18 Review of Systems Constitutional: Denies: fever, chills, weakness, weight change Eyes: Denies: eye pain, vision change Ears, Nose, Throat: Denies: ear pain, throat pain, dental pain, hearing loss, congestion Cardiovascular: Denies: chest pain, palpitations, dyspnea on exertion Respiratory: Denies: cough, dyspnea, wheezes Gastrointestinal: Denies: abdominal pain, nausea, vomiting, diarrhea, constipation Genitourinary male: Denies: urgency, dysuria, frequency, genital lesions Musculoskeletal: Denies: joint swelling, joint pain Integumentary: Denies: rash, lesions, pruritus Neurological: Denies: headache, weakness, numbness, memory loss Psychiatric: Reports: depression, anxiety, suicidal ideation Endocrine: Denies: fatigue, heat or cold intolerance Hematologic/Lymphatic: Denies: easy bruising, lymphadenopathy Allergic/Immunologic: Denies: urticaria, itchy eyes Exam - HEENT Head exam IM: Present: atraumatic Eye exam IM: Present: EOMI, normal appearance, PERRL ENT exam IM: Present: normal exam - Neurological Neurological exam: Present: CN II-XII intact - Respiratory Respiratory exam IM: Present: CTAB - GI/Abdominal GI/Abdominal exam IM: Present: normal bowel sounds, soft. Absent: tenderness - Extremities Extremities exam IM: Present: full ROM - Skin Skin exam IM: Present: dry, warm - Constitutional General appearance: age & developmentally appropriate, well-groomed, well- nourished - Musculoskeletal Gait: normal Station: relaxed Strength & Tone: normal for patient - Psychiatric Patient Orientation: Yes Person, Yes Time, Yes Place Level of alertness: Alert Behavior: calm, cooperative, withdrawn Psychomotor activity: Normal Eye Contact: Maintains Eye Contact Mood Description: Euthymic/stable, Depressed Affect description: congruent with mood, full range Speech Volume: Normal Speech pattern: normal rate, normal rhythm, normal tone, fluent, spontaneous Language & Vocabulary: consistent with education Thought Process: Linear, Goal Oriented Thought Content: Yes Suicidal ideation, No Homicidal ideation, No Overt delusions Perceptual Disturbances: No Auditory hallucinations, No Visual hallucinations Attention Span Ability: Capable of Focused Attention Memory Description: Grossly Intact Patient Reliability: Reliable Historian Fund of knowledge: Yes abstraction ability, Yes average, Yes aware of current events Intelligence Estimate: Average Judgment: Limited Insight: Partial Assessment and Plan (1) Delirium tremens Current visit: No Status: Acute Plan: Admit inpatient for safety and stabilization, Close observation, Suicide Precautions per unit protocol, Encourage participation in unit milieu, Group Therapy, Monitor sleep, Monitor appetite Risks, benefits, side effects, alternatives discussed w/pt: Yes Patient agreeable to treatment: Yes Plans for Post Hospital Care: Home (2) Alcohol dependence Current visit: No Status: Acute Plan: Admit inpatient for safety and stabilization, Close observation, Suicide Precautions per unit protocol, Encourage participation in unit milieu, Group Therapy, Monitor sleep, Monitor appetite Risks, benefits, side effects, alternatives discussed w/pt: Yes Patient agreeable to treatment: Yes Plans for Post Hospital Care: Home Qualifiers: Substance use status: alcohol-induced mood disorder Qualified Code(s): F10.24 - Alcohol dependence with alcohol-induced mood disorder (3) Depression Current visit: No Status: Acute Plan: Admit inpatient for safety and stabilization, Close observation, Suicide Precautions per unit protocol, Encourage participation in unit milieu, Group Therapy, Monitor sleep, Monitor appetite Risks, benefits, side effects, alternatives discussed w/pt: Yes Patient agreeable to treatment: Yes Plans for Post Hospital Care: Home Qualifiers: Depression Type: major depressive disorder Active/Remission status: currently active Psychotic features: without psychotic features Qualified Code(s): F32.2 - Major depressive disorder, single episode, severe without psychotic features
[2017-09-05] MEDS ORDERED: traZODone 50 MG TABLET PO PRN (20:30)
[2017-09-05] MEDS ORDERED: Acetaminophen 325 MG TABLET PO PRN (20:30)
[2017-09-05] MEDS ORDERED: *HR* LORazepam 1 MG TABLET PO PRN (20:30)
[2017-09-05] MEDS ORDERED: hydrOXYzine pamoate 25 MG CAPSULE PO PRN (20:30)
[2017-09-05] MEDS ORDERED: MOM Conc 10 ML UD.LIQ PO PRN (20:30)
[2017-09-05] MEDS ORDERED: Mag Hydrox/Al Hydrox/Simeth 30 ML UDC PO PRN (20:30)
[2017-09-05] MEDS ORDERED: *HR* LORazepam 2 MG/ML VIAL IM PRN (20:30)
[2017-09-05] MEDS ORDERED: Mirtazapine 15 MG TABLET PO SCH (21:00)
[2017-09-05] MEDS: Furosemide 40 MG TABLET PO SCH (21:50)
[2017-09-05] MEDS: *HR* HYDROcodone/Acet 5/325 mg TABLET PO PRN (22:36)
[2017-09-06] MEDS ORDERED: Thiamine (B-1) 100 MG TABLET PO SCH (09:00)
[2017-09-06] MEDS ORDERED: Folic Acid 1 MG TABLET PO SCH (09:00)
[2017-09-06] MEDS ORDERED: Vitamin B Complex/Vit C/Vit E 1 EACH TABLET PO SCH (09:00)
[2017-09-06] MEDS: Furosemide 40 MG TABLET PO SCH (09:12)
[2017-09-06] MEDS ORDERED: Ondansetron Oral Soln 2 MG/2.5 ML ORAL.SYG PO PRN (12:00)
[2017-09-06] MEDS: *HR* HYDROcodone/Acet 5/325 mg TABLET PO PRN ×2 (12:54→19:03)
[2017-09-06] MEDS: Baclofen 10 MG TABLET PO PRN ×2 (12:55→19:03)
[2017-09-06] MEDS: Ondansetron ODT 4 MG TAB.RAPDIS SL PRN ×2 (12:55→19:03)
--- NOTE | 2017-09-06 15:48 | Psychiatry Progress Note ---
Date of Encounter: 09/06/17 Time of Encounter: 15:15 Subjective Interval history: Mr. Wallace is a 56 yo,, male, marriedx4 x4, with 3 children, who presents for Alcohol use D/O severe, Depression and Passive suicidal ideations. During the interview, pt was very polite. Pt noted that he feels "better today." Pt denied any thoughts to harm himself. Pt denied any side effects to current medications. Pt noted he felt safe and comfortable on the unit. Pt is agreed to continue sertraline 50 mg po QAM for mood and mirtazapine 7.5 mg po QHS for mood/insomina Pt was educated on the risks benefits and side effects of current medications including no medications. Pt noted he continues to improve. Pt noted that he is doing alright today. Pt noted he slept okay last night. Pt noted his appetite is better. Pt rated his depression a 5, on a scale of zero to ten with ten being the worst and zero being none. Pt rate his anxiety a 2-4 it fluctuates, on the same scale. Pt denied any auditory or visiual hallucinations. Pt denied any current thoughts to harm himself or anyone else. Tobacco: 1/2 PPD Alcohol: at least 6, 24 oz beers per day. Street: Denied however was positive for benzodiazepines Caffeine: 2-3 drinks per day Pt denies any hx of HIV, TBI or Seizures. Pt noted he is Hep C positive. Pt noted has a hx of seizures when he tried to stop drinking alcohol 1.Interval hx 2.Continue current medications 3.Review current labs 4.Pt had an opportunity to ask questions and discuss current treatment plan. 5.Supportive therapy was provided 6.Pt encouraged to consider group or individual therapy 7.Pt was in agreement with treatment plan. 8.Pt was educated on the risks benefits and side effects of current medications. 9. Continue sertraline 50 mg PO QAM for mood and mirtazapine 7.5 mg PO QHS for insomina. 10. Consult medicine for appropriate titration of bloodpressure medications. 11. Coordinate for D/C planning. Review of Systems Constitutional: Denies: fever, chills, weakness, weight change Eyes: Denies: eye pain, vision change Ears, Nose, Throat: Denies: ear pain, throat pain, dental pain, hearing loss, congestion Cardiovascular: Denies: chest pain, palpitations, dyspnea on exertion Respiratory: Denies: cough, dyspnea, wheezes Gastrointestinal: Denies: abdominal pain, nausea, vomiting, diarrhea, constipation Musculoskeletal: Denies: joint swelling, joint pain Neurological: Denies: headache, weakness, numbness, memory loss Psychiatric: Reports: depression, anxiety, suicidal ideation Results - Vital Signs Vital Signs: Temp Pulse Resp BP Pulse Ox 98.2 F 83 16 84/52 97 09/06/17 13:58 09/06/17 13:58 09/06/17 13:58 09/06/17 13:58 09/06/17 13:58 Assessment and Plan (1) Delirium tremens Current visit: No Status: Acute Plan: Continue hospitalization, Close observation, Suicide Precautions per unit protocol, Encourage participation in unit milieu, Group Therapy, Monitor sleep, Monitor appetite Risks, benefits, side effects, alternatives discussed w/pt: Yes Patient agreeable to treatment: Yes (2) Alcohol dependence Current visit: No Status: Acute Plan: Continue hospitalization, Close observation, Suicide Precautions per unit protocol, Encourage participation in unit milieu, Group Therapy, Monitor sleep, Monitor appetite Risks, benefits, side effects, alternatives discussed w/pt: Yes Patient agreeable to treatment: Yes Qualifiers: Substance use status: alcohol-induced mood disorder Qualified Code(s): F10.24 - Alcohol dependence with alcohol-induced mood disorder (3) Depression Current visit: No Status: Acute Plan: Continue hospitalization, Close observation, Suicide Precautions per unit protocol, Encourage participation in unit milieu, Group Therapy, Monitor sleep, Monitor appetite Risks, benefits, side effects, alternatives discussed w/pt: Yes Patient agreeable to treatment: Yes Qualifiers: Depression Type: major depressive disorder Active/Remission status: currently active Psychotic features: without psychotic features Qualified Code(s): F32.2 - Major depressive disorder, single episode, severe without psychotic features Consult Discharge Plan - Plan Referrals: NONE,PCP [Primary Care Provider] - Psychiatry Exam - Constitutional Vitals: Temp Pulse Resp BP Pulse Ox 98.2 F 83 16 84/52 97 09/06/17 13:58 09/06/17 13:58 09/06/17 13:58 09/06/17 13:58 09/06/17 13:58 General appearance: age & developmentally appropriate, well-groomed, well- nourished - Musculoskeletal Gait: normal Station: relaxed Strength & Tone: normal for patient - Psychiatric Patient Orientation: Yes Person, Yes Time, Yes Place Level of alertness: Alert Behavior: calm, cooperative Psychomotor activity: Normal Eye Contact: Maintains Eye Contact Mood Description: Euthymic/stable, Depressed Affect description: congruent with mood, flat Speech Volume: Normal Speech pattern: normal rate, normal rhythm, normal tone, fluent, spontaneous Language & Vocabulary: consistent with education Thought Process: Linear, Goal Oriented Thought Content: No Suicidal ideation, No Homicidal ideation, No Overt delusions Perceptual Disturbances: No Auditory hallucinations, No Visual hallucinations Attention Span Ability: Capable of Focused Attention Memory Description: Grossly Intact Patient Reliability: Reliable Historian Fund of knowledge: Yes abstraction ability, Yes aware of current events Intelligence Estimate: Average Judgment: Limited Insight: Partial
--- NOTE | 2017-09-06 20:39 | Event Note ---
Date of Encounter: 09/06/17 Time of Encounter: 20:00 Hospital consult was requested for hypotension. Pt was examined bedside and was found tachycardia. EKG shows A Fib RVR with HR 121. Will transfer pt to medical unit. Full note please see hospitalist H&P.
[2017-09-06 21:28] VITALS: BP 99/55
--- NOTE | 2017-09-07 18:23 | Electrocardiograph Report ---
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
== END 2017-09-06 21:59 | disposition still patient (30) | DRG 751 ==
LOC: 1ANU 16:31
PROVIDERS: ADMIT General Practice; ATTEND General Practice

== ENCOUNTER 2017-09-06 20:42 | Inpatient (IN) ==
[2017-09-06] MEDS ORDERED: Naloxone 0.4 MG/ML INJ IVP PRN (21:31)
[2017-09-06] MEDS ORDERED: Amiodarone Premix 360 MG/200 ML BAG IVC ONE (21:34)
[2017-09-06] MEDS ORDERED: Amiodarone Premix 150 MG/100 ML BAG IVPB ONE (21:34)
[2017-09-06] MEDS ORDERED: *HR* LORazepam 2 MG/ML VIAL IVP PRN ×3 (21:36)
--- NOTE | 2017-09-06 21:49 | Internal Med History&Physical ---
Date of Encounter: 09/06/17 Time of Encounter: 20:00 Internal Medicine - H&P: HPI Chief complaint: Hypotension Admitted From: Intrahospital Transfer Plans for Post Hospital Care: Home History of present illness: Mr. Wallace is a 56 year old male admitted to psych unit for alcohol dependent and depression. Patient will transfer to medical unit for A. fib RVR. Past medical history is significant for A. fib, hypertension, cirrhosis, alcoholism, systolic CHF with LVEF 30-40%. Patient was admitted for psych unit for alcohol dependent. Patient was found blood pressure low to 80s this afternoon and medical consult was called. I saw patient in psych unit. Patient said he has hypertension with sometimes BP is high to 170s. Patient denies dizziness, chest pain, shortness of breath, nausea , or palpitation. On physical exam, he was found the tachycardia with the irregular heartbeat. EKG shows A. fib RVR with ventricular rate 123. Considering patient has hypotension as well, will transfer patient to [facility] for amiodarone drip. Past Med Surg Social Fam HX - Past Medical History Medical history: atrial fibrillation, cirrhosis, CHF, GERD, hepatitis, hypertension, liver disease, myocardial infarction, other Additional medical history: ETOH dependency Psychiatric history: depression, previous psychiatric hospitalization - Past Surgical History Surgical History: cataract Additional surgical history: 2 CRUSHED DISKS BACK 2014? RIGHT BROKEN SHOULDER 2014? - Social History Smoking Status: Current every day smoker Smokeless Tobacco Status: No Alcohol use: heavy, recent Drug use: none - Family History Mother Hx Family Cardiac Disorders: Yes Father Hx Family Cardiac Disorders: Yes Sister Hx Family Cardiac Disorders: Yes (Pacemaker placed) Internal Medicine - H&P: Meds Folic Acid 1 mg PO DAILY #30 tablet 08/16/17 [Rx] Furosemide [Lasix] 40 mg PO BIDDIURETIC #60 tablet 08/16/17 [Rx] Lactulose 20 gm PO TID 30 Days #90 udc 08/16/17 [Rx] Metoprolol [Lopressor] 75 mg PO BID #60 tablet 08/16/17 [Rx] Rifaximin [Xifaxan] 400 mg PO BID #60 tablet 08/16/17 [Rx] Spironolactone [Aldactone] 100 mg PO DAILY #30 tablet 08/16/17 [Rx] Thiamine (B-1) [Vitamin B-1] 100 mg PO DAILY #30 tablet 08/16/17 [Rx] 3 Allergy/AdvReac Type Severity Reaction Status Date / Time haloperidol [From Haldol] AdvReac Seizure Verified 09/06/17 07:04 All Systems PM: A 10-system review of systems was performed and is negative for pertinent findings except as documented above in the HPI. - Constitutional General appearance: Present: A&O X 3, no acute distress, answers questions appropriately - Head Head exam: Present: atraumatic, normocephalic - Eye Eye exam: Present: PERRL, conjuntiva pink, sclera anicteric Pupils: Present: PERRL - Neck Neck exam general surgery: Present: supple, trachea midline. Absent: lymphadenopathy - Respiratory Respiratory exam: Present: CTAB. Absent: accessory muscle use, rales, rhonchi, wheezes - Cardiovascular Cardiovascular exam: Present: irregular rhythm, +S1, +S2, tachycardia. Absent: diastolic murmur, gallop, rubs, systolic murmur - GI/Abdominal GI/Abdominal exam: Present: normal bowel sounds, soft, no peritoneal signs. Absent: distended, tenderness - Extremities Exam Extremities exam: Present: warm, radial pulses palpable and symmetrical. Absent : calf tenderness, cyanotic, pedal edema - Neurological Exam Neurological exam: Present: CN II-XII intact, oriented X3, no focal deficits. Absent: pronater drift, facial droop, speech deficit - Skin Skin exam: Present: dry, intact - Assessment and plan (1) Hypotension Status: Acute Assessment and plan: Patient has low blood pressure this afternoon. Further exam shows A. fib RVR. Hypotension is possibly due to A. fib RVR. - We will hold diuretics and beta mahogany at this point. - Last BP 99/55, considering patient has systolic CHF, no IV fluid at this point. - Plan for amiodarone drip for A. fib RVR. - Transfer patient to [facility] for close monitoring. Qualifiers: Hypotension type: unspecified hypotension type Qualified Code(s): I95.9 - Hypotension, unspecified (2) Alcohol dependence Status: Acute Assessment and plan: Place patient on CIWA protocol Qualifiers: Substance use status: alcohol-induced mood disorder Qualified Code(s): F10.24 - Alcohol dependence with alcohol-induced mood disorder (3) Atrial fibrillation with RVR Status: Acute Assessment and plan: Patient has history of paroxysmal A. fib. EKG shows A. fib RVR. Patient is on aspirin but not on anticoagulation at home due to fall and alcoholism. - Start Amiodarone drip and closely monitor patient. (4) Cirrhosis of liver Status: Acute Assessment and plan: Continue Rifaxamin for hepatic encephalopathy prevention. Hold the diuretics because of hypotension at this point Qualifiers: Hepatic cirrhosis type: unspecified hepatic cirrhosis Ascites presence: unspecified Qualified Code(s): K74.60 - Unspecified cirrhosis of liver (5) DVT prophylaxis Status: Acute Assessment and plan: EPCDs (6) Paroxysmal A-fib Status: Acute Assessment and plan: Management as above (7) Tobacco dependence Status: Chronic Assessment and plan: Place patient on nicotine patch (8) CHF (congestive heart failure) Status: Resolved Assessment and plan: Appears euvolemic at this point. Temporarily hold diuretics because of hypotension. Closely monitor fluid status, may restart diuretics if hypotension has improved. Qualifiers: Heart failure type: systolic Heart failure chronicity: chronic Qualified Code(s): I50.22 - Chronic systolic (congestive) heart failure - Time Spent With Patient Total time spent is greater than 50% in coordination of care (as documented) at patient's floor/unit and/or counseling patient: 40 minutes Greater than 35 minutes
[2017-09-06] MEDS: *HR* HYDROcodone/Acet 10/325 mg TABLET PO PRN (23:54)
[2017-09-07] MEDS: *HR* HYDROcodone/Acet 10/325 mg TABLET PO PRN ×4 (03:57→21:20)
[2017-09-07 03:58] LABS: Eosinophils % 0.1 %
[2017-09-07 04:00] LABS: Basophils % 0.4 %; Hematocrit 37.4 % (37.5-50.1); Hemoglobin 11.2 g/dL (12.9-16.9); Immature Granulocytes % 0.2 % (0-4); Immature Platelets 12.8 % (1.1-6.1); Lymphocytes # 1.8 K/mcL (0.6-4.6); Lymphocytes % 22.5 %; Mean Corpuscular HGB Conc 29.9 g/dL (31.6-35.5); Mean Corpuscular Hemoglobin 23.9 pg (28.0-33.3); Mean Corpuscular Volume 79.7 fL (83.0-100.0); Mean Platelet Volume 11.4 fL (9.4-12.4); Monocytes % 12.4 %; Neutrophils # 5.2 K/mcL (1.6-8.9); Red Blood Count 4.69 M/mcL (4.19-5.50); Red Cell Distribution Width 17.9 % (11.5-14.5); Segmented Neutrophils % 64.4 %
[2017-09-07 04:01] LABS: Platelet Count 70 K/mcL (140-400)
[2017-09-07 04:04] LABS: INR 1.4; Prothrombin Time 14.9 Seconds (9.4-12.1)
[2017-09-07 04:13] LABS: BUN/Creatinine Ratio 13 (6-26); Blood Urea Nitrogen 13 mg/dL (6-20); Calcium 8.1 mg/dL (8.6-10.3); Carbon Dioxide 24 mEq/L (23-29); Chloride 101 mEq/L (98-107); Glucose 116 mg/dL (70-105); Magnesium 0.9 mg/dL (1.6-2.6); Osmolality,Calculated 275 (280-300); Potassium 3.2 mEq/L (3.5-5.1); Sodium 132 mEq/L (136-145); eGFR For African Americans > 60 (> 60); eGFR For Non-African Americans > 60 (> 60)
[2017-09-07] MEDS: Thiamine (B-1) 100 MG TABLET PO SCH (07:52)
[2017-09-07] MEDS: Folic Acid 1 MG TABLET PO SCH (07:52)
[2017-09-07] MEDS: Amiodarone Premix 360 MG/200 ML BAG IVC SCH ×2 (07:53→21:18)
[2017-09-07] MEDS: Nicotine 21 MG PATCH.TD24 TD SCH (07:54)
[2017-09-07] MEDS ORDERED: Potassium Phosphate 44 MEQ in 0.9 % Sodium Chloride 250 ML IVPB PRN (14:28)
--- NOTE | 2017-09-07 14:38 | Internal Med Progress Note ---
Date of Encounter: 09/07/17 Time of Encounter: 14:36 - Assessment and plan (1) Atrial fibrillation with RVR Current Visit: No Status: Acute Assessment and plan: Patient is still in A. fib with RVR heart rate 120s. Patient has history of paroxysmal A. fib and has been on beta mahogany. Amiodarone drip was started to control heart rate as blood pressure was low and beta mahogany was put on hold. Recently echocardiogram done in July 2017 with EF 25-30%. 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 Patient is on aspirin but not on anticoagulation at home due to fall and alcoholism. Patient also has electrolyte imbalance and low potassium and low magnesium therefore will follow ICU protocol. Replacement and close monitoring (2) CHF (congestive heart failure) Current Visit: No Status: Resolved Assessment and plan: Does not appear volume overloaded. EF 25-30% based on echo done in July 2017. Diuretic on temporary hold due to low blood pressure. Further medical management as per cardiology advice. Qualifiers: Heart failure type: systolic Heart failure chronicity: chronic Qualified Code(s): I50.22 - Chronic systolic (congestive) heart failure (3) Alcohol dependence Current Visit: No Status: Acute Assessment and plan: Place patient on CIWA protocol. Continue folic acid and thiamine replacement. Patient not on active alcohol withdrawal Qualifiers: Substance use status: alcohol-induced mood disorder Qualified Code(s): F10.24 - Alcohol dependence with alcohol-induced mood disorder (4) Cirrhosis of liver Current Visit: No Status: Acute Assessment and plan: History of hepatitis C. Intermittent paracentesis. Patient is not sure about seeing GI specialist on outpatient basis. Continue Rifaxamin for hepatic encephalopathy prevention. Continue lactulose with titration. Continue spironolactone. Low-salt diet. Is stable at this time but will consider GI consultation if needed Qualifiers: Hepatic cirrhosis type: unspecified hepatic cirrhosis Ascites presence: unspecified Qualified Code(s): K74.60 - Unspecified cirrhosis of liver (5) Hypotension Current Visit: No Status: Acute Assessment and plan: Patient is still has low blood pressure therefore antihypertensive medicine on hold. Continue amiodarone for rate control. Close monitoring of blood pressure. Qualifiers: Hypotension type: unspecified hypotension type Qualified Code(s): I95.9 - Hypotension, unspecified (6) Tobacco dependence Current Visit: No Status: Chronic Assessment and plan: Continue nicotine patch (7) DVT prophylaxis Current Visit: No Status: Acute Assessment and plan: EPCDs - Time Spent With Patient Total time spent is greater than 50% in coordination of care (as documented) at patient's floor/unit and/or counseling patient: 25 - 35 minutes - Subjective Interval history: Complain of feeling tired as could not sleep all night due to lot of disturbance in the floor by medical staff. KIZZY drawn drip in continuation heart rate in 120s blood pressure 90 x 61. Patient denies fever chills nausea vomiting headache dizziness chest pain shortness of breath abdominal pain urinary complaint - Constitutional Vitals: Temp Pulse Resp BP Pulse Ox 98.2 F 113 18 96/71 92 09/07/17 11:00 09/07/17 14:14 09/07/17 12:00 09/07/17 14:14 09/07/17 12:00 General appearance: Present: A&O X 3, no acute distress, answers questions appropriately Exam: General appearance: No acute distress, A&O X 3, flushed face Head exam: Atraumatic Eye exam: EOMI, PERRLA ENT exam: Moist oral mucosa Neck nontender, supple Respiratory exam: Clear to auscultation bilaterally Cardiovascular exam: Regular rate and rhythm, no systolic murmur Abdominal exam: Soft, nontender, nondistended, positive bowel sounds, obese Extremities exam: No calf tenderness, no pedal edema Present: No flapping tremors Skin- warm, dry, intact Neurological exam: Alert, awake, oriented 3, CN II-XII intact, no focal deficits. No facial droop. Normal speech. Internal Medicine: Result - Labs CBC & Chem 7: 09/07/17 03:30 09/07/17 03:30 Labs: Short CBC 09/07/17 Range/Units 03:30 WBC 8.0 (4.3-11.1) K/mcL Hgb 11.2 L (12.9-16.9) g/dL Hct 37.4 L (37.5-50.1) % Plt Count 70 L (140-400) K/mcL Neutrophils # 5.2 (1.6-8.9) K/mcL BMP 09/07/17 03:30 Sodium 132 L Potassium 3.2 L Chloride 101 Carbon Dioxide 24 BUN 13 Creatinine 0.97 Glucose 116 H Calcium 8.1 L - ABG Interpretation ABG results: PT/INR, D-dimer PT 14.9 Seconds (9.4-12.1) H 09/07/17 03:30 - VTE Documentation of Mechanical Device: Intermittent pneumatic compression device Consult Discharge Plan - Plan Referrals: Jerman Stewart MD [Partnered Physician] - 09/18/17 3:45 pm (please fill out the new patient packet and take with you to your appointment. Take picture ID, Insuranced Card, a list of all medications including over the counter with you to your appointment. Please arrive 30minutes early for your appointment. If you are not able to make this appointment please call [phone] and cancel within 24 hours of your appointment. If you do not show up or cancel this appointment we will no longer be able to provide you a doctors appointment Per the call center.)
[2017-09-07] MEDS: Lactulose Oral Soln 20 GM/30 ML UDC PO SCH ×4 (15:16→19:35)
[2017-09-07 15:32] LABS: Magnesium 1.3 mg/dL (1.6-2.6); Phosphorous 3.4 mg/dL (2.7-4.5)
--- NOTE | 2017-09-07 16:01 | Cardiology Consult Note ---
Date of Encounter: 09/07/17 Time of Encounter: 15:57 Assessment and Plan (1) Atrial fibrillation with RVR Current Visit: No Status: Acute Persistent atrial fibrillation with RVR in the setting of relative hypotension, alcoholism, and multiple comorbidities. Given patient's current condition and medical issues, it will be very difficult to control his heart rate. Titration of medications such as beta blockers or calcium channel blockers. After this point, patient has been placed on amiodarone, which is not ideal given his pre-existing liver disease. Recommend load digoxin tonight, transition to oral digoxin tomorrow. Stop amiodarone after digoxin loaded. If blood pressure tolerates, consider low-dose beta mahogany if becomes necessary. Recommend aspirin. Patient is not an ideal candidate for anticoagulation due to falls, cirrhosis. Discussion w patient/family: The assessment and plan as outlined above was discussed with the patient and/or family members who expressed understanding and agreement. All questions were answered. Thank you for involving us in the care of your patient. Please call with any questions. History of Present Illness Consult date: 09/07/17 Requesting physician: Sandhya Dale Consult reason: AF with RVR Chief complaint: No cardiac complaints History of present illness: Mr. Wallace is a 56 year old male with a history of alcoholism, hepatitis C, cirrhosis. Cardiac issues include a severe cardiomyopathy and persistent atrial fibrillation with RVR. Consultation requested due to persistent tachycardia. Patient previously seen by cardiology and placed on amiodarone. Patient not a good candidate for anticoagulation due to alcoholism, cirrhosis, follow history. Patient currently denies any cardiac complaints. He denies palpitations, chest discomfort. TTE limited 07/29/2017: LVEF 30-35%. Pericardial effusion noted, not well evaluated. Past Med Surg Social Fam HX - Past Medical History Medical history: atrial fibrillation, cirrhosis, CHF, GERD, hepatitis, hypertension, liver disease, myocardial infarction, other Additional medical history: ETOH dependency Psychiatric history: depression, previous psychiatric hospitalization - Past Surgical History Surgical History: cataract Additional surgical history: 2 CRUSHED DISKS BACK 2014? RIGHT BROKEN SHOULDER 2014? - Social History Smoking Status: Current every day smoker Smokeless Tobacco Status: No Alcohol use: heavy, recent Drug use: none - Family History Mother Hx Family Cardiac Disorders: Yes Father Hx Family Cardiac Disorders: Yes Sister Hx Family Cardiac Disorders: Yes (Pacemaker placed) Medications and Allergies Folic Acid 1 mg PO DAILY #30 tablet 08/16/17 [Rx] Furosemide [Lasix] 40 mg PO BIDDIURETIC #60 tablet 08/16/17 [Rx] Lactulose 20 gm PO TID 30 Days #90 udc 08/16/17 [Rx] Metoprolol [Lopressor] 75 mg PO BID #60 tablet 08/16/17 [Rx] Rifaximin [Xifaxan] 400 mg PO BID #60 tablet 08/16/17 [Rx] Spironolactone [Aldactone] 100 mg PO DAILY #30 tablet 08/16/17 [Rx] Thiamine (B-1) [Vitamin B-1] 100 mg PO DAILY #30 tablet 08/16/17 [Rx] Omeprazole [PriLOSEC] 20 mg PO DAILY PRN 09/06/17 [History] 3 Allergy/AdvReac Type Severity Reaction Status Date / Time haloperidol [From Haldol] AdvReac Swelling Verified 09/06/17 23:38 of Lip/Tongue/Throat All Systems Review: The remainder of the systems were reviewed and are negative - Constitutional Constitutional: frequent falls, weakness - Cardiovascular Cardiovascular: as per HPI Physical Examination Vital Signs, Last 4 Hours Pulse Resp BP Pulse Ox 09/07/17 15:27 122 102/91 93 09/07/17 14:14 113 96/71 09/07/17 12:44 121 138/96 09/07/17 12:00 123 18 87/49 92 General: Conversant, No Apparent Distress, Other (Disheveled.) HEENT: Atraumatic, Normocephaly, Mucus Membranes Moist, Other (Poor dentition.) Neck: No JVD, Normal carotid pulses Cardiac: Other (Irregular rate and rhythm, tachycardic.) Lungs: Other (Shallow, poor effort.) Neuro: Alert and responsive, No focal deficits noted Abdomen: Soft, Other (Obese, abdominal distention noted. No tenderness.) Skin: No rashes noted on visualized skin Musculoskeletal: No Chest Wall Tenderness Extremities: No Clubbing, No Cyanosis, No Edema Results 09/07/17 03:30 09/07/17 03:30 Lab Results 09/07/17 09/07/17 09/07/17 03:30 03:30 03:30 WBC 8.0 Hgb 11.2 L Hct 37.4 L Plt Count 70 L INR 1.4 Sodium 132 L Potassium 3.2 L Chloride 101 Carbon Dioxide 24 BUN 13 Creatinine 0.97 Glucose 116 H Calcium 8.1 L Magnesium 0.9 L TSH 09/07/17 09/07/17 03:30 14:46 WBC Hgb Hct Plt Count INR Sodium Potassium Chloride Carbon Dioxide BUN Creatinine Glucose Calcium Magnesium 1.3 L TSH 4.398 - Imaging and Cardiology Echo: report reviewed - EKG Interpretation EKG results cardiology: personally reviewed Consult Discharge Plan - Plan Referrals: [facility] [Outside] - 09/13/17 10:30 am (The above appointment is with Jennifer Aguilar, counselor at [facility]. Your first appointment will be very thorough and the total appointment time will take between two and three hours. You will be completing paperwork, meeting with a counselor and a nurse, and developing a treatment plan. You will receive follow- up appointments for on-going services , which could include community support, mental health and substance abuse counseling, groups/partial hospitalization programming, medication assisted treatment, and psychiatric medication management. Please bring the following with you to your first visit to the clinic: 1) proof of household income (two consecutive pay stubs, social security award letter, bank statement, statement letter from [facility], child support statement, IRS 1040 or W2 form, or a statement from the person who financially supports you stating they help provide for your basic needs), 2) proof of residency (drivers license, a piece of mail showing your address, a statement from person you live with verifying you live at their address), 3) your social security card, 4) photo ID, and 5) your insurance card (if you have commercial insurance you must call to obtain a prior authorization number before you arrive to your first appointment). If you do not bring these items, you will not be seen. ) Jerman Stewart MD [Partnered Physician] - 09/18/17 3:45 pm (please fill out the new patient packet and take with you to your appointment. Take picture ID, Insuranced Card, a list of all medications including over the counter with you to your appointment. Please arrive 30minutes early for your appointment. If you are not able to make this appointment please call [phone] and cancel within 24 hours of your appointment. If you do not show up or cancel this appointment we will no longer be able to provide you a doctors appointment Per the call center.) Paz Bass [Advanced Practice Nurse] - 10/10/17 11:00 am (The above appointment is with Paz Bass CNP, at [facility]. This appointment is to establish you with a primary care provider. Your needs for medication and/or Vivitrol will be assessed and treated as indicated as well. Please arrive 15 minutes early to complete paperwork. Please bring your insurance card, photo ID and list of current medications to your first appointment. The above appointment(s) reflects first availability. You may contact the office regularly to check for cancellations that may allow you to be seen sooner.)
[2017-09-07 16:04] LABS: Alanine Aminotransferase 13 Units/L (7-52); Albumin 2.5 g/dL (3.5-5.7); Albumin/Globulin Ratio 0.6 (1.1-2.2); Alkaline Phosphatase 117 Units/L (34-104); Aspartate Amino Transferase 29 Units/L (13-39); BUN/Creatinine Ratio 12 (6-26); Bilirubin,Total 0.8 mg/dL (0.3-1.0); Blood Urea Nitrogen 10 mg/dL (6-20); Carbon Dioxide 25 mEq/L (23-29); Chloride 98 mEq/L (98-107); Globulin 4.1 g/dL (2.4-3.5); Glucose 113 mg/dL (70-105); Osmolality,Calculated 268 (280-300); Potassium 2.9 mEq/L (3.5-5.1); Sodium 129 mEq/L (136-145); Total Protein 6.6 g/dL (6.4-8.9); eGFR For African Americans > 60 (> 60); eGFR For Non-African Americans > 60 (> 60)
[2017-09-07] MEDS ORDERED: *HR* Digoxin 0.5 MG/2 ML AMPUL IVP ONE ×2 (16:07→23:20)
[2017-09-07 16:25] LABS: VBG Ionized Calcium 1.06 mmol/L (1.15-1.35)
--- NOTE | 2017-09-07 19:16 | Consult Note ---
Date of Encounter: 09/07/17 Time of Encounter: 17:00 Assessment & Recommendation (1) Alcohol dependence Current visit: No Status: Acute Qualifiers: Substance use status: alcohol-induced mood disorder Qualified Code(s): F10.24 - Alcohol dependence with alcohol-induced mood disorder (2) Alcohol use disorder, severe, dependence Current visit: No Status: Acute (3) Depression Current visit: No Status: Acute Qualifiers: Depression Type: major depressive disorder Active/Remission status: currently active Psychotic features: without psychotic features Qualified Code(s): F32.2 - Major depressive disorder, single episode, severe without psychotic features History of Present Illness Patient: known to practice within the last 3 years Requesting Physician: Jesenia Lawton MD Reason for consult: depression History of present illness: Mr. Wallace is a 56 yo,, male, marriedx4 x4, with 3 children, who presents for Alcohol use D/O severe, Depression and Passive suicidal ideations. During the interview, pt was very polite. Pt noted that he feels "better today." Pt denied any thoughts to harm himself. Pt denied any side effects to current medications. Pt noted he felt safe and comfortable on the unit. Pt is agreed to continue sertraline 50 mg po QAM for mood and mirtazapine 7.5 mg po QHS for mood/insomina Pt was educated on the risks benefits and side effects of current medications including no medications. Pt noted he continues to improve. Pt noted that he is doing alright today....I my heart just isnt cooperating. Pt noted he slept okay last night. Pt noted his appetite is better. Pt rated his depression a 2, on a scale of zero to ten with ten being the worst and zero being none. Pt rate his anxiety a 2, on the same scale. Pt denied any auditory or visiual hallucinations. Pt denied any current thoughts to harm himself or anyone else. Patient noted a significant reeducation in his depression and anxiety during his stay on 1A. Pt noted that he slowly improved to the point that he was comfortable and safe for discharge home. Pt noted he felt his medications were working well and denied any current side effects. Treatment team encouraged Pt to stay out of bed and try to find activities to do, verbalized understanding. pt reported that he felt safe on the unit and comfortable for discharge to home. Pt Denied suicidal/homicidal ideations, denied any problems or concerns with medications or side effects. PT voiced progression towards treatment goals and was offered a copy of updated treatment plan completed during visit today. Denied any immediate needs or concerns. Pt throughout his stay on in psych pt felt like his medications were working and felt comfortable being discharged on these medications. Pt was advised to take all medications as prescribed, follow up with all scheduled appointments and abstain from any alcohol or illicit substances. Pt was in agreement. Pt felt safe and comfortable to be discharged to his home and to follow up with out mental health. Pt was very optimistic about his D/C. Pt felt safe and comfortable for D/C. Tobacco: 1/2 PPD Alcohol: at least 6, 24 oz [address] per [address]: Denied however was positive for benzodiazepines Caffeine: 2-3 drinks per day Pt denies any hx of HIV, TBI or Seizures. Pt noted he is Hep C positive. Pt noted has a hx of seizures when he tried to stop drinking alcohol 1.Interval hx 2.Continue current medications 3.Review current labs 4.Pt had an opportunity to ask questions and discuss current treatment plan. 5.Supportive therapy was provided 6.Pt encouraged to consider group or individual therapy 7.Pt was in agreement with treatment plan. 8.Pt was educated on the risks benefits and side effects of current medications. 9. Continue sertraline 50 mg PO QAM for mood and mirtazapine 7.5 mg PO QHS for insomina. 10. Pt cleared psychiatrically for discharge once medically stable. CC: Jesenia Lawton MD Past Med Surg Social Fam HX - Past Medical History Medical history: atrial fibrillation, cirrhosis, CHF, GERD, hepatitis, hypertension, liver disease, myocardial infarction, other - Past Psychiatric History Psychiatric history: Reports: anxiety, depression, previous psychiatric hospitalization Family psychiatric history: Yes Family History of Suicide: None - Past Surgical History Surgical History: cataract - Social History Smoking Status: Current every day smoker Smokeless Tobacco Status: No Alcohol use: heavy, recent Drug use: none - Family History Mother Hx Family Cardiac Disorders: Yes Father Hx Family Cardiac Disorders: Yes Sister Hx Family Cardiac Disorders: Yes (Pacemaker placed) Medications & Allergies Folic Acid 1 mg PO DAILY #30 tablet 08/16/17 [Rx] Furosemide [Lasix] 40 mg PO BIDDIURETIC #60 tablet 08/16/17 [Rx] Lactulose 20 gm PO TID 30 Days #90 udc 08/16/17 [Rx] Metoprolol [Lopressor] 75 mg PO BID #60 tablet 08/16/17 [Rx] Rifaximin [Xifaxan] 400 mg PO BID #60 tablet 08/16/17 [Rx] Spironolactone [Aldactone] 100 mg PO DAILY #30 tablet 08/16/17 [Rx] Thiamine (B-1) [Vitamin B-1] 100 mg PO DAILY #30 tablet 08/16/17 [Rx] Omeprazole [PriLOSEC] 20 mg PO DAILY PRN 09/06/17 [History] 3 Allergy/AdvReac Type Severity Reaction Status Date / Time haloperidol [From Haldol] AdvReac Swelling Verified 09/06/17 23:38 of Lip/Tongue/Throat Review of Systems Constitutional: Denies: fever, chills, weakness, weight change Eyes: Denies: eye pain, vision change Ears, Nose, Throat: Denies: ear pain, throat pain, dental pain, hearing loss, congestion Cardiovascular: Denies: chest pain, palpitations, dyspnea on exertion Respiratory: Denies: cough, dyspnea, wheezes Gastrointestinal: Denies: abdominal pain, nausea, vomiting, diarrhea, constipation Genitourinary male: Denies: urgency, dysuria, frequency, genital lesions Musculoskeletal: Denies: joint swelling, joint pain Integumentary: Denies: rash, lesions, pruritus Neurological: Denies: headache, weakness, numbness, memory loss Psychiatric: Reports: depression Endocrine: Denies: fatigue, heat or cold intolerance Hematologic/Lymphatic: Denies: easy bruising, lymphadenopathy Allergic/Immunologic: Denies: urticaria, itchy eyes Psychiatry Exam - Constitutional Vitals: Temp Pulse Resp BP Pulse Ox 98.3 F 122 18 109/65 94 09/07/17 16:11 09/07/17 18:32 09/07/17 16:11 09/07/17 18:32 09/07/17 16:11 General appearance: age & developmentally appropriate, well-groomed, well- nourished - Musculoskeletal Gait: normal Station: relaxed Strength & Tone: normal for patient - Psychiatric Patient Orientation: Yes Person, Yes Time, Yes Place Level of alertness: Alert Behavior: calm, cooperative Psychomotor activity: Normal Eye Contact: Maintains Eye Contact Mood Description: Euthymic/stable Affect description: congruent with mood, full range Speech Volume: Normal Speech pattern: normal rate, normal rhythm, normal tone, fluent, spontaneous Language & Vocabulary: consistent with education Thought Process: Linear, Goal Oriented Thought Content: No Suicidal ideation, No Homicidal ideation, No Overt delusions Perceptual Disturbances: No Auditory hallucinations, No Visual hallucinations Attention Span Ability: Capable of Focused Attention Memory Description: Grossly Intact Patient Reliability: Reliable Historian Fund of knowledge: Yes abstraction ability, Yes aware of current events Intelligence Estimate: Average Judgment: Limited Insight: Partial Results - Labs Labs: Laboratory Last Values WBC 8.0 K/mcL (4.3-11.1) 09/07/17 03:30 RBC 4.69 M/mcL (4.19-5.50) 09/07/17 03:30 Hgb 11.2 g/dL (12.9-16.9) L 09/07/17 03:30 Hct 37.4 % (37.5-50.1) L 09/07/17 03:30 MCV 79.7 fL (83.0-100.0) L 09/07/17 03:30 MCH 23.9 pg (28.0-33.3) L 09/07/17 03:30 MCHC 29.9 g/dL (31.6-35.5) L 09/07/17 03:30 RDW 17.9 % (11.5-14.5) H 09/07/17 03:30 Plt Count 70 K/mcL (140-400) L 09/07/17 03:30 MPV 11.4 fL (9.4-12.4) 09/07/17 03:30 Immature Gran % 0.2 % (0-4) 09/07/17 03:30 Seg Neutrophils % 64.4 % 09/07/17 03:30 Lymphocytes % 22.5 % 09/07/17 03:30 Monocytes % 12.4 % 09/07/17 03:30 Eosinophils % 0.1 % 09/07/17 03:30 Basophils % 0.4 % 09/07/17 03:30 Neutrophils # 5.2 K/mcL (1.6-8.9) 09/07/17 03:30 Lymphocytes # 1.8 K/mcL (0.6-4.6) 09/07/17 03:30 Monocytes # 1.0 K/mcL (0.0-1.3) 09/07/17 03:30 Eosinophils # 0.0 K/mcL (0.0-0.6) 09/07/17 03:30 Basophils # 0.0 K/mcL (0.0-0.2) 09/07/17 03:30 Immature Plt Fraction 12.8 % (1.1-6.1) H 09/07/17 03:30 PT 14.9 Seconds (9.4-12.1) H 09/07/17 03:30 INR 1.4 09/07/17 03:30 Sodium 129 mEq/L (136-145) L 09/07/17 14:46 Potassium 2.9 mEq/L (3.5-5.1) L 09/07/17 14:46 Chloride 98 mEq/L (98-107) 09/07/17 14:46 Carbon Dioxide 25 mEq/L (23-29) 09/07/17 14:46 BUN 10 mg/dL (6-20) 09/07/17 14:46 Creatinine 0.82 mg/dL (0.70-1.30) 09/07/17 14:46 Est GFR ( Amer) > 60 (> 60) 09/07/17 14:46 Est GFR (Non-Af Amer) > 60 (> 60) 09/07/17 14:46 BUN/Creatinine Ratio 12 (6-26) 09/07/17 14:46 Glucose 113 mg/dL (70-105) H 09/07/17 14:46 POC Glucose 106 mg/dL (70-99) H 09/07/17 11:46 Calculated Osmolality 268 (280-300) L 09/07/17 14:46 Calcium 8.0 mg/dL (8.6-10.3) L 09/07/17 14:46 Venous Ioniz Calcium 1.06 mmol/L (1.15-1.35) L 09/07/17 16:17 Phosphorus 3.4 mg/dL (2.7-4.5) 09/07/17 14:46 Magnesium 1.3 mg/dL (1.6-2.6) L 09/07/17 14:46 Total Bilirubin 0.8 mg/dL (0.3-1.0) 09/07/17 14:46 AST 29 Units/L (13-39) 09/07/17 14:46 ALT 13 Units/L (7-52) 09/07/17 14:46 Alkaline Phosphatase 117 Units/L (34-104) H 09/07/17 14:46 Serum Total Protein 6.6 g/dL (6.4-8.9) 09/07/17 14:46 Albumin 2.5 g/dL (3.5-5.7) L 09/07/17 14:46 Globulin 4.1 g/dL (2.4-3.5) H 09/07/17 14:46 Albumin/Globulin Ratio 0.6 (1.1-2.2) L 09/07/17 14:46 TSH 4.398 mcIU/mL (0.340-5.600) 09/07/17 03:30 Specimen Rejected Container 09/07/17 14:46 Consult Discharge Plan - Plan Additional Instructions: -Continue sertraline 50 mg PO QAM for mood and mirtazapine 7.5 mg PO QHS for insomina. -Pt cleared psychiatrically for discharge once medically stable. Referrals: [facility] [Outside] - 09/13/17 10:30 am (The above appointment is with Jennifer Aguilar, counselor at [facility]. Your first appointment will be very thorough and the total appointment time will take between two and three hours. You will be completing paperwork, meeting with a counselor and a nurse, and developing a treatment plan. You will receive follow- up appointments for on-going services , which could include community support, mental health and substance abuse counseling, groups/partial hospitalization programming, medication assisted treatment, and psychiatric medication management. Please bring the following with you to your first visit to the clinic: 1) proof of household income (two consecutive pay stubs, social security award letter, bank statement, statement letter from [facility], child support statement, IRS 1040 or W2 form, or a statement from the person who financially supports you stating they help provide for your basic needs), 2) proof of residency (drivers license, a piece of mail showing your address, a statement from person you live with verifying you live at their address), 3) your social security card, 4) photo ID, and 5) your insurance card (if you have commercial insurance you must call to obtain a prior authorization number before you arrive to your first appointment). If you do not bring these items, you will not be seen. ) Jerman Stewart MD [Partnered Physician] - 09/18/17 3:45 pm (please fill out the new patient packet and take with you to your appointment. Take picture ID, Insuranced Card, a list of all medications including over the counter with you to your appointment. Please arrive 30minutes early for your appointment. If you are not able to make this appointment please call [phone] and cancel within 24 hours of your appointment. If you do not show up or cancel this appointment we will no longer be able to provide you a doctors appointment Per the call center.) Paz Bass [Advanced Practice Nurse] - 10/10/17 11:00 am (The above appointment is with Paz Bass CNP, at Primary [facility]. This appointment is to establish you with a primary care provider. Your needs for medication and/or Vivitrol will be assessed and treated as indicated as well. Please arrive 15 minutes early to complete paperwork. Please bring your insurance card, photo ID and list of current medications to your first appointment. The above appointment(s) reflects first availability. You may contact the office regularly to check for cancellations that may allow you to be seen sooner.)
[2017-09-07 23:19] LABS: VBG Ionized Calcium 1.01 mmol/L (1.15-1.35)
[2017-09-07 23:41] LABS: Magnesium 1.6 mg/dL (1.6-2.6); Potassium 3.6 mEq/L (3.5-5.1)
[2017-09-08] MEDS: *HR* HYDROcodone/Acet 10/325 mg TABLET PO PRN ×3 (01:59→22:12)
[2017-09-08] MEDS ORDERED: *HR* Digoxin 0.5 MG/2 ML AMPUL IVP ONE ×2 (05:20→05:30)
[2017-09-08 06:55] LABS: VBG Ionized Calcium 0.99 mmol/L (1.15-1.35)
[2017-09-08 07:11] LABS: BUN/Creatinine Ratio 13 (6-26); Blood Urea Nitrogen 7 mg/dL (6-20); Calcium 8.4 mg/dL (8.6-10.3); Carbon Dioxide 22 mEq/L (23-29); Chloride 103 mEq/L (98-107); Glucose 100 mg/dL (70-105); Osmolality,Calculated 272 (280-300); Potassium 3.4 mEq/L (3.5-5.1); Sodium 132 mEq/L (136-145); eGFR For African Americans > 60 (> 60); eGFR For Non-African Americans > 60 (> 60)
[2017-09-08 08:15] LABS: Magnesium 1.9 mg/dL (1.6-2.6)
[2017-09-08] MEDS: Amiodarone Premix 360 MG/200 ML BAG IVC SCH ×2 (08:45→20:55)
[2017-09-08] MEDS: Lactulose Oral Soln 20 GM/30 ML UDC PO SCH ×4 (08:46→20:55)
[2017-09-08] MEDS: Nicotine 21 MG PATCH.TD24 TD SCH (08:46)
[2017-09-08] MEDS: Thiamine (B-1) 100 MG TABLET PO SCH ×2 (08:46→08:47)
[2017-09-08] MEDS: Folic Acid 1 MG TABLET PO SCH ×2 (08:46→08:47)
--- NOTE | 2017-09-08 11:05 | Cardiology Progress Note ---
Date of Encounter: 09/08/17 Time of Encounter: 11:03 Assessment and Plan (1) Atrial fibrillation with RVR Current Visit: No Status: Acute Persistent atrial fibrillation with RVR in the setting of relative hypotension, alcoholism, and multiple comorbidities. Given patient's current condition and medical issues, it will be very difficult to control his heart rate. Patient previously placed on amiodarone. Currently on amiodarone IV. Digoxin load last night, we will start digoxin orally today. Blood pressure improved. We will start low-dose beta mahogany. Monitor blood pressure closely. Given patient's multiple comorbidities, his prognosis appears poor. Discussion w patient/family: The assessment and plan as outlined above was discussed with the patient and/or family members who expressed understanding and agreement. All questions were answered. Thank you for involving us in the care of your patient. Please call with any questions. Subjective Principal diagnosis: AF Interval history: Overall, HR seemed a little better controlled last night - 110s. This AM, HR 120s-130s sitting up at bedside eating breakfast. No complaints of chest pain or palpitations. Objective Vital Signs, Last 4 Hours Temp Pulse Resp BP Pulse Ox 09/08/17 09:03 97 09/08/17 07:19 98.0 F 111 18 109/88 97 General: Other (Disheveled, no acute distress.) HEENT: Atraumatic, Normocephaly, Mucus Membranes Moist, Other (Poor dentition.) Neck: No JVD, Normal carotid pulses Cardiac: Other (Irregular rate and rhythm, tachycardic. No obvious murmurs.) Lungs: Other (Shallow, but clear.) Neuro: Alert and responsive, No focal deficits noted Abdomen: Soft, Non-Tender, Other (Obese, history of cirrhosis.) Skin: No rashes noted on visualized skin Musculoskeletal: No Chest Wall Tenderness Extremities: No Clubbing, No Cyanosis, Normal Pulses Results 09/07/17 03:30 09/08/17 06:40 Lab Results 09/07/17 09/07/17 09/08/17 14:46 23:00 06:40 Sodium 129 L 132 L Potassium 2.9 L 3.6 3.4 L Chloride 98 103 Carbon Dioxide 25 22 L BUN 10 7 Creatinine 0.82 0.53 L Glucose 113 H 100 Calcium 8.0 L 8.4 L Magnesium 1.3 L 1.6 1.9 Total Bilirubin 0.8 AST 29 ALT 13 Alkaline Phosphatase 117 H - Imaging and Cardiology Echo: report reviewed - VTE Documentation of Mechanical Device: Intermittent pneumatic compression device Consult Discharge Plan - Plan Additional Instructions: -Continue sertraline 50 mg PO QAM for mood and mirtazapine 7.5 mg PO QHS for insomina. -Pt cleared psychiatrically for discharge once medically stable. Referrals: [facility] [Outside] - 09/13/17 10:30 am (The above appointment is with Jennifer Aguilar, counselor at [facility]. Your first appointment will be very thorough and the total appointment time will take between two and three hours. You will be completing paperwork, meeting with a counselor and a nurse, and developing a treatment plan. You will receive follow- up appointments for on-going services , which could include community support, mental health and substance abuse counseling, groups/partial hospitalization programming, medication assisted treatment, and psychiatric medication management. Please bring the following with you to your first visit to the clinic: 1) proof of household income (two consecutive pay stubs, social security award letter, bank statement, statement letter from [facility], child support statement, IRS 1040 or W2 form, or a statement from the person who financially supports you stating they help provide for your basic needs), 2) proof of residency (drivers license, a piece of mail showing your address, a statement from person you live with verifying you live at their address), 3) your social security card, 4) photo ID, and 5) your insurance card (if you have commercial insurance you must call to obtain a prior authorization number before you arrive to your first appointment). If you do not bring these items, you will not be seen. ) Jerman Stewart MD [Partnered Physician] - 09/18/17 3:45 pm (please fill out the new patient packet and take with you to your appointment. Take picture ID, Insuranced Card, a list of all medications including over the counter with you to your appointment. Please arrive 30minutes early for your appointment. If you are not able to make this appointment please call [phone] and cancel within 24 hours of your appointment. If you do not show up or cancel this appointment we will no longer be able to provide you a doctors appointment Per the call center.) Paz Bass [Advanced Practice Nurse] - 10/10/17 11:00 am (The above appointment is with Paz Bass CNP, at Primary [facility] within [facility]. This appointment is to establish you with a primary care provider. Your needs for medication and/or Vivitrol will be assessed and treated as indicated as well. Please arrive 15 minutes early to complete paperwork. Please bring your insurance card, photo ID and list of current medications to your first appointment. The above appointment(s) reflects first availability. You may contact the office regularly to check for cancellations that may allow you to be seen sooner.)
[2017-09-08] MEDS: Metoprolol XL (24 HR) Succ 25 MG TAB.ER.24H PO SCH (11:27)
[2017-09-08] MEDS: *HR* Digoxin 0.125 MG TABLET PO SCH (11:27)
[2017-09-08] MEDS ORDERED: Potassium Chloride 20 MEQ, Lidocaine 1% 2 ML in D5% in Water 250 ML IVPB ONE (14:00)
--- NOTE | 2017-09-08 14:05 | Internal Med Progress Note ---
Date of Encounter: 09/08/17 Time of Encounter: 14:01 - Assessment and plan (1) Atrial fibrillation with RVR Current Visit: No Status: Acute Assessment and plan: Patient is still in A. fib with RVR heart rate 110s. Patient has history of paroxysmal A. fib and has been on beta mahogany. Amiodarone drip was started to control heart rate . Consulted assistant district attorney who is started digoxin and added beta mahogany low-dose. Overall patient has poor prognosis due to multiple comorbidities. Recently echocardiogram done in July 2017 with EF 25-30%. 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 Patient is on aspirin but not on anticoagulation at home due to fall and alcoholism. Patient also has electrolyte imbalance and low potassium and low calcium therefore will replace and monitor and monitor (2) CHF (congestive heart failure) Current Visit: No Status: Resolved Assessment and plan: Does not appear volume overloaded. EF 25-30% based on echo done in July 2017. Diuretic on temporary hold due to low blood pressure. Further medical management as per cardiology advice. Qualifiers: Heart failure type: systolic Heart failure chronicity: chronic Qualified Code(s): I50.22 - Chronic systolic (congestive) heart failure (3) Alcohol dependence Current Visit: No Status: Acute Assessment and plan: Place patient on CIWA protocol. Continue folic acid and thiamine replacement. Patient not on active alcohol withdrawal Qualifiers: Substance use status: alcohol-induced mood disorder Qualified Code(s): F10.24 - Alcohol dependence with alcohol-induced mood disorder (4) Cirrhosis of liver Current Visit: No Status: Acute Assessment and plan: History of hepatitis C. Intermittent paracentesis. Patient is not sure about seeing GI specialist on outpatient basis. Continue Rifaxamin for hepatic encephalopathy prevention. Continue lactulose with titration. Continue spironolactone. Low-salt diet. Is stable at this time but will consider GI consultation if needed Qualifiers: Hepatic cirrhosis type: unspecified hepatic cirrhosis Ascites presence: unspecified Qualified Code(s): K74.60 - Unspecified cirrhosis of liver (5) Hypotension Current Visit: No Status: Acute Assessment and plan: Improving blood pressure but is still low normal. Close monitoring Qualifiers: Hypotension type: unspecified hypotension type Qualified Code(s): I95.9 - Hypotension, unspecified (6) Tobacco dependence Current Visit: No Status: Chronic Assessment and plan: Continue nicotine patch (7) DVT prophylaxis Current Visit: No Status: Acute Assessment and plan: EPCDs - Time Spent With Patient Total time spent is greater than 50% in coordination of care (as documented) at patient's floor/unit and/or counseling patient: 25 - 35 minutes - Subjective Interval history: Complain of feeling tired otherwise no other complaint. Remainder on drip in continuation. Patient denies fever chills nausea vomiting headache dizziness chest pain shortness of breath abdominal pain urinary complaint - Constitutional Vitals: Temp Pulse Resp BP Pulse Ox 98.0 F 113 18 109/88 97 09/08/17 07:19 09/08/17 11:31 09/08/17 07:19 09/08/17 07:19 09/08/17 07:19 General appearance: Present: A&O X 3, no acute distress, answers questions appropriately Exam: General appearance: No acute distress, A&O X 3 Head exam: Atraumatic Eye exam: EOMI, PERRLA ENT exam: Moist oral mucosa Neck nontender, supple Respiratory exam: Clear to auscultation bilaterally Cardiovascular exam: Tachycardic done Abdominal exam: Soft, nontender, nondistended, positive bowel sounds Extremities exam: No calf tenderness, no pedal edema Present: Skin- warm, dry, intact Neurological exam: Alert, awake, oriented 3, CN II-XII intact, no focal deficits. No facial droop. Normal speech. Normal gait. Internal Medicine: Result - Labs CBC & Chem 7: 09/07/17 03:30 09/08/17 06:40 Labs: BMP 09/07/17 09/07/17 09/08/17 14:46 23:00 06:40 Sodium 129 L 132 L Potassium 2.9 L 3.6 3.4 L Chloride 98 103 Carbon Dioxide 25 22 L BUN 10 7 Creatinine 0.82 0.53 L Glucose 113 H 100 Calcium 8.0 L 8.4 L Liver Function 09/07/17 Range/Units 14:46 Total Bilirubin 0.8 (0.3-1.0) mg/dL AST 29 (13-39) Units/L ALT 13 (7-52) Units/L Alkaline Phosphatase 117 H (34-104) Units/L Albumin 2.5 L (3.5-5.7) g/dL - ABG Interpretation ABG results: PT/INR, D-dimer PT 14.9 Seconds (9.4-12.1) H 09/07/17 03:30 - VTE Documentation of Mechanical Device: Intermittent pneumatic compression device Consult Discharge Plan - Plan Additional Instructions: -Continue sertraline 50 mg PO QAM for mood and mirtazapine 7.5 mg PO QHS for insomina. -Pt cleared psychiatrically for discharge once medically stable. Referrals: [facility] [Outside] - 09/13/17 10:30 am (The above appointment is with Jennifer Aguilar, counselor at [facility]. Your first appointment will be very thorough and the total appointment time will take between two and three hours. You will be completing paperwork, meeting with a counselor and a nurse, and developing a treatment plan. You will receive follow- up appointments for on-going services , which could include community support, mental health and substance abuse counseling, groups/partial hospitalization programming, medication assisted treatment, and psychiatric medication management. Please bring the following with you to your first visit to the clinic: 1) proof of household income (two consecutive pay stubs, social security award letter, bank statement, statement letter from [facility], child support statement, IRS 1040 or W2 form, or a statement from the person who financially supports you stating they help provide for your basic needs), 2) proof of residency (drivers license, a piece of mail showing your address, a statement from person you live with verifying you live at their address), 3) your social security card, 4) photo ID, and 5) your insurance card (if you have commercial insurance you must call to obtain a prior authorization number before you arrive to your first appointment). If you do not bring these items, you will not be seen. ) Jerman Stewart MD [Partnered Physician] - 09/18/17 3:45 pm (please fill out the new patient packet and take with you to your appointment. Take picture ID, Insuranced Card, a list of all medications including over the counter with you to your appointment. Please arrive 30minutes early for your appointment. If you are not able to make this appointment please call [phone] and cancel within 24 hours of your appointment. If you do not show up or cancel this appointment we will no longer be able to provide you a doctors appointment Per the call center.) Paz Bass [Advanced Practice Nurse] - 10/10/17 11:00 am (The above appointment is with Paz Bass CNP, at Primary Care within [facility]. This appointment is to establish you with a primary care provider. Your needs for medication and/or Vivitrol will be assessed and treated as indicated as well. Please arrive 15 minutes early to complete paperwork. Please bring your insurance card, photo ID and list of current medications to your first appointment. The above appointment(s) reflects first availability. You may contact the office regularly to check for cancellations that may allow you to be seen sooner.)
[2017-09-08 21:22] LABS: VBG Ionized Calcium 1.18 mmol/L (1.15-1.35)
[2017-09-08 21:44] LABS: Potassium 4.5 mEq/L (3.5-5.1)
[2017-09-09] MEDS: *HR* HYDROcodone/Acet 10/325 mg TABLET PO PRN ×3 (02:12→10:31)
[2017-09-09 03:16] LABS: Basophils % 0.6 %; Eosinophils % 0.3 %; Hematocrit 38.8 % (37.5-50.1); Hemoglobin 11.4 g/dL (12.9-16.9); Immature Granulocytes % 0.3 % (0-4); Immature Platelets 12.8 % (1.1-6.1); Lymphocytes # 1.9 K/mcL (0.6-4.6); Lymphocytes % 29.7 %; Mean Corpuscular HGB Conc 29.4 g/dL (31.6-35.5); Mean Corpuscular Hemoglobin 24.3 pg (28.0-33.3); Mean Corpuscular Volume 82.6 fL (83.0-100.0); Mean Platelet Volume 10.6 fL (9.4-12.4); Monocytes # 0.9 K/mcL (0.0-1.3); Monocytes % 14.9 %; Neutrophils # 3.4 K/mcL (1.6-8.9); Platelet Count 105 K/mcL (140-400); Red Cell Distribution Width 17.7 % (11.5-14.5); Segmented Neutrophils % 54.2 %
[2017-09-09 04:21] LABS: BUN/Creatinine Ratio 9 (6-26); Blood Urea Nitrogen 6 mg/dL (6-20); Calcium 8.8 mg/dL (8.6-10.3); Carbon Dioxide 28 mEq/L (23-29); Chloride 101 mEq/L (98-107); Glucose 89 mg/dL (70-105); Magnesium 1.8 mg/dL (1.6-2.6); Osmolality,Calculated 273 (280-300); Phosphorous 2.6 mg/dL (2.7-4.5); Potassium 3.9 mEq/L (3.5-5.1); Sodium 133 mEq/L (136-145); eGFR For African Americans > 60 (> 60); eGFR For Non-African Americans > 60 (> 60)
[2017-09-09] MEDS: Folic Acid 1 MG TABLET PO SCH (08:14)
[2017-09-09] MEDS: Metoprolol XL (24 HR) Succ 25 MG TAB.ER.24H PO SCH (08:14)
[2017-09-09] MEDS: Thiamine (B-1) 100 MG TABLET PO SCH (08:14)
[2017-09-09] MEDS: *HR* Digoxin 0.125 MG TABLET PO SCH (08:14)
[2017-09-09] MEDS: Lactulose Oral Soln 20 GM/30 ML UDC PO SCH (08:14)
[2017-09-09] MEDS: Nicotine 21 MG PATCH.TD24 TD SCH (08:15)
[2017-09-09 09:20] LABS: Phosphorous 3.1 mg/dL (2.7-4.5); Potassium 4.6 mEq/L (3.5-5.1)
[2017-09-09] MEDS ORDERED: *HR* Amiodarone 200 MG TABLET PO SCH (09:45)
[2017-09-09 11:43] VITALS: BP 97/67
--- NOTE | 2017-09-09 11:51 | Cardiology Progress Note ---
Date of Encounter: 09/09/17 Time of Encounter: 11:48 Assessment and Plan (1) Atrial fibrillation with RVR Current Visit: No Status: Acute Chronic atrial fibrillation in the setting of alcoholism, cirrhosis, and multiple comorbidities. Previously, heart rate was not well controlled, but appears to be much improved on current therapy. Recommend continue digoxin and metoprolol. Although amiodarone is not ideal with his underlying liver issues, it has helped to control his heart rate. We will continue for now, but I would encourage reevaluation in the future. Patient has not a candidate for Coumadin given his alcoholism and fall risk. Thrombocytopenia noted. Consider aspirin therapy if okay. Discussion w patient/family: The assessment and plan as outlined above was discussed with the patient and/or family members who expressed understanding and agreement. All questions were answered. Thank you for involving us in the care of your patient. Please call with any questions. Subjective Principal diagnosis: AF Interval history: Patient seen and examined earlier today. Overall, heart rate appears much better controlled. 80s overnight and this morning. Patient anxious to go home. Objective Vital Signs, Last 4 Hours Pulse BP 09/09/17 11:40 97/67 09/09/17 11:07 77 09/09/17 09:00 89 120/80 09/09/17 08:21 82 09/09/17 08:00 78 97/85 General: Conversant, No Apparent Distress, Other (Disheveled.) HEENT: Atraumatic, Normocephaly, Mucus Membranes Moist Neck: No JVD Cardiac: Other (Irregular rate and rhythm.) Lungs: Other (Shallow, but clear.) Abdomen: Other (Obese, soft.) Skin: No rashes noted on visualized skin Musculoskeletal: No Chest Wall Tenderness Extremities: No Clubbing, No Cyanosis Results 09/09/17 04:00 09/09/17 08:48 Lab Results 09/08/17 09/09/17 09/09/17 21:04 02:24 02:24 WBC Hgb Hct Plt Count Sodium 133 L Potassium 4.5 D 3.9 Chloride 101 Carbon Dioxide 28 BUN 6 Creatinine 0.64 L Glucose 89 Calcium 8.8 Magnesium 2.0 1.8 09/09/17 09/09/17 04:00 08:48 WBC 6.3 Hgb 11.4 L Hct 38.8 Plt Count 105 L Sodium Potassium 4.6 Chloride Carbon Dioxide BUN Creatinine Glucose Calcium Magnesium - Imaging and Cardiology Echo: report reviewed - VTE Documentation of Mechanical Device: Intermittent pneumatic compression device Consult Discharge Plan - Plan Additional Instructions: -Continue sertraline 50 mg PO QAM for mood and mirtazapine 7.5 mg PO QHS for insomina. -Pt cleared psychiatrically for discharge once medically stable. Referrals: [facility] [Outside] - 09/13/17 10:30 am (The above appointment is with Jennifer Aguilar, counselor at [facility]. Your first appointment will be very thorough and the total appointment time will take between two and three hours. You will be completing paperwork, meeting with a counselor and a nurse, and developing a treatment plan. You will receive follow- up appointments for on-going services , which could include community support, mental health and substance abuse counseling, groups/partial hospitalization programming, medication assisted treatment, and psychiatric medication management. Please bring the following with you to your first visit to the clinic: 1) proof of household income (two consecutive pay stubs, social security award letter, bank statement, statement letter from [facility], child support statement, IRS 1040 or W2 form, or a statement from the person who financially supports you stating they help provide for your basic needs), 2) proof of residency (drivers license, a piece of mail showing your address, a statement from person you live with verifying you live at their address), 3) your social security card, 4) photo ID, and 5) your insurance card (if you have commercial insurance you must call to obtain a prior authorization number before you arrive to your first appointment). If you do not bring these items, you will not be seen. ) Jerman Stewart MD [Partnered Physician] - 09/18/17 3:45 pm (please fill out the new patient packet and take with you to your appointment. Take picture ID, Insuranced Card, a list of all medications including over the counter with you to your appointment. Please arrive 30minutes early for your appointment. If you are not able to make this appointment please call [phone] and cancel within 24 hours of your appointment. If you do not show up or cancel this appointment we will no longer be able to provide you a doctors appointment Per the call center.) Paz Bass [Advanced Practice Nurse] - 10/10/17 11:00 am (The above appointment is with Paz Bass CNP, at Primary Care within [facility]. This appointment is to establish you with a primary care provider. Your needs for medication and/or Vivitrol will be assessed and treated as indicated as well. Please arrive 15 minutes early to complete paperwork. Please bring your insurance card, photo ID and list of current medications to your first appointment. The above appointment(s) reflects first availability. You may contact the office regularly to check for cancellations that may allow you to be seen sooner.)
--- NOTE | 2017-09-09 12:11 | Discharge Summary ---
- NOTES TO OUTPATIENT PROVIDER Notes to Outpatient Provider: Follow-up with PCP within one week-final blood culture report to be followed, monitor digoxin toxicity. Follow with conduit bender within 2 weeks. 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 f/u with psych in 2-3 weeks Orders not resulted at time of discharge: Pending orders 09/10/17 04:00 Basic Metabolic Panel DAILY Date of Encounter: 09/09/17 Time of Encounter: 12:07 - Discharge Diagnosis (1) Atrial fibrillation with RVR Priority: Primary Status: Acute Assessment and Plan: Heart rate on amiodarone, beta mahogany and digoxin just advised to discharge patient on amiodarone, digoxin and metoprolol with close monitoring on OPD basis. Overall patient has poor prognosis due to multiple comorbidities. Recently echocardiogram done in July 2017 with EF 25-30%. Engineer First Assistant's consulted for further management. Patient is on aspirin but not on anticoagulation at home due to fall and alcoholism. Patient is poor candidate for any advance anticoagulation therapy due to underlying comorbidities (2) Alcohol dependence Priority: Primary Status: Acute Assessment and Plan: Initially patient was on withdrawal during admission and placed patient on CIWA protocol and he improved. Patient was transferred under care of inpatient psych and there was plan to discharge but patient developed A. fib with RVR therefore got really admitted under acute care team.. Patient is a stable from psych standpoint and they are okay to discharge patient home with outpatient follow-up. Patient refused for any long-term placement and want to go home Qualifiers: Substance use status: alcohol-induced mood disorder Qualified Code(s): F10.24 - Alcohol dependence with alcohol-induced mood disorder Code(s): F10.20 - Alcohol dependence, uncomplicated SNOMED Code(s): 73937689 (3) Cirrhosis of liver Priority: Secondary Status: Acute Assessment and Plan: History of hepatitis C. Intermittent paracentesis. Patient is not sure about seeing GI specialist on outpatient basis. Continue Rifaxamin for hepatic encephalopathy prevention. Continue lactulose with titration. Continue spironolactone. Low-salt diet. Patient was advised to follow GI specialist but patient is least worry about it and he has been noncompliant as well. Patient needs to discuss with PCP Qualifiers: Hepatic cirrhosis type: unspecified hepatic cirrhosis Ascites presence: unspecified Qualified Code(s): K74.60 - Unspecified cirrhosis of liver (4) UTI (urinary tract infection) Priority: Primary Status: Acute Assessment and Plan: Escherichia coli positive. Qualifiers: Urinary tract infection type: site unspecified Hematuria presence: without hematuria Qualified Code(s): N39.0 - Urinary tract infection, site not specified (5) Tobacco dependence Priority: Secondary Status: Chronic Assessment and Plan: smoking cessation education (6) Mood disorder Priority: Secondary Status: Acute Assessment and Plan: inpt psych cleared pt for d/c home and advised to d/c on sertaline and mirtazapine. Hospital course: Mr. Wallace is a 56 year old male patient got admitted for alcohol withdrawal with suicidal ideation and found to have blood culture +1 out of 2 sets for staph epidermidis appears more contamination. Repeat blood culture did not grow any bacteria yet. Patient appear nontoxic. and also urine culture positive for Escherichia coli. Patient improved clinically and got admitted to inpatient psych service and ready to discharge home but developed A. fib with RVR therefore transferred back to acute care team. Engineer First Assistant was consulted and is started on amiodarone drip along with beta mahogany and digoxin with electrolyte correction and patient responded better. At the time of discharge patient is clinically stable with no fever, normal white count with normal heart rate, ambulating and tolerating oral diet. As patient is on amiodarone and digoxin therefore lots of interaction with antibiotic and finally decided to discharge patient on nitrofurantoin 100 mg by mouth twice a day for total 7 days for UTI. Discharge discussed with: patient, nurse - Time Spent with Patient Total time spent providing and/or coordinating discharge services: - Discharge Medications Prescriptions: Amiodarone [Cordarone] 200 mg PO DAILY #30 tablet Digoxin [Lanoxin] 0.125 mg PO DAILY #30 tablet Mirtazapine [Remeron] 7.5 mg PO HS #30 tablet Nitrofurantoin (BID) [Macrobid] 100 mg PO BIDWM #14 capsule Sertraline [Zoloft] 50 mg PO DAILY #30 tablet Home Medications: Folic Acid 1 mg PO DAILY #30 tablet 08/16/17 [Rx] Furosemide [Lasix] 40 mg PO BIDDIURETIC #60 tablet 08/16/17 [Rx] Lactulose 20 gm PO TID 30 Days #90 udc 08/16/17 [Rx] Metoprolol [Lopressor] 75 mg PO BID #60 tablet 08/16/17 [Rx] Rifaximin [Xifaxan] 400 mg PO BID #60 tablet 08/16/17 [Rx] Spironolactone [Aldactone] 100 mg PO DAILY #30 tablet 08/16/17 [Rx] Thiamine (B-1) [Vitamin B-1] 100 mg PO DAILY #30 tablet 08/16/17 [Rx] Omeprazole [PriLOSEC] 20 mg PO DAILY PRN 09/06/17 [History] Amiodarone [Cordarone] 200 mg PO DAILY #30 tablet 09/09/17 [Rx] Digoxin [Lanoxin] 0.125 mg PO DAILY #30 tablet 09/09/17 [Rx] Mirtazapine [Remeron] 7.5 mg PO HS #30 tablet 09/09/17 [Rx] Nitrofurantoin (BID) [Macrobid] 100 mg PO BIDWM #14 capsule 09/09/17 [Rx] Sertraline [Zoloft] 50 mg PO DAILY #30 tablet 09/09/17 [Rx] Allergies/Adverse Reactions: 3 Allergy/AdvReac Type Severity Reaction Status Date / Time haloperidol [From Haldol] AdvReac Swelling Verified 09/06/17 23:38 of Lip/Tongue/Throat Date of admission: 09/06/17 22:24 Primary care physician: PCP NONE Consults: 09/06/17 21:40 Consult to Psychiatry [CONS] Routine Consulting Provider: [facility] [place] Reason consult: Other Other reason and/or additional details: Pt was admitted to psych and medical consult called for hypotension. Pt was found A Fib RVR and was transferred to . Call Completed: Yes 09/07/17 14:38 Consult to Cardiology [CONS] Routine Comment: Consulting Provider: Card[facility] [place] Reason for Consult: A. fib with RVR Call Completed: Yes - Constitutional Vitals: Temp Pulse Resp BP Pulse Ox 97.9 F 77 18 97/67 97 09/09/17 07:01 09/09/17 11:07 09/09/17 07:01 09/09/17 11:40 09/09/17 07:01 General appearance: Present: A&O X 3, no acute distress, answers questions appropriately Exam: General appearance: No acute distress, A&O X 3 Head exam: Atraumatic Eye exam: EOMI, PERRLA ENT exam: Moist oral mucosa Neck nontender, supple Respiratory exam: Clear to auscultation bilaterally Cardiovascular exam: Regular rate and rhythm, no systolic murmur Abdominal exam: Soft, nontender, nondistended, positive bowel sounds Extremities exam: No calf tenderness, no pedal edema Present: Skin-no rash, warm, dry, intact Neurological exam: Alert, awake, oriented 3, CN II-XII intact, no focal deficits. No facial droop. Normal speech. Normal gait. - Patient Status Disposition: Home, Self-Care Condition: Fair Overall status at discharge: patient is progressing back to baseline - Discharge Instructions Instructions: Digoxin (By mouth), Amiodarone (By mouth), Sertraline (By mouth) , Mirtazapine (By mouth), Atrial Fibrillation (DC) Follow Up With: [facility] [Outside] - 09/13/17 10:30 am (The above appointment is with Jennifer Aguilar, counselor at [facility]. Your first appointment will be very thorough and the total appointment time will take between two and three hours. You will be completing paperwork, meeting with a counselor and a nurse, and developing a treatment plan. You will receive follow- up appointments for on-going services , which could include community support, mental health and substance abuse counseling, groups/partial hospitalization programming, medication assisted treatment, and psychiatric medication management. Please bring the following with you to your first visit to the clinic: 1) proof of household income (two consecutive pay stubs, social security award letter, bank statement, statement letter from [facility], child support statement, IRS 1040 or W2 form, or a statement from the person who financially supports you stating they help provide for your basic needs), 2) proof of residency (drivers license, a piece of mail showing your address, a statement from person you live with verifying you live at their address), 3) your social security card, 4) photo ID, and 5) your insurance card (if you have commercial insurance you must call to obtain a prior authorization number before you arrive to your first appointment). If you do not bring these items, you will not be seen. ) Jerman Stewart MD [Partnered Physician] - 09/18/17 3:45 pm (please fill out the new patient packet and take with you to your appointment. Take picture ID, Insuranced Card, a list of all medications including over the counter with you to your appointment. Please arrive 30minutes early for your appointment. If you are not able to make this appointment please call [phone] and cancel within 24 hours of your appointment. If you do not show up or cancel this appointment we will no longer be able to provide you a doctors appointment Per the call center.) Paz Bass [Advanced Practice Nurse] - 10/10/17 11:00 am (The above appointment is with Paz Bass CNP, at Primary Care within [facility]. This appointment is to establish you with a primary care provider. Your needs for medication and/or Vivitrol will be assessed and treated as indicated as well. Please arrive 15 minutes early to complete paperwork. Please bring your insurance card, photo ID and list of current medications to your first appointment. The above appointment(s) reflects first availability. You may contact the office regularly to check for cancellations that may allow you to be seen sooner.) Nadeem Malhotra DO [Partnered Physician] - (Office will call you with an appointment date and time.) Additional Instructions: -Continue sertraline 50 mg PO QAM for mood and mirtazapine 7.5 mg PO QHS for insomina. -Pt cleared psychiatrically for discharge once medically stable. - Diet and Activity Activity: increase activity as tolerated Diet: low fat, low cholesterol, low salt diet - VTE Documentation of Mechanical Device: Intermittent pneumatic compression device
[2017-09-09] MEDS ORDERED: Sulfamethoxazole/Trimeth DS 1 EACH TABLET PO SCH (12:30)
[2017-09-09] MEDS ORDERED: Nitrofurantoin (BID) 100 MG CAPSULE PO SCH (17:00)
[2017-09-09] MEDS ORDERED: Mirtazapine 15 MG TABLET PO SCH (21:00)
== END 2017-09-09 16:08 | disposition home or self-care (01) | DRG 201 ==
LOC: 2NNU 22:24
PROVIDERS: ADMIT Internal Medicine; ATTEND Internal Medicine